=== PATIENT | male | born 1955 | race Caucasian/White ===

== ENCOUNTER 2017-04-25 02:52 | Inpatient (IN) | payer OTHER ==
[2017-04-25] VITALS (15 sets, daily range): BP systolic 94–183; BP diastolic 53–110; PULSE 67–88; RESP 18–20; TEMP 97.8–98.5; O2SAT 93–100
[~2017-04-25] VITALS: Ht 198.1 cm; Wt 126.1 kg
[~2017-04-25 02:52] MED LIST: ATEN1TAB75 PO; CHLO25 PO; MAXZ25 PO; PROT40TA PO; ZOFR4TAB3 PO
[2017-04-25] MEDS ORDERED: PANTOPRAZOLE INJ 80 MG in SODIUM CHLORIDE 0.9% INJ 35 ML IV ONE (03:57)
[2017-04-25] MEDS ORDERED: PANTOPRAZOLE INJ 80 MG in SODIUM CHLORIDE 0.9% INJ 100 ML IV SCH ×2 (03:57→10:30)
[2017-04-25] MEDS ORDERED: OCTREOTIDE INJ 500 MCG in SODIUM CHLORID 0.9% 500 ML INJ 500 ML IV SCH (03:57)
[2017-04-25] MEDS ORDERED: ONDANSETRON HCL 4 MG/2 ML VIAL IVP ONE (04:00)
[2017-04-25] MEDS ORDERED: SODIUM CHLORIDE 0.9% FLUSH 10 ML FLUSH IVF PRN (04:00)
[2017-04-25 04:37] LABS: AUTOMATED NEUTROPHIL # 3.3 TH/MM3 (1.8-7.7); BASOPHIL # 0.1 TH/MM3 (0-0.2); EOSINOPHIL # 0.2 TH/MM3 (0-0.4); EOSINOPHIL % 3.2 % (0.0-4.0); HEMATOCRIT 39.4 % (39.0-51.0); HEMO FLAGS DIFF FINAL; LYMPH % 33.1 % (9.0-44.0); LYMPHOCYTE # 2.1 TH/MM3 (1.0-4.8); MEAN CELL VOLUME 101.6 FL (80.0-100.0); MEAN CORPUSCULAR HEMOGLOBIN 34.9 PG (27.0-34.0); MEAN CORPUSCULAR HGB CONC 34.3 % (32.0-36.0); NEUT % 51.7 % (16.0-70.0); PLATELET COUNT 146 TH/MM3 (150-450); RED BLOOD COUNT 3.88 MIL/MM3 (4.50-5.90); WHITE BLOOD COUNT 6.4 TH/MM3 (4.0-11.0)
[2017-04-25] MEDS ORDERED: ZANT150T2 PO (04:57)
[2017-04-25] MEDS ORDERED: ATEN25TA PO (04:57)
[2017-04-25 04:58] LABS: APTT (PATIENT) 31.3 SEC (24.3-30.1); INTERNATIONAL NORMALIZED RATIO 1.2 RATIO; PROTHROMBIN TIME - PATIENT 13.6 SEC (9.8-11.6)
[2017-04-25 05:03] LABS: ANION GAP 9 MEQ/L (5-15); AST (GOT) 146 U/L (15-37); BICARBONATE 25.1 MEQ/L (21.0-32.0); BLOOD UREA NITROGEN 20 MG/DL (7-18); CHLORIDE 108 MEQ/L (98-107); GLOMERULAR FILTRATION RATE 123 ML/MIN (>89); SODIUM (NA) 142 MEQ/L (136-145)
[2017-04-25 05:06] LABS: ALKALINE PHOSPHATASE 75 U/L (45-117); ALT (GPT) 47 U/L (12-78); TOTAL BILIRUBIN ADULT 1.7 MG/DL (0.2-1.0)
[2017-04-25 05:11] LABS: ALCOHOL 83 MG/DL (0-5)
--- NOTE | 2017-04-25 05:26 | RADRPT ---
EXAM DATE/TIME: 04/25/2017 04:11 [facility] COMPARISON: No previous studies available for comparison. INDICATIONS : Upper abdominal pain and chest pain. Evaluate for free air. MEDICAL HISTORY : None. SURGICAL HISTORY : None. ENCOUNTER: Initial ACUITY: 1 day PAIN SCORE: 4/10 LOCATION: chest FINDINGS: A single view of the chest demonstrates hypoinflation with atelectasis/effusion in the left base. Rig ht lung is clear. Heart size is normal accounting for lung findings. No obvious pneumoperitoneum on t he single image presented. Osseous structures are intact. CONCLUSION: 1. Left basilar consolidation/effusion. 2. No pneumoperitoneum. Tc Fernando MD on April 25, 2017 at 5:23 Board Certified Radiologist. This report was verified electronically.
[2017-04-25] MEDS ORDERED: POTASSIUM CHLOR 40 MEQ PREMIX 100 ML IV PRN ×2 (06:15)
[2017-04-25] MEDS ORDERED: POTASSIUM CHLOR 20 MEQ PREMIX 100 ML IV PRN ×2 (06:15)
[2017-04-25] MEDS ORDERED: MAGNESIUM SULFATE INJ 2 GM in SODIUM CHLORIDE 0.9% INJ 96 ML IV PRN (06:15)
[2017-04-25] MEDS ORDERED: SODIUM PHOSPHATE INJ 30 MMOL in SODIUM CHLOR 0.9% 250 ML INJ 240 ML IV PRN (06:15)
[2017-04-25] MEDS ORDERED: DEXTROSE 50% IN WATER 50 ML VIAL(D50) IV PUSH PRN (06:15)
[2017-04-25] MEDS ORDERED: POTASSIUM PHOSPHATE MONOBASIC 500 MG TAB PO PRN (06:15)
[2017-04-25] MEDS ORDERED: POTASSIUM PHOSPHATE MONOBASIC 500 MG TAB PO/TUBE PRN (06:15)
[2017-04-25] MEDS ORDERED: MAGNESIUM OXIDE 400 MG TAB PO PRN (06:15)
[2017-04-25] MEDS ORDERED: MAGNESIUM SULFATE INJ 4 GM in SODIUM CHLORIDE 0.9% INJ 92 ML IV PRN (06:15)
--- NOTE | 2017-04-25 06:22 | PD ---
HPI Chief Complaint: GI Complaint Time Seen by Provider: 03:57 Travel History International Travel<30 days: No Contact w/Intl Traveler<30days: No Traveled to known affect area: No History of Present Illness HPI Patient is a 61-year-old male, with history of chronic alcoholism, who comes in vomiting blood. He says he started vomiting early this morning. He denies any abdominal pain. He says this happened once before, and he was given some medication in the hospital. He says he has not noticed any blood in his stool. He denies fever or chills. He says he drinks every day and every night. PFSH Past Medical History Cardiovascular Problems: Yes Cerebrovascular Accident: Yes (tia) Diminished Hearing: No Hypertension: Yes Neurologic: Yes Past Surgical History Genitourinary Surgery: Yes (testicle removed) Other Surgery: Yes (pt states 22 lymph nodes removed) Social History Alcohol Use: Yes Tobacco Use: No Substance Use: No Allergies-Medications (Allergen,Severity, Reaction): Coded Allergies: No Known Allergies (Unverified , 05/22/16) Reported Meds & Prescriptions Reported Meds & Active Scripts Active Reported Atenolol 25 Mg Tab 10 Mg PO BID Zantac (Ranitidine HCl) 150 Mg Tab Unknown Dose PO BID Review of Systems Except as stated in HPI: all other systems reviewed are Neg General / Constitutional: No: Fever, Chills HENT: No: Headaches, Lightheadedness Cardiovascular: No: Chest Pain or Discomfort Respiratory: No: Shortness of Breath Gastrointestinal: Positive: Nausea, Vomiting, No: Abdominal Pain Musculoskeletal: No: Myalgias, Edema Skin: No Rash, No Change in Pigmentation Neurologic: No: Weakness, Dizziness Physical Exam Narrative GENERAL: Awake and alert, in no acute distress. SKIN: Focused skin assessment warm/dry. HEAD: Atraumatic. Normocephalic. EYES: Pupils equal and round. No scleral icterus. ENT: Mucous membranes pink and moist. NECK: Trachea midline. No JVD. CARDIOVASCULAR: Regular rate and rhythm. No murmur appreciated. RESPIRATORY: No accessory muscle use. Clear to auscultation. Breath sounds equal bilaterally. GASTROINTESTINAL: Abdomen soft, non-tender, nondistended. MUSCULOSKELETAL: No obvious deformities. No clubbing. No cyanosis. No edema. NEUROLOGICAL: Awake and alert. No obvious cranial nerve deficits. Motor grossly within normal limits. Normal speech. PSYCHIATRIC: Appropriate mood and affect; insight and judgment normal. Data Data Last Documented VS Vital Signs Date Time Temp Pulse Resp B/P (MAP) Pulse Ox O2 Delivery O2 Flow Rate FiO2 04/25/17 04:50 98.1 75 20 183/110 (134) 97 04/25/17 04:47 Nasal Cannula 2.00 Orders Orders Complete Blood Count With Diff (04/25/17 03:57) Comprehensive Metabolic Panel (04/25/17 03:57) Lipase (04/25/17 03:57) Prothrombin Time / Inr (Pt) (04/25/17 03:57) Act Partial Throm Time (Ptt) (04/25/17 03:57) Alcohol (Ethanol) (04/25/17 03:57) Type And Screen (04/25/17 03:57) Chest, Single Ap (04/25/17 03:57) Ecg Monitoring (04/25/17 03:57) Iv Access Insert/Monitor (04/25/17 03:57) Oximetry (04/25/17 03:57) Ondansetron Inj (Zofran Inj) (04/25/17 04:00) Sodium Chloride 0.9% Flush (Ns Flush) (04/25/17 04:00) Sodium Chlorid 0.9%... W/Octreotide Inj (04/25/17 03:57) Sodium Chloride 0.9... W/Pantoprazole In (04/25/17 03:57) Sodium Chloride 0.9... W/Pantoprazole In (04/25/17 03:57) Consult Gastroenterology (04/25/17 ) Consent (04/25/17 06:01) Diet Npo Except Meds (04/25/17 Breakfast) Complete Blood Count With Diff (04/25/17 06:01) Hgb & Hct (04/25/17 06:03) ^ Other Nursing Orders (04/25/17 06:04) Admit Order (Ed Use Only) (04/25/17 ) Ceftriaxone Inj (Rocephin Inj) (04/25/17 06:30) Azithromycin Inj (Zithromax Inj) (04/25/17 06:30) Labs Laboratory Tests Test 04/25/17 04:25 White Blood Count 6.4 TH/MM3 Red Blood Count 3.88 MIL/MM3 Hemoglobin 13.5 GM/DL Hematocrit 39.4 % Mean Corpuscular Volume 101.6 FL Mean Corpuscular Hemoglobin 34.9 PG Mean Corpuscular Hemoglobin Concent 34.3 % Red Cell Distribution Width 15.0 % Platelet Count 146 TH/MM3 Mean Platelet Volume 8.8 FL Neutrophils (%) (Auto) 51.7 % Lymphocytes (%) (Auto) 33.1 % Monocytes (%) (Auto) 11.0 % Eosinophils (%) (Auto) 3.2 % Basophils (%) (Auto) 1.0 % Neutrophils # (Auto) 3.3 TH/MM3 Lymphocytes # (Auto) 2.1 TH/MM3 Monocytes # (Auto) 0.7 TH/MM3 Eosinophils # (Auto) 0.2 TH/MM3 Basophils # (Auto) 0.1 TH/MM3 CBC Comment DIFF FINAL Differential Comment Prothrombin Time 13.6 SEC Prothromb Time International Ratio 1.2 RATIO Activated Partial Thromboplast Time 31.3 SEC Blood Urea Nitrogen 20 MG/DL Creatinine 0.66 MG/DL Random Glucose 90 MG/DL Total Protein 7.5 GM/DL Albumin 2.8 GM/DL Calcium Level 7.9 MG/DL Alkaline Phosphatase 75 U/L Aspartate Amino Transf (AST/SGOT) 146 U/L Alanine Aminotransferase (ALT/SGPT) 47 U/L Total Bilirubin 1.7 MG/DL Sodium Level 142 MEQ/L Potassium Level 4.0 MEQ/L Chloride Level 108 MEQ/L Carbon Dioxide Level 25.1 MEQ/L Anion Gap 9 MEQ/L Estimat Glomerular Filtration Rate 123 ML/MIN Lipase 124 U/L Ethyl Alcohol Level 83 MG/DL MDM Medical Decision Making Medical Screen Exam Complete: Yes Emergency Medical Condition: Yes Differential Diagnosis Bleeding varices versus peptic ulcer disease versus GI bleed Narrative Course Patient is a 61-year-old male comes in complaining of vomiting blood. He is a chronic alcoholic. Labs show no abdominal tenderness, stool is positive for blood. IV established, labs sent. Labs show hemoglobin of 13.5. Patient started on a Protonix drip. Given a dose of octreotide. Given Zofran. He did vomit about 300 ML's of yani blood wall in the emergency department. This happened once with no further vomiting. Chest x-ray performed shows an opacity. There is no free air. Dr. Everett of gastroenterology was consulted. [facility] Internal Pos. & Neg. Controls: Passed Fecal Specimen Occult Blood: Positive Diagnosis Primary Impression: GI bleed Qualified Codes: K92.0 - Hematemesis Additional Impression: Alcoholism Admitting Information Admitting Physician Requests: Admit Condition: Stable Jocelynn Martinez MD Apr 25, 2017 06:22
[2017-04-25] MEDS ORDERED: cefTRIAXone INJ 1,000 MG in SODIUM CHLORIDE 0.9% INJ 100 ML IV ONE (06:30)
[2017-04-25] MEDS ORDERED: AZITHROMYCIN INJ 500 MG in SODIUM CHLOR 0.9% 250 ML INJ 250 ML IV ONE (06:30)
[2017-04-25] MEDS ORDERED: INSULIN NovoLIN REGULAR SUPPLEMENTAL SCALE SQ SCH (08:00)
[2017-04-25] MEDS ORDERED: MIDAZOLAM HCL 5 MG/5 ML VIAL ONE (08:16)
--- NOTE | 2017-04-25 08:58 | PD.CONS ---
HPI History of Present Illness This is a 61 year old male with a history of ETOH abuse (drinking 1 Liter of Vodka daily), who presented to the emergency room for hematemesis. He woke up around 2 am with a gnawing pain in the mid abdominal area without radiation and nausea/vomiting, consisting of a large amount of hematemesis. Since that time, he has had nausea, dry heaving, and 3 episodes of the hematemesis- the last episode just a few minutes ago. There are no aggravating or alleviating factors. He does have GERD, but states that it is well controlled with ranitidine. He denies any melena or hematochezia. He has never been told that he has liver cirrhosis, although he does have an extensive alcohol history. He denies any history of peptic ulcer disease. He denies any history of known liver disease. He did have a similar episode of hematemesis about 2 years ago, although he reports that it was mild and treated with medications. He did recently take Motrin for generalized pain, but states that he does not take this on a regular basis. He has a remote history of Hodgkin's disease and underwent a bronchoscopy with resection of tumor, had his testicle and 22 lymph nodes removed along with radiation. He reports that he has since been in remission. (Sonia Trejo) PFSH Past Medical History DT's ETOH abuse Hodgkin's disease Denies any hx of TIAs HTN Past Surgical History Bronchoscopy with tumor resection, testicle, and 22 lymph nodes resected r/t Hodgkin's disease (Sonia Trejo) Coded Allergies: No Known Allergies (Unverified , 05/22/16) Medications Allergies Coded Allergies Type Severity Reaction Last Updated Verified No Known Allergies 05/22/16 No Active Scripts Medications Dose Route/Sig Max Daily Dose Days Date Category Atenolol 25 Mg Tab 10 Mg PO BID 04/25/17 Reported Zantac (Ranitidine HCl) 150 Mg Tab Unknown Dose PO BID 04/25/17 Reported Family History Denies any family hx of liver disease Social History Drinks 1 liter of Vodka daily No tobacco No illicit drug use (Sonia Trejo) Review of Systems Constitutional: COMPLAINS OF: Fatigue, DENIES: Fever, Chills Respiratory: DENIES: Cough, Shortness of breath Cardiovascular: DENIES: Chest pain Gastrointestinal: COMPLAINS OF: Abdominal pain, Nausea, Vomiting, Heartburn, Hematemesis, DENIES: Black stools, Bloody stools, Constipation, Diarrhea Integumentary: DENIES: Nail changes Hematologic/lymphatic: COMPLAINS OF: Bruising Neurologic: COMPLAINS OF: Headache Psychiatric: DENIES: Confusion (Sonia Trejo MANDI) GI Exam Vitals I&O Vital Signs Date Time Temp Pulse Resp B/P (MAP) Pulse Ox O2 Delivery O2 Flow Rate FiO2 04/25/17 07:50 77 18 155/76 (102) 99 Nasal Cannula 2.00 04/25/17 04:50 98.1 75 20 183/110 (134) 97 04/25/17 04:47 98 Nasal Cannula 2.00 04/25/17 04:47 98 Nasal Cannula 2.00 04/25/17 03:22 71 18 156/97 (116) 93 Room Air Laboratory Test 04/25/17 04:25 White Blood Count 6.4 TH/MM3 Red Blood Count 3.88 MIL/MM3 Hemoglobin 13.5 GM/DL Hematocrit 39.4 % Mean Corpuscular Volume 101.6 FL Mean Corpuscular Hemoglobin 34.9 PG Mean Corpuscular Hemoglobin Concent 34.3 % Red Cell Distribution Width 15.0 % Platelet Count 146 TH/MM3 Mean Platelet Volume 8.8 FL Neutrophils (%) (Auto) 51.7 % Lymphocytes (%) (Auto) 33.1 % Monocytes (%) (Auto) 11.0 % Eosinophils (%) (Auto) 3.2 % Basophils (%) (Auto) 1.0 % Neutrophils # (Auto) 3.3 TH/MM3 Lymphocytes # (Auto) 2.1 TH/MM3 Monocytes # (Auto) 0.7 TH/MM3 Eosinophils # (Auto) 0.2 TH/MM3 Basophils # (Auto) 0.1 TH/MM3 CBC Comment DIFF FINAL Differential Comment Prothrombin Time 13.6 SEC Prothromb Time International Ratio 1.2 RATIO Activated Partial Thromboplast Time 31.3 SEC Blood Urea Nitrogen 20 MG/DL Creatinine 0.66 MG/DL Random Glucose 90 MG/DL Total Protein 7.5 GM/DL Albumin 2.8 GM/DL Calcium Level 7.9 MG/DL Alkaline Phosphatase 75 U/L Aspartate Amino Transf (AST/SGOT) 146 U/L Alanine Aminotransferase (ALT/SGPT) 47 U/L Total Bilirubin 1.7 MG/DL Sodium Level 142 MEQ/L Potassium Level 4.0 MEQ/L Chloride Level 108 MEQ/L Carbon Dioxide Level 25.1 MEQ/L Anion Gap 9 MEQ/L Estimat Glomerular Filtration Rate 123 ML/MIN Lipase 124 U/L Ethyl Alcohol Level 83 MG/DL Physical Examination HEENT: Normocephalic; atraumatic; no jaundice. CHEST: CTA CARDIAC: RRR ABDOMEN: Soft, nondistended, nontender; hepatomegaly; bowel sounds are present in all four quadrants. EXTREMITIES: No clubbing, cyanosis, or edema. SKIN: Normal; no rash; no jaundice. ORNAMENT MAKER HAND: No focal deficits; alert and oriented times three. (Sonia Trejo) Assessment and Plan Plan ASSESSMENT: - Upper GIB, Hematemesis with red emesis x 3 episodes since 2am. Denies hx of PUD/Liver cirrhosis, although he does drink 1L vodka daily. Protonix gtt, Octreotide gtt. NPO. EGD today. - Mid abdominal pain, gnawing constant since the n/v began at 2 am. - Macrocytosis, secondary to etoh. - Elevated LFTs, ETOH abuse. T. Bili 1.7, AST 146, ALT 47, Alk Phosph 75. Pattern consistent with ETOH abuse. - ETOH abuse, DT's. Per attending - HTN, Hx Hodgkin's lymphoma per attending PLAN: - Plan for egd with possible band ligation today - Obtain consents - Protonix gtt - Octreotide gtt - Monitor labs - Transfuse as needed - Further recommendations to follow based on results of above - Pt seen and examined by Dr. Everett and myself and this note is written on her behalf (Sonia Trejo) Physician Comments seen, examined agree with above (Barb Everett MD) Sonia Trejo Apr 25, 2017 08:58 Barb Everett MD Apr 25, 2017 10:43
[2017-04-25 09:00] LABS: AUTOMATED NEUTROPHIL # 3.8 TH/MM3 (1.8-7.7); BASOPHIL % 0.4 % (0.0-2.0); EOSINOPHIL % 0.7 % (0.0-4.0); HEMATOCRIT 36.4 % (39.0-51.0); HEMO FLAGS DIFF FINAL; LYMPH % 17.7 % (9.0-44.0); LYMPHOCYTE # 0.9 TH/MM3 (1.0-4.8); MEAN CELL VOLUME 102.1 FL (80.0-100.0); MEAN CORPUSCULAR HEMOGLOBIN 34.3 PG (27.0-34.0); MEAN CORPUSCULAR HGB CONC 33.6 % (32.0-36.0); MONO % 6.2 % (0.0-8.0); PLATELET COUNT 120 TH/MM3 (150-450); RED BLOOD COUNT 3.57 MIL/MM3 (4.50-5.90); RED CELL DISTRIBUTION WIDTH 15.2 % (11.6-17.2); WHITE BLOOD COUNT 5.1 TH/MM3 (4.0-11.0)
[2017-04-25] MEDS ORDERED: MULTIVITAMIN INJ 10 ML, THIAMINE INJ 100 MG, FOLIC ACID INJ 1 MG in SODIUM CHLOR 0.45% ... IV ONE (09:00)
[2017-04-25] MEDS ORDERED: DEXTROSE 50% IN WATER 50 ML VIAL(D50) IV PRN (09:15)
[2017-04-25] MEDS ORDERED: GLUCAGON 1 MG/ML VIAL OTHER PRN (09:15)
[2017-04-25] MEDS: RESP: ALBUTEROL 2.5 MG/IPRATROPIUM 0.5 MG NEB (SCH) NEB ×3 (10:00→21:16)
[2017-04-25] MEDS ORDERED: hydrALAZINE HCL 20 MG/ML VIAL IV PUSH PRN (10:00)
[2017-04-25] MEDS ORDERED: RESP: ALBUTEROL 2.5 MG/IPRATROPIUM 0.5 MG NEB (PRN) NEB (10:00)
[2017-04-25] MEDS ORDERED: PROPOFOL 200 MG/20 ML AMP IV ONE (10:22)
[2017-04-25] MEDS: PROPOFOL 1000 MG/100 ML IV PRN ×5 (10:40→23:24)
[2017-04-25] MEDS ORDERED: PROPOFOL 1000 MG/100 ML INJ 100 ML ONE (10:40)
[2017-04-25] MEDS ORDERED: DO NOT ADM ANY ANTICOAGULANT DRUGS PRN (10:41)
--- NOTE | 2017-04-25 10:46 | HHI.GIFU ---
GI Follow-up Note Consult Follow-up egd with band ligation done Available Data (labs, X- Rays, Procedues) : ASSESSMENT/PLAN: esophageal varices/p band ligation-3 bands applied hiatal hernia large amount of clots in stomach Recommendations keep intubated overnight Protonix drip octreotide drip monitor hb/hct transfuse prn abdominal us It was a pleasure seeing Anderson Ghotra Thank you for this consult. Entered by: Barb Yao MD Apr 25, 2017 10:46
[2017-04-25 11:18] LABS: BLOOD GAS BASE EXCESS -2.2 mmol/L (-2-2); BLOOD GAS CARBOXYHEMOGLOBIN 1.5 % (0-4); BLOOD GAS HCO3 24 mmol/L (22-26); BLOOD GAS METHEMOGLOBIN 1.4 % (0-2); BLOOD GAS O2 HGB SATURATION 94 % (90-100); BLOOD GAS OXYGEN CONTENT 16.6 Vol % (12.0-20.0); BLOOD GAS PCO2 61 mmHg (38-42); BLOOD GAS PO2 120 mmHg (61-120); BLOOD GAS TOTAL HGB 12.4 G/DL (12.0-16.0); CRITICAL VALUE YES; DRAW SITE RT RADIAL; FIO2 50 %; NUMBER OF ARTERIAL PUNCTURES 1; OXYGEN DEVICE VENTILATOR; STAT NO; TEMP CORR TO 98.6; ULNAR PULSE PRESENT
--- NOTE | 2017-04-25 11:26 | MH ---
cc: GODWIN BENJAMIN M.D. DATE OF ADMISSION 04/25/2017 DATE OF 1955 HISTORY AND PHYSICAL The patient is a 61-year-old male with a past medical history of hypertension, Hodgkin's disease, ETOH abuse who presented to [facility] ED early this morning with hematemesis. The patient woke up around 2 a.m. with mid abdominal pain that is localized and associated with nausea and vomiting. In addition, he had a large amount of hematemesis. The patient denies any alleviating or aggravating factors. In addition, he denies any melena or hematochezia. He denies any use of aspirin or any anticoagulants, however he reports using Motrin intermittently for headaches and his last dose was yesterday. Patient is an active drinker where he drinks one liter of vodka on a daily basis. He has never been told that he has cirrhosis of the liver. In addition, he denies any history of peptic ulcer disease. On arrival to the ER, he was hypertensive with a systolic blood pressure of 150s. LABORATORY DATA His laboratory data shows a hemoglobin of 13.5 and on repeat is 12.2. His CMP showed an AST 146 with ALT 47 and total bilirubin of 1.7. His alcohol level noted at 83. Chest x-ray in the ER showed left basilar consolidation/effusion. In the ED, he was given ceftriaxone and azithromycin and placed on Protonix and octreotide drips. The patient was evaluated by GI service and planned to proceed with endoscopy and possible band ligation today. The patient is awake, alert lying in bed in no acute distress. He is on two liters nasal cannula with saturation of 97-99%. He denies any chest pain, shortness of breath, cough or any constitutional symptoms. PAST MEDICAL HISTORY The past medical history significant for: 1. Hodgkin's disease 2. Hypertension PAST SURGICAL HISTORY 1. Previous bronchoscopy with tumor resection 2. Previous lymph nodes and testicle resection. ALLERGIES NO KNOWN DRUG ALLERGIES. REPORTED MEDICATIONS 1. Atenolol 2. Zantac FAMILY HISTORY Mother with a cerebral hemorrhage. Father had bone cancer. SOCIAL HISTORY He drinks one liter of vodka on a daily basis. Denies any tobacco or IV drug use. REVIEW OF SYSTEMS As per HPI. The rest of the system of systems is unremarkable. PHYSICAL EXAM This is a 61-year-old male lying in bed in no acute respiratory distress. VITAL SIGNS: Temperature 98.1, pulse of 66, blood pressure 140/80, saturation 99% on two liters oxygen. HEENT: Atraumatic, normocephalic. Pupils equal, round and reactive to light and accommodation. Extraocular muscles intact. Conjunctivae pink. Nonicteric sclerae. Oral mucosa within normal. NECK: Supple. No JVD, adenopathy or thyromegaly. Trachea in the midline. CARDIOVASCULAR: Regular rate and rhythm. Normal S1-S2. No murmurs, rubs or gallops noted. PULMONARY: Bilateral equal entry. No rales or wheezing. ABDOMEN: Soft, mild tenderness. No distension. Positive bowel sounds. EXTREMITIES: No cyanosis, clubbing or edema. NEUROLOGIC: No focal sensory deficit. LABORATORY DATA Sodium 142, potassium 4, chloride 108, CO2 25, BUN 9, creatinine 0.66, glucose 90, total bilirubin 1.7, AST 146, ALT 47, alk phos 75, lipase 124, albumin 2.8. WBC 5.1, hemoglobin 12.2, hematocrit 36, platelet count of 120, INR 1.2, PT 13.6, PTT 31.3. Alcohol level 83. Chest x-ray Left basilar consolidation/effusion. IMPRESSION 1. Upper GI bleed. 2. Left basilar consolidation 3. Respiratory insufficiency 4. Anemia 5. Elevated AST secondary to ETOH abuse. 6. Hypertension 7. History of Hodgkin's disease. RECOMMENDATIONS 1. Monitor neuro status closely and avoid any sedatives. 2. Monitor for signs of DTs. Place on Thiamine, MVI and Folic acid. 3. We will place on Ativan 1 mg IV q. 4 hours p.r.n. for agitation and check baseline ammonia level. 4. Continue with oxygen, maintain sats above 92%. 5. Bronchodilators in the form of DuoNeb q. 6+ q. two p.r.n. for shortness of breath. 6. Monitor heart rate and blood pressure closely and maintain MAP greater than [address] on IV fluids D5 NS at 75 an hour. 8. Monitor renal function I's and O's and electrolyte replacement per protocol. 9. IV fluids as stated above. 10. Keep n.p.o. for now and continue with Protonix and octreotide infusions. 11. The patient is scheduled for upper endoscopy today. 12. Monitor LFTs and we will check ultrasound of the abdomen. 13. Continue with broad-spectrum antibiotics and monitor for signs of infections which includes fever and WBC. He was given Rocephin and Zithromax in the ER. We will continue with azithromycin and Zosyn. Check blood cultures x2 sets and a sputum culture with a gram stain. In addition, we will check Strep pneumonia and Legionella urinary antigen. 14. Monitor CBC for signs of bleeding. 15. Sliding scale insulin with Accu-Chek q. 4-hour if needed for glycemic control. 16. GI prophylaxis. The patient is on Protonix drip and DVT prophylaxis with SCD's. We will hold off on chemical anticoagulation prophylaxis given likely GI bleed on presentation. 17. Further recommendations will be based on hospital course. Critical care time 35 minutes excluding procedures. MD RAMESH Rothman/TILA /9:19 AM /11:01 AM [facility]
[2017-04-25] MEDS: fentaNYL DRIP 250 ML IV SCH ×2 (12:42→16:36)
[2017-04-25] MEDS ORDERED: fentaNYL DRIP 250 ML IV SCH (13:30)
[2017-04-25] MEDS: INSULIN NovoLIN REGULAR SUPPLEMENTAL SCALE SQ SCH ×3 (14:00→22:00)
[2017-04-25] MEDS: OCTREOTIDE INJ 500 MCG in SODIUM CHLORID 0.9% 500 ML INJ 499.5 ML IV SCH ×2 (14:04→22:34)
[2017-04-25] MEDS: PANTOPRAZOLE INJ 80 MG in SODIUM CHLORIDE 0.9% INJ 100 ML IV SCH ×2 (14:05→22:34)
[2017-04-25] MEDS: DEXT 5%-NACL 0.9% 1000 ML INJ 1,000 ML IV SCH ×2 (14:07→23:13)
--- NOTE | 2017-04-25 14:24 | RADRPT ---
EXAM DATE/TIME: 04/25/2017 13:32 [facility] COMPARISON: No previous studies available for comparison. INDICATIONS : Abnormal labs. Ascites. MEDICAL HISTORY : GI bleed. TIA. Headache. Hypertension. Hematemesis. Hodkins lymphoma. ETOH abuse. SURGICAL HISTORY : Testicle removed. Lymph nodes removed. EGD. ENCOUNTER: Initial ACUITY: 1 day PAIN SCORE: Nonresponsive. LOCATION: Abdomen. MEASUREMENTS: LIVER: 18.5 cm length COMMON DUCT: 5 mm RIGHT KIDNEY: 12.7 x 5.9 x 5.1 cm LEFT KIDNEY: 12.3 x 5.7 x 5.8 cm SPLEEN: 15.4 cm length AORTA: Nonvisualized FINDINGS: LIVER: Prominence size and mildly increased echogenicity. No focal mass or biliary ductal dilatation. COMMON DUCT: No intraluminal mass or stone visualized. GALLBLADDER: Mild gallbladder wall thickening. PANCREAS: Obscured by intestinal gas RIGHT KIDNEY: No hydronephrosis, stone or mass. LEFT KIDNEY: No hydronephrosis, stone or mass. SPLEEN: Mildly enlarged. No focal lesion. AORTA: Obscured IVC: Obscured CONCLUSION: Hepatosplenomegaly. Mild nonspecific gallbladder wall thickening. Cayden Muhammad MD on April 25, 2017 at 14:19 Board Certified Radiologist. This report was verified electronically.
[2017-04-25 14:40] LABS: REVIEW FLAG FINAL
[2017-04-25 14:52] LABS: BLOOD GAS BASE EXCESS -1.2 mmol/L (-2-2); BLOOD GAS CARBOXYHEMOGLOBIN 1.5 % (0-4); BLOOD GAS HCO3 24 mmol/L (22-26); BLOOD GAS METHEMOGLOBIN 1.3 % (0-2); BLOOD GAS O2 HGB SATURATION 95 % (90-100); BLOOD GAS OXYGEN CONTENT 14.9 Vol % (12.0-20.0); BLOOD GAS PCO2 45 mmHg (38-42); BLOOD GAS PO2 106 mmHg (61-120); BLOOD GAS TOTAL HGB 11.1 G/DL (12.0-16.0); CRITICAL VALUE NO; DRAW SITE RT RADIAL; FIO2 50 %; NUMBER OF ARTERIAL PUNCTURES 1; OXYGEN DEVICE VENTILATOR; STAT NO; TEMP CORR TO 98.6; ULNAR PULSE PRESENT; VENT SETTINGS 550/16/5PEEP
[2017-04-25] MEDS: AZITHROMYCIN INJ 500 MG in SODIUM CHLOR 0.9% 250 ML INJ 250 ML IV SCH (15:46)
[2017-04-25] MEDS: PIPERACIL-TAZO 4.5 GM PREMIX 100 ML IV SCH ×2 (16:37→23:12)
[2017-04-25 19:00] LABS: BACTERIA, URINE RARE /hpf; BLOOD, URINE MOD (NEG); GLUCOSE,URINE TRACE mg/dL (NEG); HYALINE CAST, URINE 20 /lpf (RARE); KETONE, URINE TRACE mg/dL (NEG); NITRITE,URINE NEG (NEG)
[2017-04-25 19:05] LABS: URINE COLOR DARK-BROWN (YELLW/STRAW)
[2017-04-25 19:12] LABS: COMMENT (UR) CATH-CULTURE IND; CULTURE IF INDICATED CATH CULTURE IND
[2017-04-25 20:56] LABS: HEMATOCRIT 31.9 % (39.0-51.0)
[2017-04-25 21:07] LABS: REVIEW FLAG FINAL
[2017-04-26] VITALS (17 sets, daily range): BP systolic 91–134; BP diastolic 52–79; PULSE 68–82; RESP 17–20; TEMP 98–98.8; O2SAT 94–100
[2017-04-26 01:27] LABS: HEMATOCRIT 32.4 % (39.0-51.0); REVIEW FLAG FINAL
[2017-04-26] MEDS: INSULIN NovoLIN REGULAR SUPPLEMENTAL SCALE SQ SCH ×6 (02:00→20:11)
[2017-04-26] MEDS: RESP: ALBUTEROL 2.5 MG/IPRATROPIUM 0.5 MG NEB (SCH) NEB ×3 (03:14→22:42)
--- NOTE | 2017-04-26 05:40 | RADRPT ---
EXAM DATE/TIME: 04/26/2017 05:08 [facility] COMPARISON: CHEST SINGLE AP, April 25, 2017, 4:11. INDICATIONS : Chest tube placement. MEDICAL HISTORY : None. SURGICAL HISTORY : None. ENCOUNTER: Subsequent ACUITY: 3 days PAIN SCORE: Non-responsive. LOCATION: Bilateral chest FINDINGS: A single view of the chest demonstrates the lungs to be symmetrically aerated with improving aeration in the left base. Previously seen left basilar consolidation/effusion is markedly improved. Right bar ng remains grossly clear. Heart size is upper limits of normal. Endotracheal tube is identified at th e thoracic inlet with nasogastric tube traversing the GE junction and extending off the inferior aspe ct of the image. CONCLUSION: 1. Improving aeration in the left base with resolving consolidation/effusion. Right lung remains parveen r. 2. Interval placement of an endotracheal tube with the tip at the thoracic inlet. Nasogastric tube tr averses the GE junction and enters the stomach. Tc Fernando MD on April 26, 2017 at 5:36 Board Certified Radiologist. This report was verified electronically.
[2017-04-26] MEDS: PIPERACIL-TAZO 4.5 GM PREMIX 100 ML IV SCH ×4 (06:12→22:04)
[2017-04-26 06:38] LABS: AUTOMATED NEUTROPHIL # 4.5 TH/MM3 (1.8-7.7); BASOPHIL % 0.6 % (0.0-2.0); EOSINOPHIL # 0.2 TH/MM3 (0-0.4); EOSINOPHIL % 2.3 % (0.0-4.0); HEMATOCRIT 32.9 % (39.0-51.0); LYMPH % 21.3 % (9.0-44.0); LYMPHOCYTE # 1.5 TH/MM3 (1.0-4.8); MEAN CELL VOLUME 104.5 FL (80.0-100.0); MEAN CORPUSCULAR HEMOGLOBIN 34.5 PG (27.0-34.0); MONO % 10.3 % (0.0-8.0); NEUT % 65.5 % (16.0-70.0); PLATELET COUNT 98 TH/MM3 (150-450); RED BLOOD COUNT 3.15 MIL/MM3 (4.50-5.90); RED CELL DISTRIBUTION WIDTH 15.3 % (11.6-17.2); WHITE BLOOD COUNT 6.9 TH/MM3 (4.0-11.0)
[2017-04-26 06:56] LABS: HEMO FLAGS AUTO DIFF
[2017-04-26 07:07] LABS: BICARBONATE 26.7 MEQ/L (21.0-32.0); CALCIUM-PROTEIN CORRECTED 7.5 MG/DL (8.5-10.1); MAGNESIUM 1.7 MG/DL (1.5-2.5); POTASSIUM 3.8 MEQ/L (3.5-5.1); TOTAL BILIRUBIN ADULT 1.4 MG/DL (0.2-1.0)
[2017-04-26 07:52] LABS: PLATELET ESTIMATE SMEAR LOW (NORMAL); PLATELET MORPHOLOGY NORMAL (NORMAL); SCAN/DIFF AUTO DIFF CONFIRMED
--- NOTE | 2017-04-26 08:02 | HHI.CCPN ---
Subjective Remarks/Hospital Course The patient is a 61-year-old male with a past medical history of hypertension, Hodgkin's disease, ETOH abuse who presented to [facility] ED early this morning with hematemesis. The patient woke up around 2 a.m. with mid abdominal pain that is localized and associated with nausea and vomiting. In addition, he had a large amount of hematemesis. The patient denies any alleviating or aggravating factors. In addition, he denies any melena or hematochezia. He denies any use of aspirin or any anticoagulants, however he reports using Motrin intermittently for headaches and his last dose was yesterday. Patient is an active drinker where he drinks one liter of vodka on a daily basis. He has never been told that he has cirrhosis of the liver. In addition, he denies any history of peptic ulcer disease. On arrival to the ER, he was hypertensive with a systolic blood pressure of 150s. His laboratory data shows a hemoglobin of 13.5 and on repeat is 12.2. His CMP showed an AST 146 with ALT 47 and total bilirubin of 1.7. His alcohol level noted at 83. Chest x-ray in the ER showed left basilar consolidation/effusion. In the ED, he was given ceftriaxone and azithromycin and placed on Protonix and octreotide drips. The patient was evaluated by GI service and planned to proceed with endoscopy and possible band ligation today. The patient is awake, alert lying in bed in no acute distress. He is on two liters nasal cannula with saturation of 97-99%. He denies any chest pain, shortness of breath, cough or any constitutional symptoms. 04/26 Patient s/p EGD yesterday which showed esophageal varices s/p banding x3, hitala hernia and large clots in stomach. Patient remained intubated and sedated post endoscopy. On Protonix and Octreotide drips. Objective Vital Signs Date Time Temp Pulse Resp B/P (MAP) Pulse Ox O2 Delivery O2 Flow Rate FiO2 04/26/17 07:45 99 35 04/26/17 06:00 71 04/26/17 04:00 98.0 18 108/65 (79) 04/25/17 11:45 Mechanical Ventilator 04/25/17 07:50 2.00 Intake and Output 04/26/17 04/26/17 04/27/17 08:00 16:00 00:00 Output Total 1025 ml Balance -1025 ml Result Diagram: 04/26/17 0611 04/26/17 0611 Other Results Laboratory Tests Test 04/25/17 08:45 04/25/17 11:07 04/25/17 12:10 04/25/17 14:23 White Blood Count 5.1 TH/MM3 Red Blood Count 3.57 MIL/MM3 Hemoglobin 12.2 GM/DL 11.5 GM/DL Hematocrit 36.4 % 35.0 % Mean Corpuscular Volume 102.1 FL Mean Corpuscular Hemoglobin 34.3 PG Mean Corpuscular Hemoglobin Concent 33.6 % Red Cell Distribution Width 15.2 % Platelet Count 120 TH/MM3 Mean Platelet Volume 8.2 FL Neutrophils (%) (Auto) 75.0 % Lymphocytes (%) (Auto) 17.7 % Monocytes (%) (Auto) 6.2 % Eosinophils (%) (Auto) 0.7 % Basophils (%) (Auto) 0.4 % Neutrophils # (Auto) 3.8 TH/MM3 Lymphocytes # (Auto) 0.9 TH/MM3 Monocytes # (Auto) 0.3 TH/MM3 Eosinophils # (Auto) 0.0 TH/MM3 Basophils # (Auto) 0.0 TH/MM3 CBC Comment DIFF FINAL Differential Comment Blood Gas Puncture Site RT RADIAL Blood Gas Patient Temperature 98.6 Blood Gas HCO3 24 mmol/L Blood Gas Base Excess -2.2 mmol/L Blood Gas Oxygen Saturation 94 % Arterial Blood pH 7.23 Arterial Blood Partial Pressure CO2 61 mmHg Arterial Blood Partial Pressure O2 120 mmHg Arterial Blood Oxygen Content 16.6 Vol % Arterial Blood Carboxyhemoglobin 1.5 % Arterial Blood Methemoglobin 1.4 % Blood Gas Hemoglobin 12.4 G/DL Oxygen Delivery Device VENTILATOR Blood Gas Ventilator Setting IMV,10,600,PEP5,PS10 Blood Gas Inspired Oxygen 50 % Nasal Screen MRSA (PCR) MRSA NOT DETECTED Test 04/25/17 14:27 04/25/17 14:35 04/25/17 18:00 04/25/17 20:26 Ammonia 135 MCMOL/L Blood Gas Puncture Site RT RADIAL Blood Gas Patient Temperature 98.6 Blood Gas HCO3 24 mmol/L Blood Gas Base Excess -1.2 mmol/L Blood Gas Oxygen Saturation 95 % Arterial Blood pH 7.34 Arterial Blood Partial Pressure CO2 45 mmHg Arterial Blood Partial Pressure O2 106 mmHg Arterial Blood Oxygen Content 14.9 Vol % Arterial Blood Carboxyhemoglobin 1.5 % Arterial Blood Methemoglobin 1.3 % Blood Gas Hemoglobin 11.1 G/DL Oxygen Delivery Device VENTILATOR Blood Gas Ventilator Setting 550/16/5PEEP Blood Gas Inspired Oxygen 50 % Urine Color DARK-BROWN Urine Turbidity HAZY Urine pH 6.0 Urine Specific [place] 1.036 Urine Protein 30 mg/dL Urine Glucose (UA) TRACE mg/dL Urine Ketones TRACE mg/dL Urine Occult Blood MOD Urine Nitrite NEG Urine Bilirubin NEG Urine Urobilinogen 4.0 MG/DL Urine Leukocyte Esterase SMALL Urine RBC 62 /hpf Urine WBC 4 /hpf Urine Bacteria RARE /hpf Urine Hyaline Casts 20 /lpf Microscopic Urinalysis Comment CATH-CULTURE IND Hemoglobin 10.6 GM/DL Hematocrit 31.9 % Test 04/26/17 00:29 04/26/17 06:11 Hemoglobin 11.0 GM/DL 10.8 GM/DL Hematocrit 32.4 % 32.9 % White Blood Count 6.9 TH/MM3 Red Blood Count 3.15 MIL/MM3 Mean Corpuscular Volume 104.5 FL Mean Corpuscular Hemoglobin 34.5 PG Mean Corpuscular Hemoglobin Concent 33.0 % Red Cell Distribution Width 15.3 % Platelet Count 98 TH/MM3 Mean Platelet Volume 8.5 FL Neutrophils (%) (Auto) 65.5 % Lymphocytes (%) (Auto) 21.3 % Monocytes (%) (Auto) 10.3 % Eosinophils (%) (Auto) 2.3 % Basophils (%) (Auto) 0.6 % Neutrophils # (Auto) 4.5 TH/MM3 Lymphocytes # (Auto) 1.5 TH/MM3 Monocytes # (Auto) 0.7 TH/MM3 Eosinophils # (Auto) 0.2 TH/MM3 Basophils # (Auto) 0.0 TH/MM3 CBC Comment AUTO DIFF Differential Comment AUTO DIFF CONFIRMED Platelet Estimate LOW Platelet Morphology Comment NORMAL Blood Urea Nitrogen 31 MG/DL Creatinine 0.99 MG/DL Random Glucose 131 MG/DL Total Protein 6.3 GM/DL Albumin 2.3 GM/DL Calcium Level 7.1 MG/DL Phosphorus Level 3.1 MG/DL Magnesium Level 1.7 MG/DL Alkaline Phosphatase 55 U/L Aspartate Amino Transf (AST/SGOT) 110 U/L Alanine Aminotransferase (ALT/SGPT) 35 U/L Total Bilirubin 1.4 MG/DL Sodium Level 143 MEQ/L Potassium Level 3.8 MEQ/L Chloride Level 109 MEQ/L Carbon Dioxide Level 26.7 MEQ/L Anion Gap 7 MEQ/L Estimat Glomerular Filtration Rate 77 ML/MIN Protein Corrected Calcium 7.5 MG/DL Imaging Last Impressions Chest X-Ray 04/26/17 0000 Signed Impressions: Service Date/Time: Wednesday, April 26, 2017 05:08 - CONCLUSION: 1. Improving aeration in the left base with resolving consolidation/effusion. Right lung remains clear. 2. Interval placement of an endotracheal tube with the tip at the thoracic inlet. Nasogastric tube traverses the GE junction and enters the stomach. Tc Fernando MD Abdomen Ultrasound 04/25/17 0000 Signed Impressions: Service Date/Time: Tuesday, April 25, 2017 13:32 - CONCLUSION: Hepatosplenomegaly. Mild nonspecific gallbladder wall thickening. Cayden Muhammad MD Objective Remarks GENERAL: Patient is 61 yo intubated and sedated SKIN: Warm and dry. HEAD: Normocephalic. EYES: No scleral icterus. No injection or drainage. NECK: Supple, trachea midline. No JVD or lymphadenopathy. Orally intubated. CARDIOVASCULAR: Regular rate and rhythm without murmurs, gallops, or rubs. RESPIRATORY: Breath sounds equal bilaterally. No accessory muscle use. GASTROINTESTINAL: Abdomen soft, non-tender, nondistended. MUSCULOSKELETAL: No cyanosis, or edema. Neuro: Sedated. A/P Assessment and Plan 1. VDRF 2. Upper GI bleed. 2. Left basilar consolidation 4. Anemia 5. Elevated AST secondary to ETOH abuse. 6. Hypertension 7. History of Hodgkin's disease. Plan Neuro:On Diprivan and Fentanyl infusion for sedation. Daily sedation vacation. Monitor neuro status Monitor for signs of DTs. On Thiamine, MVI and Folic acid. Ativan 1 mg IV q. [address] on Lactulose and Rifaximin. Monitor Ammonia level ( NH4 level 135 o/15) Pulm: Continue with vent support maintain sats above 92%. Bronchodilators, ICU vent bundle, SBT daily as marlena CV: Monitor HR and BP maintain MAP > 65 mmHg. IV fluids D5 NS at 75 an hour. : Monitor renal function I's and O's and electrolyte replacement per protocol. GI: Keep n.p.o. for now and continue with Protonix and octreotide infusions. Monitor LFTs , US abdomen: Hepatosplenomegaly. Mild nonspecific gallbladder wall thickening. s/p EGD 04/25: Esophageal varices s/p banding x3, hiatal hernia, large clots in stomach. Continue with Protonix qnd Octreotide drips. ID: Continue with abx( Zosyn, Azithromycin)and monitor for signs of infections( fever and WBC). He was Follow up on blood culture and urine cx. Check sputum cx Strep pneumonia and Legionella urinary antigen. Heme: Monitor CBC Endo: SSI with Accu-Chek q. 4-hour for glycemic control. GI prophylaxis-on Protonix drip and DVT prophylaxis with SCD's. Not on chemical anticoagulation prophylaxis due to GI bleed Level 3 Katy Umana MD Apr 26, 2017 08:02
[2017-04-26] MEDS: MULTIVITAMIN TAB PO SCH (09:18)
[2017-04-26] MEDS: THIAMINE INJ 100 MG in SODIUM CHLORIDE 0.9% INJ 100 ML IV SCH (09:18)
[2017-04-26] MEDS: RIFAXIMIN 550 MG TAB PO SCH ×2 (09:18→20:11)
[2017-04-26] MEDS: LACTULOSE SYRUP 20 GM/30 ML CUP PO SCH ×4 (09:40→20:11)
[2017-04-26] MEDS: PANTOPRAZOLE INJ 80 MG in SODIUM CHLORIDE 0.9% INJ 100 ML IV SCH ×2 (09:40→21:51)
[2017-04-26 09:55] LABS: BLOOD GAS BASE EXCESS 1.6 mmol/L (-2-2); BLOOD GAS CARBOXYHEMOGLOBIN 1.4 % (0-4); BLOOD GAS HCO3 26 mmol/L (22-26); BLOOD GAS METHEMOGLOBIN 1.3 % (0-2); BLOOD GAS O2 HGB SATURATION 92 % (90-100); BLOOD GAS OXYGEN CONTENT 13.9 Vol % (12.0-20.0); BLOOD GAS PCO2 40 mmHg (38-42); BLOOD GAS PO2 74 mmHg (61-120); BLOOD GAS TOTAL HGB 10.7 G/DL (12.0-16.0); TEMP CORR TO 98.6
[2017-04-26 09:56] LABS: CRITICAL VALUE NO; OXYGEN DEVICE VENTILATOR; VENT SETTINGS CPAP 5/10PS
[2017-04-26 09:57] LABS: DRAW SITE LT RADIAL; FIO2 35 %; NUMBER OF ARTERIAL PUNCTURES 1; STAT NO; ULNAR PULSE PRESENT
--- NOTE | 2017-04-26 11:05 | HHI.GIFU ---
Subjective Remarks Resting in bed. On CPAP. Awake and following commands. Plan to extubate later this morning. No active bleeding. Denies abdominal pain. (Sonia Trejo) Objective Vitals I&O Vital Signs Date Time Temp Pulse Resp B/P (MAP) Pulse Ox O2 Delivery O2 Flow Rate FiO2 04/26/17 07:45 99 35 04/26/17 06:00 71 04/26/17 04:10 99 35 04/26/17 04:00 35 04/26/17 04:00 69 04/26/17 04:00 98.0 69 18 108/65 (79) 99 04/26/17 02:00 75 04/26/17 01:24 100 35 04/26/17 00:00 71 04/26/17 00:00 98.6 71 17 105/62 (76) 100 04/26/17 00:00 35 04/25/17 22:00 69 04/25/17 21:19 99 35 04/25/17 20:00 35 04/25/17 20:00 67 04/25/17 20:00 98.5 67 19 94/53 (67) 98 04/25/17 18:03 68 04/25/17 16:00 98.0 71 18 100/59 (73) 98 04/25/17 16:00 71 04/25/17 15:50 100 35 04/25/17 14:00 67 04/25/17 12:45 82 04/25/17 12:10 97.8 82 18 155/76 (102) 100 04/25/17 12:04 99 100 04/25/17 11:45 86 17 155/85 (108) 97 Mechanical Ventilator 50 04/25/17 11:30 84 16 139/74 (95) 97 Mechanical Ventilator 50 04/25/17 11:24 50 04/25/17 11:15 82 10 149/73 (98) 98 Mechanical Ventilator 50 04/25/17 11:00 83 10 164/86 (112) 98 Mechanical Ventilator 50 I/O 04/25/17 04/25/17 04/25/17 04/26/17 04/26/17 04/26/17 07:00 15:00 23:00 07:00 15:00 23:00 Intake Total 1351 ml 75 ml Output Total 350 ml 1025 ml Balance 1001 ml -1025 ml 75 ml Intake IV Total 551 ml 75 ml Other 800 ml Output Urine Total 350 ml 725 ml Gastric Drainage Total 300 ml Laboratory Laboratory Tests Test 04/25/17 11:07 04/25/17 12:10 04/25/17 14:23 04/25/17 14:27 Blood Gas Puncture Site RT RADIAL Blood Gas Patient Temperature 98.6 Blood Gas HCO3 24 Blood Gas Base Excess -2.2 Blood Gas Oxygen Saturation 94 Arterial Blood pH 7.23 Arterial Blood Partial Pressure CO2 61 Arterial Blood Partial Pressure O2 120 Arterial Blood Oxygen Content 16.6 Arterial Blood Carboxyhemoglobin 1.5 Arterial Blood Methemoglobin 1.4 Blood Gas Hemoglobin 12.4 Oxygen Delivery Device VENTILATOR Blood Gas Ventilator Setting IMV,10,600,PEP5,PS10 Blood Gas Inspired Oxygen 50 Nasal Screen MRSA (PCR) MRSA NOT DETECTED Hemoglobin 11.5 Hematocrit 35.0 Ammonia 135 Test 04/25/17 14:35 04/25/17 18:00 04/25/17 20:26 04/26/17 00:29 Blood Gas Puncture Site RT RADIAL Blood Gas Patient Temperature 98.6 Blood Gas HCO3 24 Blood Gas Base Excess -1.2 Blood Gas Oxygen Saturation 95 Arterial Blood pH 7.34 Arterial Blood Partial Pressure CO2 45 Arterial Blood Partial Pressure O2 106 Arterial Blood Oxygen Content 14.9 Arterial Blood Carboxyhemoglobin 1.5 Arterial Blood Methemoglobin 1.3 Blood Gas Hemoglobin 11.1 Oxygen Delivery Device VENTILATOR Blood Gas Ventilator Setting 550/16/5PEEP Blood Gas Inspired Oxygen 50 Urine Color DARK-BROWN Urine Turbidity HAZY Urine pH 6.0 Urine Specific [place] 1.036 Urine Protein 30 Urine Glucose (UA) TRACE Urine Ketones TRACE Urine Occult Blood MOD Urine Nitrite NEG Urine Bilirubin NEG Urine Urobilinogen 4.0 Urine Leukocyte Esterase SMALL Urine RBC 62 Urine WBC 4 Urine Bacteria RARE Urine Hyaline Casts 20 Microscopic Urinalysis Comment CATH-CULTURE IND Hemoglobin 10.6 11.0 Hematocrit 31.9 32.4 Test 04/26/17 06:11 04/26/17 09:48 White Blood Count 6.9 Red Blood Count 3.15 Hemoglobin 10.8 Hematocrit 32.9 Mean Corpuscular Volume 104.5 Mean Corpuscular Hemoglobin 34.5 Mean Corpuscular Hemoglobin Concent 33.0 Red Cell Distribution Width 15.3 Platelet Count 98 Mean Platelet Volume 8.5 Neutrophils (%) (Auto) 65.5 Lymphocytes (%) (Auto) 21.3 Monocytes (%) (Auto) 10.3 Eosinophils (%) (Auto) 2.3 Basophils (%) (Auto) 0.6 Neutrophils # (Auto) 4.5 Lymphocytes # (Auto) 1.5 Monocytes # (Auto) 0.7 Eosinophils # (Auto) 0.2 Basophils # (Auto) 0.0 CBC Comment AUTO DIFF Differential Comment AUTO DIFF CONFIRMED Platelet Estimate LOW Platelet Morphology Comment NORMAL Blood Urea Nitrogen 31 Creatinine 0.99 Random Glucose 131 Total Protein 6.3 Albumin 2.3 Calcium Level 7.1 Phosphorus Level 3.1 Magnesium Level 1.7 Alkaline Phosphatase 55 Aspartate Amino Transf (AST/SGOT) 110 Alanine Aminotransferase (ALT/SGPT) 35 Total Bilirubin 1.4 Sodium Level 143 Potassium Level 3.8 Chloride Level 109 Carbon Dioxide Level 26.7 Anion Gap 7 Estimat Glomerular Filtration Rate 77 Protein Corrected Calcium 7.5 Blood Gas Puncture Site LT RADIAL Blood Gas Patient Temperature 98.6 Blood Gas HCO3 26 Blood Gas Base Excess 1.6 Blood Gas Oxygen Saturation 92 Arterial Blood pH 7.43 Arterial Blood Partial Pressure CO2 40 Arterial Blood Partial Pressure O2 74 Arterial Blood Oxygen Content 13.9 Arterial Blood Carboxyhemoglobin 1.4 Arterial Blood Methemoglobin 1.3 Blood Gas Hemoglobin 10.7 Oxygen Delivery Device VENTILATOR Blood Gas Ventilator Setting CPAP 5/10PS Blood Gas Inspired Oxygen 35 Date/Time Source Procedure Growth Status 04/25/17 14:27 Blood Peripheral Aerobic Blood Culture Pending Received 04/25/17 14:27 Blood Peripheral Anaerobic Blood Culture Pending Received 04/25/17 18:00 Urine Clean Catch Urine Culture Pending Received Imaging Last Impressions Chest X-Ray 04/26/17 0000 Signed Impressions: Service Date/Time: Wednesday, April 26, 2017 05:08 - CONCLUSION: 1. Improving aeration in the left base with resolving consolidation/effusion. Right lung remains clear. 2. Interval placement of an endotracheal tube with the tip at the thoracic inlet. Nasogastric tube traverses the GE junction and enters the stomach. Tc Fernando MD Abdomen Ultrasound 04/25/17 0000 Signed Impressions: Service Date/Time: Tuesday, April 25, 2017 13:32 - CONCLUSION: Hepatosplenomegaly. Mild nonspecific gallbladder wall thickening. Cayden Muhammad MD Physical Exam HEENT: Normocephalic; atraumatic; no jaundice. CHEST: Resp even/unlabored, Diminished bases. OETT to CPAP CARDIAC: RRR ABDOMEN: Soft, nondistended, nontender; hepatosplenomegaly; bowel sounds are present in all four quadrants. EXTREMITIES: Mild BLE edema. SKIN: Normal; no rash; no jaundice. 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 Denies hx of PUD/Liver cirrhosis, although he does drink 1L vodka daily. S/P EGD with band ligation (04/25/17)----> esophageal varices/ p band ligation-3 bands applied, hiatal hernia, large amount of clots in stomach. No active bleeding. S/P 10.8/32.9. Protonix gtt, Octreotide gtt. NPO. - Mid abdominal pain, gnawing constant since the n/v began at 2 am. S/P EGD as above. US (04/25/17)---> Hepatosplenomegaly. Mild nonspecific gallbladder wall thickening. - Hepatic encephalopathy. Ammonia 135. Lactulose, Xifaxan. He is alert and following commands, though intubated. - Macrocytosis, secondary to etoh. MCV 104.5. - Elevated LFTs, ETOH abuse. T. Bili 1.4, AST 110, ALT 35, Alk Phosph 55. Pattern consistent with ETOH abuse. - ETOH abuse, DT's. Per attending - HTN, Hx Hodgkin's lymphoma per attending PLAN: - Okay for clears once extubated - Cont. Protonix Gtt - Cont. Octreotide gtt x 3 days - Cont. Lactulose, Xifaxan - Monitor labs - Transfuse as needed - Further recommendations to follow based on results of above - Pt seen and examined by Dr. Marmolejo and myself and this note is written on his behalf (Sonia Trejo) Physician Comments Seen and examined with MANDI, doing better, no obvious bleeding. Continue octreotide/Protonix. Clear liquid diet. (Alec Marmolejo MD) Sonia Trejo Apr 26, 2017 11:04 Alec Marmolejo MD Apr 26, 2017 11:36
[2017-04-26] MEDS: LORazepam 2 MG/ML VIAL IV PUSH PRN (11:06)
[2017-04-26] MEDS: AZITHROMYCIN INJ 500 MG in SODIUM CHLOR 0.9% 250 ML INJ 250 ML IV SCH (12:04)
[2017-04-26] MEDS: OCTREOTIDE INJ 500 MCG in SODIUM CHLORID 0.9% 500 ML INJ 499.5 ML IV SCH (13:43)
[2017-04-26] MEDS: DEXT 5%-NACL 0.9% 1000 ML INJ 1,000 ML IV SCH (13:43)
[2017-04-26 13:49] LABS: REVIEW FLAG FINAL
[2017-04-26 19:23] LABS: HEMATOCRIT 30.7 % (39.0-51.0)
[2017-04-26 19:26] LABS: REVIEW FLAG FINAL
[2017-04-27] VITALS (14 sets, daily range): BP systolic 131–159; BP diastolic 76–99; PULSE 60–80; RESP 18–25; TEMP 98.2–98.9; O2SAT 92–98
[2017-04-27 00:15] LABS: HEMATOCRIT 31.1 % (39.0-51.0)
[2017-04-27 00:18] LABS: REVIEW FLAG FINAL
[2017-04-27] MEDS: OCTREOTIDE INJ 500 MCG in SODIUM CHLORID 0.9% 500 ML INJ 499.5 ML IV SCH ×3 (00:38→22:03)
[2017-04-27] MEDS: INSULIN NovoLIN REGULAR SUPPLEMENTAL SCALE SQ SCH ×6 (02:00→22:00)
[2017-04-27] MEDS: RESP: ALBUTEROL 2.5 MG/IPRATROPIUM 0.5 MG NEB (SCH) NEB ×4 (04:13→21:44)
[2017-04-27] MEDS: DEXT 5%-NACL 0.9% 1000 ML INJ 1,000 ML IV SCH (04:47)
[2017-04-27] MEDS: PIPERACIL-TAZO 4.5 GM PREMIX 100 ML IV SCH ×4 (04:48→22:04)
[2017-04-27 06:00] LABS: AUTOMATED NEUTROPHIL # 2.8 TH/MM3 (1.8-7.7); BASOPHIL % 0.5 % (0.0-2.0); EOSINOPHIL # 0.1 TH/MM3 (0-0.4); EOSINOPHIL % 2.6 % (0.0-4.0); HEMATOCRIT 30.4 % (39.0-51.0); LYMPH % 20.3 % (9.0-44.0); LYMPHOCYTE # 0.8 TH/MM3 (1.0-4.8); MEAN CELL VOLUME 102.7 FL (80.0-100.0); MEAN CORPUSCULAR HEMOGLOBIN 35.3 PG (27.0-34.0); MEAN CORPUSCULAR HGB CONC 34.4 % (32.0-36.0); MONO % 6.5 % (0.0-8.0); NEUT % 70.1 % (16.0-70.0); PLATELET COUNT 73 TH/MM3 (150-450); RED BLOOD COUNT 2.96 MIL/MM3 (4.50-5.90); RED CELL DISTRIBUTION WIDTH 14.5 % (11.6-17.2)
[2017-04-27 06:17] LABS: HEMO FLAGS AUTO DIFF
[2017-04-27 06:31] LABS: BICARBONATE 27.5 MEQ/L (21.0-32.0); CALCIUM-PROTEIN CORRECTED 7.7 MG/DL (8.5-10.1); MAGNESIUM 1.8 MG/DL (1.5-2.5); POTASSIUM 3.3 MEQ/L (3.5-5.1); TOTAL BILIRUBIN ADULT 2.4 MG/DL (0.2-1.0)
[2017-04-27 08:54] LABS: PLATELET ESTIMATE SMEAR LOW (NORMAL); PLATELET MORPHOLOGY NORMAL (NORMAL); SCAN/DIFF AUTO DIFF CONFIRMED
[2017-04-27] MEDS: RIFAXIMIN 550 MG TAB PO SCH ×2 (09:00→20:31)
[2017-04-27] MEDS: LACTULOSE SYRUP 20 GM/30 ML CUP PO SCH ×4 (09:00→20:31)
[2017-04-27] MEDS: MULTIVITAMIN TAB PO SCH (09:00)
[2017-04-27] MEDS: PANTOPRAZOLE INJ 80 MG in SODIUM CHLORIDE 0.9% INJ 100 ML IV SCH ×2 (09:00→22:03)
[2017-04-27] MEDS: POTASSIUM PHOSPHATE INJ 30 MMOL in SODIUM CHLOR 0.9% 250 ML INJ 250 ML IV PRN (09:00)
[2017-04-27] MEDS: THIAMINE INJ 100 MG in SODIUM CHLORIDE 0.9% INJ 100 ML IV SCH (09:01)
--- NOTE | 2017-04-27 09:07 | HHI.CCPN ---
Subjective Remarks/Hospital Course The patient is a 61-year-old male with a past medical history of hypertension, Hodgkin's disease, ETOH abuse who presented to [facility] ED early this morning with hematemesis. The patient woke up around 2 a.m. with mid abdominal pain that is localized and associated with nausea and vomiting. In addition, he had a large amount of hematemesis. The patient denies any alleviating or aggravating factors. In addition, he denies any melena or hematochezia. He denies any use of aspirin or any anticoagulants, however he reports using Motrin intermittently for headaches and his last dose was yesterday. Patient is an active drinker where he drinks one liter of vodka on a daily basis. He has never been told that he has cirrhosis of the liver. In addition, he denies any history of peptic ulcer disease. On arrival to the ER, he was hypertensive with a systolic blood pressure of 150s. His laboratory data shows a hemoglobin of 13.5 and on repeat is 12.2. His CMP showed an AST 146 with ALT 47 and total bilirubin of 1.7. His alcohol level noted at 83. Chest x-ray in the ER showed left basilar consolidation/effusion. In the ED, he was given ceftriaxone and azithromycin and placed on Protonix and octreotide drips. The patient was evaluated by GI service and planned to proceed with endoscopy and possible band ligation today. The patient is awake, alert lying in bed in no acute distress. He is on two liters nasal cannula with saturation of 97-99%. He denies any chest pain, shortness of breath, cough or any constitutional symptoms. 04/26 Patient s/p EGD yesterday which showed esophageal varices s/p banding x3, hitala hernia and large clots in stomach. Patient remained intubated and sedated post endoscopy. On Protonix and Octreotide drips. 04/27 Patient was extubated yesterday on 3L oxygen with good sats. Awake and alert. Afebrile. On Protonix and Octreotide drips. Objective Vital Signs Date Time Temp Pulse Resp B/P (MAP) Pulse Ox O2 Delivery O2 Flow Rate FiO2 04/27/17 08:10 96 Nasal Cannula 3.00 04/27/17 06:12 71 04/27/17 04:00 98.7 20 150/89 (109) 04/26/17 11:00 36 Intake and Output 04/27/17 04/27/17 04/28/17 08:00 16:00 00:00 Intake Total 2420 ml Output Total 700 ml Balance 1720 ml Result Diagram: 04/27/17 0545 04/27/17 0545 Other Results Laboratory Tests Test 04/26/17 09:48 04/26/17 11:50 04/26/17 13:18 04/26/17 18:46 Blood Gas Puncture Site LT RADIAL Blood Gas Patient Temperature 98.6 Blood Gas HCO3 26 mmol/L Blood Gas Base Excess 1.6 mmol/L Blood Gas Oxygen Saturation 92 % Arterial Blood pH 7.43 Arterial Blood Partial Pressure CO2 40 mmHg Arterial Blood Partial Pressure O2 74 mmHg Arterial Blood Oxygen Content 13.9 Vol % Arterial Blood Carboxyhemoglobin 1.4 % Arterial Blood Methemoglobin 1.3 % Blood Gas Hemoglobin 10.7 G/DL Oxygen Delivery Device VENTILATOR Blood Gas Ventilator Setting CPAP 5/10PS Blood Gas Inspired Oxygen 35 % Ammonia 107 MCMOL/L Hemoglobin 10.6 GM/DL 10.2 GM/DL Hematocrit 32.0 % 30.7 % Test 04/26/17 23:42 04/27/17 05:45 Hemoglobin 10.4 GM/DL 10.5 GM/DL Hematocrit 31.1 % 30.4 % White Blood Count 4.0 TH/MM3 Red Blood Count 2.96 MIL/MM3 Mean Corpuscular Volume 102.7 FL Mean Corpuscular Hemoglobin 35.3 PG Mean Corpuscular Hemoglobin Concent 34.4 % Red Cell Distribution Width 14.5 % Platelet Count 73 TH/MM3 Mean Platelet Volume 8.8 FL Neutrophils (%) (Auto) 70.1 % Lymphocytes (%) (Auto) 20.3 % Monocytes (%) (Auto) 6.5 % Eosinophils (%) (Auto) 2.6 % Basophils (%) (Auto) 0.5 % Neutrophils # (Auto) 2.8 TH/MM3 Lymphocytes # (Auto) 0.8 TH/MM3 Monocytes # (Auto) 0.3 TH/MM3 Eosinophils # (Auto) 0.1 TH/MM3 Basophils # (Auto) 0.0 TH/MM3 CBC Comment AUTO DIFF Differential Comment AUTO DIFF CONFIRMED Platelet Estimate LOW Platelet Morphology Comment NORMAL Blood Urea Nitrogen 15 MG/DL Creatinine 0.70 MG/DL Random Glucose 124 MG/DL Total Protein 6.4 GM/DL Albumin 2.3 GM/DL Calcium Level 7.3 MG/DL Phosphorus Level 1.9 MG/DL Magnesium Level 1.8 MG/DL Alkaline Phosphatase 57 U/L Aspartate Amino Transf (AST/SGOT) 157 U/L Alanine Aminotransferase (ALT/SGPT) 48 U/L Total Bilirubin 2.4 MG/DL Sodium Level 142 MEQ/L Potassium Level 3.3 MEQ/L Chloride Level 108 MEQ/L Carbon Dioxide Level 27.5 MEQ/L Anion Gap 7 MEQ/L Estimat Glomerular Filtration Rate 115 ML/MIN Protein Corrected Calcium 7.7 MG/DL Ammonia 88 MCMOL/L Imaging Last Impressions Chest X-Ray 04/26/17 0000 Signed Impressions: Service Date/Time: Wednesday, April 26, 2017 05:08 - CONCLUSION: 1. Improving aeration in the left base with resolving consolidation/effusion. Right lung remains clear. 2. Interval placement of an endotracheal tube with the tip at the thoracic inlet. Nasogastric tube traverses the GE junction and enters the stomach. Tc Fernando MD Abdomen Ultrasound 04/25/17 0000 Signed Impressions: Service Date/Time: Tuesday, April 25, 2017 13:32 - CONCLUSION: Hepatosplenomegaly. Mild nonspecific gallbladder wall thickening. Cayden Muhammad MD Objective Remarks GENERAL: Patient is 61 yo intubated and sedated SKIN: Warm and dry. HEAD: Normocephalic. EYES: No scleral icterus. No injection or drainage. NECK: Supple, trachea midline. No JVD or lymphadenopathy. Orally intubated. CARDIOVASCULAR: Regular rate and rhythm without murmurs, gallops, or rubs. RESPIRATORY: Breath sounds equal bilaterally. No accessory muscle use. GASTROINTESTINAL: Abdomen soft, non-tender, nondistended. MUSCULOSKELETAL: No cyanosis, or edema. Neuro: Sedated. A/P Assessment and Plan 1. Resp Insuff s/p extubation 04/26 2. Upper GI bleed. 2. Left basilar consolidation 4. Anemia 5. Elevated AST secondary to ETOH abuse. 6. Hypertension 7. History of Hodgkin's disease. Plan Neuro: Awake and alert. Monitor neuro status and for signs of DT's On Thiamine, MVI and Folic acid. Ativan 1 mg IV q. 4 hours p.r.n. Continue Lactulose and Rifaximin. Monitor Ammonia level trending down ( NH4 level 88 today) Pulm: Continue with oxygen maintain sats above 92%. Bronchodilators, CV: Monitor HR and BP maintain MAP > 65 mmHg. IV fluids D5 NS@50ml/hr : Monitor renal function I's and O's and electrolyte replacement per protocol. Will need K, phos replacement today GI: On clear liquid . Change Protonix 40mg IV BID and d/c octreotide drip if ok with GI Monitor LFTs , US abdomen: Hepatosplenomegaly. Mild nonspecific gallbladder wall thickening. s/p EGD 04/25: Esophageal varices s/p banding x3, hiatal hernia, large clots in stomach. . ID: Continue with abx( Zosyn, Azithromycin)and monitor for signs of infections( fever and WBC). blood culture and urine cx: NGTD Strep pneumonia and Legionella urinary antigen negative Heme: Monitor CBC Endo: SSI with Accu-Chek q. 4-hour for glycemic control. GI prophylaxis-on Protonix drip and DVT prophylaxis with SCD's. Not on chemical anticoagulation prophylaxis due to GI bleed Will sign off and transfer care to [facility] Level 3 Katy Umana MD Apr 27, 2017 09:07
[2017-04-27] MEDS: AZITHROMYCIN INJ 500 MG in SODIUM CHLOR 0.9% 250 ML INJ 250 ML IV SCH (11:11)
[2017-04-27 12:37] LABS: HEMATOCRIT 30.9 % (39.0-51.0)
[2017-04-27 12:41] LABS: REVIEW FLAG FINAL
[2017-04-27 18:39] LABS: HEMATOCRIT 31.6 % (39.0-51.0)
[2017-04-27 18:43] LABS: REVIEW FLAG FINAL
[2017-04-27 20:16] LABS: POTASSIUM 3.4 MEQ/L (3.5-5.1)
[2017-04-27] MEDS: LORazepam 2 MG/ML VIAL IV PUSH PRN (20:31)
[2017-04-28] VITALS (13 sets, daily range): BP systolic 130–173; BP diastolic 75–95; PULSE 62–97; RESP 18–21; TEMP 98.2–98.7; O2SAT 91–96
[2017-04-28 00:11] LABS: HEMATOCRIT 31.6 % (39.0-51.0)
[2017-04-28 00:12] LABS: REVIEW FLAG FINAL
[2017-04-28] MEDS: INSULIN NovoLIN REGULAR SUPPLEMENTAL SCALE SQ SCH ×6 (02:00→22:00)
[2017-04-28] MEDS: DEXT 5%-NACL 0.9% 1000 ML INJ 1,000 ML IV SCH (02:22)
[2017-04-28] MEDS: POTASSIUM PHOSPHATE INJ 30 MMOL in SODIUM CHLOR 0.9% 250 ML INJ 250 ML IV PRN (03:10)
[2017-04-28] MEDS: RESP: ALBUTEROL 2.5 MG/IPRATROPIUM 0.5 MG NEB (SCH) NEB ×4 (03:27→19:41)
[2017-04-28 04:17] LABS: AUTOMATED NEUTROPHIL # 2.3 TH/MM3 (1.8-7.7); BASOPHIL % 0.9 % (0.0-2.0); EOSINOPHIL # 0.1 TH/MM3 (0-0.4); EOSINOPHIL % 3.4 % (0.0-4.0); HEMATOCRIT 29.8 % (39.0-51.0); LYMPH % 26.5 % (9.0-44.0); MEAN CELL VOLUME 103.5 FL (80.0-100.0); MEAN CORPUSCULAR HEMOGLOBIN 35.2 PG (27.0-34.0); MONO % 5.5 % (0.0-8.0); NEUT % 63.7 % (16.0-70.0); PLATELET COUNT 75 TH/MM3 (150-450); RED BLOOD COUNT 2.88 MIL/MM3 (4.50-5.90); RED CELL DISTRIBUTION WIDTH 14.8 % (11.6-17.2); WHITE BLOOD COUNT 3.6 TH/MM3 (4.0-11.0)
[2017-04-28 04:22] LABS: HEMO FLAGS AUTO DIFF
[2017-04-28 04:42] LABS: BICARBONATE 24.7 MEQ/L (21.0-32.0); CALCIUM-PROTEIN CORRECTED 7.6 MG/DL (8.5-10.1); MAGNESIUM 1.7 MG/DL (1.5-2.5); POTASSIUM 3.4 MEQ/L (3.5-5.1); TOTAL BILIRUBIN ADULT 2.5 MG/DL (0.2-1.0)
[2017-04-28] MEDS: PIPERACIL-TAZO 4.5 GM PREMIX 100 ML IV SCH (05:15)
[2017-04-28 05:22] LABS: PLATELET ESTIMATE SMEAR LOW (NORMAL); PLATELET MORPHOLOGY NORMAL (NORMAL); SCAN/DIFF AUTO DIFF CONFIRMED
[2017-04-28] MEDS: RIFAXIMIN 550 MG TAB PO SCH ×2 (09:13→21:01)
[2017-04-28] MEDS: THIAMINE HCL 100 MG TAB PO SCH (09:13)
[2017-04-28] MEDS: MULTIVITAMIN TAB PO SCH (09:13)
[2017-04-28] MEDS: LACTULOSE SYRUP 20 GM/30 ML CUP PO SCH ×4 (09:13→21:00)
[2017-04-28] MEDS: AMOXICILLIN/CLAVULANATE K 875 MG TAB PO SCH ×2 (09:30→21:01)
[2017-04-28] MEDS: CALCIUM CARBONATE 1.25 GM (CA 500 MG) TAB PO SCH ×2 (09:30→21:01)
--- NOTE | 2017-04-28 09:33 | HHI.GIFU ---
Subjective Remarks Resting in bed. Tolerating clear liquids. No active bleeding. States his stool was dark at first, but now a light brown in color. (Sonia Trejo) Objective Vitals I&O Vital Signs Date Time Temp Pulse Resp B/P (MAP) Pulse Ox O2 Delivery O2 Flow Rate FiO2 04/28/17 06:00 63 04/28/17 04:00 67 04/28/17 04:00 98.3 67 18 143/89 (107) 94 04/28/17 02:00 69 04/28/17 00:00 71 04/28/17 00:00 98.4 71 18 151/89 (109) 91 04/27/17 22:00 67 04/27/17 21:44 96 21 04/27/17 20:00 98.2 78 20 146/89 (108) 92 04/27/17 20:00 78 04/27/17 18:00 60 04/27/17 16:00 80 04/27/17 16:00 98.7 80 25 158/98 (118) 93 04/27/17 14:00 68 04/27/17 12:00 98.6 70 20 159/99 (119) 94 04/27/17 12:00 70 04/27/17 10:00 70 I/O 04/27/17 04/27/17 04/27/17 04/28/17 04/28/17 04/28/17 07:00 15:00 23:00 07:00 15:00 23:00 Intake Total 2420 ml 701 ml 1910 ml 1340 ml Output Total 700 ml 2240 ml 1700 ml Balance 1720 ml 701 ml -330 ml -360 ml Intake Oral 720 ml 960 ml 240 ml IV Total 1700 ml 701 ml 950 ml 1100 ml Output Urine Total 700 ml 2240 ml 1700 ml # Bowel Movements 3 7 5 Laboratory Laboratory Tests Test 04/27/17 11:50 04/27/17 18:22 04/27/17 19:43 04/27/17 23:24 Hemoglobin 10.5 10.7 10.7 Hematocrit 30.9 31.6 31.6 Potassium Level 3.4 Phosphorus Level 2.0 Test 04/28/17 03:59 White Blood Count 3.6 Red Blood Count 2.88 Hemoglobin 10.1 Hematocrit 29.8 Mean Corpuscular Volume 103.5 Mean Corpuscular Hemoglobin 35.2 Mean Corpuscular Hemoglobin Concent 34.0 Red Cell Distribution Width 14.8 Platelet Count 75 Mean Platelet Volume 8.8 Neutrophils (%) (Auto) 63.7 Lymphocytes (%) (Auto) 26.5 Monocytes (%) (Auto) 5.5 Eosinophils (%) (Auto) 3.4 Basophils (%) (Auto) 0.9 Neutrophils # (Auto) 2.3 Lymphocytes # (Auto) 1.0 Monocytes # (Auto) 0.2 Eosinophils # (Auto) 0.1 Basophils # (Auto) 0.0 CBC Comment AUTO DIFF Differential Comment AUTO DIFF CONFIRMED Platelet Estimate LOW Platelet Morphology Comment NORMAL Blood Urea Nitrogen 7 Creatinine 0.68 Random Glucose 104 Total Protein 6.3 Albumin 2.2 Calcium Level 7.2 Phosphorus Level 2.5 Magnesium Level 1.7 Alkaline Phosphatase 56 Aspartate Amino Transf (AST/SGOT) 189 Alanine Aminotransferase (ALT/SGPT) 60 Total Bilirubin 2.5 Sodium Level 141 Potassium Level 3.4 Chloride Level 108 Carbon Dioxide Level 24.7 Anion Gap 8 Estimat Glomerular Filtration Rate 119 Protein Corrected Calcium 7.6 Ammonia 84 Date/Time Source Procedure Growth Status 04/25/17 14:27 Blood Peripheral Aerobic Blood Culture - Preliminary NO GROWTH IN 2 DAYS Resulted 04/25/17 14:27 Blood Peripheral Anaerobic Blood Culture - Preliminary NO GROWTH IN 2 DAYS Resulted 04/25/17 18:00 Urine Clean Catch Urine Culture - Final NO GROWTH IN 48 HOURS. Complete Imaging Last Impressions Chest X-Ray 04/26/17 0000 Signed Impressions: Service Date/Time: Wednesday, April 26, 2017 05:08 - CONCLUSION: 1. Improving aeration in the left base with resolving consolidation/effusion. Right lung remains clear. 2. Interval placement of an endotracheal tube with the tip at the thoracic inlet. Nasogastric tube traverses the GE junction and enters the stomach. Tc Fernando MD Abdomen Ultrasound 04/25/17 0000 Signed Impressions: Service Date/Time: Tuesday, April 25, 2017 13:32 - CONCLUSION: Hepatosplenomegaly. Mild nonspecific gallbladder wall thickening. Cayden Muhammad MD Physical Exam HEENT: Normocephalic; atraumatic; no jaundice. CHEST: Resp even/unlabored, Diminished bases. CARDIAC: RRR ABDOMEN: Soft, nondistended, nontender; hepatosplenomegaly; bowel sounds are present in all four quadrants. EXTREMITIES: Mild BLE edema. SKIN: Normal; no rash; no jaundice. HOME THERAPY CLINICIAN: Awake, A/Ox3 (Sonia Trejo) Assessment and Plan Plan ASSESSMENT: - Upper GIB, Hematemesis with red emesis. Denies hx of PUD/Liver cirrhosis, although he does drink 1L vodka daily. S/P EGD with band ligation (04/25/17)----> esophageal varices/ p band ligation-3 bands applied, hiatal hernia, large amount of clots in stomach. No active bleeding. HH stable, 10.1/ 29.8. No active bleeding. [place]arting clears. States stool was initially dark, but now a light brown color. D/C Protonix gtt, Octreotide gtt. Protonix 40mg BID. Advance diet. - Esophageal varices. S/P Band ligation. Has been on protonix/octreotide x 3 days. No further bleeding. - Mid abdominal pain, gnawing constant since the n/v began at 2 am. S/P EGD as above. US (04/25/17)---> Hepatosplenomegaly. Mild nonspecific gallbladder wall thickening. - Hepatic encephalopathy. IMproved. Ammonia 84, A/Ox3 with this. Lactulose, Xifaxan. - Macrocytosis, secondary to etoh. MCV 103.5. - Elevated LFTs, ETOH abuse. T. Bili 2.5, AST 189, ALT 60, Alk Phosph 56. Pattern consistent with ETOH abuse. - ETOH abuse, DT's. Per attending - HTN, Hx Hodgkin's lymphoma per attending PLAN: - Low sodium diet - D/C Protonix Gt - D/C Octreotide gtt - Protonix 40mg po BID - Cont. Lactulose, Xifaxan - Monitor labs - Transfuse as needed - Complete ETOH cessation, d/w patient and he verbalizes understanding - Further recommendations to follow based on results of above - Pt seen and examined by Dr. Jordan and myself and this note is written on his behalf (Sonia Trejo) Physician Comments Patient seen and examined Agree with above Monitor labs Continue with current supportive care Low salt diet Avoid alcoholic Not much to add from a GI standpoint we will sign off (Marcelo Jordan MD) Sonia Trejo Apr 28, 2017 09:33 Marcelo Jordan MD Apr 28, 2017 20:54
--- NOTE | 2017-04-28 09:42 | HHI.PR ---
Subjective Remarks Follow-up for hematemesis and infection Patient denied any GI bleed. He stated that his stools are normal now. Patient asking to go home right now. Denied any shortness of breathing or cough. Dealt with patient's nurse. Objective Vitals Vital Signs Date Time Temp Pulse Resp B/P (MAP) Pulse Ox O2 Delivery O2 Flow Rate FiO2 04/28/17 06:00 63 04/28/17 04:00 67 04/28/17 04:00 98.3 67 18 143/89 (107) 94 04/28/17 02:00 69 04/28/17 00:00 71 04/28/17 00:00 98.4 71 18 151/89 (109) 91 04/27/17 22:00 67 04/27/17 21:44 96 21 04/27/17 20:00 98.2 78 20 146/89 (108) 92 04/27/17 20:00 78 04/27/17 18:00 60 04/27/17 16:00 80 04/27/17 16:00 98.7 80 25 158/98 (118) 93 04/27/17 14:00 68 04/27/17 12:00 98.6 70 20 159/99 (119) 94 04/27/17 12:00 70 04/27/17 10:00 70 I/O 04/27/17 04/27/17 04/27/17 04/28/17 04/28/17 04/28/17 06:59 14:59 22:59 06:59 14:59 22:59 Intake Total 2420 ml 701 ml 1910 ml 1340 ml Output Total 700 ml 2240 ml 1700 ml Balance 1720 ml 701 ml -330 ml -360 ml Intake Oral 720 ml 960 ml 240 ml IV Total 1700 ml 701 ml 950 ml 1100 ml Output Urine Total 700 ml 2240 ml 1700 ml # Bowel Movements 3 7 5 Result Diagram: 04/28/17 0359 04/28/17 0359 Objective Remarks GENERAL: in NAD CARDIOVASCULAR: Regular rate and rhythm without murmurs, gallops, or rubs. RESPIRATORY: Breath sounds equal bilaterally. No accessory muscle use. GASTROINTESTINAL: Abdomen soft, non-tender, nondistended. MUSCULOSKELETAL: No cyanosis, or edema. BACK: Nontender without obvious deformity. No CVA tenderness. Medications and IVs Current Medications Ondansetron HCl (Zofran Inj) 4 mg ONCE ONCE IVP Last administered on 04:33; Start 04/25/17 at 04:00; Stop 04/25/17 at 04:01; Status DC Sodium Chloride (NS Flush) 2 ml UNSCH PRN IVF FLUSH AFTER USING IV ACCESS; Start 04/25/17 at 04:00 Octreotide Acetate 500 mcg/ Sodium Chloride 500.5 ml @ 50 mls/hr Q10H1M IV Last administered on 04/25/17 05:18; Start 04/25/17 at 03:57; Stop 04/25/17 at 11:08; Status DC Pantoprazole Sodium 80 mg/ Sodium Chloride 35 ml @ 420 mls/hr Q5M ONCE IV Last administered on 04/25/17 04:32; Start 04/25/17 at 03:57; Stop 04/25/17 at 04:01; Status DC Pantoprazole Sodium 80 mg/ Sodium Chloride 100 ml @ 10 mls/hr Q10H IV Last administered on 04/25/17 04:32; Start 04/25/17 at 03:57; Stop 04/25/17 at 11:00 ; Status DC Ceftriaxone Sodium 1000 mg/ Sodium Chloride 100 ml @ 200 mls/hr ONCE ONCE IV ; Start 04/25/17 at 06:30; Stop 04/25/17 at 06:59; Status DC Azithromycin 500 mg/Sodium Chloride 250 ml @ 250 mls/hr ONCE ONCE IV ; Start 04/25/17 at 06:30; Stop 04/25/17 at 07:29; Status DC Magnesium Oxide (Mag-Ox) 800 mg UNSCH PRN PO For Magnesium 1.2 - 1.6 mg/dL; Start 04/25/17 at 06:15 Magnesium Sulfate 4 gm/Sodium Chloride 100 ml @ 50 mls/hr UNSCH PRN IV For Magnesium 0.9 - 1.1 mg/dL; Start 04/25/17 at 06:15 Magnesium Sulfate 2 gm/Sodium Chloride 100 ml @ 50 mls/hr UNSCH PRN IV For Magnesium 1.2 - 1.6 mg/dL; Start 04/25/17 at 06:15 Potassium Chloride 100 ml @ 50 mls/hr Q2H PRN IV For Potassium 2.8 - 3.2 mEq/L ; Start 04/25/17 at 06:15 Potassium Chloride 100 ml @ 50 mls/hr Q2H PRN IV For Potassium 3.3 - 3.5 mEq/L ; Start 04/25/17 at 06:15 Potassium Chloride 100 ml @ 50 mls/hr Q2H PRN IV For Potassium 2.8 - 3.2 mEq/L ; Start 04/25/17 at 06:15 Potassium Chloride 100 ml @ 25 mls/hr UNSCH PRN IV For Potassium 3.3 - 3.5 mEq /L; Start 04/25/17 at 06:15 Potassium Phosphate (K-Phos) 2,000 mg Q4H PRN PO For Phosphorus < 2.5 mg/dL; Start 04/25/17 at 06:15 Potassium Phosphate (K-Phos) 2,000 mg UNSCH PRN PO/TUBE SEE LABEL COMMENTS; Start 04/25/17 at 06:15 Potassium Phosphate 30 mmol/ Sodium Chloride 260 ml @ 42 mls/hr UNSCH PRN IV SEE LABEL COMMENTS Last administered on 04/28/17 03:10; Start 04/25/17 at 06:15 Sodium Phosphate 30 mmol/Sodium Chloride 250 ml @ 42 mls/hr UNSCH PRN IV For Phosphorus < 2.5 mg/dL; Start 04/25/17 at 06:15 Dextrose (D50w (Vial) Inj) 25 ml UNSCH PRN IV PUSH HYPOGLYCEMIA-SEE COMMENTS; Start 04/25/17 at 06:15; Stop 04/25/17 at 09:39; Status DC Insulin Human Regular (NovoLIN R SUPPLEMENTAL SCALE) 1 ACHS AND 3AM SQ ; Start 04/25/17 at 08:00; Stop 04/25/17 at 09:16; Status DC Thiamine HCl 100 mg/Sodium Chloride 101 ml @ 101 mls/hr Q24H IV Last administered on 04/27/17 09:01; Start 04/26/17 at 09:00; Stop 04/27/17 at 09:08 ; Status DC Thiamine HCl (Vitamin B1) 100 mg DAILY PO Last administered on 04/28/17 09:13 ; Start 04/28/17 at 09:00 Multivitamins 10 ml/Thiamine HCl 100 mg/Folic Acid 1 mg/Sodium Chloride 511.2 ml @ 125 mls/hr ONCE ONCE IV Last administered on 04/25/17 15:46; Start at 09:00; Stop 04/25/17 at 13:05; Status DC Multivitamins (Theragran) 1 tab DAILY PO Last administered on 04/28/17 09:13; Start 04/26/17 at 09:00 Midazolam HCl (Versed Inj) 5 mg STK-MED ONCE .ROUTE ; Start 04/25/17 at 08:16; Stop 04/25/17 at 08:17; Status DC Fentanyl Citrate (fentaNYL INJ) 100 mcg STK-MED ONCE .ROUTE ; Start 04/25/17 at 08:16; Stop 04/25/17 at 08:17; Status DC Dextrose (D50w (Vial) Inj) 50 ml UNSCH PRN IV HYPOGLYCEMIA-SEE COMMENTS; Start 04/25/17 at 09:15 Glucagon (Glucagon Inj) 1 mg UNSCH PRN OTHER HYPOGLYCEMIA-SEE COMMENTS; Start 04/25/17 at 09:15 Insulin Human Regular (NovoLIN R SUPPLEMENTAL SCALE) 1 Q4H SQ Last administered on 04/26/17 17:39; Start 04/25/17 at 10:00 Piperacillin Sod/ Tazobactam Sod 100 ml @ 200 mls/hr Q6H IV Last administered on 04/28/17 05:15; Start 04/25/17 at 11:00; Stop 04/28/17 at 09:30; Status DC Azithromycin 500 mg/Sodium Chloride 250 ml @ 250 mls/hr Q24H IV Last administered on 04/27/17 11:11; Start 04/25/17 at 11:00; Stop 04/28/17 at 09:30 ; Status DC Hydralazine HCl (Apresoline Inj) 10 mg Q6H PRN IV PUSH SYS BP GREATER THAN 160 MMHG; Start 04/25/17 at 10:00 Albuterol/ Ipratropium (Duoneb Neb) 1 ampule Q6HR NEB NEB Last administered on 04/27/17 21:44; Start 04/25/17 at 10:00 Albuterol/ Ipratropium (Duoneb Neb) 1 ampule Q2HR NEB PRN NEB SHORTNESS OF BREATH; Start 04/25/17 at 10:00 Lorazepam (Ativan Inj) 1 mg Q4H PRN IV PUSH agitation, seizures Last administered on 04/27/17 20:31; Start 04/25/17 at 10:00 Dextrose/Sodium Chloride 1,000 ml @ 50 mls/hr Q20H IV Last administered on 02:22; Start 04/25/17 at 10:00; Stop 04/28/17 at 09:31; Status DC Pantoprazole Sodium 80 mg/ Sodium Chloride 100 ml @ 10 mls/hr CONTINUOUS IV ; Start 04/25/17 at 10:30; Status UNV Octreotide Acetate 500 mcg/ Sodium Chloride 500 ml @ 50 mls/hr Q10H IV Last administered on 04/27/17 22:03; Start 04/25/17 at 12:00; Stop 04/28/17 at 09:30 ; Status DC Pantoprazole Sodium 80 mg/ Sodium Chloride 100 ml @ 10 mls/hr Q10H IV Last administered on 04/27/17 22:03; Start 04/25/17 at 12:00; Stop 04/28/17 at 09:30 ; Status DC Propofol 100 ml @ As Directed STK-MED ONCE .ROUTE ; Start 04/25/17 at 10:40; Stop 04/25/17 at 10:41; Status DC Propofol (Diprivan 200 Mg/20 ml Inj) 300 mg STK-MED ONCE IV ; Start 04/25/17 at 10:22; Stop 04/25/17 at 10:45; Status DC Miscellaneous Information ALL NURSING DEPARTME... UNSCH PRN .XX SEE LABEL COMMENTS; Start 04/25/17 at 10:41; Stop 04/26/17 at 10:40; Status DC Propofol 100 ml @ 3.81 mls/hr TITRATE PRN IV Sedation Last administered on 23:24; Start 04/25/17 at 12:00; Stop 04/26/17 at 10:14; Status DC Fentanyl Citrate 250 ml @ 0 mls/hr TITRATE IV Last administered on 04/25/17 16 :36; Start 04/25/17 at 11:30; Stop 04/25/17 at 13:30; Status DC Fentanyl Citrate 250 ml @ 2.5 mls/hr TITRATE IV ; Start 04/25/17 at 13:30; Stop 04/26/17 at 10:14; Status DC Lactulose (Lactulose Liq) 30 ml QID PO Last administered on 04/28/17 09:13; Start 04/26/17 at 09:00 Rifaximin (Xifaxan) 550 mg BID PO Last administered on 04/28/17 09:13; Start 04/26/17 at 09:00 Calcium Carbonate (Oscal) 500 mg Q12HR PO ; Start 04/28/17 at 09:30; Status UNV Pantoprazole Sodium (Protonix) 40 mg Q12HR PO ; Start 04/28/17 at 21:00; Status UNV Amoxicillin/ Clavulanate Potassium (Augmentin) 875 mg Q12HR PO ; Start 04/28/17 at 09:30; Status UNV Metronidazole (Flagyl) 500 mg Q8HR PO ; Start 04/28/17 at 14:00; Status UNV A/P Assessment and Plan Resp Insuff -Most likely secondary to alcoholism hematemesis. -S/p extubation 04/26 -Chest x-ray showed left basilar consolidation and effusion. Hematemesis -Diet per GI -Protonix and treat high trip discontinue by GI. - US abdomen: Hepatosplenomegaly. Mild nonspecific gallbladder wall thickening. - s/p EGD 04/25: Esophageal varices s/p banding x3, hiatal hernia, large clots in stomach. -Education on alcohol use and the dire consequences. . Left basilar consolidation,. Asymptomatic -blood culture and urine cx: NGTD, Strep pneumonia and Legionella urinary antigen negative -Most likely secondary to aspiration. Patient on azithromycin and Zosyn. Asymptomatic at the moment. Will DC IV antibiotics and start Augmentin and Flagyl for coverage of aspiration pneumonia. Will monitor off IVs. Anemia -Secondary to esophageal varices. See treatment as above. Stable. No active GI bleed moment. Liver disease/hyperammonia -Continue Lactulose and Rifaximin. Alcohol dependence - Monitor neuro status and for signs of DT's - On Thiamine, MVI and Folic acid. Ativan 1 mg IV q. 4 hours p.rn GI prophylaxis-on Protonix drip and DVT prophylaxis with SCD's. Not on chemical anticoagulation prophylaxis due to GI bleed Decondition consult PT. Discharge Planning If patient does well off of IV medication and hemoglobin continues to be stable possible discharge tomorrow morning. Parisa Everett MD Apr 28, 2017 09:42
[2017-04-28] MEDS: LORazepam 2 MG/ML VIAL IV PUSH PRN ×2 (13:28→21:01)
[2017-04-28] MEDS: metroNIDAZOLE 500 MG TAB PO SCH ×2 (13:29→21:01)
[2017-04-28] MEDS: amLODIPine BESYLATE 5 MG TAB PO SCH (14:31)
[2017-04-28] MEDS: PANTOPRAZOLE SOD 40 MG DELAYED RELEASE TAB PO SCH (21:01)
[2017-04-29] VITALS (7 sets, daily range): BP systolic 133–173; BP diastolic 69–94; PULSE 65–100; RESP 14–23; TEMP 98.1–98.4; O2SAT 96–98
[2017-04-29] MEDS: INSULIN NovoLIN REGULAR SUPPLEMENTAL SCALE SQ SCH ×2 (02:00→06:00)
[2017-04-29] MEDS: RESP: ALBUTEROL 2.5 MG/IPRATROPIUM 0.5 MG NEB (SCH) NEB ×2 (04:00→09:35)
[2017-04-29 05:41] LABS: HEMATOCRIT 35.2 % (39.0-51.0); MEAN CELL VOLUME 101.9 FL (80.0-100.0); MEAN CORPUSCULAR HEMOGLOBIN 34.5 PG (27.0-34.0); MEAN CORPUSCULAR HGB CONC 33.8 % (32.0-36.0); PLATELET COUNT 100 TH/MM3 (150-450); RED BLOOD COUNT 3.45 MIL/MM3 (4.50-5.90); RED CELL DISTRIBUTION WIDTH 14.8 % (11.6-17.2); REVIEW FLAG FINAL; WHITE BLOOD COUNT 4.6 TH/MM3 (4.0-11.0)
[2017-04-29 06:04] LABS: BICARBONATE 26.4 MEQ/L (21.0-32.0)
[2017-04-29 06:14] LABS: POTASSIUM 2.9 MEQ/L (3.5-5.1)
[2017-04-29] MEDS: metroNIDAZOLE 500 MG TAB PO SCH (06:22)
[2017-04-29] MEDS: RIFAXIMIN 550 MG TAB PO SCH (08:32)
[2017-04-29] MEDS: THIAMINE HCL 100 MG TAB PO SCH (08:32)
[2017-04-29] MEDS: AMOXICILLIN/CLAVULANATE K 875 MG TAB PO SCH (08:32)
[2017-04-29] MEDS: amLODIPine BESYLATE 5 MG TAB PO SCH (08:32)
[2017-04-29] MEDS: PANTOPRAZOLE SOD 40 MG DELAYED RELEASE TAB PO SCH (08:32)
[2017-04-29] MEDS: CALCIUM CARBONATE 1.25 GM (CA 500 MG) TAB PO SCH (08:32)
[2017-04-29] MEDS: MULTIVITAMIN TAB PO SCH (08:32)
[2017-04-29] MEDS: LACTULOSE SYRUP 20 GM/30 ML CUP PO SCH (08:34)
[2017-04-29] MEDS: LORazepam 2 MG/ML VIAL IV PUSH PRN (08:37)
[2017-04-29] MEDS ORDERED: POTA-163 PO (12:05)
[2017-04-29] MEDS ORDERED: AMOX875T2 PO (12:05)
[2017-04-29] MEDS ORDERED: PANT40TA3 PO (12:05)
[2017-04-29] MEDS ORDERED: METR-1 PO (12:05)
[2017-04-29] MEDS ORDERED: CALC500T30 PO (12:05)
[2017-04-29] MEDS ORDERED: XIFA550T4 PO (12:05)
[2017-04-29] MEDS ORDERED: AMLO5 PO (12:05)
[2017-04-29] MEDS ORDERED: Lactulose Liq PO (12:06)
--- NOTE | 2017-04-29 12:08 | HHI.DCPOC ---
Discharge Care Plan Diagnosis: (1) Hypokalemia (2) GI bleed (3) Acute alcoholic gastritis with hemorrhage (4) Alcoholism Goals to Promote Your Health * To prevent worsening of your condition and complications * To maintain your health at the optimal level Directions to Meet Your Goals Take your medications as prescribed Follow your dietary instruction Follow activity as directed Keep your appointments as scheduled Take your immunizations and boosters as scheduled If your symptoms worsen call your PCP, if no PCP go to Urgent Care Center or Emergency Room Smoking is Dangerous to Your Health. Avoid second hand smoke Call the 24-hour hour crisis hotline for domestic abuse at Parisa Everett MD Apr 29, 2017 12:08
--- NOTE | 2017-04-29 12:09 | HHI.DS ---
Discharge Summary Admission Date Apr 25, 2017 at 06:18 Discharge Date: Apr 29, 2017 Admitting Diagnosis GI bleed (1) Acute alcoholic gastritis with hemorrhage ICD Code: K29.21 - Alcoholic gastritis with bleeding Diagnosis: Principal Status: Acute (2) Hypokalemia ICD Code: E87.6 - Hypokalemia Diagnosis: Secondary Procedures See hospital course Brief History - From Admission The patient is a 61-year-old male with a past medical history of hypertension, Hodgkin's disease, ETOH abuse who presented to [facility] ED early this morning with hematemesis. The patient woke up around 2 a.m. with mid abdominal pain that is localized and associated with nausea and vomiting. In addition, he had a large amount of hematemesis. The patient denies any alleviating or aggravating factors. In addition, he denies any melena or hematochezia. He denies any use of aspirin or any anticoagulants, however he reports using Motrin intermittently for headaches and his last dose was yesterday. Patient is an active drinker where he drinks one liter of vodka on a daily basis. He has never been told that he has cirrhosis of the liver. In addition, he denies any history of peptic ulcer disease. On arrival to the ER, he was hypertensive with a systolic blood pressure of 150s. CBC/BMP: 04/29/17 0450 04/29/17 1105 Significant Findings Laboratory Tests Test 04/26/17 13:18 04/26/17 18:46 04/26/17 23:42 04/27/17 05:45 Hemoglobin 10.6 GM/DL (13.0-17.0) 10.2 GM/DL (13.0-17.0) 10.4 GM/DL (13.0-17.0) 10.5 GM/DL (13.0-17.0) Hematocrit 32.0 % (39.0-51.0) 30.7 % (39.0-51.0) 31.1 % (39.0-51.0) 30.4 % (39.0-51.0) Red Blood Count 2.96 MIL/MM3 (4.50-5.90) Mean Corpuscular Volume 102.7 FL (80.0-100.0) Mean Corpuscular Hemoglobin 35.3 PG (27.0-34.0) Platelet Count 73 TH/MM3 (150-450) Neutrophils (%) (Auto) 70.1 % (16.0-70.0) Lymphocytes # (Auto) 0.8 TH/MM3 (1.0-4.8) Platelet Estimate LOW (NORMAL) Random Glucose 124 MG/DL (74-106) Albumin 2.3 GM/DL (3.4-5.0) Calcium Level 7.3 MG/DL (8.5-10.1) Phosphorus Level 1.9 MG/DL (2.5-4.9) Aspartate Amino Transf (AST/SGOT) 157 U/L (15-37) Total Bilirubin 2.4 MG/DL (0.2-1.0) Potassium Level 3.3 MEQ/L (3.5-5.1) Chloride Level 108 MEQ/L (98-107) Protein Corrected Calcium 7.7 MG/DL (8.5-10.1) Ammonia 88 MCMOL/L (11-32) Test 04/27/17 11:50 04/27/17 18:22 04/27/17 19:43 04/27/17 23:24 Hemoglobin 10.5 GM/DL (13.0-17.0) 10.7 GM/DL (13.0-17.0) 10.7 GM/DL (13.0-17.0) Hematocrit 30.9 % (39.0-51.0) 31.6 % (39.0-51.0) 31.6 % (39.0-51.0) Potassium Level 3.4 MEQ/L (3.5-5.1) Phosphorus Level 2.0 MG/DL (2.5-4.9) Test 04/28/17 03:59 04/29/17 04:50 04/29/17 11:05 White Blood Count 3.6 TH/MM3 (4.0-11.0) Red Blood Count 2.88 MIL/MM3 (4.50-5.90) 3.45 MIL/MM3 (4.50-5.90) Hemoglobin 10.1 GM/DL (13.0-17.0) 11.9 GM/DL (13.0-17.0) Hematocrit 29.8 % (39.0-51.0) 35.2 % (39.0-51.0) Mean Corpuscular Volume 103.5 FL (80.0-100.0) 101.9 FL (80.0-100.0) Mean Corpuscular Hemoglobin 35.2 PG (27.0-34.0) 34.5 PG (27.0-34.0) Platelet Count 75 TH/MM3 (150-450) 100 TH/MM3 (150-450) Platelet Estimate LOW (NORMAL) Total Protein 6.3 GM/DL (6.4-8.2) Albumin 2.2 GM/DL (3.4-5.0) Calcium Level 7.2 MG/DL (8.5-10.1) 8.1 MG/DL (8.5-10.1) Aspartate Amino Transf (AST/SGOT) 189 U/L (15-37) Total Bilirubin 2.5 MG/DL (0.2-1.0) Potassium Level 3.4 MEQ/L (3.5-5.1) 2.9 MEQ/L (3.5-5.1) 3.4 MEQ/L (3.5-5.1) Chloride Level 108 MEQ/L (98-107) Protein Corrected Calcium 7.6 MG/DL (8.5-10.1) Ammonia 84 MCMOL/L (11-32) 68 MCMOL/L (11-32) Blood Urea Nitrogen 5 MG/DL (7-18) Creatinine 0.57 MG/DL (0.60-1.30) Imaging Last Impressions Chest X-Ray 04/26/17 0000 Signed Impressions: Service Date/Time: Wednesday, April 26, 2017 05:08 - CONCLUSION: 1. Improving aeration in the left base with resolving consolidation/effusion. Right lung remains clear. 2. Interval placement of an endotracheal tube with the tip at the thoracic inlet. Nasogastric tube traverses the GE junction and enters the stomach. Tc Fernando MD Abdomen Ultrasound 04/25/17 0000 Signed Impressions: Service Date/Time: Tuesday, April 25, 2017 13:32 - CONCLUSION: Hepatosplenomegaly. Mild nonspecific gallbladder wall thickening. Cayden Muhammad MD PE at Discharge GENERAL: in NAD CARDIOVASCULAR: Regular rate and rhythm without murmurs, gallops, or rubs. RESPIRATORY: Breath sounds equal bilaterally. No accessory muscle use. GASTROINTESTINAL: Abdomen soft, non-tender, nondistended. MUSCULOSKELETAL: No cyanosis, or edema. BACK: Nontender without obvious deformity. No CVA tenderness. Pt update on day of discharge Follow-up for GI bleed Patient denies any GI bleed. Denying abdominal pain. He is very anxious to go home. No events overnight. Patient very anxious to go home. Discussed with patient's nurse. Hospital Course Resp Insufficiency -Most likely secondary to alcoholism hematemesis. --Chest x-ray showed left basilar consolidation and effusion. -Patient was intubated and extubation successfully. -Resolved with treatment during his hospital course. Hematemesis -GI was consulted and patient was put on Protonix and octreotide drip. - US abdomen: Hepatosplenomegaly. Mild nonspecific gallbladder wall thickening. - Patient had a s/p EGD 04/25 which showed Esophageal varices s/p banding x3, hiatal hernia, large clots in stomach. -He was later transitioned to oral medication. . Left basilar consolidation,. Asymptomatic -blood culture and urine cx: NGTD, Strep pneumonia and Legionella urinary antigen negative -Most likely secondary to aspiration. Patient on empirically put on azithromycin and Zosyn. He was transitioned to oral Augmentin and Flagyl for coverage of aspiration pneumonia and did well on medication. Anemia -Secondary to esophageal varices. See treatment as above. Liver disease/hyperammonia -Patient was seen by GI and was put on lactulose and Rifaximin. -He did well with treatment. Alcohol dependence - Monitor neuro status and for signs of DT's. There are no signs of DTs or alcohol withdrawals during his hospital stay. - He was put on Thiamine, MVI and Folic acid. Ativan 1 mg IV q. 4 hours p.rn Pt Condition on Discharge: Stable Discharge Disposition: Discharge Home Discharge Time: > 30 minutes Discharge Instructions DIET: Follow Instructions for: Heart Healthy Diet Additional Diet Instructions: No alcohol. Activities you can perform: Regular-No Restrictions Follow up Referrals: Gastroenterology - 2 Weeks with Jluis Alston MD PCP Follow-up - 1 Week New Medications: Potassium Chloride ER (Potassium Chloride ER) 20 Meq Tab 20 MEQ PO BID for Electrolyte Replacement, #60 TAB 0 Refills Amlodipine (Norvasc) 5 Mg Tab 2.5 MG PO DAILY for hypertension, #30 TAB 0 Refills Amoxicillin-Clavulanate (Amoxicillin-Clavulanate) 875-125 mg Tab 875 MG PO Q12HR for infection, #12 TAB 0 Refills not for use in CrCl <30 mL/minute Metronidazole (Flagyl) 500 Mg Tab 500 MG PO Q8HR for infection, #180 TAB Oyster Shell (Calcium Oyster Shell) 500 Mg Calcium (1250 Mg) Tab 500 MG PO Q12HR for low calcium, #30 TAB 0 Refills Pantoprazole (Pantoprazole) 40 Mg Tab 40 MG PO Q12HR for GI bleed, #60 TAB 0 Refills Rifaximin (Xifaxan) 550 Mg Tab 550 MG PO BID for liver disease, #60 TAB 0 Refills [Lactulose Liq] () 30 ML SYRP 30 ML PO QID for 30 Days, ML 0 Refills Continued Medications: Atenolol (Atenolol) 25 Mg Tab 10 MG PO BID for Blood Pressure Management, #60 TAB 0 Refills Discontinued Medications: Ranitidine (Zantac) 150 Mg Tab Unknown Dose PO BID for Reduce Stomach Acid, #60 TAB 0 Refills Parisa Everett MD Apr 29, 2017 12:09
== END 2017-04-29 12:55 | disposition home or self-care (01) | DRG 432 ==
LOC: NEPE 02:52 → NEDA 06:18 → HIMN 12:00
PROVIDERS: ADMIT Family Medicine; ATTEND Family Medicine
PROC: 5A1935Z Respiratory Ventilation, Less than 24 Consecutive Hours (ICD-10-PCS; 2017-04-25)
PROC: 06L34CZ Occlusion of Esophageal Vein with Extraluminal Device, Percutaneous Endoscopic Approach (ICD-10-PCS; principal; 2017-04-25 09:00)
DX: K70.9 Alcoholic liver disease, unspecified (principal); I85.11 Secondary esophageal varices with bleeding; I10 Essential (primary) hypertension; K72.90 Hepatic failure, unspecified without coma; E87.6 Hypokalemia; D75.89 Other specified diseases of blood and blood-forming organs; K21.9 Gastro-esophageal reflux disease without esophagitis; K44.9 Diaphragmatic hernia without obstruction or gangrene; R06.89 Other abnormalities of breathing; F10.20 Alcohol dependence, uncomplicated; Y90.4 Blood alcohol level of 80-99 mg/100 ml; Z85.71 Personal history of Hodgkin lymphoma
CPT/HCPCS: 36600; 71010; 76700; 80048; 80053; 80307; 81001; 82140; 82805; 82948; 83690; 83735; 84100; 84132; 85014; 85018; 85025; 85027; 85610; 85730; 86850; 86900; 86901; 87040; 87086; 87449; 87641; 94002; 94003; 94640; 94664; 96365; 96367; 96375; C9113; J0360; J0456; J2060; J2250; J2354; J2405; J2543; J3010; J3411; J3480; J7040; J7042; J7050

== ENCOUNTER 2017-06-30 15:43 | Observation (INO) | payer OTHER ==
[~2017-06-30] VITALS: Ht 198.1 cm; Wt 125.3 kg
[~2017-06-30 15:43] MED LIST changes: +AMLO5 PO; +AMOX875T2 PO; -ATEN1TAB75 PO; +ATEN25TA PO; +CALC500T30 PO; -CHLO25 PO; +Lactulose Liq PO; -MAXZ25 PO; +METR-1 PO; +PANT40TA3 PO; +POTA-163 PO; -PROT40TA PO; +XIFA550T4 PO; -ZOFR4TAB3 PO
[2017-06-30 15:52] VITALS: BP 157/94; PULSE 74; RESP 16; TEMP 98.8; O2SAT 97
[2017-06-30] MEDS ORDERED: ZANT150T2 PO (16:09)
--- NOTE | 2017-06-30 16:20 | PD ---
HPI Chief Complaint: Psychiatric Symptoms Time Seen by Provider: 16:10 Travel History International Travel<30 days: No Contact w/Intl Traveler<30days: No Traveled to known affect area: No History of Present Illness HPI 61-year-old male brought in under the [place] act for reported suicidal ideation. Patient is intoxicated. Patient was reported to be suicidal by his girlfriend and police brought him here for further evaluation and treatment. Patient currently denies any suicidal ideation and feels that he was set up by his girlfriend. Patient denies any current medical issues. Does admit that he started drinking wine again. He was previously sober for several years. He has no known drug allergies. PFSH Past Medical History Cancer: Yes (hodkin's lymphoma) Cardiovascular Problems: Yes Cerebrovascular Accident: Yes (tia) Diminished Hearing: No Gastrointestinal Disorders: Yes (ESOPHAGEAL VARICES) Hypertension: Yes Neurologic: Yes Past Surgical History Genitourinary Surgery: Yes (testicle removed) Other Surgery: Yes (pt states 22 lymph nodes removed) Social History Alcohol Use: Yes (ALMOST A 3 LITER BOX PER DAY) Tobacco Use: No Substance Use: No Allergies-Medications (Allergen,Severity, Reaction): Coded Allergies: No Known Allergies (Unverified Adverse Reaction, Unknown, 06/30/17) Reported Meds & Prescriptions Reported Meds & Active Scripts Active Reported Zantac (Ranitidine HCl) 150 Mg Tab 150 Mg PO BID Atenolol 25 Mg Tab 10 Mg PO BID Review of Systems Except as stated in HPI: all other systems reviewed are Neg General / Constitutional: No: Fever Eyes: No: Visual changes HENT: No: Headaches Cardiovascular: No: Chest Pain or Discomfort Respiratory: No: Shortness of Breath Gastrointestinal: No: Abdominal Pain Genitourinary: No: Dysuria Musculoskeletal: No: Pain Skin: No Rash Neurologic: No: Weakness Psychiatric: No: Depression Endocrine: No: Polydipsia Hematologic/Lymphatic: No: Easy Bruising Physical Exam Exam Limitations: Intoxication Narrative GENERAL: SKIN: Warm and dry. HEAD: Atraumatic. Normocephalic. EYES: Pupils equal and round. No scleral icterus. No injection or drainage. ENT: No nasal bleeding or discharge. Mucous membranes pink and moist. NECK: Trachea midline. No JVD. CARDIOVASCULAR: Regular rate and rhythm. RESPIRATORY: No accessory muscle use. Clear to auscultation. Breath sounds equal bilaterally. GASTROINTESTINAL: Abdomen soft, non-tender, nondistended. Hepatic and splenic margins not palpable. MUSCULOSKELETAL: Extremities without clubbing, cyanosis, or edema. No obvious deformities. NEUROLOGICAL: Awake and alert. No obvious cranial nerve deficits. Motor grossly within normal limits. Five out of 5 muscle strength in the arms and legs. Normal speech. PSYCHIATRIC: Appropriate mood and affect; insight and judgment normal. Data Data Last Documented VS Vital Signs Date Time Temp Pulse Resp B/P (MAP) Pulse Ox O2 Delivery O2 Flow Rate FiO2 06/30/17 15:52 98.8 74 16 157/94 (115) 97 Orders Orders Complete Blood Count With Diff (06/30/17 16:16) Comprehensive Metabolic Panel (06/30/17 16:16) Psych Screen (06/30/17 16:16) Drug Screen, Random Urine (06/30/17 16:16) Alcohol (Ethanol) (06/30/17 16:16) Alcohol Withdrawal Asmt-Ciwa Q4HX18 (06/30/17 18:06) Flumazenil Inj (Romazicon Inj) (06/30/17 18:15) Lorazepam (Ativan) (06/30/17 18:15) Lorazepam Inj (Ativan Inj) (06/30/17 18:15) Lorazepam (Ativan) (06/30/17 18:15) Lorazepam Inj (Ativan Inj) (06/30/17 18:15) Lorazepam Inj (Ativan Inj) (06/30/17 18:15) Lorazepam Inj (Ativan Inj) (06/30/17 18:15) Labs Laboratory Tests Test 06/30/17 16:25 White Blood Count 4.2 TH/MM3 Red Blood Count 4.03 MIL/MM3 Hemoglobin 12.9 GM/DL Hematocrit 39.0 % Mean Corpuscular Volume 96.7 FL Mean Corpuscular Hemoglobin 32.1 PG Mean Corpuscular Hemoglobin Concent 33.2 % Red Cell Distribution Width 14.6 % Platelet Count 104 TH/MM3 Mean Platelet Volume 8.7 FL Neutrophils (%) (Auto) 58.7 % Lymphocytes (%) (Auto) 31.1 % Monocytes (%) (Auto) 7.7 % Eosinophils (%) (Auto) 1.8 % Basophils (%) (Auto) 0.7 % Neutrophils # (Auto) 2.5 TH/MM3 Lymphocytes # (Auto) 1.3 TH/MM3 Monocytes # (Auto) 0.3 TH/MM3 Eosinophils # (Auto) 0.1 TH/MM3 Basophils # (Auto) 0.0 TH/MM3 CBC Comment DIFF FINAL Differential Comment Blood Urea Nitrogen 9 MG/DL Creatinine 0.55 MG/DL Random Glucose 104 MG/DL Total Protein 8.2 GM/DL Albumin 3.6 GM/DL Calcium Level 8.2 MG/DL Alkaline Phosphatase 96 U/L Aspartate Amino Transf (AST/SGOT) 73 U/L Alanine Aminotransferase (ALT/SGPT) 34 U/L Total Bilirubin 1.5 MG/DL Sodium Level 142 MEQ/L Potassium Level 3.4 MEQ/L Chloride Level 106 MEQ/L Carbon Dioxide Level 23.0 MEQ/L Anion Gap 13 MEQ/L Estimat Glomerular Filtration Rate 152 ML/MIN Urine Opiates Screen NEG Urine Barbiturates Screen NEG Urine Amphetamines Screen NEG Urine Benzodiazepines Screen NEG Urine Cocaine Screen NEG Urine Cannabinoids Screen NEG Ethyl Alcohol Level 298 MG/DL [facility] Medical Decision Making Medical Screen Exam Complete: Yes Emergency Medical Condition: Yes Medical Record Reviewed: Yes Differential Diagnosis Murry act. EtOH intoxication. Suicidal ideation. Narrative Course Psychiatric labs ordered per protocol. Alcohol level is ordered as well. Labs are unremarkable. Serum EtOH is 298. Patient is medically cleared for psychiatric evaluation. CIWA protocol is ordered. Diagnosis Primary Impression: Medical clearance for psychiatric admission Condition: Stable Timmy Barry Jun 30, 2017 16:20
[2017-06-30 16:58] LABS: AUTOMATED NEUTROPHIL # 2.5 TH/MM3 (1.8-7.7); BASOPHIL % 0.7 % (0.0-2.0); EOSINOPHIL # 0.1 TH/MM3 (0-0.4); EOSINOPHIL % 1.8 % (0.0-4.0); HEMO FLAGS DIFF FINAL; LYMPH % 31.1 % (9.0-44.0); LYMPHOCYTE # 1.3 TH/MM3 (1.0-4.8); MEAN CELL VOLUME 96.7 FL (80.0-100.0); MEAN CORPUSCULAR HEMOGLOBIN 32.1 PG (27.0-34.0); MEAN CORPUSCULAR HGB CONC 33.2 % (32.0-36.0); MONO % 7.7 % (0.0-8.0); NEUT % 58.7 % (16.0-70.0); PLATELET COUNT 104 TH/MM3 (150-450); RED BLOOD COUNT 4.03 MIL/MM3 (4.50-5.90); RED CELL DISTRIBUTION WIDTH 14.6 % (11.6-17.2); WHITE BLOOD COUNT 4.2 TH/MM3 (4.0-11.0)
[2017-06-30 17:08] LABS: ANION GAP 13 MEQ/L (5-15); AST (GOT) 73 U/L (15-37); BLOOD UREA NITROGEN 9 MG/DL (7-18); CHLORIDE 106 MEQ/L (98-107); GLOMERULAR FILTRATION RATE 152 ML/MIN (>89); POTASSIUM 3.4 MEQ/L (3.5-5.1); SODIUM (NA) 142 MEQ/L (136-145)
[2017-06-30 17:12] LABS: ALKALINE PHOSPHATASE 96 U/L (45-117); ALT (GPT) 34 U/L (12-78); TOTAL BILIRUBIN ADULT 1.5 MG/DL (0.2-1.0)
[2017-06-30 17:20] LABS: ALCOHOL 298 MG/DL (0-5)
[2017-06-30] MEDS ORDERED: FLUMAZENIL 0.5 MG/5 ML VIAL IV PUSH PRN (18:15)
[2017-06-30] MEDS ORDERED: LORazepam 2 MG TAB PO PRN (18:15)
[2017-06-30] MEDS ORDERED: LORazepam 2 MG/ML VIAL IV PUSH PRN ×4 (18:15)
[2017-06-30] MEDS ORDERED: diphenhydrAMINE HCL 50 MG/ML VIAL ONE (18:30)
[2017-06-30] MEDS ORDERED: diphenhydrAMINE HCL 50 MG/ML VIAL IM ONE (18:30)
[2017-06-30] MEDS ORDERED: HALOPERIDOL LACTATE 5 MG/ML AMP IM ONE (18:30)
[2017-06-30] MEDS ORDERED: HALOPERIDOL LACTATE 5 MG/ML AMP ONE (18:30)
[2017-06-30] MEDS ORDERED: LORazepam 2 MG/ML VIAL IM ONE (18:30)
[2017-06-30] MEDS: ASPIRIN 81 MG CHEW TAB CHEW SCH (19:45)
[2017-06-30 19:52] VITALS: BP 115/57; PULSE 73; RESP 18; O2SAT 98
--- NOTE | 2017-06-30 20:05 | PD ---
Physical Exam Date Seen by Provider: Jun 30, 2017 Time Seen by Provider: 20:03 Narrative GENERAL: This is a well-nourished, well-developed patient, in no apparent distress. SKIN: No rashes, ecchymoses or lesions. Warm and dry. HEAD: Atraumatic. Normocephalic. EYES: PERRL, EOMI, no discharge or injection. No scleral icterus. EARS: Clear NOSE: Nasal turbinates appear normal. THROAT: Mucosa pink and moist. Airway patent. NECK: Trachea midline. supple, moves head freely. LUNGS: Clear to auscultation. CV: Regular in rhythm. ABDOMEN: Soft nontender. EXT: No clubbing cyanosis or edema. Data Data Last Documented VS Vital Signs Date Time Temp Pulse Resp B/P (MAP) Pulse Ox O2 Delivery O2 Flow Rate FiO2 07/01/17 02:17 70 18 107/58 (74) Room Air 06/30/17 19:52 98 06/30/17 15:52 98.8 Orders Orders Complete Blood Count With Diff (06/30/17 16:16) Comprehensive Metabolic Panel (06/30/17 16:16) Psych Screen (06/30/17 16:16) Drug Screen, Random Urine (06/30/17 16:16) Alcohol (Ethanol) (06/30/17 16:16) Alcohol Withdrawal Asmt-Ciwa Q4HX18 (06/30/17 18:06) Flumazenil Inj (Romazicon Inj) (06/30/17 18:15) Lorazepam (Ativan) (06/30/17 18:15) Lorazepam Inj (Ativan Inj) (06/30/17 18:15) Lorazepam (Ativan) (06/30/17 18:15) Lorazepam Inj (Ativan Inj) (06/30/17 18:15) Lorazepam Inj (Ativan Inj) (06/30/17 18:15) Lorazepam Inj (Ativan Inj) (06/30/17 18:15) Diphenhydramine Inj (Benadryl Inj) (06/30/17 18:30) Haloperidol Inj (Haldol Inj) (06/30/17 18:30) Lorazepam Inj (Ativan Inj) (06/30/17 18:30) Diphenhydramine Inj (Benadryl Inj) (06/30/17 18:30) Haloperidol Inj (Haldol Inj) (06/30/17 18:30) Aspirin Chew (Aspirin Chew) (06/30/17 19:45) Electrocardiogram (06/30/17 19:32) Troponin I (06/30/17 19:35) Troponin I (06/30/17 16:25) Troponin I (06/30/17 23:00) Labs Laboratory Tests Test 06/30/17 16:25 06/30/17 19:55 07/01/17 01:05 White Blood Count 4.2 TH/MM3 Red Blood Count 4.03 MIL/MM3 Hemoglobin 12.9 GM/DL Hematocrit 39.0 % Mean Corpuscular Volume 96.7 FL Mean Corpuscular Hemoglobin 32.1 PG Mean Corpuscular Hemoglobin Concent 33.2 % Red Cell Distribution Width 14.6 % Platelet Count 104 TH/MM3 Mean Platelet Volume 8.7 FL Neutrophils (%) (Auto) 58.7 % Lymphocytes (%) (Auto) 31.1 % Monocytes (%) (Auto) 7.7 % Eosinophils (%) (Auto) 1.8 % Basophils (%) (Auto) 0.7 % Neutrophils # (Auto) 2.5 TH/MM3 Lymphocytes # (Auto) 1.3 TH/MM3 Monocytes # (Auto) 0.3 TH/MM3 Eosinophils # (Auto) 0.1 TH/MM3 Basophils # (Auto) 0.0 TH/MM3 CBC Comment DIFF FINAL Differential Comment Blood Urea Nitrogen 9 MG/DL Creatinine 0.55 MG/DL Random Glucose 104 MG/DL Total Protein 8.2 GM/DL Albumin 3.6 GM/DL Calcium Level 8.2 MG/DL Alkaline Phosphatase 96 U/L Aspartate Amino Transf (AST/SGOT) 73 U/L Alanine Aminotransferase (ALT/SGPT) 34 U/L Total Bilirubin 1.5 MG/DL Sodium Level 142 MEQ/L Potassium Level 3.4 MEQ/L Chloride Level 106 MEQ/L Carbon Dioxide Level 23.0 MEQ/L Anion Gap 13 MEQ/L Estimat Glomerular Filtration Rate 152 ML/MIN Troponin I LESS THAN 0.02 NG/ML LESS THAN 0.02 NG/ML LESS THAN 0.02 NG/ML Urine Opiates Screen NEG Urine Barbiturates Screen NEG Urine Amphetamines Screen NEG Urine Benzodiazepines Screen NEG Urine Cocaine Screen NEG Urine Cannabinoids Screen NEG Ethyl Alcohol Level 298 MG/DL [facility] Medical Record Reviewed: Yes Supervised Visit with SEAN: Yes Interpretation(s) EKG: Sinus rhythm with incomplete right bundle-branch block. Ventricular rate 73. No abnormal ST-T wave changes. This is compared to an EKG on 05/22/16 which is unchanged. Differential Diagnosis . Narrative Course This is a 61-year-old male who complained of chest discomfort when he had gotten to the psych department. It was felt by the nursing staff that the patient did not like his accommodations would rather be back in the main nursing area. The patient did not appear to be in any distress. He is not complaining of any nausea, vomiting or diaphoresis. Patient's EKG here today is unremarkable. It is unchanged from an EKG 1 year ago. We will give him aspirin and I will perform a troponin on his initial blood work and a troponin now. The patient has had a total of 3 troponins and are negative. His EKG is unchanged from his EKG last year. I do not believe the patient is suffering from acute coronary syndrome. This is most likely noncardiac complaint. Diagnosis Primary Impression: Medical clearance for psychiatric admission Condition: Stable Tyler Keith Jun 30, 2017 20:05
[2017-06-30] MEDS: SODIUM CHLOR 0.9% 1000 ML INJ 1,000 ML IV SCH (22:35)
[2017-06-30 23:38] VITALS: BP 143/74; PULSE 89; RESP 17
[2017-07-01] VITALS (10 sets, daily range): BP systolic 107–186; BP diastolic 58–106; PULSE 64–113; RESP 16–20; TEMP 98.3–98.7; O2SAT 93–98
[2017-07-01] MEDS: ASPIRIN 81 MG CHEW TAB CHEW SCH (09:00)
[2017-07-01] MEDS ORDERED: levETIRAcetam INJ 100 ML IV ONE (09:15)
[2017-07-01 09:45] LABS: AUTOMATED NEUTROPHIL # 2.8 TH/MM3 (1.8-7.7); BASOPHIL % 0.5 % (0.0-2.0); EOSINOPHIL % 0.6 % (0.0-4.0); HEMATOCRIT 34.3 % (39.0-51.0); LYMPH % 17.7 % (9.0-44.0); LYMPHOCYTE # 0.7 TH/MM3 (1.0-4.8); MEAN CORPUSCULAR HEMOGLOBIN 32.8 PG (27.0-34.0); MEAN CORPUSCULAR HGB CONC 33.5 % (32.0-36.0); NEUT % 73.2 % (16.0-70.0); PLATELET COUNT 81 TH/MM3 (150-450); RED CELL DISTRIBUTION WIDTH 14.5 % (11.6-17.2); WHITE BLOOD COUNT 3.8 TH/MM3 (4.0-11.0)
[2017-07-01 09:49] LABS: HEMO FLAGS AUTO DIFF
[2017-07-01 09:53] LABS: INTERNATIONAL NORMALIZED RATIO 1.3 RATIO; PROTHROMBIN TIME - PATIENT 14.2 SEC (9.8-11.6)
[2017-07-01 10:00] LABS: ALT (GPT) 26 U/L (12-78); ANION GAP 10 MEQ/L (5-15); AST (GOT) 63 U/L (15-37); BICARBONATE 23.5 MEQ/L (21.0-32.0); BLOOD UREA NITROGEN 18 MG/DL (7-18); CHLORIDE 103 MEQ/L (98-107); GLOMERULAR FILTRATION RATE 123 ML/MIN (>89); POTASSIUM 3.8 MEQ/L (3.5-5.1); SODIUM (NA) 136 MEQ/L (136-145)
[2017-07-01 10:02] LABS: ALKALINE PHOSPHATASE 79 U/L (45-117); TOTAL BILIRUBIN ADULT 2.3 MG/DL (0.2-1.0)
[2017-07-01] MEDS ORDERED: PANTOPRAZOLE INJ 80 MG in SODIUM CHLORIDE 0.9% INJ 35 ML IV ONE (10:03)
[2017-07-01 10:08] LABS: ALCOHOL LESS THAN 3 MG/DL (0-5)
[2017-07-01] MEDS: PANTOPRAZOLE INJ 80 MG in SODIUM CHLORIDE 0.9% INJ 100 ML IV SCH ×2 (10:12→22:03)
[2017-07-01 10:17] LABS: SCAN/DIFF AUTO DIFF CONFIRMED
--- NOTE | 2017-07-01 10:59 | PD ---
Physical Exam Date Seen by Provider: Jul 01, 2017 Time Seen by Provider: 10:58 Narrative 61-year-old male came to the emergency room sent from the J/psych pod for upper GI bleed. Patient was seen in the emergency room for medical clearance yesterday. He was intoxicated with an alcohol level of approximately 250. He was medically cleared and sent to the psych pod where this morning he had an emesis that had blood clots. His brought back to the medical pod. Patient was awake with relatively stable vital signs. He was given 1 L of IV fluid bolus and repeat labs which showed hemoglobin and hematocrit dropped by 1 point. His bilirubin has gone up since the last one. INR is negative and alcohol is down to 0. I started him on Protonix bolus and drip. I discussed the case with GI specialist Dr. Herrera and he will consult on the patient. Patient will need to be admitted. Awaiting for the hospitalist call back. Data Data Last Documented VS Orders Orders Complete Blood Count With Diff (06/30/17 16:16) Comprehensive Metabolic Panel (06/30/17 16:16) Psych Screen (06/30/17 16:16) Drug Screen, Random Urine (06/30/17 16:16) Alcohol (Ethanol) (06/30/17 16:16) Alcohol Withdrawal Asmt-Ciwa Q4HX18 (06/30/17 18:06) Flumazenil Inj (Romazicon Inj) (06/30/17 18:15) Lorazepam (Ativan) (06/30/17 18:15) Lorazepam Inj (Ativan Inj) (06/30/17 18:15) Lorazepam (Ativan) (06/30/17 18:15) Lorazepam Inj (Ativan Inj) (06/30/17 18:15) Lorazepam Inj (Ativan Inj) (06/30/17 18:15) Lorazepam Inj (Ativan Inj) (06/30/17 18:15) Diphenhydramine Inj (Benadryl Inj) (06/30/17 18:30) Haloperidol Inj (Haldol Inj) (06/30/17 18:30) Lorazepam Inj (Ativan Inj) (06/30/17 18:30) Diphenhydramine Inj (Benadryl Inj) (06/30/17 18:30) Haloperidol Inj (Haldol Inj) (06/30/17 18:30) Aspirin Chew (Aspirin Chew) (06/30/17 19:45) Troponin I (06/30/17 19:35) Troponin I (06/30/17 16:25) Troponin I (06/30/17 23:00) Diet Regular Basic (07/01/17 Breakfast) Sodium Chloride 0.9... W/Pantoprazole In (07/01/17 10:03) Sodium Chloride 0.9... W/Pantoprazole In (07/01/17 10:03) Complete Blood Count With Diff (07/01/17 09:03) Comprehensive Metabolic Panel (07/01/17 09:03) Alcohol (Ethanol) (07/01/17 09:03) Levetiracetam 1000 Mg Inj (Keppra 1000 M (07/01/17 09:15) Type And Screen (07/01/17 09:03) Prothrombin Time / Inr (Pt) (07/01/17 09:03) Place In Observation (07/01/17 ) Vital Signs (Adult) Q4H (07/01/17 11:14) Activity Oob With Assistance (07/01/17 11:14) Diet Npo (07/01/17 Lunch) Sodium Chlor 0.9% 1000 Ml Inj (Ns 1000 M (07/01/17 12:00) Sodium Chloride 0.9% Flush (Ns Flush) (07/01/17 11:15) Sodium Chloride 0.9% Flush (Ns Flush) (07/01/17 21:00) Acetaminophen (Tylenol) (07/01/17 11:15) Ondansetron Inj (Zofran Inj) (07/01/17 11:15) Prochlorperazine Supp (Compazine Supp) (07/01/17 11:15) Comprehensive Metabolic Panel (07/02/17 06:00) Complete Blood Count With Diff (07/02/17 06:00) Lipase (07/02/17 06:00) Resp Oxygen Alfred C Titrat 1-4 L (07/01/17 ) Pt Request For Service (07/01/17 11:14) Case Management Consult (07/01/17 11:14) Scd Bilateral/Knee High BRITTNEY.BID (07/01/17 11:14) Joshua Bilateral/Knee High BRITTNEY.QSHIFT (07/01/17 11:14) Pharmacologic Contraindication (07/01/17 11:14) Naloxone Inj (Narcan Inj) (07/01/17 11:15) Docusate Sodium-Senna (Ronit-Colace) (07/01/17 21:00) Magnesium Hydroxide Liq (Milk Of Magnesi (07/01/17 11:15) Sennosides (Senokot) (07/01/17 11:15) Bisacodyl Supp (Dulcolax Supp) (07/01/17 11:15) Lactulose Liq (Lactulose Liq) (07/01/17 11:15) Vital Signs (Adult) Q4H (07/01/17 11:16) Bedside Glucose BRITTNEY.CSUGAR (07/01/17 11:16) Intake + Output BRITTNEY.QSHIFT (07/01/17 11:16) Neuro Checks Q4H (07/01/17 11:16) Alcohol Withdrawal Asmt-Ciwa Q4HX18 (07/01/17 11:16) ^ Seizure Precautions (07/01/17 11:16) Sheetrock Applicator / Telemetry BRITTNEY.Q8H (07/01/17 11:16) Sodium Chloride 0.9% Flush (Ns Flush) (07/01/17 11:30) Folic Acid (Folate) (07/02/17 09:00) Thiamine (Vit B1) (Vitamin B1) (07/02/17 09:00) Multivitamins-Minerals Therap (Theragran (07/02/17 09:00) Magnesium (Mg) (07/01/17 11:16) Phosphorus (Po4) (07/01/17 11:16) Consult Psychiatry (07/01/17 ) Consult Cm-Etoh Abuse Dc Plan (07/01/17 ) Admit Order (Ed Use Only) (07/01/17 11:12) Labs Laboratory Tests Test 06/30/17 16:25 06/30/17 19:55 07/01/17 01:05 07/01/17 09:10 White Blood Count 4.2 TH/MM3 3.8 TH/MM3 Red Blood Count 4.03 MIL/MM3 3.50 MIL/MM3 Hemoglobin 12.9 GM/DL 11.5 GM/DL Hematocrit 39.0 % 34.3 % Mean Corpuscular Volume 96.7 FL 98.0 FL Mean Corpuscular Hemoglobin 32.1 PG 32.8 PG Mean Corpuscular Hemoglobin Concent 33.2 % 33.5 % Red Cell Distribution Width 14.6 % 14.5 % Platelet Count 104 TH/MM3 81 TH/MM3 Mean Platelet Volume 8.7 FL 8.7 FL Neutrophils (%) (Auto) 58.7 % 73.2 % Lymphocytes (%) (Auto) 31.1 % 17.7 % Monocytes (%) (Auto) 7.7 % 8.0 % Eosinophils (%) (Auto) 1.8 % 0.6 % Basophils (%) (Auto) 0.7 % 0.5 % Neutrophils # (Auto) 2.5 TH/MM3 2.8 TH/MM3 Lymphocytes # (Auto) 1.3 TH/MM3 0.7 TH/MM3 Monocytes # (Auto) 0.3 TH/MM3 0.3 TH/MM3 Eosinophils # (Auto) 0.1 TH/MM3 0.0 TH/MM3 Basophils # (Auto) 0.0 TH/MM3 0.0 TH/MM3 CBC Comment DIFF FINAL AUTO DIFF Differential Comment AUTO DIFF CONFIRMED Blood Urea Nitrogen 9 MG/DL 18 MG/DL Creatinine 0.55 MG/DL 0.66 MG/DL Random Glucose 104 MG/DL 121 MG/DL Total Protein 8.2 GM/DL 7.6 GM/DL Albumin 3.6 GM/DL 3.1 GM/DL Calcium Level 8.2 MG/DL 8.1 MG/DL Alkaline Phosphatase 96 U/L 79 U/L Aspartate Amino Transf (AST/SGOT) 73 U/L 63 U/L Alanine Aminotransferase (ALT/SGPT) 34 U/L 26 U/L Total Bilirubin 1.5 MG/DL 2.3 MG/DL Sodium Level 142 MEQ/L 136 MEQ/L Potassium Level 3.4 MEQ/L 3.8 MEQ/L Chloride Level 106 MEQ/L 103 MEQ/L Carbon Dioxide Level 23.0 MEQ/L 23.5 MEQ/L Anion Gap 13 MEQ/L 10 MEQ/L Estimat Glomerular Filtration Rate 152 ML/MIN 123 ML/MIN Troponin I LESS THAN 0.02 NG/ML LESS THAN 0.02 NG/ML LESS THAN 0.02 NG/ML Urine Opiates Screen NEG Urine Barbiturates Screen NEG Urine Amphetamines Screen NEG Urine Benzodiazepines Screen NEG Urine Cocaine Screen NEG Urine Cannabinoids Screen NEG Ethyl Alcohol Level 298 MG/DL LESS THAN 3 MG/DL Prothrombin Time 14.2 SEC Prothromb Time International Ratio 1.3 RATIO Phosphorus Level 1.9 MG/DL Magnesium Level 1.5 MG/DL MDM Supervised Visit with SEAN: No Critical Care Narrative Aggregate critical care time was 30 minutes. Time to perform other separately billable procedures was not included in the critical care time. My time did not include minutes spent treating any other patients simultaneously or on activities that did not directly contribute to the patient's treatment. The services I provided to this patient were to treat and/or prevent clinically significant deterioration that could result in: Upper GI bleed, Protonix bolus and drip I provided critical care services requiring my management, as noted below: Chart data review, documentation time, medication orders and management, vital sign assessments/reviewing monitor data, ordering and reviewing lab tests, ordering and interpreting/reviewing x-rays and diagnostic studies, care of the patient and discussion of the patient with the admitting physicians. Physician Communication Physician Communication Dr. Leon Diagnosis Primary Impression: Medical clearance for psychiatric admission Additional Impressions: Upper GI bleed Alcohol intoxication Qualified Codes: F10.929 - Alcohol use, unspecified with intoxication, unspecified Admitting Information Admitting Physician Requests: Admit Scripts Pantoprazole (Pantoprazole) 40 Mg Tab 40 MG PO DAILY for Reflux, #30 TAB 0 Refills Prov: Angi Ferraro MD 07/02/17 Lorazepam (Ativan) 0.5 Mg Tab 0.5 MG PO Q8H Y for ANXIETY AND/OR AGITATION, #20 TAB 0 Refills Prov: Angi Ferraro MD 07/02/17 Multiple Vitamins W/ Minerals (Thera M Plus) 1 Tab 1 TAB PO DAILY for Nutritional Supplement, #30 TAB Prov: Angi Ferraro MD 07/02/17 Thiamine HCl (Gnp Vitamin B-1) 100 Mg Tab 100 MG PO DAILY for Nutritional Supplement, #30 TAB Prov: Angi Ferraro MD 07/02/17 Folic Acid (Folic Acid) 1 Mg Tablet 1 MG PO DAILY for Nutritional Supplement, #30 MG Prov: Angi Ferraro MD 07/02/17 Condition: Stable Kathleen Romero MD Jul 01, 2017 10:59
--- NOTE | 2017-07-01 11:08 | PD.CONS ---
HPI History of Present Illness This is a 61 year old male with a history of peptic ulcer disease, liver cirrhosis, esophgeal varices, and alcohol abuse, who was brought to the emergency room under the Murry act for reported suicidal ideation. According to the EMR, he was intoxicated on arrival and his girlfriend had reported that he was suicidal, but he denied this once he woke up in the ER. GI has been consulted for hematemesis. The patient tells me that he started having nausea earlier this morning and has had 3 episodes of vomiting red blood. The nurse witnessed about 300cc of hematemesis- dark blood with clots. He cannot states if this was a small or large amount. He has a hx of GERD, but denies any heartburn or reflux. He does note that his stools have been dark for a few days. He denies the use of NSAIDs. He reports that he drinks "alot of alcohol " but cannot state how much. He underwent an EGD with band ligation for upper GI bleeding (04/25/17)----> esophageal varices/p band ligation-3 bands applied, hiatal hernia, large amount of clots in stomach. He has a remote history of Hodgkin's disease and underwent a bronchoscopy with resection of tumor, had his testicle and 22 lymph nodes removed along with radiation. He reports that he has since been in remission. (Sonia Trejo) PFSH Past Medical History DT's ETOH abuse Hodgkin's disease Denies any hx of TIAs HTN Liver cirrhosis Esophageal Varices GERD Past Surgical History EGD with band ligation Bronchoscopy with tumor resection, testicle, and 22 lymph nodes resected r/t Hodgkin's disease (Sonia Trejo) Coded Allergies: No Known Allergies (Unverified Allergy, Unknown, 06/30/17) Medications Allergies Coded Allergies Type Severity Reaction Last Updated Verified No Known Allergies Allergy Unknown 06/30/17 No Active Scripts Medications Dose Route/Sig Max Daily Dose Days Date Category Zantac (Ranitidine HCl) 150 Mg Tab 150 Mg PO BID 06/30/17 Reported Atenolol 25 Mg Tab 10 Mg PO BID 04/25/17 Reported Family History Denies any family hx of liver disease Social History States he drinks "alot" of etoh, but unable to quantify. Previously reported drinking 1 liter of Vodka daily No tobacco No illicit drug use (Sonia Trejo) Review of Systems Constitutional: COMPLAINS OF: Fatigue, DENIES: Weight loss Respiratory: DENIES: Cough Cardiovascular: DENIES: Chest pain Gastrointestinal: COMPLAINS OF: Black stools, Nausea, Vomiting, Hematemesis, DENIES: Abdominal pain, Bloody stools, Constipation, Diarrhea, Heartburn Musculoskeletal: DENIES: Back pain Hematologic/lymphatic: DENIES: Bruising Neurologic: DENIES: Headache Psychiatric: DENIES: Confusion (Sonia Trejo) GI Exam Vitals I&O Vital Signs Date Time Temp Pulse Resp B/P (MAP) Pulse Ox O2 Delivery O2 Flow Rate FiO2 07/01/17 10:28 85 20 140/82 (101) 93 Room Air 07/01/17 09:10 98.3 87 20 155/96 (115) 96 Room Air 07/01/17 08:40 113 18 186/106 (132) 98 Room Air 07/01/17 06:32 18 91 07/01/17 06:26 91 18 149/82 (104) Room Air 07/01/17 02:17 70 18 107/58 (74) Room Air 07/01/17 01:09 112 18 145/81 (102) 06/30/17 23:38 89 17 143/74 (97) 06/30/17 19:52 73 18 115/57 (76) 98 Room Air 06/30/17 15:52 98.8 74 16 157/94 (115) 97 I/O 06/30/17 06/30/17 06/30/17 07/01/17 07/01/17 07/01/17 07:00 15:00 23:00 07:00 15:00 23:00 Output Total 300 ml Balance -300 ml Output Emesis 300 ml # Voids 1 Laboratory Test 06/30/17 16:25 06/30/17 19:55 07/01/17 01:05 07/01/17 09:10 White Blood Count 4.2 TH/MM3 3.8 TH/MM3 Red Blood Count 4.03 MIL/MM3 3.50 MIL/MM3 Hemoglobin 12.9 GM/DL 11.5 GM/DL Hematocrit 39.0 % 34.3 % Mean Corpuscular Volume 96.7 FL 98.0 FL Mean Corpuscular Hemoglobin 32.1 PG 32.8 PG Mean Corpuscular Hemoglobin Concent 33.2 % 33.5 % Red Cell Distribution Width 14.6 % 14.5 % Platelet Count 104 TH/MM3 81 TH/MM3 Mean Platelet Volume 8.7 FL 8.7 FL Neutrophils (%) (Auto) 58.7 % 73.2 % Lymphocytes (%) (Auto) 31.1 % 17.7 % Monocytes (%) (Auto) 7.7 % 8.0 % Eosinophils (%) (Auto) 1.8 % 0.6 % Basophils (%) (Auto) 0.7 % 0.5 % Neutrophils # (Auto) 2.5 TH/MM3 2.8 TH/MM3 Lymphocytes # (Auto) 1.3 TH/MM3 0.7 TH/MM3 Monocytes # (Auto) 0.3 TH/MM3 0.3 TH/MM3 Eosinophils # (Auto) 0.1 TH/MM3 0.0 TH/MM3 Basophils # (Auto) 0.0 TH/MM3 0.0 TH/MM3 CBC Comment DIFF FINAL AUTO DIFF Differential Comment AUTO DIFF CONFIRMED Blood Urea Nitrogen 9 MG/DL 18 MG/DL Creatinine 0.55 MG/DL 0.66 MG/DL Random Glucose 104 MG/DL 121 MG/DL Total Protein 8.2 GM/DL 7.6 GM/DL Albumin 3.6 GM/DL 3.1 GM/DL Calcium Level 8.2 MG/DL 8.1 MG/DL Alkaline Phosphatase 96 U/L 79 U/L Aspartate Amino Transf (AST/SGOT) 73 U/L 63 U/L Alanine Aminotransferase (ALT/SGPT) 34 U/L 26 U/L Total Bilirubin 1.5 MG/DL 2.3 MG/DL Sodium Level 142 MEQ/L 136 MEQ/L Potassium Level 3.4 MEQ/L 3.8 MEQ/L Chloride Level 106 MEQ/L 103 MEQ/L Carbon Dioxide Level 23.0 MEQ/L 23.5 MEQ/L Anion Gap 13 MEQ/L 10 MEQ/L Estimat Glomerular Filtration Rate 152 ML/MIN 123 ML/MIN Troponin I LESS THAN 0.02 NG/ML LESS THAN 0.02 NG/ML LESS THAN 0.02 NG/ML Urine Opiates Screen NEG Urine Barbiturates Screen NEG Urine Amphetamines Screen NEG Urine Benzodiazepines Screen NEG Urine Cocaine Screen NEG Urine Cannabinoids Screen NEG Ethyl Alcohol Level 298 MG/DL LESS THAN 3 MG/DL Prothrombin Time 14.2 SEC Prothromb Time International Ratio 1.3 RATIO Physical Examination HEENT: Normocephalic; atraumatic; no jaundice. CHEST: CTA CARDIAC: RRR ABDOMEN: Soft, nondistended, nontender; no hepatosplenomegaly; bowel sounds are present in all four quadrants. EXTREMITIES: No clubbing, cyanosis, or edema. SKIN: Normal; no rash; no jaundice. PICK PACK WORKER: No focal deficits; alert and oriented times three. (Sonia Trejo) Assessment and Plan Plan ASSESSMENT: - Hematemesis in patient with known esophgeal varices, hx pud and ongoing ETOH use. Brought to ER as BA for suicidal ideation (currently denies any SI). Hematemesis x 3. Tx to C pod from J and nurse witnessed hematemesis with about 300cc of dark red blood with blood clots. EGD with band ligation for upper GI bleeding ()----> esophageal varices/p band ligation-3 bands applied, hiatal hernia, large amount of clots in stomach. (+) ETOH abuse- states "alot" but unable to quantify. HH 11.5/34.3. Protonix Gtt. Add Octreotide. - Elevated LFTs/Liver cirrhosis. T. Bili 2.3, AST 63, ALT 26, Alk Phosph 79. This is not obstructive. Likely r/t to ETOH abuse and underlying cirrhosis. - Esophageal varices. Protonix gtt, add octreotide. Need ETOH cessation - Hepatic encephalopathy. - ETOH abuse. DT precautions per primary. - SI. PT BA. Currently denies. Per psych. - HTN, Hx Hodgkin's lymphoma per attending PLAN: - Plan for EGD with band ligation today - Obtain consents - NPO - Protonix Gtt - Octreotide Gtt - Monitor HH - Transfuse as necessary - Ammonia level - CBC, CMP in am - Will add lactulose after EGD - Supportive care - Further recommendations to follow based on results of above - Pt seen and examined by Dr. Marmolejo and myself and this note is written on his behalf (Sonia Trejo) Physician Comments Seen and examined with PRODUCT SAFETY MANAGER, egd planned for today. Emergency consents signed. Monitor H/H and keep on octreotide/protonix drips. Will follow. Thank you (Alec Marmolejo MD) Sonia Trejo Jul 01, 2017 11:08 Alec Marmolejo MD Jul 01, 2017 14:18
[2017-07-01] MEDS ORDERED: BISACODYL 10 MG SUPP RECTAL PRN (11:15)
[2017-07-01] MEDS ORDERED: NALOXONE HCL 0.4 MG/ML AMP IV PUSH PRN (11:15)
[2017-07-01] MEDS ORDERED: LACTULOSE SYRUP 20 GM/30 ML CUP PO PRN (11:15)
[2017-07-01] MEDS ORDERED: PROCHLORPERAZINE 25 MG SUPP RECTAL PRN (11:15)
[2017-07-01] MEDS ORDERED: ONDANSETRON HCL 4 MG/2 ML VIAL IVP PRN (11:15)
[2017-07-01] MEDS ORDERED: MAGNESIUM HYDROXIDE SUSP 30 ML CUP PO PRN (11:15)
[2017-07-01] MEDS ORDERED: SODIUM CHLORIDE 0.9% FLUSH 10 ML FLUSH IV FLUSH PRN ×3 (11:15→11:30)
[2017-07-01] MEDS ORDERED: SENNOSIDES 8.6 MG TAB PO PRN (11:15)
[2017-07-01] MEDS ORDERED: ACETAMINOPHEN 325 MG TAB PO PRN (11:15)
[2017-07-01] MEDS ORDERED: PANTOPRAZOLE SODIUM 40 MG VIAL IV PUSH SCH (11:15)
[2017-07-01] MEDS ORDERED: OCTREOTIDE INJ 50 MCG/ML AMP IV PUSH ONE (11:30)
--- NOTE | 2017-07-01 14:37 | GIPROC ---
[facility] [address] [facility]. [facility], [address] EGD PROCEDURE REPORT EXAM DATE: 07/01/2017 PATIENT NAME: Anderson Ghotra MR #: [id number] BIRTHDATE: 1955 ATTENDING: Alec Marmolejo MD ORDER #: [id number] PEDIATRIC SPORTS MEDICINE SPECIALIST: Odalys Stallworth and Gabriela Brown STATUS: inpatient INDICATIONS: The patient is a 61 yr old male here for an EGD due to acute post hemorrhagic anemia PROCEDURE PERFORMED: EGD, diagnostic MEDICATIONS: None and Per Anesthesia. TOPICAL ANESTHETIC: CONSENT: The patient understands the risks and benefits of the procedure and understands that these risks include, but are not limited to: sedation, allergic reaction, infection, perforation and/or bleeding. Alternative means of evaluation and treatment include, among others: physical exam, x-rays, and/or surgical intervention. The patient elects to proceed with this endoscopic procedure. medical equipment was checked for proper function. Hand hygiene and appropriate measures for infection prevention was taken. After the risks, benefits and alternatives of the procedure were thoroughly explained, Informed consent was verified, confirmed and timeout was successfully executed by the treatment team. The patient was anesthetized with topical anesthesia and the Pentax EG-[id number] endoscope was introduced through the mouth and advanced to the second portion of the duodenum. Retroflexed views revealed old blood/clot The gastroscope was then slowly withdrawn and removed. ESOPHAGUS: There was a single small varix in the distal esophagus. The varices were not bleeding. There was evidence of prior scarring. STOMACH: Coffee grounds and old blood. DUODENUM: The duodenal mucosa appeared normal in the bulb and second portion of the duodenum. ADVERSE EVENTS: There were no complications. IMPRESSIONS: 1. Coffee grounds and old blood 2. Normal duodenal mucosa in the bulb and second portion of the duodenum 3. Retroflexed views revealed old blood/clot RECOMMENDATIONS: 1. Anti-reflux regimen 2. Continue PPI 3. Avoid NSAIDS PATIENT CONDITION: stable DISPOSITION: Inpatient REPEAT EXAM: Return 3 months EGD Alec Marmolejo MD eSigned: Alec Marmolejo MD 07/01/2017 2:36 PM cc: PATIENT NAME: Anderson Ghotra MR#: [id number]
[2017-07-01] MEDS ORDERED: DO NOT ADM ANY ANTICOAGULANT DRUGS PRN (15:02)
[2017-07-01] MEDS ORDERED: SIMETHICONE SUSP DROPS 40 MG/0.6 ML 30 ML BTL PO ONE (15:25)
[2017-07-01] MEDS: SODIUM CHLOR 0.9% 1000 ML INJ 1,000 ML IV SCH ×2 (15:55→22:00)
[2017-07-01] MEDS: OCTREOTIDE INJ 500 MCG in SODIUM CHLORID 0.9% 500 ML INJ 499.5 ML IV SCH (15:55)
--- NOTE | 2017-07-01 16:03 | PD.PN.STU ---
Subjective Remarks Patient is a 61 y/o male with history of liver cirrhosis, esophageal varices, peptic ulcer disease and alcohol abuse who presented under the Murry act for reported suicidal ideation. He was intoxicated upon arrival. After medical clearance he was sent to the psych pod, where this morning nurses witnessed about 300cc of hematemesis, dark blood with clots. He was then transported back to the medical pod for close monitoring. He underwent an EGD earlier for possibility of needing band ligation. No bleeding esophageal varices were visualized. Today during our encounter in PACU patient is moderately sedated and unable to provide a thorough history. He states that he does not remember vomiting this morning. He also admits to drinking alcohol but says he only has "a few glasses of wine every night". He denies that he has any current health problems. He denies any chest pain, SOB, nausea, vomiting, diarrhea, or constipation at this time. Past Medical History: Hodgkin's disease, hypertension, liver cirrhosis, esophageal varices, GERD Past Surgical History: EGD with band ligation, bronchoscopy with tumor resection , testicle, and 22 lymph nodes resected r/t Hodgkin's disease Family History: Noncontributory Social History: alcohol use, denies use of tobacco or illicit drugs Allergies: NKDA Objective Vitals Vital Signs Date Time Temp Pulse Resp B/P (MAP) Pulse Ox O2 Delivery O2 Flow Rate FiO2 07/01/17 15:00 98.6 100 18 156/86 (109) 98 Nasal Cannula 3 07/01/17 11:30 07/01/17 10:28 85 20 140/82 (101) 93 Room Air 07/01/17 09:10 98.3 87 20 155/96 (115) 96 Room Air 07/01/17 08:40 113 18 186/106 (132) 98 Room Air 07/01/17 06:32 18 91 07/01/17 06:26 91 18 149/82 (104) Room Air 07/01/17 02:17 70 18 107/58 (74) Room Air 07/01/17 01:09 112 18 145/81 (102) 06/30/17 23:38 89 17 143/74 (97) 06/30/17 19:52 73 18 115/57 (76) 98 Room Air 06/30/17 15:52 98.8 74 16 157/94 (115) 97 I/O 06/30/17 06/30/17 06/30/17 07/01/17 07/01/17 07/01/17 07:00 15:00 23:00 07:00 15:00 23:00 Intake Total 1135 ml Output Total 800 ml Balance 335 ml Intake IV Total 135 ml Other 1000 ml Output Urine Total 200 ml Emesis 300 ml Other 300 ml # Voids 1 Result Diagram: 07/01/1790907/01/17909 Objective Remarks GENERAL: This is a well-nourished, well-developed patient, in no apparent distress with . SKIN: No rashes, ecchymoses or lesions. Cool and dry. HEAD: Atraumatic. Normocephalic. No temporal or scalp tenderness. EYES: Pupils equal round and reactive. Extraocular motions intact. No scleral icterus. No injection or drainage. ENT: Nose without bleeding, purulent drainage or septal hematoma. Throat without erythema, tonsillar hypertrophy or exudate. Uvula midline. Airway patent. NECK: Trachea midline. No JVD or lymphadenopathy. Supple, nontender, no meningeal signs. CARDIOVASCULAR: Regular rate and rhythm without murmurs, gallops, or rubs. RESPIRATORY: Clear to auscultation. Breath sounds equal bilaterally. No wheezes , rales, or rhonchi. GASTROINTESTINAL: Abdomen soft, non-tender, nondistended. No hepato-splenomegaly , or palpable masses. No guarding. MUSCULOSKELETAL: Extremities without clubbing, cyanosis, or edema. No joint tenderness, effusion, or edema noted. No calf tenderness. Negative Homans sign bilaterally. NEUROLOGICAL: Moderately sedated. Cranial nerves II through XII intact. Motor and sensory grossly within normal limits. Five out of 5 muscle strength in all muscle groups. Slow, slurred speech. Mariza Reed M3 Jul 01, 2017 16:03
--- NOTE | 2017-07-01 16:04 | HHI.HP ---
HPI [facility] Primary Care Physician Unknown Admission Diagnosis alcohol intoxication, GI bleed Diagnoses: Chief Complaint: vomiting blood Travel History International Travel<30 Days: No Contact w/Intl Traveler <30 Da: No Traveled to Known Affected Are: No History of Present Illness Patient is a 61 y/o male with history of liver cirrhosis, esophageal varices, peptic ulcer disease and alcohol abuse who presented under the Murry act for reported suicidal ideation. He was intoxicated upon arrival. After medical clearance he was sent to the psych pod, where this morning nurses witnessed about 300cc of hematemesis, dark blood with clots. He was then transported back to the medical pod for close monitoring. He underwent an EGD earlier for possibility of needing band ligation. No esophageal varices were visualized. Today during our encounter in PACU patient is moderately sedated and unable to provide a thorough history. He states that he does not remember vomiting this morning. He also admits to drinking alcohol but says he only has "a few glasses of wine every night". He denies any chest pain, SOB, nausea, vomiting, diarrhea , or constipation at this time. Review of Systems Except as stated in HPI: all other systems reviewed are Neg Past Family Social History Past Medical History DT's ETOH abuse Hodgkin's disease Denies any hx of TIAs HTN Liver cirrhosis Esophageal Varices GERD Past Surgical History EGD with band ligation Bronchoscopy with tumor resection, testicle, and 22 lymph nodes resected r/t Hodgkin's disease Reported Medications Reported Meds & Active Scripts Active Reported Zantac (Ranitidine HCl) 150 Mg Tab 150 Mg PO BID Atenolol 25 Mg Tab 10 Mg PO BID Allergies: Coded Allergies: No Known Allergies (Unverified Allergy, Unknown, 06/30/17) Family History Denies any family hx of liver disease Mother had intracranial bleed at age of 71 Father lung CA was a smoker Social History States he drinks "alot" of etoh, but unable to quantify. Previously reported drinking 1 liter of Vodka daily No tobacco No illicit drug use Physical Exam Vital Signs Vital Signs Date Time Temp Pulse Resp B/P (MAP) Pulse Ox O2 Delivery O2 Flow Rate FiO2 07/01/17 15:00 98.6 100 18 156/86 (109) 98 Nasal Cannula 3 07/01/17 11:30 07/01/17 10:28 85 20 140/82 (101) 93 Room Air 07/01/17 09:10 98.3 87 20 155/96 (115) 96 Room Air 07/01/17 08:40 113 18 186/106 (132) 98 Room Air 07/01/17 06:32 18 91 07/01/17 06:26 91 18 149/82 (104) Room Air 07/01/17 02:17 70 18 107/58 (74) Room Air 07/01/17 01:09 112 18 145/81 (102) 06/30/17 23:38 89 17 143/74 (97) 06/30/17 19:52 73 18 115/57 (76) 98 Room Air Physical Exam GENERAL: This is a well-nourished, well-developed patient, in no apparent distress. SKIN: No rashes, ecchymoses or lesions. Cool and dry. HEAD: Atraumatic. Normocephalic. No temporal or scalp tenderness. EYES: Pupils equal round and reactive. Extraocular motions intact. No scleral icterus. No injection or drainage. ENT: Nose without bleeding, purulent drainage or septal hematoma. Throat without erythema, tonsillar hypertrophy or exudate. Uvula midline. Airway patent. NECK: Trachea midline. No JVD or lymphadenopathy. Supple, nontender, no meningeal signs. CARDIOVASCULAR: Regular rate and rhythm without murmurs, gallops, or rubs. RESPIRATORY: Clear to auscultation. Breath sounds equal bilaterally. No wheezes , rales, or rhonchi. GASTROINTESTINAL: Abdomen soft, non-tender, nondistended. No hepato-splenomegaly , or palpable masses. No guarding. MUSCULOSKELETAL: Extremities without clubbing, cyanosis, or edema. No joint tenderness, effusion, or edema noted. No calf tenderness. Negative Homans sign bilaterally. NEUROLOGICAL: Awake and alert. Cranial nerves II through XII intact. Motor and sensory grossly within normal limits. Five out of 5 muscle strength in all muscle groups. Normal speech. Laboratory Laboratory Tests Test 06/30/17 16:25 06/30/17 19:55 07/01/17 01:05 07/01/17 09:10 White Blood Count 4.2 3.8 Red Blood Count 4.03 3.50 Hemoglobin 12.9 11.5 Hematocrit 39.0 34.3 Mean Corpuscular Volume 96.7 98.0 Mean Corpuscular Hemoglobin 32.1 32.8 Mean Corpuscular Hemoglobin Concent 33.2 33.5 Red Cell Distribution Width 14.6 14.5 Platelet Count 104 81 Mean Platelet Volume 8.7 8.7 Neutrophils (%) (Auto) 58.7 73.2 Lymphocytes (%) (Auto) 31.1 17.7 Monocytes (%) (Auto) 7.7 8.0 Eosinophils (%) (Auto) 1.8 0.6 Basophils (%) (Auto) 0.7 0.5 Neutrophils # (Auto) 2.5 2.8 Lymphocytes # (Auto) 1.3 0.7 Monocytes # (Auto) 0.3 0.3 Eosinophils # (Auto) 0.1 0.0 Basophils # (Auto) 0.0 0.0 CBC Comment DIFF FINAL AUTO DIFF Differential Comment AUTO DIFF CONFIRMED Blood Urea Nitrogen 9 18 Creatinine 0.55 0.66 Random Glucose 104 121 Total Protein 8.2 7.6 Albumin 3.6 3.1 Calcium Level 8.2 8.1 Alkaline Phosphatase 96 79 Aspartate Amino Transf (AST/SGOT) 73 63 Alanine Aminotransferase (ALT/SGPT) 34 26 Total Bilirubin 1.5 2.3 Sodium Level 142 136 Potassium Level 3.4 3.8 Chloride Level 106 103 Carbon Dioxide Level 23.0 23.5 Anion Gap 13 10 Estimat Glomerular Filtration Rate 152 123 Troponin I LESS THAN 0.02 LESS THAN 0.02 LESS THAN 0.02 Urine Opiates Screen NEG Urine Barbiturates Screen NEG Urine Amphetamines Screen NEG Urine Benzodiazepines Screen NEG Urine Cocaine Screen NEG Urine Cannabinoids Screen NEG Ethyl Alcohol Level 298 LESS THAN 3 Prothrombin Time 14.2 Prothromb Time International Ratio 1.3 Phosphorus Level 1.9 Magnesium Level 1.5 Result Diagram: 07/01/1790907/01/17909 Caprini VTE Risk Assessment Caprini VTE Risk Assessment: No/Low Risk (score <= 1) Caprini Risk Assessment Model Point Value = 1 Point Value = 2 Point Value = 3 Point Value = 5 Age 41-60 Minor surgery BMI > 25 kg/m2 Swollen legs Varicose veins or History of unexplained or recurrent spontaneous Oral contraceptives or hormone replacement Sepsis (< 1 month) Serious lung disease, including pneumonia (< 1 month) Abnormal pulmonary function Acute myocardial infarction Congestive heart failure (< 1 month) History of inflammatory bowel disease Medical patient at bed rest Age 61-74 Arthroscopic surgery Major open surgery (> 45 min) Laparoscopic surgery (> 45 min) Malignancy Confined to bed (> 72 hours) Immobilizing plaster cast Central venous access Age >= 75 History of VTE Family history of VTE Factor V Leiden Prothrombin [id number] Lupus anticoagulant Anticardiolipin antibodies Elevated serum homocysteine Heparin-induced thrombocytopenia Other congenital or acquired thrombophilia Stroke (< 1 month) Elective arthroplasty Hip, pelvis, or leg fracture Acute spinal cord injury (< 1 month) Prophylaxis Regimen Total Risk Factor Score Risk Level Prophylaxis Regimen 0-1 Low Early ambulation 2 Moderate Order ONE of the following: *Sequential Compression Device (SCD) *Heparin 5000 units SQ BID 3-4 Higher Order ONE of the following medications: *Heparin 5000 units SQ TID *Enoxaparin/Lovenox 40 mg SQ daily (WT < 150 kg, CrCl > 30 mL/min) *Enoxaparin/Lovenox 30 mg SQ daily (WT < 150 kg, CrCl > 10-29 mL/min) *Enoxaparin/Lovenox 30 mg SQ BID (WT < 150 kg, CrCl > 30 mL/min) AND/OR *Sequential Compression Device (SCD) 5 or more Highest Order ONE of the following medications: *Heparin 5000 units SQ TID (Preferred with Epidurals) *Enoxaparin/Lovenox 40 mg SQ daily (WT < 150 kg, CrCl > 30 mL/min) *Enoxaparin/Lovenox 30 mg SQ daily (WT < 150 kg, CrCl > 10-29 mL/min) *Enoxaparin/Lovenox 30 mg SQ BID (WT < 150 kg, CrCl > 30 mL/min) AND *Sequential Compression Device (SCD) Assessment and Plan Assessment and Plan Hematemesis in patient with known esophgeal varices, hx pud and ongoing ETOH use. Brought to ER as BA for suicidal ideation (currently denies any SI). Hematemesis x 3. Tx to C pod from J and nurse witnessed hematemesis with about 300cc of dark red blood with blood clots. EGD with band ligation for upper GI bleeding ()----> esophageal varices/p band ligation-3 bands applied, hiatal hernia, large amount of clots in stomach. (+) ETOH abuse- states "alot" but unable to quantify. HH 11.5/34.3. Protonix Gtt. Add Octreotide. Plan for EGD today possible band ligation On pantoprazole drip and octreotide drip Monitor H&H and transfuse if need transfuse if hemoglobin less than 7 or if symptomatic Elevated LFTs/Liver cirrhosis. T. Bili 2.3, AST 63, ALT 26, Alk Phosph 79. This is not obstructive. Likely r/t to ETOH abuse and underlying cirrhosis. Esophageal varices. Protonix gtt, add octreotide. Need ETOH cessation Hepatic encephalopathy. Add lactulose after EGD ETOH abuse. DT precautions . On CPAP protocol. Thiamine multivitamin folate. Monitor electrolytes and replace as need SI. PT BA. Currently denies. Per psych. Chronic medical problems HTN, Hx Hodgkin's lymphoma start home medications. Add clonidine DVT prophylaxis SCD/teds. Chemical prophylaxis contraindicated in this time because patient is with active bleeding Discussed Condition With Patient, nurse, ER physician, Sonia Trejo from GI Physician Certification 2 Midnight Certification Type: Admission for Inpatient Services Order for Inpatient Services The services are ordered in accordance with Medicare regulations or non- Medicare payer requirements, as applicable. In the case of services not specified as inpatient-only, they are appropriately provided as inpatient services in accordance with the 2-midnight benchmark. Estimated LOS (days): 3 days is the estimated time the patient will need to remain in the hospital, assuming treatment plan goals are met and no additional complications. Post-Hospital Plan: Home Angi Ferraro MD Jul 01, 2017 16:04
[2017-07-01 18:20] LABS: HEMATOCRIT 33.6 % (39.0-51.0)
[2017-07-01 18:26] LABS: REVIEW FLAG FINAL
[2017-07-01] MEDS ORDERED: cloNIDine HCL 0.1 MG TAB PO PRN (18:45)
[2017-07-01] MEDS ORDERED: SODIUM CHLORIDE 0.9% FLUSH 10 ML FLUSH IV FLUSH SCH (21:00)
[2017-07-01] MEDS: DOCUSATE SODIUM 50 MG/SENNA 8.6 MG TAB PO SCH (22:03)
[2017-07-01] MEDS: SODIUM CHLORIDE 0.9% FLUSH 10 ML FLUSH IV FLUSH SCH (22:04)
[2017-07-01] MEDS: LACTULOSE SYRUP 20 GM/30 ML CUP PO SCH (22:07)
[2017-07-01] MEDS: LORazepam 1 MG TAB PO PRN (22:34)
[2017-07-01 23:16] LABS: HEMATOCRIT 31.5 % (39.0-51.0); REVIEW FLAG FINAL
[2017-07-02] VITALS (7 sets, daily range): BP systolic 120–154; BP diastolic 68–91; PULSE 75–95; RESP 20; TEMP 98–98.8; O2SAT 96–97
[2017-07-02] MEDS: PANTOPRAZOLE INJ 80 MG in SODIUM CHLORIDE 0.9% INJ 100 ML IV SCH ×2 (05:08→07:36)
[2017-07-02] MEDS: LORazepam 1 MG TAB PO PRN (06:23)
[2017-07-02 06:25] LABS: AUTOMATED NEUTROPHIL # 2.7 TH/MM3 (1.8-7.7); BASOPHIL % 0.9 % (0.0-2.0); EOSINOPHIL # 0.1 TH/MM3 (0-0.4); EOSINOPHIL % 2.6 % (0.0-4.0); HEMATOCRIT 28.9 % (39.0-51.0); LYMPH % 26.2 % (9.0-44.0); LYMPHOCYTE # 1.1 TH/MM3 (1.0-4.8); MEAN CELL VOLUME 97.2 FL (80.0-100.0); MONO % 7.9 % (0.0-8.0); NEUT % 62.4 % (16.0-70.0); PLATELET COUNT 85 TH/MM3 (150-450); RED BLOOD COUNT 2.97 MIL/MM3 (4.50-5.90); RED CELL DISTRIBUTION WIDTH 14.4 % (11.6-17.2); WHITE BLOOD COUNT 4.3 TH/MM3 (4.0-11.0)
[2017-07-02 06:36] LABS: HEMO FLAGS AUTO DIFF
[2017-07-02 06:50] LABS: ALT (GPT) 27 U/L (12-78); ANION GAP 8 MEQ/L (5-15); AST (GOT) 46 U/L (15-37); BICARBONATE 26.2 MEQ/L (21.0-32.0); BLOOD UREA NITROGEN 20 MG/DL (7-18); CHLORIDE 108 MEQ/L (98-107); GLOMERULAR FILTRATION RATE 111 ML/MIN (>89); POTASSIUM 3.9 MEQ/L (3.5-5.1); SODIUM (NA) 142 MEQ/L (136-145)
[2017-07-02 06:51] LABS: ALKALINE PHOSPHATASE 68 U/L (45-117); TOTAL BILIRUBIN ADULT 2.5 MG/DL (0.2-1.0)
[2017-07-02] MEDS: SODIUM CHLORIDE 0.9% FLUSH 10 ML FLUSH IV FLUSH SCH (07:22)
[2017-07-02] MEDS: DOCUSATE SODIUM 50 MG/SENNA 8.6 MG TAB PO SCH (07:23)
[2017-07-02] MEDS: LACTULOSE SYRUP 20 GM/30 ML CUP PO SCH (07:28)
[2017-07-02] MEDS: SODIUM CHLOR 0.9% 1000 ML INJ 1,000 ML IV SCH (07:28)
[2017-07-02] MEDS: OCTREOTIDE INJ 500 MCG in SODIUM CHLORID 0.9% 500 ML INJ 499.5 ML IV SCH (08:03)
[2017-07-02 08:43] LABS: PLATELET ESTIMATE SMEAR LOW (NORMAL); PLATELET MORPHOLOGY NORMAL (NORMAL); SCAN/DIFF AUTO DIFF CONFIRMED
[2017-07-02] MEDS ORDERED: LACTULOSE SYRUP 20 GM/30 ML CUP PO SCH (09:00)
[2017-07-02] MEDS ORDERED: MULTIVITAMINS/MINERALS THERAPEUTIC TAB PO SCH (09:00)
[2017-07-02] MEDS ORDERED: THIAMINE HCL 100 MG TAB PO SCH (09:00)
[2017-07-02] MEDS ORDERED: FOLIC ACID 1 MG TAB PO SCH (09:00)
--- NOTE | 2017-07-02 09:07 | EKG ---
Date Performed: 07/02/2017 Time Performed: 00:13:58 PTAGE: 61 years EKG: Sinus rhythm Left axis deviation Anteroseptal T wave changes are nonspecific Abnormal ECG PREVIOUS TRACING : 05/22/2016 14.31 DOCTOR: Mor De La Rosa Interpretating Date/Time 07/02/2017 09:04:56
[2017-07-02] MEDS ORDERED: LORA-392 PO (10:42)
[2017-07-02] MEDS ORDERED: FOLI1TAB6 PO (10:42)
[2017-07-02] MEDS ORDERED: THIA100 PO (10:42)
[2017-07-02] MEDS ORDERED: THERM PO (10:42)
--- NOTE | 2017-07-02 10:42 | HHI.DCPOC ---
Discharge Care Plan Goals to Promote Your Health * To prevent worsening of your condition and complications * To maintain your health at the optimal level Directions to Meet Your Goals Take your medications as prescribed Follow your dietary instruction Follow activity as directed Keep your appointments as scheduled Take your immunizations and boosters as scheduled If your symptoms worsen call your PCP, if no PCP go to Urgent Care Center or Emergency Room Smoking is Dangerous to Your Health. Avoid second hand smoke Call the 24-hour hour crisis hotline for domestic abuse at Angi Ferraro MD Jul 02, 2017 10:42
[2017-07-02] MEDS ORDERED: PANT40TA3 PO (10:44)
--- NOTE | 2017-07-02 10:45 | HHI.PR ---
Subjective Remarks Patient is more awake and alert oriented by 4. He appears in not acute distress. No tremors at this time. No vomiting had a normal bowel movement in the morning. Denies any chest pain or shortness of breath. No abdominal pain. No nausea vomiting diarrhea or constipation. Wants to go home. Psychiatry lifted the Murry act. And patient is clear for discharge. Objective Vitals Vital Signs Date Time Temp Pulse Resp B/P (MAP) Pulse Ox O2 Delivery O2 Flow Rate FiO2 07/02/17 08:47 95 07/02/17 08:23 98.7 88 20 154/85 (108) 96 07/02/17 04:00 98.2 75 20 143/76 (98) 97 07/02/17 00:46 97 07/02/17 00:13 86 07/02/17 00:00 98.8 84 20 120/68 (85) 97 07/01/17 21:45 94 07/01/17 21:09 91 07/01/17 20:00 98.7 64 20 147/82 (103) 95 07/01/17 16:15 98.7 75 16 157/89 (111) 96 07/01/17 15:50 93 16 96 Room Air 07/01/17 15:45 97.8 92 16 148/89 (108) 95 Room Air 07/01/17 15:30 94 16 150/88 (108) 94 Room Air 07/01/17 15:15 95 16 157/89 (111) 100 Nasal Cannula 3 07/01/17 15:00 98.6 100 18 156/86 (109) 98 Nasal Cannula 3 07/01/17 11:30 I/O 07/01/17 07/01/17 07/01/17 07/02/17 07/02/17 07/02/17 07:00 15:00 23:00 07:00 15:00 23:00 Intake Total 1135 ml 1290 ml 1889.3 ml Output Total 800 ml 400 ml 1050 ml Balance 335 ml 890 ml 839.3 ml Intake Oral 240 ml 960 ml IV Total 135 ml 1050 ml 929.3 ml Other 1000 ml Output Urine Total 200 ml 400 ml 1050 ml Emesis 300 ml Other 300 ml # Voids 1 2 Result Diagram: 07/02/1712 07/02/17611 Imaging GENERAL: This is a well-nourished, well-developed patient, in no apparent distress. SKIN: No rashes, ecchymoses or lesions. Cool and dry. HEAD: Atraumatic. Normocephalic. No temporal or scalp tenderness. EYES: Pupils equal round and reactive. Extraocular motions intact. No scleral icterus. No injection or drainage. ENT: Nose without bleeding, purulent drainage or septal hematoma. Throat without erythema, tonsillar hypertrophy or exudate. Uvula midline. Airway patent. NECK: Trachea midline. No JVD or lymphadenopathy. Supple, nontender, no meningeal signs. CARDIOVASCULAR: Regular rate and rhythm without murmurs, gallops, or rubs. RESPIRATORY: Clear to auscultation. Breath sounds equal bilaterally. No wheezes , rales, or rhonchi. GASTROINTESTINAL: Abdomen soft, non-tender, nondistended. No hepato-splenomegaly , or palpable masses. No guarding. MUSCULOSKELETAL: Extremities without clubbing, cyanosis, or edema. No joint tenderness, effusion, or edema noted. No calf tenderness. Negative Homans sign bilaterally. NEUROLOGICAL: Awake and alert. Cranial nerves II through XII intact. Motor and sensory grossly within normal limits. Five out of 5 muscle strength in all muscle groups. Normal speech. A/P Assessment and Plan Hematemesis in patient with known esophgeal varices, hx pud and ongoing ETOH use. Hematemesis resolved. Murry act was lifted by psychiatry Was bought to ER as BA for suicidal ideation (currently denies any SI). Hematemesis x 3. Tx to C pod from J and nurse witnessed hematemesis with about 300cc of dark red blood with blood clots. EGD with band ligation for upper GI bleeding ()----> esophageal varices/p band ligation-3 bands applied, hiatal hernia, large amount of clots in stomach. (+) ETOH abuse- states "alot" but unable to quantify. HH 11.5/34.3. Protonix Gtt. Add Octreotide. S/P EGD done consult occur. No band ligation as no bleeding find some old blood. Patient with PPIs outpatient and to follow-up as outpatient with the GI.Patient to have abstinence from alcohol. On pantoprazole drip and octreotide drip Monitor H&H and transfuse if need transfuse if hemoglobin less than 7 or if symptomatic Elevated LFTs/Liver cirrhosis. T. Bili 2.3, AST 63, ALT 26, Alk Phosph 79. This is not obstructive. Likely r/t to ETOH abuse and underlying cirrhosis. Esophageal varices. Received Protonix gtt, add octreotide. Protonix as outpatient. Need ETOH cessation Hepatic encephalopathy. Continue lactulose ETOH abuse. DT precautions . On CPAP protocol. Thiamine multivitamin folate. Monitor electrolytes and replace as need SI. PT BA. Murry act was lifted by psychiatry and cleared for discharge. Per psych. Chronic medical problems HTN, Hx Hodgkin's lymphoma start home medications. Add clonidine DVT prophylaxis SCD/teds. Chemical prophylaxis contraindicated in this time because patient is with active bleeding Discussed Condition With Patient, nurse, Dr. Moses from psychiatry The patient improved, cleared by consultants for discharge. Patient is discharged in stable condition home. To follow-up as outpatient with PCP and consultants. Advise alcohol abstinence follow-up with alcoholic on any meds also as outpatient. Discharge Planning Discharge home stable condition. To follow-up with PCP in consultants as outpatient Diet healthy heart diet as tolerated. Stop alcohol use follow-up with alcoholic , nose outpatient. Medications per medication reconciliation Activity ad kerwin. us tolerated. Stop alcohol use you're at risk of falls Angi Ferraro MD Jul 02, 2017 10:45
--- NOTE | 2017-07-02 11:34 | PD.PSY.CON ---
Provisional Diagnosis Admission Date Jul 01, 2017 at 11:23 Gordon I. Alcohol induced mood disorder, alcohol use disorder Gordon II. Deferred Gordon III. History of lymphoma History of Present Illness Service Psychiatry Consult Requested By Hospitalist Reason for Consult Suicidal ideation Primary Care Physician Unknown HPI The patient is a 61 years old man, domiciled with girlfriend in [facility], unemployed, retired, without any previous psychiatric history, no previous suicidal attempts, no previous psychiatric hospitalizations, alcohol use disorder, medical history of Lester lymphoma, in remission, liver cirrhosis , esophageal varices, peptic ulcer disease and alcohol abuse who presented under the Murry act for reported suicidal ideation. He was intoxicated upon arrival. After medical clearance he was sent to the psych pod, where this morning nurses witnessed about 300cc of hematemesis, dark blood with clots. He was then transported back to the medical pod for close monitoring. He underwent an EGD earlier for possibility of needing band ligation. No esophageal varices were visualized. Consulted to psychiatry due to suicidal ideation. On psychiatric evaluation the patient is calm, cooperative, coherent, logical and relevant. She explains that he was drunk when he had an argument with his girlfriend. He says that he doesn't even remember stated that he wanted to commit suicide. He says that he should be very drunk to say that. He she is states that he loves his life he has never attempted to commit suicide in the past and will never do. They she reports good mood, denies depressive symptoms , denies anhedonia, denies hopelessness, denies helplessness, denies suicidal and homicidal ideation. Future oriented, motivated to continue his medical treatment and get better. He denies visual and auditory hallucinations. She is oriented 3, no fluctuation of consciousness, no attention deficit. He reports almost daily use of alcohol, denies symptoms of withdrawal in the past. Denies the use of illicit drugs. Review of Systems Constitutional: DENIES: Diaphoretic episodes, Fatigue, Fever, Weight gain, Weight loss, Chills, Dizziness, Change in appetite, Night Sweats Endocrine: DENIES: Heat/cold intolerance, Polydipsia, Polyuria, Polyphagia Eyes: DENIES: Blurred vision, Diplopia, Eye inflammation, Eye pain, Vision loss , Photosensitivity, Double Vision Ears, nose, mouth, throat: DENIES: Tinnitus, Hearing loss, Vertigo, Nasal discharge, Oral lesions, Throat pain, Hoarseness, Ear Pain, Running Nose, Epistaxis, Sinus Pain, Toothache, Odynophagia Respiratory: DENIES: Apneas, Cough, Snoring, Wheezing, Hemoptysis, Sputum production, Shortness of breath Cardiovascular: DENIES: Chest pain, Palpitations, Syncope, Dyspnea on Exertion , PND, Lower Extremity Edema, Orthopnea, Claudication Gastrointestinal: DENIES: Abdominal pain, Black stools, Bloody stools, Constipation, Diarrhea, Nausea, Vomiting, Difficulty Swallowing, Anorexia Genitourinary: DENIES: Sexual dysfunction, Urinary frequency, Urinary incontinence, Urgency, Hematuria, Dysuria, Nocturia, Penile Discharge, Testicular Pain, Testicular Swelling Musculoskeletal: DENIES: Joint pain, Muscle aches, Stiffness, Joint Swelling, Back pain, Neck pain Hematologic/lymphatic: DENIES: Bruising, Lymphadenopathy Immunologic/allergic: DENIES: Eczema, Urticaria Neurologic: DENIES: Abnormal gait, Headache, Localized weakness, Paresthesias, Seizures, Speech Problems, Tremor, Poor Balance Psychiatric: DENIES: Anxiety, Confusion, Mood changes, Depression, Hallucinations, Agitation, Suicidal Ideation, Homicidal Ideation, Delusions Except as stated in HPI: all other systems reviewed are Neg Past Family Social History Coded Allergies: No Known Allergies (Unverified Allergy, Unknown, 06/30/17) Active Scripts Pantoprazole (Pantoprazole) 40 Mg Tab, 40 MG PO DAILY for Reflux, #30 TAB 0 Refills Prov:Angi Ferraro MD 07/02/17 Lorazepam (Ativan) 0.5 Mg Tab, 0.5 MG PO Q8H Y for ANXIETY AND/OR AGITATION, # 20 TAB 0 Refills Prov:Angi Ferraro MD 07/02/17 Multiple Vitamins W/ Minerals (Thera M Plus) 1 Tab, 1 TAB PO DAILY for Nutritional Supplement, #30 TAB Prov:Angi Ferraro MD 07/02/17 Thiamine HCl (Gnp Vitamin B-1) 100 Mg Tab, 100 MG PO DAILY for Nutritional Supplement, #30 TAB Prov:Angi Ferraro MD 07/02/17 Folic Acid (Folic Acid) 1 Mg Tablet, 1 MG PO DAILY for Nutritional Supplement, # 30 MG Prov:Angi Ferraro MD 07/02/17 Reported Medications Ranitidine (Zantac) 150 Mg Tab, 150 MG PO BID for Reduce Stomach Acid, #60 TAB 0 Refills 06/30/17 Atenolol (Atenolol) 25 Mg Tab, 10 MG PO BID for Blood Pressure Management, #60 TAB 0 Refills 04/25/17 Discontinued Scripts [Lactulose Liq] 30 ML SYRP No Conflict Check, 30 ML PO QID for 30 Days, ML 0 Refills Prov:Parisa Everett MD 04/29/17 Potassium Chloride ER (Potassium Chloride ER) 20 Meq Tab, 20 MEQ PO BID for Electrolyte Replacement, #60 TAB 0 Refills Prov:Parisa Everett MD 04/29/17 Pantoprazole (Pantoprazole) 40 Mg Tab, 40 MG PO Q12HR for GI bleed, #60 TAB 0 Refills Prov:Parisa Everett MD 04/29/17 Oyster Shell (Calcium Oyster Shell) 500 Mg Calcium (1250 Mg) Tab, 500 MG PO Q12HR for low calcium, #30 TAB 0 Refills Prov:Parisa Everett MD 04/29/17 Amlodipine (Norvasc) 5 Mg Tab, 2.5 MG PO DAILY for hypertension, #30 TAB 0 Refills Prov:Parisa Everett MD 04/29/17 Metronidazole (Flagyl) 500 Mg Tab, 500 MG PO Q8HR for infection, #180 TAB Prov:Parisa Everett MD 04/29/17 Rifaximin (Xifaxan) 550 Mg Tab, 550 MG PO BID for liver disease, #60 TAB 0 Refills Prov:Parisa Everett MD 04/29/17 Amoxicillin-Clavulanate (Amoxicillin-Clavulanate) 875-125 mg Tab, 875 MG PO Q12HR for infection, #12 TAB 0 Refills not for use in CrCl <30 mL/minute Prov:Parisa Everett MD 04/29/17 Current Medications Medications (Trade) Dose Ordered Sig/Laurel Route Start Time Stop Time Status Last Admin (Romazicon Inj) 0.2 mg Q1M PRN IV PUSH 06/30/17 18:15 (Ativan) 1 mg Q4H PRN PO 06/30/17 18:15 07/02/17 06:23 (Ativan Inj) 1 mg Q4H PRN IV PUSH 06/30/17 18:15 07/01/17 10:09 (Ativan) 2 mg Q2H PRN PO 06/30/17 18:15 07/01/17 09:10 (Ativan Inj) 2 mg Q2H PRN IV PUSH 06/30/17 18:15 07/01/17 01:22 (Ativan Inj) 2 mg Q1H PRN IV PUSH 06/30/17 18:15 (Ativan Inj) 2 mg Q15M PRN IV PUSH 06/30/17 18:15 (Aspirin Chew) 162 mg DAILY CHEW 06/30/17 19:45 Future Hold 06/30/17 19:45 Pantoprazole Sodium 80 mg/ Sodium Chloride 100 ml @ 10 mls/hr Q10H IV 07/01/17 10:03 07/02/17 07:36 Sodium Chloride 1,000 ml @ 100 mls/hr Q10H IV 07/01/17 12:00 07/02/17 07:28 (Tylenol) 650 mg Q4H PRN PO 07/01/17 11:15 (Zofran Inj) 4 mg Q6H PRN IVP 07/01/17 11:15 (Compazine Supp) 25 mg Q12H PRN RECTAL 07/01/17 11:15 (Narcan Inj) 0.4 mg UNSCH PRN IV PUSH 07/01/17 11:15 (Ronit-Colace) 1 tab BID PO 07/01/17 21:00 07/01/17 22:03 (Milk Of Magnesia Liq) 30 ml Q12H PRN PO 07/01/17 11:15 (Senokot) 17.2 mg Q12H PRN PO 07/01/17 11:15 (Dulcolax Supp) 10 mg DAILY PRN RECTAL 07/01/17 11:15 (Lactulose Liq) 30 ml DAILY PRN PO 07/01/17 11:15 (Folate) 1 mg DAILY PO 07/02/17 09:00 07/07/17 08:59 07/02/17 07:23 (Vitamin B1) 100 mg DAILY PO 07/02/17 09:00 07/02/17 07:23 (Theragran M Tab) 1 tab DAILY PO 07/02/17 09:00 07/07/17 08:59 07/02/17 07:23 (NS Flush) 2 ml UNSCH PRN IV FLUSH 07/01/17 11:30 (NS Flush) 2 ml BID IV FLUSH 07/01/17 21:00 07/01/17 22:04 Octreotide Acetate 500 mcg/ Sodium Chloride 500 ml @ 25 mls/hr Q20H IV 07/01/17 13:00 07/06/17 12:21 07/01/17 15:55 Miscellaneous Information ALL NURSING DEPARTME... UNSCH PRN .XX 07/01/17 15:02 07/02/17 15:01 (Catapres) 0.1 mg Q6H PRN PO 07/01/17 18:45 (Lactulose Liq) 30 ml QID PO 07/01/17 21:00 07/02/17 07:28 Family Psych History Patient denies family psychiatric history Social History Patient was born and raised in [place], he lives in [facility] with girlfriend. He is unemployed, supported by long-term benefits. His highest level of education is 10th grade. Patient's Strengths (min. 2) Good insight Physical Exam No withdrawal symptoms Vital Signs Vital Signs Date Time Temp Pulse Resp B/P (MAP) Pulse Ox O2 Delivery O2 Flow Rate FiO2 07/02/17 11:23 98.0 80 20 145/91 (109) 96 07/01/17 15:50 Room Air 07/01/17 15:15 3 I/O 07/02/17 07/02/17 07/03/17 08:00 16:00 00:00 Intake Total 1889.3 ml Output Total 1050 ml Balance 839.3 ml Lab Results Test 07/01/17 17:40 07/01/17 18:00 07/01/17 23:04 07/02/17 06:12 Hemoglobin 11.4 GM/DL 10.5 GM/DL 9.8 GM/DL Hematocrit 33.6 % 31.5 % 28.9 % Ammonia 78 MCMOL/L 114 MCMOL/L White Blood Count 4.3 TH/MM3 Red Blood Count 2.97 MIL/MM3 Mean Corpuscular Volume 97.2 FL Mean Corpuscular Hemoglobin 33.0 PG Mean Corpuscular Hemoglobin Concent 34.0 % Red Cell Distribution Width 14.4 % Platelet Count 85 TH/MM3 Mean Platelet Volume 8.4 FL Neutrophils (%) (Auto) 62.4 % Lymphocytes (%) (Auto) 26.2 % Monocytes (%) (Auto) 7.9 % Eosinophils (%) (Auto) 2.6 % Basophils (%) (Auto) 0.9 % Neutrophils # (Auto) 2.7 TH/MM3 Lymphocytes # (Auto) 1.1 TH/MM3 Monocytes # (Auto) 0.3 TH/MM3 Eosinophils # (Auto) 0.1 TH/MM3 Basophils # (Auto) 0.0 TH/MM3 CBC Comment AUTO DIFF Differential Comment AUTO DIFF CONFIRMED Platelet Estimate LOW Platelet Morphology Comment NORMAL Blood Urea Nitrogen 20 MG/DL Creatinine 0.72 MG/DL Random Glucose 131 MG/DL Total Protein 6.5 GM/DL Albumin 2.6 GM/DL Calcium Level 7.9 MG/DL Alkaline Phosphatase 68 U/L Aspartate Amino Transf (AST/SGOT) 46 U/L Alanine Aminotransferase (ALT/SGPT) 27 U/L Total Bilirubin 2.5 MG/DL Sodium Level 142 MEQ/L Potassium Level 3.9 MEQ/L Chloride Level 108 MEQ/L Carbon Dioxide Level 26.2 MEQ/L Anion Gap 8 MEQ/L Estimat Glomerular Filtration Rate 111 ML/MIN Lipase 89 U/L Mental Status Examination Appearance: Appropriate Consciousness: Alert Orientation: x4 Motor Activity: Normal gait Speech: Unremarkable Language: Adequate Fund of Knowledge: Adequate Attention and Concentration: Adequate Memory: Unremarkable Mood: Appropriate Affect: Appropriate Thought Process & Associations: Intact Thought Content: Appropriate Hallucination Type: None Delusion Type: None Suicidal Ideation: No Suicidal Plan: No Suicidal Intention: No Homicidal Ideation: No Homicidal Plan: No Homicidal Intention: No Insight: Adequate Judgment: Adequate Assessment & Plan Problem List: (1) Alcohol abuse with alcohol-induced mood disorder ICD Codes: F10.14 - Alcohol abuse with alcohol-induced mood disorder Assessment & Plan: On psychiatric evaluation the patient does not present any objective or subjective symptomatology of depression, anxiety, dot or psychosis. Patient denies suicidal and homicidal ideation, he denies visual and auditory hallucinations. Patient is logical, coherent and relevant. He is oriented 3, no fluctuation of consciousness, no attention deficit, no gross cognitive impairment present. Seems to me that reported suicidal statement to the police was most probably the result of acute alcohol intoxication and adjustment after argument with girlfriend. He does not meet criteria for involuntary psychiatric admission at this moment. Brief supportive psychotherapy, motivation and psychoeducation provided. Patient is psychiatrically cleared to be discharged back home. Assessment & Plan Estimated LOS: days Madhu Calderon MD Jul 02, 2017 11:34
== END 2017-07-02 12:24 | disposition home or self-care (01) ==
LOC: NEPD 15:43 → NEDA 07-01 11:23 → N05A 07-01 16:21
PROVIDERS: ADMIT Hospitalist; ATTEND Hospitalist
DX: K92.0 Hematemesis (principal); R45.851 Suicidal ideations; F10.129 Alcohol abuse with intoxication, unspecified; R07.89 Other chest pain; R94.31 Abnormal electrocardiogram [ECG] [EKG]; I85.00 Esophageal varices without bleeding; K74.60 Unspecified cirrhosis of liver; K72.90 Hepatic failure, unspecified without coma; I10 Essential (primary) hypertension; K21.9 Gastro-esophageal reflux disease without esophagitis; K44.9 Diaphragmatic hernia without obstruction or gangrene; Y90.8 Blood alcohol level of 240 mg/100 ml or more; Z79.899 Other long term (current) drug therapy; Z86.73 Personal history of transient ischemic attack (TIA), and cerebral infarction without residual deficits; Z85.71 Personal history of Hodgkin lymphoma; Z87.11 Personal history of peptic ulcer disease
CPT/HCPCS: 00740; 43235; 80053; 80307; 82140; 82948; 83690; 83735; 84100; 84484; 85014; 85018; 85025; 85610; 86850; 86900; 86901; 93005; 96365; 96366; 96368; 96372; 96375; 96376; 97162; 99291; C9113; G0378; G8987; G8988; J1200; J1630; J1953; J2060; J2354; J7030; J7040

== ENCOUNTER 2017-09-18 22:50 | Inpatient (IN) | payer OTHER ==
[~2017-09-18] VITALS: Ht 198.1 cm; Wt 136.6 kg
[~2017-09-18 22:50] MED LIST changes: -AMLO5 PO; -AMOX875T2 PO; -CALC500T30 PO; +FOLI1TAB6 PO; +LORA-392 PO; -Lactulose Liq PO; -METR-1 PO; -POTA-163 PO; +THERM PO; +THIA100 PO; -XIFA550T4 PO; +ZANT150T2 PO
[2017-09-18 22:53] VITALS: BP 155/90; PULSE 92; RESP 16; TEMP 98.1; O2SAT 98
[2017-09-19] VITALS (13 sets, daily range): BP systolic 143–169; BP diastolic 76–106; PULSE 81–112; RESP 18–35; TEMP 98.9–99.1; O2SAT 93–100
[2017-09-19] MEDS ORDERED: OCTREOTIDE INJ 500 MCG in SODIUM CHLORID 0.9% 500 ML INJ 499.5 ML IV SCH (00:34)
--- NOTE | 2017-09-19 00:36 | PD ---
HPI Chief Complaint: GI Complaint Time Seen by Provider: 00:32 Travel History International Travel<30 days: No Contact w/Intl Traveler<30days: No Traveled to known affect area: No History of Present Illness HPI Patient is a 62-year-old male chronic alcohol abuser who was recently was here in the ERand then taken to the OR endoscopy for banding of his esophageal variceal bleed. He said they told him they put rings on them and now he is coming back again after a few days of vomiting have the flu he had a flu swab done at his doctor's office which was positive and he's been having vomiting diarrhea and now the bleeding started bright red blood vomit as well as melanotic stool thick tarry stool he reports for the last few days diarrhea he feels nauseous he feels pain and he is congested and body aches from the flow in the ER he is coffee-ground emesis-like appearance on his lips and his initial blood pressure is stable he is not hypotensive or tachycardic at this time I will Protonix drip and Protonix push octreotide drip and octreotide push and I will admit transfuse as necessary and get a GI consult for júnior palafox [facility] Past Medical History Anxiety: No Depression: No Cancer: Yes (hodkin's lymphoma) Cardiovascular Problems: Yes (HTN) Cerebrovascular Accident: Yes (tia) Diminished Hearing: No Gastrointestinal Disorders: Yes (ESOPHAGEAL VARICES) Hypertension: Yes Neurologic: Yes Psychiatric: No Tetanus Vaccination: Unknown Influenza Vaccination: No Past Surgical History Genitourinary Surgery: Yes (testicle removed) Other Surgery: Yes (pt states 22 lymph nodes removed) Social History Alcohol Use: Yes (ALMOST A 3 LITER BOX PER DAY) Tobacco Use: No Substance Use: Yes Allergies-Medications (Allergen,Severity, Reaction): Coded Allergies: No Known Allergies (Unverified Allergy, Unknown, 06/30/17) Reported Meds & Prescriptions Reported Meds & Active Scripts Active Pantoprazole (Pantoprazole Sodium) 40 Mg Tab 40 Mg PO DAILY Ativan (Lorazepam) 0.5 Mg Tab 0.5 Mg PO Q8H PRN Thera M Plus (Multivitamins/Minerals Therapeutic) 1 Tab 1 Tab PO DAILY Gnp Vitamin B-1 (Thiamine HCl) 100 Mg Tab 100 Mg PO DAILY Folic Acid 1 Mg Tablet 1 Mg PO DAILY Reported Zantac (Ranitidine HCl) 150 Mg Tab 150 Mg PO BID Atenolol 25 Mg Tab 10 Mg PO BID Review of Systems Except as stated in HPI: all other systems reviewed are Neg Gastrointestinal: Positive: Hematemesis, Changes in Bowel Habits (melena hx esophageal variceal bleed and banding ) Physical Exam Narrative GENERAL: slightly hyper active behavior difficulty sitting still in stretcher, SKIN: Warm and dry. not pale HEAD: Atraumatic. Normocephalic. EYES: Pupils equal and round. No scleral icterus. No injection or drainage. ENT: No nasal bleeding or discharge. Mucous membranes pink and moist. NECK: Trachea midline. No JVD. CARDIOVASCULAR: Regular rate and rhythm. RESPIRATORY: No accessory muscle use. Clear to auscultation. Breath sounds equal bilaterally. GASTROINTESTINAL: Abdomen slight epigastric tender, nondistended. Hepatic and splenic margins not palpable. MUSCULOSKELETAL: Extremities without clubbing, cyanosis, or edema. No obvious deformities. NEUROLOGICAL: Awake and alert. No obvious cranial nerve deficits. Motor grossly within normal limits. Five out of 5 muscle strength in the arms and legs. Normal speech. PSYCHIATRIC: Appropriate mood and affect; insight and judgment normal. Data Data Last Documented VS Orders Orders Electrocardiogram (09/19/17 00:32) Complete Blood Count With Diff (09/19/17 00:32) Comprehensive Metabolic Panel (09/19/17 00:32) Troponin I (09/19/17 00:32) Prothrombin Time / Inr (Pt) (09/19/17 00:32) Amylase (09/19/17 00:32) Lipase (09/19/17 00:32) Chest, Single Ap (09/19/17 00:32) Type And Screen (09/19/17 00:32) Alcohol (Ethanol) (09/19/17 00:32) Salicylates (Aspirin) (09/19/17 00:32) Tylenol (Acetaminophen) (09/19/17 00:32) Pantoprazole Inj (Protonix Inj) (09/19/17 00:45) Octreotide Inj (Sandostatin Inj) (09/19/17 00:45) Sodium Chlorid 0.9%... W/Octreotide Inj (09/19/17 00:34) Ondansetron Inj (Zofran Inj) (09/19/17 00:45) Lorazepam Inj (Ativan Inj) (09/19/17 01:00) Lorazepam Inj (Ativan Inj) (09/19/17 01:00) Sodium Chlor 0.9% 1000 Ml Inj (Ns 1000 M (09/19/17 02:00) Metoclopramide Inj (Reglan Inj) (09/19/17 02:00) Admit Order (Ed Use Only) (09/19/17 02:21) Labs Laboratory Tests Test 09/19/17 00:40 White Blood Count 10.0 TH/MM3 Red Blood Count 3.98 MIL/MM3 Hemoglobin 10.0 GM/DL Hematocrit 31.7 % Mean Corpuscular Volume 79.6 FL Mean Corpuscular Hemoglobin 25.2 PG Mean Corpuscular Hemoglobin Concent 31.7 % Red Cell Distribution Width 22.2 % Platelet Count 194 TH/MM3 Mean Platelet Volume 9.0 FL Neutrophils (%) (Auto) 80.9 % Lymphocytes (%) (Auto) 11.9 % Monocytes (%) (Auto) 6.4 % Eosinophils (%) (Auto) 0.2 % Basophils (%) (Auto) 0.6 % Neutrophils # (Auto) 8.1 TH/MM3 Lymphocytes # (Auto) 1.2 TH/MM3 Monocytes # (Auto) 0.6 TH/MM3 Eosinophils # (Auto) 0.0 TH/MM3 Basophils # (Auto) 0.1 TH/MM3 CBC Comment DIFF FINAL Differential Comment Prothrombin Time 14.6 SEC Prothromb Time International Ratio 1.4 RATIO Blood Urea Nitrogen 20 MG/DL Creatinine 0.78 MG/DL Random Glucose 127 MG/DL Total Protein 8.3 GM/DL Albumin 2.7 GM/DL Calcium Level 7.9 MG/DL Alkaline Phosphatase 109 U/L Aspartate Amino Transf (AST/SGOT) 112 U/L Alanine Aminotransferase (ALT/SGPT) 34 U/L Total Bilirubin 2.4 MG/DL Sodium Level 137 MEQ/L Potassium Level 3.5 MEQ/L Chloride Level 101 MEQ/L Carbon Dioxide Level 23.3 MEQ/L Anion Gap 13 MEQ/L Estimat Glomerular Filtration Rate 101 ML/MIN Troponin I LESS THAN 0.02 NG/ML Amylase Level 23 U/L Lipase 80 U/L Salicylates Level LESS THAN 1.7 MG/DL Acetaminophen Level LESS THAN 2.0 MCG/ML Ethyl Alcohol Level 124 MG/DL [facility] Medical Decision Making Medical Screen Exam Complete: Yes Emergency Medical Condition: Yes Differential Diagnosis GI bleed from ulcer vs variceal bleed and portal hypertension or etoh erosive esophagitis Narrative Course In the ER he has coffee-ground emesis-like appearance on his lips and his initial blood pressure is stable.. he is not hypotensive or tachycardic at this time I will Protonix drip and Protonix push and octreotide drip and octreotide push and I will admit transfuse as necessary and get a GI consult for early a.m. scoping Diagnosis Primary Impression: GI bleeding Admitting Information Admitting Physician Requests: Admit Collin Patino MD Sep 19, 2017 00:36
[2017-09-19] MEDS ORDERED: PANTOPRAZOLE SODIUM 40 MG VIAL IV PUSH ONE (00:45)
[2017-09-19] MEDS ORDERED: ONDANSETRON HCL 4 MG/2 ML VIAL IV PUSH ONE (00:45)
[2017-09-19] MEDS ORDERED: OCTREOTIDE INJ 50 MCG/ML AMP IV PUSH ONE (00:45)
[2017-09-19 00:51] LABS: AUTOMATED NEUTROPHIL # 8.1 TH/MM3 (1.8-7.7); BASOPHIL # 0.1 TH/MM3 (0-0.2); BASOPHIL % 0.6 % (0.0-2.0); EOSINOPHIL % 0.2 % (0.0-4.0); HEMATOCRIT 31.7 % (39.0-51.0); LYMPH % 11.9 % (9.0-44.0); LYMPHOCYTE # 1.2 TH/MM3 (1.0-4.8); MEAN CELL VOLUME 79.6 FL (80.0-100.0); MEAN CORPUSCULAR HEMOGLOBIN 25.2 PG (27.0-34.0); MEAN CORPUSCULAR HGB CONC 31.7 % (32.0-36.0); MONO % 6.4 % (0.0-8.0); MONOCYTE # 0.6 TH/MM3 (0-0.9); NEUT % 80.9 % (16.0-70.0); PLATELET COUNT 194 TH/MM3 (150-450); RED BLOOD COUNT 3.98 MIL/MM3 (4.50-5.90); RED CELL DISTRIBUTION WIDTH 22.2 % (11.6-17.2)
[2017-09-19 01:00] LABS: INTERNATIONAL NORMALIZED RATIO 1.4 RATIO; PROTHROMBIN TIME - PATIENT 14.6 SEC (9.8-11.6)
[2017-09-19] MEDS ORDERED: LORazepam 2 MG/ML VIAL IV PUSH ONE (01:00)
[2017-09-19] MEDS ORDERED: LORazepam 2 MG/ML VIAL IV PUSH PRN ×4 (01:00→03:15)
[2017-09-19 01:09] LABS: ACETAMINOPHEN LESS THAN 2.0 MCG/ML (10.0-30.0); ALBUMIN 2.7 GM/DL (3.4-5.0); ALKALINE PHOSPHATASE 109 U/L (45-117); ALT (GPT) 34 U/L (12-78); AST (GOT) 112 U/L (15-37); BICARBONATE 23.3 MEQ/L (21.0-32.0); BLOOD UREA NITROGEN 20 MG/DL (7-18); CALCIUM 7.9 MG/DL (8.5-10.1); CHLORIDE 101 MEQ/L (98-107); CREATININE 0.78 MG/DL (0.60-1.30); GLOMERULAR FILTRATION RATE 101 ML/MIN (>89); GLUCOSE,RANDOM 127 MG/DL (74-106); SODIUM (NA) 137 MEQ/L (136-145); TOTAL BILIRUBIN ADULT 2.4 MG/DL (0.2-1.0); TOTAL PROTEIN 8.3 GM/DL (6.4-8.2); TROPONIN I LESS THAN 0.02 NG/ML (0.02-0.05)
--- NOTE | 2017-09-19 01:23 | RADRPT ---
EXAM DATE/TIME: 09/19/2017 00:46 [facility] COMPARISON: CHEST SINGLE AP, April 26, 2017, 5:08. INDICATIONS : Nausea and vomiting MEDICAL HISTORY : None. SURGICAL HISTORY : None. ENCOUNTER: Initial ACUITY: 1 day PAIN SCORE: 8/10 LOCATION: Bilateral chest FINDINGS: A single view of the chest demonstrates interval extubation and removal of NG tube. Mild basilar airs pace disease on the right and left basilar consolidation obscuring the left hemidiaphragm. CONCLUSION: 1. Left basilar lung consolidation or atelectasis. Cardiomegaly. Tyler Adams MD on September 19, 2017 at 1:20 Board Certified Radiologist. This report was verified electronically.
[2017-09-19] MEDS ORDERED: SODIUM CHLOR 0.9% 1000 ML INJ 1,000 ML IV ONE (02:00)
[2017-09-19] MEDS ORDERED: METOCLOPRAMIDE INJ 10 MG in SODIUM CHLORIDE 0.9% INJ 50 ML IV ONE (02:00)
[2017-09-19] MEDS ORDERED: LABETALOL HCL 100 MG/20 ML VIAL IV PUSH PRN (03:00)
[2017-09-19] MEDS: SODIUM CHLOR 0.9% 1000 ML INJ 1,000 ML IV SCH ×2 (03:08→15:03)
--- NOTE | 2017-09-19 03:13 | HHI.HP ---
HPI Service Critical Care Medicine Primary Care Physician No Primary Care Physician Admission Diagnosis variceal bleed GI hemorrhage Diagnosis: Travel History International Travel<30 Days: No Contact w/Intl Traveler <30 Da: No Traveled to Known Affected Are: No History of Present Illness 62-year-old male chronic alcohol user who was recently taken to the OR endoscopy for banding of his esophageal variceal bleed. Per patient he was told they have put drinks on his varices and now he is coming back again after a few days of vomiting coffee-ground emesis, flulike symptoms, he had flu swab done at his doctor's office which was positive and he's been having vomiting diarrhea and now bright red blood vomit as well as melanotic stool. He also reports the diarrhea for the last few days and he feels nauseous. In the emergency department he had had episode of coffee-ground emesis. He was treated with octreotide bolus followed by the drip as well as Protonix bolus and following drip. Review of Systems Constitutional: COMPLAINS OF: Chills, Dizziness, Change in appetite, DENIES: Diaphoretic episodes, Fatigue, Fever, Weight gain, Weight loss, Night Sweats Endocrine: DENIES: Heat/cold intolerance, Polydipsia, Polyuria, Polyphagia Eyes: DENIES: Blurred vision, Diplopia, Eye inflammation, Eye pain, Vision loss , Photosensitivity, Double Vision Ears, nose, mouth, throat: DENIES: Tinnitus, Hearing loss, Vertigo, Nasal discharge, Oral lesions, Throat pain, Hoarseness, Ear Pain, Running Nose, Epistaxis, Sinus Pain, Toothache, Odynophagia Respiratory: DENIES: Apneas, Cough, Snoring, Wheezing, Hemoptysis, Sputum production, Shortness of breath Cardiovascular: DENIES: Chest pain, Palpitations, Syncope, Dyspnea on Exertion , PND, Lower Extremity Edema, Orthopnea, Claudication Gastrointestinal: DENIES: Abdominal pain, Black stools, Bloody stools, Constipation, Diarrhea, Nausea, Vomiting, Difficulty Swallowing, Anorexia Genitourinary: DENIES: Sexual dysfunction, Urinary frequency, Urinary incontinence, Urgency, Hematuria, Dysuria, Nocturia, Penile Discharge, Testicular Pain, Testicular Swelling Musculoskeletal: COMPLAINS OF: Muscle aches, DENIES: Joint pain, Stiffness, Joint Swelling, Back pain, Neck pain Integumentary: DENIES: Abnormal pigmentation, Nail changes, Pruritus, Rash Hematologic/lymphatic: DENIES: Bruising, Lymphadenopathy Immunologic/allergic: DENIES: Eczema, Urticaria Neurologic: DENIES: Abnormal gait, Headache, Localized weakness, Paresthesias, Seizures, Speech Problems, Tremor, Poor Balance Psychiatric: DENIES: Anxiety, Confusion, Mood changes, Depression, Hallucinations, Agitation, Suicidal Ideation, Homicidal Ideation, Delusions Past Family Social History Allergies: Coded Allergies: No Known Allergies (Unverified Allergy, Unknown, 06/30/17) Past Medical History DT's ETOH abuse Hodgkin's disease Denies any hx of TIAs HTN Liver cirrhosis Esophageal Varices GERD Past Surgical History EGD with band ligation Bronchoscopy with tumor resection, testicle, and 22 lymph nodes resected r/t Hodgkin's disease Reported Medications Reported Meds & Active Scripts Active Pantoprazole (Pantoprazole Sodium) 40 Mg Tab 40 Mg PO DAILY Ativan (Lorazepam) 0.5 Mg Tab 0.5 Mg PO Q8H PRN Thera M Plus (Multivitamins/Minerals Therapeutic) 1 Tab 1 Tab PO DAILY Gnp Vitamin B-1 (Thiamine HCl) 100 Mg Tab 100 Mg PO DAILY Folic Acid 1 Mg Tablet 1 Mg PO DAILY Reported Zantac (Ranitidine HCl) 150 Mg Tab 150 Mg PO BID Atenolol 25 Mg Tab 10 Mg PO BID Active Ordered Medications Current Medications Medications (Trade) Dose Ordered Sig/Laurel Route PRN Reason Start Time Stop Time Status Last Admin Dose Admin Lorazepam (Ativan Inj) 1 mg Q2H PRN IV PUSH Alcohol Detox 09/19/17 01:00 Labetalol HCl (Trandate Inj) 10 mg Q4H PRN IV PUSH SBP>160, DBP>90 09/19/17 03:00 Multivitamins 10 ml/Thiamine HCl 100 mg/Folic Acid 1 mg/Sodium Chloride 511.2 ml @ 125 mls/hr ONCE ONCE IV 09/19/17 05:00 09/19/17 09:05 Flumazenil (Romazicon Inj) 0.2 mg Q1M PRN IV PUSH SEE LABEL COMMENTS 09/19/17 03:15 Lorazepam (Ativan) 1 mg Q4H PRN PO CIWA 8 - 10 09/19/17 03:15 Lorazepam (Ativan Inj) 1 mg Q4H PRN IV PUSH CIWA 8 - 10 09/19/17 03:15 Lorazepam (Ativan) 2 mg Q2H PRN PO CIWA 11-14 09/19/17 03:15 Lorazepam (Ativan Inj) 2 mg Q2H PRN IV PUSH CIWA 11-14 09/19/17 03:15 Lorazepam (Ativan Inj) 2 mg Q1H PRN IV PUSH CIWA 15-20 09/19/17 03:15 Lorazepam (Ativan Inj) 2 mg Q15M PRN IV PUSH CIWA > 20 09/19/17 03:15 Ceftriaxone Sodium 2000 mg/ Sodium Chloride 100 ml @ 200 mls/hr DAILY@0300 IV 09/19/17 03:15 09/19/17 03:27 Sodium Chloride 1,000 ml @ 84 mls/hr [id number] IV 09/19/17 03:08 Sodium Chloride (NS Flush) 2 ml UNSCH PRN IV FLUSH FLUSH AFTER USING IV ACCESS 09/19/17 03:15 Sodium Chloride (NS Flush) 2 ml BID IV FLUSH 09/19/17 09:00 Acetaminophen (Tylenol) 650 mg Q6H PRN PO PAIN 1-5 AND/OR FEVER >101F 09/19/17 03:15 Morphine Sulfate (Morphine Inj) 2 mg Q2H PRN IV PUSH PAIN SCALE 6 TO 10 09/19/17 03:15 Pantoprazole Sodium (Protonix Inj) 40 mg Q12H IV PUSH 09/19/17 13:00 Ondansetron HCl (Zofran Inj) 4 mg Q6H PRN IV PUSH NAUSEA OR VOMITING 09/19/17 03:15 Temazepam (Restoril) 15 mg HS PRN PO INSOMNIA 09/19/17 03:15 Albuterol/ Ipratropium (Duoneb Neb) 1 ampule Q2HR NEB PRN INH WHEEZING 09/19/17 03:15 Miscellaneous Information 1 [id number] XX 09/19/17 03:15 Chlorhexidine Gluconate (Chlorhexidine 2% Cloth) 3 pack Taper DAILY@04 TOP 09/19/17 04:00 09/15/18 03:59 Chlorhexidine Gluconate (Chlorhexidine 2% Cloth) 3 pack UNSCH PRN TOP HYGIENIC CARE 09/19/17 03:15 Senna/Docusate Sodium (Ronit-Colace) 1 tab BID PO 09/19/17 09:00 Magnesium Hydroxide (Milk Of Magnesia Liq) 30 ml Q12H PRN PO Mild constipation 09/19/17 03:15 Sennosides (Senokot) 17.2 mg Q12H PRN PO Moderate constipation 09/19/17 03:15 Bisacodyl (Dulcolax Supp) 10 mg DAILY PRN RECTAL SEVERE CONSITIPATION 09/19/17 03:15 Lactulose (Lactulose Liq) 30 ml DAILY PRN PO SEVERE CONSITIPATION 09/19/17 03:15 Octreotide Acetate 500 mcg/ Sodium Chloride 500 ml @ 25 mls/hr Q20H IV 09/19/17 03:13 Family History Denies any family hx of liver disease Mother had intracranial bleed at age of 71 Father lung CA was a smoker Social History States he drinks 1 liter of Vodka daily No tobacco No illicit drug use Physical Exam Vital Signs Vital Signs Date Time Temp Pulse Resp B/P (MAP) Pulse Ox O2 Delivery O2 Flow Rate FiO2 09/19/17 02:19 104 18 153/87 (109) 98 Room Air 09/19/17 00:32 98.9 110 22 169/106 (127) 100 Room Air 09/18/17 22:53 98.1 92 16 155/90 (111) 98 Room Air Physical Exam GENERAL: This is a well-nourished, well-developed patient, in moderate distress. SKIN: No rashes, ecchymoses or lesions. Cool and dry. HEAD: Atraumatic. Normocephalic. No temporal or scalp tenderness. EYES: Pupils equal round and reactive. Extraocular motions intact. No scleral icterus. No injection or drainage. ENT: Nose without bleeding, purulent drainage or septal hematoma. Throat without erythema, tonsillar hypertrophy or exudate. Uvula midline. Airway patent. NECK: Trachea midline. No JVD or lymphadenopathy. Supple, nontender, no meningeal signs. CARDIOVASCULAR: Regular rate and rhythm without murmurs, gallops, or rubs. RESPIRATORY: Clear to auscultation. Breath sounds equal bilaterally. No wheezes , rales, or rhonchi. GASTROINTESTINAL: Abdomen soft, non-tender, nondistended. No hepato-splenomegaly , or palpable masses. No guarding. MUSCULOSKELETAL: Extremities without clubbing, cyanosis, or edema. No joint tenderness, effusion, or edema noted. No calf tenderness. Negative Homans sign bilaterally. NEUROLOGICAL: Awake and alert. Cranial nerves II through XII intact. Motor and sensory grossly within normal limits. Five out of 5 muscle strength in all muscle groups. Normal speech. Laboratory Laboratory Tests Test 09/19/17 00:40 White Blood Count 10.0 Red Blood Count 3.98 Hemoglobin 10.0 Hematocrit 31.7 Mean Corpuscular Volume 79.6 Mean Corpuscular Hemoglobin 25.2 Mean Corpuscular Hemoglobin Concent 31.7 Red Cell Distribution Width 22.2 Platelet Count 194 Mean Platelet Volume 9.0 Neutrophils (%) (Auto) 80.9 Lymphocytes (%) (Auto) 11.9 Monocytes (%) (Auto) 6.4 Eosinophils (%) (Auto) 0.2 Basophils (%) (Auto) 0.6 Neutrophils # (Auto) 8.1 Lymphocytes # (Auto) 1.2 Monocytes # (Auto) 0.6 Eosinophils # (Auto) 0.0 Basophils # (Auto) 0.1 CBC Comment DIFF FINAL Differential Comment Prothrombin Time 14.6 Prothromb Time International Ratio 1.4 Blood Urea Nitrogen 20 Creatinine 0.78 Random Glucose 127 Total Protein 8.3 Albumin 2.7 Calcium Level 7.9 Alkaline Phosphatase 109 Aspartate Amino Transf (AST/SGOT) 112 Alanine Aminotransferase (ALT/SGPT) 34 Total Bilirubin 2.4 Sodium Level 137 Potassium Level 3.5 Chloride Level 101 Carbon Dioxide Level 23.3 Anion Gap 13 Estimat Glomerular Filtration Rate 101 Troponin I LESS THAN 0.02 Amylase Level 23 Lipase 80 Salicylates Level LESS THAN 1.7 Acetaminophen Level LESS THAN 2.0 Ethyl Alcohol Level 124 Result Diagram: 09/19/170 09/19/170 Imaging Last 24 hours Impressions Chest X-Ray 09/19/1731 Signed Impressions: Service Date/Time: Tuesday, September 19, 2017 00:46 - CONCLUSION: 1. Left basilar lung consolidation or atelectasis. Cardiomegaly. Tyler Adams MD Septic Shock Reassessment Septic shock perfusion: reassessment completed Caprini VTE Risk Assessment Caprini VTE Risk Assessment: Mod/High Risk (score >= 2) VTE Pharm Contraindication: Hemorrhage Caprini Risk Assessment Model Point Value = 1 Point Value = 2 Point Value = 3 Point Value = 5 Age 41-60 Minor surgery BMI > 25 kg/m2 Swollen legs Varicose veins or History of unexplained or recurrent spontaneous Oral contraceptives or hormone replacement Sepsis (< 1 month) Serious lung disease, including pneumonia (< 1 month) Abnormal pulmonary function Acute myocardial infarction Congestive heart failure (< 1 month) History of inflammatory bowel disease Medical patient at bed rest Age 61-74 Arthroscopic surgery Major open surgery (> 45 min) Laparoscopic surgery (> 45 min) Malignancy Confined to bed (> 72 hours) Immobilizing plaster cast Central venous access Age >= 75 History of VTE Family history of VTE Factor V Leiden Prothrombin [id number] Lupus anticoagulant Anticardiolipin antibodies Elevated serum homocysteine Heparin-induced thrombocytopenia Other congenital or acquired thrombophilia Stroke (< 1 month) Elective arthroplasty Hip, pelvis, or leg fracture Acute spinal cord injury (< 1 month) Prophylaxis Regimen Total Risk Factor Score Risk Level Prophylaxis Regimen 0-1 Low Early ambulation 2 Moderate Order ONE of the following: *Sequential Compression Device (SCD) *Heparin 5000 units SQ BID 3-4 Higher Order ONE of the following medications: *Heparin 5000 units SQ TID *Enoxaparin/Lovenox 40 mg SQ daily (WT < 150 kg, CrCl > 30 mL/min) *Enoxaparin/Lovenox 30 mg SQ daily (WT < 150 kg, CrCl > 10-29 mL/min) *Enoxaparin/Lovenox 30 mg SQ BID (WT < 150 kg, CrCl > 30 mL/min) AND/OR *Sequential Compression Device (SCD) 5 or more Highest Order ONE of the following medications: *Heparin 5000 units SQ TID (Preferred with Epidurals) *Enoxaparin/Lovenox 40 mg SQ daily (WT < 150 kg, CrCl > 30 mL/min) *Enoxaparin/Lovenox 30 mg SQ daily (WT < 150 kg, CrCl > 10-29 mL/min) *Enoxaparin/Lovenox 30 mg SQ BID (WT < 150 kg, CrCl > 30 mL/min) AND *Sequential Compression Device (SCD) Assessment and Plan Assessment and Plan Hematemesis - known esophageal varices - Octreotide drip - Protonix drip - Gastroenterology consultation - Nothing by mouth - IV fluid - Rocephin for SBP prophylaxis Hypertension - Labetalol when necessary to keep SBP less than 160 Alcoholism - CIWA protocol GERD - Protonix drip DVT GI prophylaxis - Teds SCDs - No pharmacological DVT prophylaxis due to active bleed - IV Protonix Critical Care: The total critical care time was 35 minutes. Time to perform other separately billable procedures was not included in the critical care time. Wilton Aponte MD Sep 19, 2017 3:13 am
[2017-09-19] MEDS ORDERED: TEMAZEPAM 15 MG CAP PO PRN (03:15)
[2017-09-19] MEDS ORDERED: FLUMAZENIL 0.5 MG/5 ML VIAL IV PUSH PRN (03:15)
[2017-09-19] MEDS ORDERED: LORazepam 2 MG TAB PO PRN (03:15)
[2017-09-19] MEDS ORDERED: MISCELLANEOUS NURSING INFORMATION XX SCH (03:15)
[2017-09-19] MEDS ORDERED: BISACODYL 10 MG SUPP RECTAL PRN (03:15)
[2017-09-19] MEDS ORDERED: LORazepam 1 MG TAB PO PRN (03:15)
[2017-09-19] MEDS ORDERED: MAGNESIUM HYDROXIDE SUSP 30 ML CUP PO PRN (03:15)
[2017-09-19] MEDS ORDERED: CHLORHEXIDINE GLUCONATE 2 % 1 PACK (2 CLOTHS) TOP PRN (03:15)
[2017-09-19] MEDS ORDERED: SENNOSIDES 8.6 MG TAB PO PRN (03:15)
[2017-09-19] MEDS ORDERED: LACTULOSE SYRUP 20 GM/30 ML CUP PO PRN (03:15)
[2017-09-19] MEDS ORDERED: ACETAMINOPHEN 325 MG TAB PO PRN (03:15)
[2017-09-19] MEDS: cefTRIAXone INJ 2,000 MG in SODIUM CHLORIDE 0.9% INJ 100 ML IV SCH (03:27)
[2017-09-19] MEDS ORDERED: MULTIVITAMIN INJ 10 ML, THIAMINE INJ 100 MG, FOLIC ACID INJ 1 MG in SODIUM CHLORID 0.9%... IV ONE (05:00)
[2017-09-19] MEDS: OCTREOTIDE INJ 500 MCG in SODIUM CHLORID 0.9% 500 ML INJ 499.5 ML IV SCH (05:00)
--- NOTE | 2017-09-19 08:33 | PD.CONS ---
HPI History of Present Illness This is a 62 year old M who is known to our service, he was evaluated in June for upper GI bleeding. Pt is a heavy drinker, states he drinks half of a large bottle of vodka daily. Last ETOH drink was last night. Today pt comes in complaining of coffee ground emesis that began yesterday with associated melanotic stools. Pt reports multiple episodes. Also complaining of diffuse abdominal cramping. He was recently evaluated by his PCP, he thinks two days ago now, and was diagnosed with Influenza B. Reports fever, chills at home for the past couple days. Last EGD done in Jun 2017 at this hospital revealed single small varix in the distal esophagus. Varices were not bleeding. Evidence of prior scarring. Coffee grounds and old blood in the stomach. Pt was advised to have repeat EGD in three months. Pt currently on Octreotide gtt and Protonix IV BID. H/H currently , has not received a blood transfusion. Denies smoking, NSAID use. (Leticia Wilson) PFSH Past Medical History ETOH abuse Hodgkins disease HTN Liver cirrhosis Esophageal varices GERD Past Surgical History EGD (Leticia Wilson) Coded Allergies: No Known Allergies (Unverified Allergy, Unknown, 06/30/17) Social History ETOH- half a large bottle of vodka daily- last ETOH last night Denies smoking (Leticia Wilson) Review of Systems Gastrointestinal: COMPLAINS OF: Abdominal pain, Black stools, Diarrhea, Nausea , Vomiting, DENIES: Bloody stools, Constipation, Difficulty Swallowing, Swelling of Abdomen, Heartburn (Leticia Wilson) GI Exam Vitals I&O Vital Signs Date Time Temp Pulse Resp B/P (MAP) Pulse Ox O2 Delivery O2 Flow Rate FiO2 09/19/17 05:30 81 09/19/17 05:00 85 09/19/17 04:45 99.0 98 20 146/77 (100) 96 09/19/17 02:19 104 18 153/87 (109) 98 Room Air 09/19/17 00:32 98.9 110 22 169/106 (127) 100 Room Air 09/18/17 22:53 98.1 92 16 155/90 (111) 98 Room Air I/O 2/809/18/17 09/18/17 09/19/17 09/19/17 09/19/17 07:00 15:00 23:00 07:00 15:00 23:00 Intake Total 0 ml Balance 0 ml Intake Oral 0 ml # Voids 0 Imaging Last Impressions Chest X-Ray 09/19/17 0032 Signed Impressions: Service Date/Time: Tuesday, September 19, 2017 00:46 - CONCLUSION: 1. Left basilar lung consolidation or atelectasis. Cardiomegaly. Tyler Adams MD Laboratory Test 09/19/17 00:40 09/19/17 03:30 White Blood Count 10.0 TH/MM3 Red Blood Count 3.98 MIL/MM3 Hemoglobin 10.0 GM/DL Hematocrit 31.7 % Mean Corpuscular Volume 79.6 FL Mean Corpuscular Hemoglobin 25.2 PG Mean Corpuscular Hemoglobin Concent 31.7 % Red Cell Distribution Width 22.2 % Platelet Count 194 TH/MM3 Mean Platelet Volume 9.0 FL Neutrophils (%) (Auto) 80.9 % Lymphocytes (%) (Auto) 11.9 % Monocytes (%) (Auto) 6.4 % Eosinophils (%) (Auto) 0.2 % Basophils (%) (Auto) 0.6 % Neutrophils # (Auto) 8.1 TH/MM3 Lymphocytes # (Auto) 1.2 TH/MM3 Monocytes # (Auto) 0.6 TH/MM3 Eosinophils # (Auto) 0.0 TH/MM3 Basophils # (Auto) 0.1 TH/MM3 CBC Comment DIFF FINAL Differential Comment Prothrombin Time 14.6 SEC Prothromb Time International Ratio 1.4 RATIO Blood Urea Nitrogen 20 MG/DL Creatinine 0.78 MG/DL Random Glucose 127 MG/DL Total Protein 8.3 GM/DL Albumin 2.7 GM/DL Calcium Level 7.9 MG/DL Alkaline Phosphatase 109 U/L Aspartate Amino Transf (AST/SGOT) 112 U/L Alanine Aminotransferase (ALT/SGPT) 34 U/L Total Bilirubin 2.4 MG/DL Sodium Level 137 MEQ/L Potassium Level 3.5 MEQ/L Chloride Level 101 MEQ/L Carbon Dioxide Level 23.3 MEQ/L Anion Gap 13 MEQ/L Estimat Glomerular Filtration Rate 101 ML/MIN Troponin I LESS THAN 0.02 NG/ML Amylase Level 23 U/L Lipase 80 U/L Salicylates Level LESS THAN 1.7 MG/DL Acetaminophen Level LESS THAN 2.0 MCG/ML Ethyl Alcohol Level 124 MG/DL Ammonia 25 MCMOL/L Physical Examination HEENT: Normocephalic; atraumatic CHEST: Even/unlabored CARDIAC: RRR ABDOMEN: Distended, soft, nontender, bowel sounds active EXTREMITIES: No clubbing, cyanosis, or edema. SKIN: Normal; no rash; no jaundice. SOLAR INSTALLER: No focal deficits; alert and oriented times three. (Leticia Wilson) Assessment and Plan Plan Assessment - Upper GI bleed- history of cirrhosis- last EGD in Jun 2017- revealed single esophageal varix in distal esophagus- coffee ground material and old blood in stomach, no active bleeding. Pt was to repeat EGD in three months, has not followed up. Currently on Octreotide gtt and Protonix IV BID. - ETOH abuse- Drinks half a large bottle of vodka daily. Last ETOH was last night. - Transaminitis- consistent with alcoholic hepatitis- AST-112 ALT- 34 T bili- 2.4 - Cirrhosis- Decreased albumin, slight coagulopathy. PT 14.6 INR 1.4 Plan: EGD today with possible banding Obtain consent Keep NPO Continue Octreotide gtt Protonix IV Monitor H/H Monitor LFTs Treat for alcohol withdraw Further recommendations to follow based on results of above Pt has been seen and examined by myself and Dr. Everett and this note is written on her behalf (Leticia Wilson) Physician Comments seen, examined agree with above discussed with anesthesia, they would like to wait 1-2 days before sedation due to recent history of flu if emergency we will schedule patient on urgent basis patient stable at this point, no active bleeding clear liquid diet notify gi if active bleeding (Barb Everett MD) Leticia Wilson Sep 19, 2017 08:33 Barb Everett MD Sep 19, 2017 18:38
[2017-09-19] MEDS: LORazepam 2 MG/ML VIAL IV PUSH PRN ×4 (08:47→23:12)
[2017-09-19] MEDS: ONDANSETRON HCL 4 MG/2 ML VIAL IV PUSH PRN ×3 (08:48→23:22)
[2017-09-19] MEDS: SODIUM CHLORIDE 0.9% FLUSH 10 ML FLUSH IV FLUSH SCH ×2 (08:51→21:00)
[2017-09-19] MEDS: DOCUSATE SODIUM 50 MG/SENNA 8.6 MG TAB PO SCH ×2 (08:51→20:53)
[2017-09-19] MEDS: PANTOPRAZOLE SODIUM 40 MG VIAL IV PUSH SCH (12:58)
[2017-09-19] MEDS ORDERED: PERMETHRIN 5% CREAM 60 GM TOPICAL ONE (14:00)
--- NOTE | 2017-09-19 14:42 | EKG ---
Date Performed: 09/19/2017 Time Performed: 02:24:47 PTAGE: 62 years EKG: Sinus rhythm RIGHT BUNDLE BRANCH BLOCK LEFT ANTERIOR FASCICULAR BLOCK Since previous tracing, no significant arteaga ge noted ABNORMAL ECG PREVIOUS TRACING : 07/02/2017 00.13 DOCTOR: Scarlet Amaya Interpretating Date/Time 09/19/2017 14:41:06
[2017-09-19] MEDS: CHLORHEXIDINE GLUCONATE 2 % 1 PACK (2 CLOTHS) TOP SCH (20:55)
[2017-09-20] VITALS (13 sets, daily range): BP systolic 117–146; BP diastolic 75–80; PULSE 94–115; RESP 18–29; TEMP 98–99.3; O2SAT 90–97
[2017-09-20] MEDS: OCTREOTIDE INJ 500 MCG in SODIUM CHLORID 0.9% 500 ML INJ 499.5 ML IV SCH ×2 (00:40→19:13)
[2017-09-20] MEDS: PANTOPRAZOLE SODIUM 40 MG VIAL IV PUSH SCH ×2 (01:54→13:00)
[2017-09-20] MEDS: SODIUM CHLOR 0.9% 1000 ML INJ 1,000 ML IV SCH (02:02)
[2017-09-20] MEDS: ONDANSETRON HCL 4 MG/2 ML VIAL IV PUSH PRN ×3 (02:34→21:39)
[2017-09-20] MEDS: LORazepam 2 MG/ML VIAL IV PUSH PRN ×7 (02:34→23:06)
[2017-09-20] MEDS: cefTRIAXone INJ 2,000 MG in SODIUM CHLORIDE 0.9% INJ 100 ML IV SCH (03:25)
[2017-09-20 05:55] LABS: AUTOMATED NEUTROPHIL # 7.1 TH/MM3 (1.8-7.7); BASOPHIL # 0.1 TH/MM3 (0-0.2); BASOPHIL % 1.1 % (0.0-2.0); EOSINOPHIL # 0.4 TH/MM3 (0-0.4); EOSINOPHIL % 3.8 % (0.0-4.0); HEMATOCRIT 22.4 % (39.0-51.0); HEMOGLOBIN 7.2 GM/DL (13.0-17.0); LYMPH % 19.8 % (9.0-44.0); LYMPHOCYTE # 2.1 TH/MM3 (1.0-4.8); MEAN CELL VOLUME 79.9 FL (80.0-100.0); MEAN CORPUSCULAR HEMOGLOBIN 25.6 PG (27.0-34.0); MEAN CORPUSCULAR HGB CONC 32.1 % (32.0-36.0); MEAN PLATELET VOLUME 8.9 FL (7.0-11.0); MONO % 9.1 % (0.0-8.0); NEUT % 66.2 % (16.0-70.0); PLATELET COUNT 159 TH/MM3 (150-450); RED CELL DISTRIBUTION WIDTH 22.6 % (11.6-17.2); WHITE BLOOD COUNT 10.7 TH/MM3 (4.0-11.0)
[2017-09-20 06:08] LABS: INTERNATIONAL NORMALIZED RATIO 1.6 RATIO
[2017-09-20 06:37] LABS: ALBUMIN 2.2 GM/DL (3.4-5.0); BICARBONATE 24.8 MEQ/L (21.0-32.0); CALCIUM 7.3 MG/DL (8.5-10.1); CALCIUM-PROTEIN CORRECTED 7.5 MG/DL (8.5-10.1); CREATININE 0.77 MG/DL (0.60-1.30); MAGNESIUM 1.6 MG/DL (1.5-2.5); PHOSPHORUS 1.7 MG/DL (2.5-4.9); TOTAL BILIRUBIN ADULT 2.3 MG/DL (0.2-1.0); TOTAL PROTEIN 6.8 GM/DL (6.4-8.2)
[2017-09-20] MEDS: DOCUSATE SODIUM 50 MG/SENNA 8.6 MG TAB PO SCH ×2 (09:00→21:00)
[2017-09-20] MEDS: SODIUM CHLORIDE 0.9% FLUSH 10 ML FLUSH IV FLUSH SCH (09:00)
[2017-09-20] MEDS ORDERED: POTASSIUM CHLOR 40 MEQ PREMIX 100 ML IV PRN ×2 (10:15)
[2017-09-20] MEDS ORDERED: POTASSIUM CHLOR 20 MEQ PREMIX 100 ML IV PRN ×2 (10:15)
[2017-09-20] MEDS ORDERED: MAGNESIUM OXIDE 400 MG TAB PO PRN (10:15)
[2017-09-20] MEDS ORDERED: SODIUM PHOSPHATE INJ 30 MMOL in SODIUM CHLOR 0.9% 250 ML INJ 240 ML IV PRN (10:15)
[2017-09-20] MEDS ORDERED: POTASSIUM PHOSPHATE INJ 30 MMOL in SODIUM CHLOR 0.9% 250 ML INJ 250 ML IV PRN (10:15)
[2017-09-20] MEDS ORDERED: MAGNESIUM SULFATE INJ 4 GM in SODIUM CHLORIDE 0.9% INJ 92 ML IV PRN (10:15)
[2017-09-20] MEDS ORDERED: POTASSIUM PHOSPHATE MONOBASIC 500 MG TAB PO PRN (10:15)
[2017-09-20] MEDS ORDERED: POTASSIUM CHLORIDE 25 MEQ EFFERVESCENT TAB PO PRN (10:15)
[2017-09-20] MEDS: DIAZEPAM 5 MG TAB PO SCH (10:15)
[2017-09-20] MEDS ORDERED: POTASSIUM PHOSPHATE MONOBASIC 500 MG TAB PO/TUBE PRN (10:15)
--- NOTE | 2017-09-20 10:18 | HHI.CCPN ---
Subjective Remarks/Hospital Course Hospital Course: 62-year-old male chronic alcohol user who was recently taken to the OR endoscopy for banding of his esophageal variceal bleed. Per patient he was told they have put drinks on his varices and now he is coming back again after a few days of vomiting coffee-ground emesis, flulike symptoms, he had flu swab done at his doctor's office which was positive and he's been having vomiting diarrhea and now bright red blood vomit as well as melanotic stool. He also reports the diarrhea for the last few days and he feels nauseous. In the emergency department he had had episode of coffee-ground emesis. He was treated with octreotide bolus followed by the drip as well as Protonix bolus and following drip. Subjective: 09/20: hgb dropped from 10 to 7. no cough. remains on room air. unlikely to have the flu given afebrile without cough or flu-like symptoms, on room air. plan for EGD today. Objective Vital Signs Date Time Temp Pulse Resp B/P (MAP) Pulse Ox O2 Delivery O2 Flow Rate FiO2 09/20/17 08:00 98.0 114 29 139/80 (99) 97 09/20/17 07:00 Room Air Result Diagram: 09/20/17 0537 09/20/17 0537 Imaging Last 24 hours Impressions Chest X-Ray 09/19/17 0032 Signed Impressions: Service Date/Time: Tuesday, September 19, 2017 00:46 - CONCLUSION: 1. Left basilar lung consolidation or atelectasis. Cardiomegaly. Tyler Adams MD Objective Remarks GENERAL: This is a middle-aged male, lying in bed. SKIN: No rashes, ecchymoses or lesions. warm and dry. HEAD: Atraumatic. Normocephalic. No temporal or scalp tenderness. EYES: Pupils equal round and reactive. Extraocular motions intact. No scleral icterus. No injection or drainage. ENT: Nose without bleeding, purulent drainage or septal hematoma. Throat without erythema, tonsillar hypertrophy or exudate. Uvula midline. Airway patent. NECK: Trachea midline. No JVD. CARDIOVASCULAR: tachycardic rate, regular rhythm. sinus by tele. frequent pvc' s. RESPIRATORY: room air. spo2 93%. Clear to auscultation. Breath sounds equal bilaterally. GASTROINTESTINAL: Abdomen soft, non-tender, nondistended. No guarding. MUSCULOSKELETAL: Extremities without clubbing, cyanosis, or edema. NEUROLOGICAL: Awake and alert. no focal deficits. A/P Assessment and Plan Assessment: 62yM with etoh cirrhosis and known varices who presents with upper GI bleeding. likely early etoh withdraw with tachycardia. will add valium. add thiamine and mvi. scope today. no evidence of flu: possibility that patient has recovered vs. did not ever have flu to begin with. Hematemesis Etoh cirrhosis - known esophageal varices - Octreotide drip - Protonix drip - Gastroenterology consultation - Nothing by mouth - IV fluid - Rocephin for SBP prophylaxis - scope today Hypertension - Labetalol when necessary to keep SBP less than 160 Alcoholism - CIWA protocol - mvi - thiamine - add valium 5mg po q8h GERD - Protonix drip DVT GI prophylaxis - Teds SCDs - No pharmacological DVT prophylaxis due to active bleed - IV Protonix Rene Mcdonald MD Sep 20, 2017 10:18
[2017-09-20] MEDS: LACTATED RINGER'S 1000 ML INJ 1,000 ML IV SCH (10:59)
[2017-09-20] MEDS ORDERED: MAGNESIUM SULFATE 1 GM PREMIX 200 ML ONE (11:14)
[2017-09-20] MEDS: MAGNESIUM SULFATE INJ 2 GM in SODIUM CHLORIDE 0.9% INJ 96 ML IV PRN (11:15)
[2017-09-20] MEDS ORDERED: PROPOFOL 200 MG/20 ML AMP IV ONE (12:00)
[2017-09-20] MEDS ORDERED: MULTIVITAMIN INJ 10 ML, THIAMINE INJ 100 MG, FOLIC ACID INJ 1 MG in SODIUM CHLOR 0.45% ... IV ONE (12:00)
[2017-09-20] MEDS ORDERED: LIDOCAINE HCL 1% PF 5 ML SYRINGE OTHER ONE (12:00)
[2017-09-20 12:55] LABS: HEMATOCRIT 20.1 % (39.0-51.0); HEMOGLOBIN 6.4 GM/DL (13.0-17.0)
--- NOTE | 2017-09-20 20:59 | PD.PROCEDR ---
GI Procedure PROCEDURE PERFORMED EGD with banding INDICATION FOR PROCEDURE Upper GI bleed, known history of cirrhosis PROCEDURE: The procedure, risks and benefits were discussed with Mr. Ghotra and informed consent was obtained. Anesthesia sedated him with Diprivan. He was placed in the left lateral decubitus position. EGD: The Pentax videoscope was introduced through the oropharynx and advanced to the second portion of the duodenum under direct visualization. Retroflexion was performed in the stomach. FINDINGS: Esophagus there were 3 columns of grade 2 to grade 3 esophageal varices with blood in the esophagus I was not able to fully evaluate but I did go ahead and place 6 bands on the esophageal varices but 2 bands did slip off following the procedure there was no noted fresh pooling of blood The stomach was a large clot covering the fundus but I doubt that there is any gastric varices there was evidence of blood in the stomach and so the evaluation is incomplete but no active bleeding in the stomach The duodenum this was normal ESTIMATED BLOOD LOSS: There was about 100 cc of blood noted in the stomach SPECIMENS REMOVED: None COMPLICATIONS: None IMPRESSION: Esophageal varices Recent bleeding probably from the esophageal varices Incomplete EGD PLAN: Continue with current supportive care We will correct the coagulopathy with fresh frozen plasma We'll monitor labs and transfuse as needed Most likely patient will require further banding and endoscopy probably in about a week to 10 days but sooner if needed Marcelo Jordan MD Sep 20, 2017 20:59
[2017-09-20] MEDS ORDERED: DO NOT ADM ANY ANTICOAGULANT DRUGS PRN (21:15)
[2017-09-20] MEDS: MORPHINE SULFATE 4 MG/ML INJ IV PUSH PRN (23:06)
[2017-09-21] VITALS (11 sets, daily range): BP systolic 101–167; BP diastolic 61–103; PULSE 56–113; RESP 20–35; TEMP 97.6–99.4; O2SAT 90–99
[2017-09-21] MEDS: PANTOPRAZOLE SODIUM 40 MG VIAL IV PUSH SCH ×2 (00:32→14:02)
[2017-09-21] MEDS: SODIUM CHLORIDE 0.9% FLUSH 10 ML FLUSH IV FLUSH SCH ×3 (00:33→19:56)
[2017-09-21] MEDS: LACTATED RINGER'S 1000 ML INJ 1,000 ML IV SCH ×4 (00:33→22:39)
[2017-09-21] MEDS: OCTREOTIDE INJ 500 MCG in SODIUM CHLORID 0.9% 500 ML INJ 499.5 ML IV SCH ×2 (00:52→17:33)
[2017-09-21] MEDS: LORazepam 2 MG/ML VIAL IV PUSH PRN ×4 (01:59→15:06)
[2017-09-21] MEDS: THIAMINE INJ 100 MG in SODIUM CHLORIDE 0.9% INJ 100 ML IV SCH (01:59)
[2017-09-21] MEDS: DIAZEPAM 5 MG TAB PO SCH ×2 (02:00→10:52)
[2017-09-21] MEDS: cefTRIAXone INJ 2,000 MG in SODIUM CHLORIDE 0.9% INJ 100 ML IV SCH (02:00)
[2017-09-21 03:39] LABS: HEMOGLOBIN 7.1 GM/DL (13.0-17.0)
[2017-09-21] MEDS: CHLORHEXIDINE GLUCONATE 2 % 1 PACK (2 CLOTHS) TOP SCH (04:00)
[2017-09-21 05:10] LABS: MEAN CELL VOLUME 87.5 FL (80.0-100.0); MEAN CORPUSCULAR HEMOGLOBIN 31.3 PG (27.0-34.0); MEAN CORPUSCULAR HGB CONC 35.7 % (32.0-36.0); MEAN PLATELET VOLUME 9.1 FL (7.0-11.0); PLATELET COUNT 114 TH/MM3 (150-450); RED BLOOD COUNT 2.24 MIL/MM3 (4.50-5.90); RED CELL DISTRIBUTION WIDTH 22.7 % (11.6-17.2); WHITE BLOOD COUNT 8.3 TH/MM3 (4.0-11.0)
[2017-09-21 05:33] LABS: INTERNATIONAL NORMALIZED RATIO 1.5 RATIO; PROTHROMBIN TIME - PATIENT 15.4 SEC (9.8-11.6)
[2017-09-21 05:47] LABS: CALCIUM 7.2 MG/DL (8.5-10.1); CREATININE 0.73 MG/DL (0.60-1.30)
[2017-09-21 05:48] LABS: HEMATOCRIT 19.6 % (39.0-51.0)
[2017-09-21 06:42] LABS: CALCIUM-PROTEIN CORRECTED 7.7 MG/DL (8.5-10.1); TOTAL BILIRUBIN ADULT 3.2 MG/DL (0.2-1.0); TOTAL PROTEIN 6.1 GM/DL (6.4-8.2)
[2017-09-21] MEDS: MULTIVITAMIN TAB PO SCH (08:47)
[2017-09-21] MEDS: DOCUSATE SODIUM 50 MG/SENNA 8.6 MG TAB PO SCH ×2 (08:47→19:56)
[2017-09-21] MEDS: HALOPERIDOL LACTATE 5 MG/ML AMP IV PUSH PRN (13:59)
[2017-09-21] MEDS ORDERED: diphenhydrAMINE HCL 50 MG/ML VIAL IM PRN (14:00)
--- NOTE | 2017-09-21 15:19 | HHI.GIFU ---
Subjective Remarks Pt confused and agitated today. Haldol given prior to exam. Per RN pt has had two small, jelly, dark BMs. No continued episodes of emesis. (Leticia Wilson) Objective Vitals I&O Vital Signs Date Time Temp Pulse Resp B/P (MAP) Pulse Ox O2 Delivery O2 Flow Rate FiO2 09/21/17 13:10 98.0 103 35 162/93 (116) 90 09/21/17 08:00 98.7 103 20 137/69 (91) 90 09/21/17 08:00 103 09/21/17 08:00 98 Room Air 09/21/17 06:00 96 09/21/17 04:00 98 09/21/17 02:00 100 09/21/17 00:00 96 09/21/17 00:00 99.0 96 21 143/84 (103) 91 09/21/17 00:00 98 Room Air 09/20/17 22:00 102 09/20/17 20:00 96 Room Air 09/20/17 19:45 99.2 101 22 146/75 (98) 96 09/20/17 19:44 99.2 105 24 146/75 90 09/20/17 17:35 99.3 111 18 136/75 95 09/20/17 16:35 99.2 107 18 137/79 95 09/20/17 16:13 99.2 115 22 136/75 92 09/20/17 16:00 99.3 96 23 137/79 (98) 95 I/O 09/20/17 09/20/17 09/20/17 09/21/17 09/21/17 09/21/17 07:00 15:00 23:00 07:00 15:00 23:00 Intake Total 400 ml 1650 ml Output Total 1000 ml 0 ml Balance 400 ml 650 ml 0 ml IV Total 400 ml 500 ml Packed Cells 800 ml Blood Product IV Normal Saline Flush 50 ml Other 300 ml Output Urine Total 1000 ml 0 ml # Voids 4 # Bowel Movements 2 4 1 2 Laboratory Laboratory Tests Test 09/21/17 02:40 09/21/17 04:35 Hemoglobin 7.1 7.0 Hematocrit 21.0 19.6 White Blood Count 8.3 Red Blood Count 2.24 Mean Corpuscular Volume 87.5 Mean Corpuscular Hemoglobin 31.3 Mean Corpuscular Hemoglobin Concent 35.7 Red Cell Distribution Width 22.7 Platelet Count 114 Mean Platelet Volume 9.1 Prothrombin Time 15.4 Prothromb Time International Ratio 1.5 Blood Urea Nitrogen 29 Creatinine 0.73 Random Glucose 107 Total Protein 6.1 Albumin 2.0 Calcium Level 7.2 Alkaline Phosphatase 71 Aspartate Amino Transf (AST/SGOT) 84 Alanine Aminotransferase (ALT/SGPT) 20 Total Bilirubin 3.2 Sodium Level 140 Potassium Level 3.7 Chloride Level 105 Carbon Dioxide Level 27.0 Anion Gap 8 Estimat Glomerular Filtration Rate 109 Protein Corrected Calcium 7.7 Imaging Last Impressions Chest X-Ray 09/19/17 0032 Signed Impressions: Service Date/Time: Tuesday, September 19, 2017 00:46 - CONCLUSION: 1. Left basilar lung consolidation or atelectasis. Cardiomegaly. Tyler Adams MD Physical Exam HEENT: Normocephalic; atraumatic CHEST: Tachypneic CARDIAC: RRR ABDOMEN: Distended, semi-firm, bowel sounds active EXTREMITIES: No clubbing, cyanosis, or edema. SKIN: Normal; no rash; no jaundice. CONSULTING BUSINESS DEVELOPER: Awake, agitated, oriented x 2 (Leticia Wilson ROUTE SPECIALIST) Assessment and Plan Plan Assessment - Upper GI bleed- history of cirrhosis- last EGD in Jun 2017- revealed single esophageal varix in distal esophagus- coffee ground material and old blood in stomach, no active bleeding. Pt was to repeat EGD in three months, has not followed up. Currently on Octreotide gtt and Protonix IV BID. - ETOH abuse- Drinks half a large bottle of vodka daily. Last ETOH was last night. - Transaminitis- consistent with alcoholic hepatitis- AST-112 ALT- 34 T bili- 2.4 - Cirrhosis- Decreased albumin, slight coagulopathy. PT 14.6 INR 1.4 (09/22) --> S/P EGD yesterday --> Esophageal varices. Recent bleeding probably from the esophageal varices. Incomplete EGD. Per RN pt with two small, jelly- consistency dark stools. H/H remains low 7/19.6, S/P 2 U PRBCs yesterday. Continued on Octreotide gtt and Protonix IV BID. Pt remains confused and agitated, Ammonia-25 Plan: EGD to be repeated- timing determined by Dr. Jordan Obtain consent Clear liquid diet Continue Octreotide gtt Protonix IV Monitor H/H Monitor LFTs Treat for alcohol withdraw Further recommendations to follow based on results of above Pt has been seen and examined by myself and Dr. Jordan and this note is written on his behalf (Leticia Wilson) Physician Comments patient seen and examined agree with above monitor labs continue present supportive care EGD banding tomorrow (Marcelo Jordan MD) Leitcia Wilson Sep 21, 2017 15:19 Marcelo Jordan MD Sep 21, 2017 22:04
[2017-09-21] MEDS ORDERED: ZIPRASIDONE MESYLATE 20 MG VIAL IM PRN (16:00)
[2017-09-21 17:22] LABS: HEMATOCRIT 21.2 % (39.0-51.0)
--- NOTE | 2017-09-21 17:22 | HHI.CCPN ---
Subjective Remarks/Hospital Course Hospital Course: 62-year-old male chronic alcohol user who was recently taken to the OR endoscopy for banding of his esophageal variceal bleed. Per patient he was told they have put drinks on his varices and now he is coming back again after a few days of vomiting coffee-ground emesis, flulike symptoms, he had flu swab done at his doctor's office which was positive and he's been having vomiting diarrhea and now bright red blood vomit as well as melanotic stool. He also reports the diarrhea for the last few days and he feels nauseous. In the emergency department he had had episode of coffee-ground emesis. He was treated with octreotide bolus followed by the drip as well as Protonix bolus and following drip. Subjective: 09/20: hgb dropped from 10 to 7. no cough. remains on room air. unlikely to have the flu given afebrile without cough or flu-like symptoms, on room air. plan for EGD today. 09/21: hgb dropped to 7 again today. received an additional unit prbc. active DTs and agitated delirium. receiving ativan iv, haldol, restraints. EGD yesterday with 4 varices and blood in the stomach. Objective Vital Signs Date Time Temp Pulse Resp B/P (MAP) Pulse Ox O2 Delivery O2 Flow Rate FiO2 09/21/17 13:10 98.0 103 35 162/93 (116) 90 09/21/17 08:00 Room Air Intake and Output 09/21/17 09/21/17 09/22/17 08:00 16:00 00:00 Output Total 0 ml Balance 0 ml Result Diagram: 09/21/17 0435 09/21/17 0435 Imaging Last 24 hours Impressions Chest X-Ray 09/19/17 0032 Signed Impressions: Service Date/Time: Tuesday, September 19, 2017 00:46 - CONCLUSION: 1. Left basilar lung consolidation or atelectasis. Cardiomegaly. Tyler Adams MD Objective Remarks GENERAL: This is a middle-aged male, lying in bed. SKIN: No rashes, ecchymoses or lesions. warm and dry. HEAD: Atraumatic. Normocephalic. No temporal or scalp tenderness. EYES: Pupils equal round and reactive. Extraocular motions intact. No scleral icterus. No injection or drainage. ENT: Nose without bleeding Airway patent. NECK: Trachea midline. No JVD. CARDIOVASCULAR: tachycardic rate, regular rhythm. sinus by tele. frequent pvc' s. RESPIRATORY: room air. spo2 93%. Clear to auscultation. Breath sounds equal bilaterally. GASTROINTESTINAL: Abdomen soft, non-tender, nondistended. No guarding. MUSCULOSKELETAL: Extremities without clubbing, cyanosis, or edema. NEUROLOGICAL: Awake and alert. no focal deficits. RASS +1. CAM+. A/P Assessment and Plan Assessment: 62yM with etoh cirrhosis and known varices who presents with upper GI bleeding. likely early etoh withdraw with tachycardia and worsening agitated delirium. remain in ICU, serial H&H, transfuse to keep hgb > 7. may need precedex to control agitation along with benzos. Hematemesis Etoh cirrhosis Esophageal varices - known esophageal varices, more on repeat EGD - s/p banding x 4 on 09/20. - plan for repeat EGD possibly tomorrow 09/22 - Octreotide drip - Protonix drip - Gastroenterology consultation - clear liquid diet - IV fluid - Rocephin for SBP prophylaxis Agitated Delirium EtOH withdraw - ativan prn - scheduled valium - haldol prn - will add goedon IM for breakthrough agitation - precedex drip if needed Hypertension - Labetalol when necessary to keep SBP less than 160 Alcoholism - CIWA protocol - mvi - thiamine - add valium 5mg po q8h Anemia secondary to acute blood loss - transfuse 1 unit prbc today. - serial H&H - keep hgb > 7. GERD - Protonix drip DVT GI prophylaxis - Teds SCDs - No pharmacological DVT prophylaxis due to active bleed - IV Protonix Dispo: remain in ICU. trend hgb. needs repeat EGD before cleared to leave ICU. Rene Mcdonald MD Sep 21, 2017 17:22
[2017-09-21] MEDS: DEXMEDETOMIDINE INJ 200 MCG in SODIUM CHLORIDE 0.9% INJ 50 ML IV PRN ×2 (17:38→18:10)
[2017-09-21] MEDS: DIAZEPAM 10 MG TAB PO SCH (17:38)
[2017-09-22] VITALS (14 sets, daily range): BP systolic 98–126; BP diastolic 57–75; PULSE 55–78; RESP 19–24; TEMP 97.6–99; O2SAT 90–99
[2017-09-22] MEDS: DIAZEPAM 10 MG TAB PO SCH ×3 (00:22→18:00)
[2017-09-22] MEDS: THIAMINE INJ 100 MG in SODIUM CHLORIDE 0.9% INJ 100 ML IV SCH (01:10)
[2017-09-22] MEDS: PANTOPRAZOLE SODIUM 40 MG VIAL IV PUSH SCH ×2 (01:10→16:33)
[2017-09-22] MEDS: CHLORHEXIDINE GLUCONATE 2 % 1 PACK (2 CLOTHS) TOP SCH (01:18)
[2017-09-22] MEDS: cefTRIAXone INJ 2,000 MG in SODIUM CHLORIDE 0.9% INJ 100 ML IV SCH (02:15)
[2017-09-22] MEDS: DEXMEDETOMIDINE INJ 1,000 MCG in SODIUM CHLOR 0.9% 250 ML INJ 240 ML IV PRN (03:18)
[2017-09-22 05:36] LABS: AUTOMATED NEUTROPHIL # 4.6 TH/MM3 (1.8-7.7); BASOPHIL # 0.1 TH/MM3 (0-0.2); BASOPHIL % 0.7 % (0.0-2.0); EOSINOPHIL # 0.4 TH/MM3 (0-0.4); EOSINOPHIL % 5.3 % (0.0-4.0); HEMATOCRIT 26.5 % (39.0-51.0); HEMOGLOBIN 8.7 GM/DL (13.0-17.0); LYMPH % 15.2 % (9.0-44.0); MEAN CELL VOLUME 84.7 FL (80.0-100.0); MEAN CORPUSCULAR HEMOGLOBIN 27.8 PG (27.0-34.0); MEAN CORPUSCULAR HGB CONC 32.8 % (32.0-36.0); MEAN PLATELET VOLUME 8.9 FL (7.0-11.0); MONO % 9.9 % (0.0-8.0); MONOCYTE # 0.7 TH/MM3 (0-0.9); NEUT % 68.9 % (16.0-70.0); PLATELET COUNT 114 TH/MM3 (150-450); RED BLOOD COUNT 3.12 MIL/MM3 (4.50-5.90); RED CELL DISTRIBUTION WIDTH 22.1 % (11.6-17.2); WHITE BLOOD COUNT 6.7 TH/MM3 (4.0-11.0)
[2017-09-22 06:02] LABS: BICARBONATE 27.6 MEQ/L (21.0-32.0); CALCIUM 7.5 MG/DL (8.5-10.1); CREATININE 0.8 MG/DL (0.60-1.30)
[2017-09-22 07:52] LABS: ACANTHOCYTES OCC (NORMAL); KERATOCYTES OCC (NORMAL); POLYCHROMASIA 2.3 % (0.0-1.9)
[2017-09-22] MEDS: DOCUSATE SODIUM 50 MG/SENNA 8.6 MG TAB PO SCH ×2 (09:00→20:09)
[2017-09-22] MEDS: MULTIVITAMIN TAB PO SCH (09:00)
[2017-09-22] MEDS: SODIUM CHLORIDE 0.9% FLUSH 10 ML FLUSH IV FLUSH SCH ×2 (09:31→20:09)
[2017-09-22] MEDS: LACTATED RINGER'S 1000 ML INJ 1,000 ML IV SCH ×2 (09:32→20:36)
[2017-09-22] MEDS ORDERED: PROPOFOL 200 MG/20 ML AMP IV ONE (12:00)
[2017-09-22] MEDS: cloNIDine HCL 0.3 MG TAB PO SCH ×2 (14:00→21:36)
--- NOTE | 2017-09-22 15:50 | PD.PROCEDR ---
GI Procedure PROCEDURE PERFORMED EGD with banding INDICATION FOR PROCEDURE Continued GI bleed with known esophageal varices PROCEDURE: The procedure, risks and benefits were discussed with Mr. Ghotra and informed consent was obtained. Anesthesia sedated him with Diprivan. He was placed in the left lateral decubitus position. EGD: The Pentax videoscope was introduced through the oropharynx and advanced to the second portion of the duodenum under direct visualization. Retroflexion was performed in the stomach. FINDINGS: Esophagus the previous bands were noted to still be clinging but evidence of bleeding was still noted and the bands that were placed earlier were not quite distal enough and so additional banding was performed 6 more bands were placed starting at the GE junction which was at 45 cm The stomach no gastric varices mild portal gastropathy otherwise unremarkable with no active bleeding again noted was a moderate size hiatal hernia The duodenum this was normal ESTIMATED BLOOD LOSS: None during the procedure SPECIMENS REMOVED: None COMPLICATIONS: None IMPRESSION: Esophageal varices Mild gastropathy Hiatal hernia PLAN: Continue with current supportive care Monitor labs and transfuse as needed If any coagulopathies identified will need to be corrected EGD with banding in 1 month Marcelo Jordan MD Sep 22, 2017 15:50
[2017-09-22] MEDS: OCTREOTIDE INJ 500 MCG in SODIUM CHLORID 0.9% 500 ML INJ 499.5 ML IV SCH (16:36)
--- NOTE | 2017-09-22 17:56 | HHI.CCPN ---
Subjective Remarks/Hospital Course Hospital Course: 62-year-old male chronic alcohol user who was recently taken to the OR endoscopy for banding of his esophageal variceal bleed. Per patient he was told they have put drinks on his varices and now he is coming back again after a few days of vomiting coffee-ground emesis, flulike symptoms, he had flu swab done at his doctor's office which was positive and he's been having vomiting diarrhea and now bright red blood vomit as well as melanotic stool. He also reports the diarrhea for the last few days and he feels nauseous. In the emergency department he had had episode of coffee-ground emesis. He was treated with octreotide bolus followed by the drip as well as Protonix bolus and following drip. Subjective: 09/20: hgb dropped from 10 to 7. no cough. remains on room air. unlikely to have the flu given afebrile without cough or flu-like symptoms, on room air. plan for EGD today. 09/21: hgb dropped to 7 again today. received an additional unit prbc. active DTs and agitated delirium. receiving ativan iv, haldol, restraints. EGD yesterday with 4 varices and blood in the stomach. 09/22: hgb stable. repeat EGD stable. remains on precedex for severe etoh withdraw. Objective Vital Signs Date Time Temp Pulse Resp B/P (MAP) Pulse Ox O2 Delivery O2 Flow Rate FiO2 09/22/17 08:38 97 Nasal Cannula 2.00 09/22/17 08:00 62 09/22/17 04:00 98.1 20 126/71 (89) Intake and Output 09/22/17 09/22/17 09/23/17 08:00 16:00 00:00 Intake Total 601 ml 310 ml 50 ml Output Total 550 ml Balance 51 ml 310 ml 50 ml Result Diagram: 09/22/1744409/22/17 0445 Imaging Last 24 hours Impressions Chest X-Ray 09/19/17 0032 Signed Impressions: Service Date/Time: Tuesday, September 19, 2017 00:46 - CONCLUSION: 1. Left basilar lung consolidation or atelectasis. Cardiomegaly. Tyler Adams MD Objective Remarks GENERAL: This is a middle-aged male, lying in bed. SKIN: No rashes, ecchymoses or lesions. warm and dry. HEAD: Atraumatic. Normocephalic. No temporal or scalp tenderness. EYES: Pupils equal round and reactive. Extraocular motions intact. No scleral icterus. No injection or drainage. ENT: Nose without bleeding Airway patent. NECK: Trachea midline. No JVD. CARDIOVASCULAR: tachycardic rate, regular rhythm. sinus by tele. frequent pvc' s. RESPIRATORY: room air. spo2 93%. Clear to auscultation. Breath sounds equal bilaterally. GASTROINTESTINAL: Abdomen soft, non-tender, nondistended. No guarding. MUSCULOSKELETAL: Extremities without clubbing, cyanosis, or edema. NEUROLOGICAL: Awake and alert. no focal deficits. RASS -1. CAM+. A/P Assessment and Plan Assessment: 62yM with etoh cirrhosis and known varices who presents with upper GI bleeding. Delirium under control now on precedex. will continue to wean precedex as tolerated. keep valium. diet per GI. Hematemesis - improving. Etoh cirrhosis Esophageal varices - known esophageal varices, more on repeat EGD - s/p banding x 4 on 09/20. - EGD 09/22 controlled. - Octreotide drip - iv bid ppi - Gastroenterology consultation - clear liquid diet - IV fluid - Rocephin for SBP prophylaxis Agitated Delirium - persistent. EtOH withdraw - ativan prn - scheduled valium - haldol prn - precedex drip Hypertension - Labetalol when necessary to keep SBP less than 160 Alcoholism - CIWA protocol - mvi - thiamine - valium 5mg po q8h Anemia secondary to acute blood loss - stable. - daily cbc - keep hgb > 7. GERD - iv bid ppi DVT GI prophylaxis - Teds SCDs - No pharmacological DVT prophylaxis due to active bleed - IV Protonix Dispo: remain in ICU while on precedex drip. Rene Mcdonald MD Sep 22, 2017 17:56
[2017-09-23] VITALS (15 sets, daily range): BP systolic 85–133; BP diastolic 50–85; PULSE 62–81; RESP 16–30; TEMP 97.8–99; O2SAT 88–95
[2017-09-23] MEDS: DEXMEDETOMIDINE INJ 1,000 MCG in SODIUM CHLOR 0.9% 250 ML INJ 240 ML IV PRN (00:11)
[2017-09-23] MEDS: PANTOPRAZOLE SODIUM 40 MG VIAL IV PUSH SCH ×2 (00:11→12:35)
[2017-09-23] MEDS: DIAZEPAM 10 MG TAB PO SCH ×3 (01:10→17:47)
[2017-09-23] MEDS: cefTRIAXone INJ 2,000 MG in SODIUM CHLORIDE 0.9% INJ 100 ML IV SCH (02:57)
[2017-09-23] MEDS: CHLORHEXIDINE GLUCONATE 2 % 1 PACK (2 CLOTHS) TOP SCH (03:15)
[2017-09-23] MEDS: cloNIDine HCL 0.3 MG TAB PO SCH ×3 (05:19→22:48)
[2017-09-23] MEDS: DOCUSATE SODIUM 50 MG/SENNA 8.6 MG TAB PO SCH ×2 (08:44→21:00)
[2017-09-23] MEDS: SODIUM CHLORIDE 0.9% FLUSH 10 ML FLUSH IV FLUSH SCH ×2 (09:25→20:43)
[2017-09-23] MEDS: MULTIVITAMIN TAB PO SCH (09:25)
[2017-09-23] MEDS: OCTREOTIDE INJ 500 MCG in SODIUM CHLORID 0.9% 500 ML INJ 499.5 ML IV SCH (09:25)
[2017-09-23] MEDS: LACTATED RINGER'S 1000 ML INJ 1,000 ML IV SCH ×2 (10:38→22:51)
--- NOTE | 2017-09-23 10:57 | HHI.CCPN ---
Subjective Remarks/Hospital Course Hospital Course: 62-year-old male chronic alcohol user who was recently taken to the OR endoscopy for banding of his esophageal variceal bleed. Per patient he was told they have put drinks on his varices and now he is coming back again after a few days of vomiting coffee-ground emesis, flulike symptoms, he had flu swab done at his doctor's office which was positive and he's been having vomiting diarrhea and now bright red blood vomit as well as melanotic stool. He also reports the diarrhea for the last few days and he feels nauseous. In the emergency department he had had episode of coffee-ground emesis. He was treated with octreotide bolus followed by the drip as well as Protonix bolus and following drip. Subjective: 09/20: hgb dropped from 10 to 7. no cough. remains on room air. unlikely to have the flu given afebrile without cough or flu-like symptoms, on room air. plan for EGD today. 09/21: hgb dropped to 7 again today. received an additional unit prbc. active DTs and agitated delirium. receiving ativan iv, haldol, restraints. EGD yesterday with 4 varices and blood in the stomach. 09/22: hgb stable. repeat EGD stable. remains on precedex for severe etoh withdraw. 09/23: Remains on Precedex for alcohol withdrawal. Had an episode of melena this morning. Systolic blood pressure in the 90s. Underwent EGD yesterday with variceal banding. Objective Vital Signs Date Time Temp Pulse Resp B/P (MAP) Pulse Ox O2 Delivery O2 Flow Rate FiO2 09/23/17 10:00 74 09/23/17 09:05 94 21 09/23/17 08:00 98.9 22 110/71 (84) 09/23/17 07:00 Venturi Mask 6.00 Intake and Output 09/23/17 09/23/17 09/24/17 08:00 16:00 00:00 Intake Total 340 ml 1300 ml Output Total 375 ml Balance -35 ml 1300 ml Result Diagram: 09/22/17 0445 09/22/17 0445 Imaging Last 24 hours Impressions Chest X-Ray 09/19/17 0032 Signed Impressions: Service Date/Time: Tuesday, September 19, 2017 00:46 - CONCLUSION: 1. Left basilar lung consolidation or atelectasis. Cardiomegaly. Tyler Adams MD Objective Remarks GENERAL: This is a middle-aged male, lying in bed. SKIN: No rashes, ecchymoses or lesions. warm and dry. HEAD: Atraumatic. Normocephalic. No temporal or scalp tenderness. EYES: Pupils equal round and reactive. Extraocular motions intact. No scleral icterus. No injection or drainage. Pallor present ENT: Nose without bleeding Airway patent. NECK: Trachea midline. No JVD. CARDIOVASCULAR: tachycardic rate, regular rhythm. sinus by tele. frequent pvc' s. RESPIRATORY: On Ventimask. Clear to auscultation. Breath sounds equal bilaterally. GASTROINTESTINAL: Abdomen soft, non-tender, nondistended. No guarding. MUSCULOSKELETAL: Extremities without clubbing, cyanosis, or edema. NEUROLOGICAL: Awake and alert. no focal deficits. RASS -1. CAM+. A/P Assessment and Plan Assessment: 62yM with etoh cirrhosis and known varices who presents with upper GI bleeding. Delirium under control now on precedex. will continue to wean precedex as tolerated. keep valium. diet per GI. Hematemesis - improving. Etoh cirrhosis Esophageal varices - known esophageal varices, more on repeat EGD - s/p banding x 4 on 09/20. - EGD 09/22 controlled. - Octreotide drip - iv bid ppi - Gastroenterology consultation - clear liquid diet - IV fluid - Rocephin for SBP prophylaxis Agitated Delirium - persistent. EtOH withdraw - ativan prn - scheduled valium - haldol prn - precedex drip - Add Librium 50 mg by mouth twice a day to attempt to titrate off Precedex drip. Hypertension - Labetalol when necessary to keep SBP less than 160 Alcoholism - CIWA protocol - mvi - thiamine - valium 5mg po q8h - Added Librium 50 mg by mouth twice a day to titrate off Precedex Anemia secondary to acute blood loss - stable. - daily cbc - keep hgb > 7. GERD - iv bid ppi DVT GI prophylaxis - Teds SCDs - No pharmacological DVT prophylaxis due to active bleed - IV Protonix Dispo: remain in ICU while on precedex drip. Dionte Sigala MD Sep 23, 2017 10:57
[2017-09-23 11:07] LABS: HEMATOCRIT 23.7 % (39.0-51.0); HEMOGLOBIN 7.8 GM/DL (13.0-17.0); MEAN CORPUSCULAR HEMOGLOBIN 27.8 PG (27.0-34.0); MEAN CORPUSCULAR HGB CONC 32.8 % (32.0-36.0); MEAN PLATELET VOLUME 9.3 FL (7.0-11.0); PLATELET COUNT 115 TH/MM3 (150-450); RED BLOOD COUNT 2.79 MIL/MM3 (4.50-5.90); RED CELL DISTRIBUTION WIDTH 22.9 % (11.6-17.2); WHITE BLOOD COUNT 8.5 TH/MM3 (4.0-11.0)
[2017-09-23 11:13] LABS: INTERNATIONAL NORMALIZED RATIO 1.6 RATIO; PROTHROMBIN TIME - PATIENT 16.5 SEC (9.8-11.6)
[2017-09-23 11:31] LABS: ALBUMIN 1.9 GM/DL (3.4-5.0); BICARBONATE 26.6 MEQ/L (21.0-32.0); CALCIUM 7.4 MG/DL (8.5-10.1); CALCIUM-PROTEIN CORRECTED 7.9 MG/DL (8.5-10.1); TOTAL BILIRUBIN ADULT 4.2 MG/DL (0.2-1.0); TOTAL PROTEIN 6.1 GM/DL (6.4-8.2)
--- NOTE | 2017-09-23 13:23 | HHI.GIFU ---
Subjective Remarks Pt resting in bed, on Venti mask with 6L O2. Pt remains confused. Rectal collection container with brown stool. (Leticia Wilson) Objective Vitals I&O Vital Signs Date Time Temp Pulse Resp B/P (MAP) Pulse Ox O2 Delivery O2 Flow Rate FiO2 09/23/17 12:00 67 09/23/17 12:00 98.8 67 30 120/74 (89) 88 09/23/17 10:00 74 09/23/17 09:05 94 21 09/23/17 08:00 70 09/23/17 08:00 98.9 66 22 110/71 (84) 95 09/23/17 07:00 96 Venturi Mask 6.00 30 09/23/17 06:00 69 09/23/17 04:00 69 09/23/17 04:00 99.0 62 24 85/56 (66) 93 09/23/17 02:00 65 09/23/17 00:05 93 Venturi Mask 6.00 50 09/23/17 00:00 98.9 66 25 90/50 (63) 93 09/23/17 00:00 66 09/22/17 22:00 78 09/22/17 20:00 98.8 60 24 98/65 (76) 90 09/22/17 20:00 92 Nasal Cannula 2.00 09/22/17 20:00 60 09/22/17 19:00 97 Nasal Cannula 2.00 09/22/17 18:00 66 09/22/17 16:00 73 09/22/17 16:00 99.0 66 21 101/57 (72) 93 09/22/17 14:00 63 I/O 09/22/17 09/22/17 09/22/17 09/23/17 09/23/17 09/23/17 07:00 15:00 23:00 07:00 15:00 23:00 Intake Total 1001 ml 160 ml 2664 ml 340 ml 1300 ml Output Total 550 ml 550 ml 375 ml Balance 451 ml 160 ml 2114 ml -35 ml 1300 ml Intake Oral 0 ml 240 ml IV Total 201 ml 160 ml 2514 ml 100 ml 1300 ml Packed Cells 800 ml Other 150 ml Output Urine Total 550 ml 550 ml 375 ml Bladder Scan Volume Amount 380 ml 380 ml # Bowel Movements 0 0 2 Laboratory Laboratory Tests Test 09/23/17 10:22 White Blood Count 8.5 Red Blood Count 2.79 Hemoglobin 7.8 Hematocrit 23.7 Mean Corpuscular Volume 85.0 Mean Corpuscular Hemoglobin 27.8 Mean Corpuscular Hemoglobin Concent 32.8 Red Cell Distribution Width 22.9 Platelet Count 115 Mean Platelet Volume 9.3 Prothrombin Time 16.5 Prothromb Time International Ratio 1.6 Blood Urea Nitrogen 37 Creatinine 1.00 Random Glucose 118 Total Protein 6.1 Albumin 1.9 Calcium Level 7.4 Alkaline Phosphatase 70 Aspartate Amino Transf (AST/SGOT) 127 Alanine Aminotransferase (ALT/SGPT) 32 Total Bilirubin 4.2 Sodium Level 143 Potassium Level 4.3 Chloride Level 109 Carbon Dioxide Level 26.6 Anion Gap 7 Estimat Glomerular Filtration Rate 76 Protein Corrected Calcium 7.9 Imaging Last Impressions Chest X-Ray 09/19/17 0032 Signed Impressions: Service Date/Time: Tuesday, September 19, 2017 00:46 - CONCLUSION: 1. Left basilar lung consolidation or atelectasis. Cardiomegaly. Tyler Adams MD Physical Exam HEENT: Normocephalic; atraumatic CHEST: Tachypneic Venti mask @ 6 L CARDIAC: RRR ABDOMEN: Distended, semi-firm, bowel sounds active EXTREMITIES: No clubbing, cyanosis, or edema. SKIN: Normal; no rash; no jaundice. FLAKEBOARD LINE TENDER: Awake, agitated, oriented x 2 (Leticia Wilson LOGISTICS SYSTEM ENGINEER) Assessment and Plan Plan Assessment - Upper GI bleed- history of cirrhosis- last EGD in Jun 2017- revealed single esophageal varix in distal esophagus- coffee ground material and old blood in stomach, no active bleeding. Pt was to repeat EGD in three months, has not followed up. Currently on Octreotide gtt and Protonix IV BID. - ETOH abuse- Drinks half a large bottle of vodka daily. Last ETOH was last night. - Transaminitis- consistent with alcoholic hepatitis- AST-112 ALT- 34 T bili- 2.4 - Cirrhosis- Decreased albumin, slight coagulopathy. PT 14.6 INR 1.4 (09/22) --> S/P EGD yesterday --> Esophageal varices. Recent bleeding probably from the esophageal varices. Incomplete EGD. Per RN pt with two small, jelly- consistency dark stools. H/H remains low 7/19.6, S/P 2 U PRBCs yesterday. Continued on Octreotide gtt and Protonix IV BID. Pt remains confused and agitated, Ammonia-25 (09/23) --> Pt remains tachypneic, on 6 L via venturi mask. Remains agitated, soft wrist restraints, on Precedex gtt and Librium. Reports of one melanotic stool this morning, currently has rectal tube with valdes bag with liquid brown stool. H/H dropped some. currently 7.8/23.7- last transfused two days ago. No emesis. S/P EGD with banding yesterday --> Esophageal varices, mild gastropathy, hiatal hernia. Still on Octreotide gtt, Protonix gtt DCd and now IV BID. Some elevation in AST and T bilit today , will add Pentoxifylline to current management Plan: Octreotide gtt Protonix IV BID Pentoxifylline Monitor H/H Notify GI of active bleeding Transfuse as needed Repeat EGD with banding in one month Further recommendations to follow based on clinical course Pt has been seen and examined by myself and Dr. Jordan and this note is written on his behalf (Leticia Wilson) Physician Comments Patient seen and examined Agree with above Continue current supportive care Monitor labs (Marcelo Jordan MD) Leticia Wilson Sep 23, 2017 13:23 Marcelo Jordan MD Sep 23, 2017 15:49
[2017-09-23] MEDS: MORPHINE SULFATE 4 MG/ML INJ IV PUSH PRN ×2 (15:08→20:44)
[2017-09-23] MEDS: SODIUM CHLORIDE 0.9% FLUSH 10 ML FLUSH IV FLUSH PRN (20:44)
[2017-09-23] MEDS: PENTOXIFYLLINE 400 MG CONTROLLED RELEASE TAB PO SCH (20:45)
[2017-09-24] VITALS (13 sets, daily range): BP systolic 117–162; BP diastolic 77–83; PULSE 73–108; RESP 17–24; TEMP 98.1–98.8; O2SAT 90–96
[2017-09-24] MEDS: SODIUM CHLORIDE 0.9% FLUSH 10 ML FLUSH IV FLUSH PRN (02:07)
[2017-09-24] MEDS: cefTRIAXone INJ 2,000 MG in SODIUM CHLORIDE 0.9% INJ 100 ML IV SCH (02:07)
[2017-09-24] MEDS: PANTOPRAZOLE SODIUM 40 MG VIAL IV PUSH SCH ×2 (02:08→14:16)
[2017-09-24] MEDS: DIAZEPAM 10 MG TAB PO SCH ×3 (02:08→17:11)
[2017-09-24] MEDS: OCTREOTIDE INJ 500 MCG in SODIUM CHLORID 0.9% 500 ML INJ 499.5 ML IV SCH (02:13)
[2017-09-24] MEDS: CHLORHEXIDINE GLUCONATE 2 % 1 PACK (2 CLOTHS) TOP SCH (04:00)
[2017-09-24 05:16] LABS: HEMATOCRIT 24.1 % (39.0-51.0); HEMOGLOBIN 8.1 GM/DL (13.0-17.0); MEAN CELL VOLUME 84.6 FL (80.0-100.0); MEAN CORPUSCULAR HEMOGLOBIN 28.3 PG (27.0-34.0); MEAN CORPUSCULAR HGB CONC 33.5 % (32.0-36.0); MEAN PLATELET VOLUME 8.8 FL (7.0-11.0); PLATELET COUNT 132 TH/MM3 (150-450); RED BLOOD COUNT 2.85 MIL/MM3 (4.50-5.90); RED CELL DISTRIBUTION WIDTH 24.3 % (11.6-17.2); WHITE BLOOD COUNT 8.4 TH/MM3 (4.0-11.0)
[2017-09-24 05:38] LABS: BICARBONATE 26.6 MEQ/L (21.0-32.0); CALCIUM 7.3 MG/DL (8.5-10.1); CREATININE 0.78 MG/DL (0.60-1.30)
[2017-09-24 05:54] LABS: CALCIUM-PROTEIN CORRECTED 7.6 MG/DL (8.5-10.1); TOTAL PROTEIN 6.5 GM/DL (6.4-8.2)
[2017-09-24] MEDS: cloNIDine HCL 0.3 MG TAB PO SCH (06:18)
[2017-09-24] MEDS: THIAMINE HCL 100 MG TAB PO SCH (08:07)
[2017-09-24] MEDS: MULTIVITAMIN TAB PO SCH (08:07)
[2017-09-24] MEDS: PENTOXIFYLLINE 400 MG CONTROLLED RELEASE TAB PO SCH ×2 (08:07→21:03)
[2017-09-24] MEDS: DOCUSATE SODIUM 50 MG/SENNA 8.6 MG TAB PO SCH ×2 (08:07→21:03)
[2017-09-24] MEDS: SODIUM CHLORIDE 0.9% FLUSH 10 ML FLUSH IV FLUSH SCH ×2 (09:00→20:57)
--- NOTE | 2017-09-24 09:50 | HHI.CCPN ---
Subjective Remarks/Hospital Course Hospital Course: 62-year-old male chronic alcohol user who was recently taken to the OR endoscopy for banding of his esophageal variceal bleed. Per patient he was told they have put drinks on his varices and now he is coming back again after a few days of vomiting coffee-ground emesis, flulike symptoms, he had flu swab done at his doctor's office which was positive and he's been having vomiting diarrhea and now bright red blood vomit as well as melanotic stool. He also reports the diarrhea for the last few days and he feels nauseous. In the emergency department he had had episode of coffee-ground emesis. He was treated with octreotide bolus followed by the drip as well as Protonix bolus and following drip. Subjective: 09/20: hgb dropped from 10 to 7. no cough. remains on room air. unlikely to have the flu given afebrile without cough or flu-like symptoms, on room air. plan for EGD today. 09/21: hgb dropped to 7 again today. received an additional unit prbc. active DTs and agitated delirium. receiving ativan iv, haldol, restraints. EGD yesterday with 4 varices and blood in the stomach. 09/22: hgb stable. repeat EGD stable. remains on precedex for severe etoh withdraw. 09/23: Remains on Precedex for alcohol withdrawal. Had an episode of melena this morning. Systolic blood pressure in the 90s. Underwent EGD yesterday with variceal banding. 09/24: Off Precedex since yesterday. Laying comfortably in bed. Denies any shortness of breath. On 6 L nasal cannula currently. No further hypotension. Objective Vital Signs Date Time Temp Pulse Resp B/P (MAP) Pulse Ox O2 Delivery O2 Flow Rate FiO2 09/24/17 06:00 94 09/24/17 06:00 96 Nasal Cannula 2.00 09/24/17 04:00 98.1 21 128/83 (98) 09/23/17 09:05 21 Intake and Output 09/24/17 09/24/17 09/25/17 08:00 16:00 00:00 Intake Total 820 ml Output Total 775 ml Balance 45 ml Result Diagram: 09/24/17 0441 09/24/17 044 Imaging Last 24 hours Impressions Chest X-Ray 09/19/17 0032 Signed Impressions: Service Date/Time: Tuesday, September 19, 2017 00:46 - CONCLUSION: 1. Left basilar lung consolidation or atelectasis. Cardiomegaly. Tyler Adams MD Objective Remarks GENERAL: This is a middle-aged male, lying in bed. SKIN: No rashes, ecchymoses or lesions. warm and dry. HEAD: Atraumatic. Normocephalic. No temporal or scalp tenderness. EYES: Pupils equal round and reactive. Extraocular motions intact. No scleral icterus. No injection or drainage. Pallor present ENT: Nose without bleeding Airway patent. NECK: Trachea midline. No JVD. CARDIOVASCULAR: S1-S2 regular no gallop or murmur RESPIRATORY: On Ventimask. Clear to auscultation. Breath sounds equal bilaterally. GASTROINTESTINAL: Abdomen soft, non-tender, nondistended. No guarding. MUSCULOSKELETAL: Extremities without clubbing, cyanosis, or edema. NEUROLOGICAL: Awake alert oriented 3, no focal deficits. A/P Assessment and Plan Assessment: 62yM with etoh cirrhosis and known varices who presents with upper GI bleeding. Delirium under control now. On Librium Valium and Ativan as needed Hematemesis - improving. Etoh cirrhosis Esophageal varices - known esophageal varices, more on repeat EGD - s/p banding x 4 on 09/20. - EGD 09/22 controlled. - Octreotide drip - iv bid ppi - Gastroenterology following - clear liquid diet and advance to full liquids - IV fluid - Rocephin for SBP prophylaxis Agitated Delirium - persistent. EtOH withdraw - ativan prn - scheduled valium - haldol prn - precedex drip -Continue Librium 15 mg by mouth twice a day Hypertension - Labetalol when necessary to keep SBP less than 160 -Discontinue clonidine in view of hypotension. Alcoholism - CIWA protocol - mvi - thiamine - valium 5mg po q8h - Added Librium 15 mg by mouth twice a day on 09/23 Anemia secondary to acute blood loss - stable. - daily cbc - keep hgb > 7. GERD - iv bid ppi Influenza Acute respiratory failure -Continue supplemental O2. Follow-up chest x-ray tomorrow. Bronchodilators as needed. -Consult pulmonary for respiratory failure as patient being transferred to the floor. DVT GI prophylaxis - Teds SCDs - No pharmacological DVT prophylaxis due to active bleed - IV Protonix Transfer out of ICU. Consult and transfer to hospitalist service for further medical management. Dionte Sigala MD Sep 24, 2017 09:50
[2017-09-24] MEDS: LACTATED RINGER'S 1000 ML INJ 1,000 ML IV SCH ×2 (10:25→22:26)
--- NOTE | 2017-09-24 15:07 | MB ---
cc: Jose Juan STRE[address] M.D. DATE OF CONSULTATION 09/24/2017 HISTORY OF PRESENT ILLNESS Mr. Ghotra is a 62-year-old chronic alcoholic who presented with GI hemorrhaging and underwent endoscopy and banding of varices and a follow-up endoscopy. I am asked to see him as he is transferring to the floor and has required 5-6 liters of oxygen to maintain adequate saturation. The only prior pulmonary history is that he had some type of "tumor in his lung" at the same time that he had Hodgkin's lymphoma years ago. Apparently he had some type of procedure but it does not sound like it was lung cancer. He has had no surgical resection. He has had no evidence of recurrence of Hodgkin's since original presentation. Most immediate problems recently have been alcoholism, alcohol withdrawal, cirrhosis of the liver and esophageal varices. He denies ever having smoked after he smoked a cigarette when he was a teen and his father made him smoke a [place] cigar until he was sick, and he has not touched a cigarette since then. Also denies any illicit inhalation drug use. No complaint of shortness of breath. He has reported some cough but no purulent sputum or hemoptysis. He has been afebrile. White count is normal. The only chest x-ray was on admission 09/19/2017. PAST MEDICAL HISTORY Other than that noted above he has had some reflux problems. Hodgkin's as noted above. ALLERGIES None known. MEDICATIONS Reviewed in the EMR. PHYSICAL EXAMINATION GENERAL: The patient is awake, alert, comfortable. VITAL SIGNS: Afebrile. blood pressure 120/80, pulse 90, respirations 18. O2 sat on 5-6 liters is 94%. HEENT: Sclera pale, anicteric. Mucous membranes are a little dry. NECK: Neck veins are flat. CHEST: The chest is actually clear. No congestion or wheezing. HEART: Regular rhythm. No harsh murmur. ABDOMEN: Soft. EXTREMITIES: 1+ peripheral edema. No cyanosis of the nail beds. DISCUSSION Mr. Ghotra had some basilar infiltrates. I suspect during this bleeding and endoscopies he had some aspiration, really no evidence of a pneumonia. He is really quite stable clinically from a pulmonary standpoint. Will do a follow-up chest x-ray and gradually wean his oxygen as tolerated. Further diagnostic and/or therapeutic intervention will depend on his ongoing clinical course. R. MD OG Albert/ADRIANE /1:06 PM /2:38 PM
[2017-09-25] VITALS (8 sets, daily range): BP systolic 121–139; BP diastolic 75–83; PULSE 85–110; RESP 16–24; TEMP 98.2–98.8; O2SAT 82–98
[2017-09-25] MEDS: OCTREOTIDE INJ 500 MCG in SODIUM CHLORID 0.9% 500 ML INJ 499.5 ML IV SCH ×3 (00:55→22:20)
[2017-09-25] MEDS: PANTOPRAZOLE SODIUM 40 MG VIAL IV PUSH SCH ×2 (00:56→13:00)
[2017-09-25] MEDS: DIAZEPAM 10 MG TAB PO SCH ×3 (01:00→17:58)
[2017-09-25] MEDS: CHLORHEXIDINE GLUCONATE 2 % 1 PACK (2 CLOTHS) TOP SCH (03:25)
[2017-09-25] MEDS: cefTRIAXone INJ 2,000 MG in SODIUM CHLORIDE 0.9% INJ 100 ML IV SCH (03:31)
[2017-09-25] MEDS: MORPHINE SULFATE 4 MG/ML INJ IV PUSH PRN ×3 (04:54→22:26)
[2017-09-25 06:08] LABS: HEMATOCRIT 24.2 % (39.0-51.0); HEMOGLOBIN 7.8 GM/DL (13.0-17.0); MEAN CELL VOLUME 84.5 FL (80.0-100.0); MEAN CORPUSCULAR HEMOGLOBIN 27.4 PG (27.0-34.0); MEAN CORPUSCULAR HGB CONC 32.4 % (32.0-36.0); MEAN PLATELET VOLUME 8.7 FL (7.0-11.0); PLATELET COUNT 157 TH/MM3 (150-450); RED BLOOD COUNT 2.86 MIL/MM3 (4.50-5.90); RED CELL DISTRIBUTION WIDTH 25.2 % (11.6-17.2); WHITE BLOOD COUNT 8.2 TH/MM3 (4.0-11.0)
--- NOTE | 2017-09-25 06:33 | RADRPT ---
EXAM DATE/TIME: 09/25/2017 05:36 [facility] COMPARISON: CHEST SINGLE AP, September 19, 2017, 0:46. INDICATIONS : Respiratory failure. MEDICAL HISTORY : None. SURGICAL HISTORY : None. ENCOUNTER: Subsequent ACUITY: 4 - 6 days PAIN SCORE: Non-responsive. LOCATION: Bilateral chest FINDINGS: There is cardiomegaly and hazy density overlying the left hemithorax possibly related to a layering e ffusion. No definite consolidation. CONCLUSION: Possible layering effusion on the left. Jaycob Castillo MD on September 25, 2017 at 6:31 Board Certified Radiologist. This report was verified electronically.
[2017-09-25 06:56] LABS: BICARBONATE 25.2 MEQ/L (21.0-32.0); CREATININE 0.72 MG/DL (0.60-1.30)
[2017-09-25 07:26] LABS: CALCIUM-PROTEIN CORRECTED 7.5 MG/DL (8.5-10.1); TOTAL PROTEIN 6.2 GM/DL (6.4-8.2)
[2017-09-25] MEDS: PENTOXIFYLLINE 400 MG CONTROLLED RELEASE TAB PO SCH ×2 (09:18→20:04)
[2017-09-25] MEDS: MULTIVITAMIN TAB PO SCH (09:18)
[2017-09-25] MEDS: THIAMINE HCL 100 MG TAB PO SCH (09:18)
[2017-09-25] MEDS: DOCUSATE SODIUM 50 MG/SENNA 8.6 MG TAB PO SCH ×2 (09:18→20:04)
[2017-09-25] MEDS: SODIUM CHLORIDE 0.9% FLUSH 10 ML FLUSH IV FLUSH SCH ×2 (09:19→20:04)
[2017-09-25] MEDS: LACTATED RINGER'S 1000 ML INJ 1,000 ML IV SCH ×2 (10:10→22:05)
--- NOTE | 2017-09-25 11:43 | HHI.CCPN ---
Subjective Remarks/Hospital Course Hospital Course: 62-year-old male chronic alcohol user who was recently taken to the OR endoscopy for banding of his esophageal variceal bleed. Per patient he was told they have put drinks on his varices and now he is coming back again after a few days of vomiting coffee-ground emesis, flulike symptoms, he had flu swab done at his doctor's office which was positive and he's been having vomiting diarrhea and now bright red blood vomit as well as melanotic stool. He also reports the diarrhea for the last few days and he feels nauseous. In the emergency department he had had episode of coffee-ground emesis. He was treated with octreotide bolus followed by the drip as well as Protonix bolus and following drip. Subjective: 09/20: hgb dropped from 10 to 7. no cough. remains on room air. unlikely to have the flu given afebrile without cough or flu-like symptoms, on room air. plan for EGD today. 09/21: hgb dropped to 7 again today. received an additional unit prbc. active DTs and agitated delirium. receiving ativan iv, haldol, restraints. EGD yesterday with 4 varices and blood in the stomach. 09/22: hgb stable. repeat EGD stable. remains on precedex for severe etoh withdraw. 09/23: Remains on Precedex for alcohol withdrawal. Had an episode of melena this morning. Systolic blood pressure in the 90s. Underwent EGD yesterday with variceal banding. 09/24: Off Precedex since yesterday. Laying comfortably in bed. Denies any shortness of breath. On 6 L nasal cannula currently. No further hypotension. 09/25: Remains on nasal cannula. Remains off precedex gtt. No further active bleeding. Objective Vital Signs Date Time Temp Pulse Resp B/P (MAP) Pulse Ox O2 Delivery O2 Flow Rate FiO2 09/25/17 08:30 98.6 100 20 135/79 (97) 94 09/25/17 07:00 Nasal Cannula 4.00 09/23/17 09:05 21 Intake and Output 09/25/17 09/25/17 09/26/17 08:00 16:00 00:00 Intake Total 700 ml Output Total 200 ml Balance 500 ml Result Diagram: 09/25/17 04309/25/17 043 Imaging Last 24 hours Impressions Chest X-Ray 09/19/17 0032 Signed Impressions: Service Date/Time: Tuesday, September 19, 2017 00:46 - CONCLUSION: 1. Left basilar lung consolidation or atelectasis. Cardiomegaly. Tyler Adams MD Objective Remarks GENERAL: This is a middle-aged male, lying in bed. SKIN: No rashes, ecchymoses or lesions. warm and dry. HEAD: Atraumatic. Normocephalic. No temporal or scalp tenderness. EYES: Pupils equal round and reactive. Extraocular motions intact. No scleral icterus. No injection or drainage. Pallor present ENT: Nose without bleeding Airway patent. NECK: Trachea midline. No JVD. CARDIOVASCULAR: S1-S2 regular no gallop or murmur RESPIRATORY: On nasal cannula 4 lit/min. Clear to auscultation. Breath sounds equal bilaterally. GASTROINTESTINAL: Abdomen soft, non-tender, nondistended. No guarding. MUSCULOSKELETAL: Extremities without clubbing, cyanosis, or edema. NEUROLOGICAL: Awake alert oriented 3, no focal deficits. A/P Assessment and Plan Assessment: 62yM with etoh cirrhosis and known varices who presents with upper GI bleeding. Delirium under control now. On Librium Valium and Ativan as needed Hematemesis - improving. Etoh cirrhosis Esophageal varices - known esophageal varices, more on repeat EGD - s/p banding x 4 on 09/20. - EGD 09/22 controlled. - Octreotide drip - iv bid ppi - Gastroenterology following - clear liquid diet and advance to full liquids - IV fluid - Rocephin for SBP prophylaxis - Add aldactone 25mg daily on 09/25 to avoid fluid retention. Agitated Delirium - persistent. EtOH withdraw - ativan prn - scheduled valium - haldol prn - precedex drip -Continue Librium 15 mg by mouth twice a day Hypertension - Labetalol when necessary to keep SBP less than 160 -Discontinue clonidine in view of hypotension. Alcoholism - CIWA protocol - mvi - thiamine - valium 5mg po q8h - Added Librium 15 mg by mouth twice a day on 09/23 Anemia secondary to acute blood loss - stable. - daily cbc - keep hgb > 7. GERD - iv bid ppi Influenza Acute respiratory failure -Continue supplemental O2. Follow-up chest x-ray tomorrow. Bronchodilators as needed. -Consult pulmonary for respiratory failure as patient being transferred to the floor. DVT GI prophylaxis - Teds SCDs - No pharmacological DVT prophylaxis due to active bleed - IV Protonix Transfer out of ICU. Consult and transfer to hospitalist service for further medical management. Dionte Sigala MD Sep 25, 2017 11:43
[2017-09-25] MEDS ORDERED: SPIRONOLACTONE 25 MG TAB PO SCH (12:00)
--- NOTE | 2017-09-25 14:48 | HHI.GIFU ---
Subjective Remarks Resting in the bed eyes open Realizes he is at the [facility], more awake Asking questions of what has happened to him over the past few days, doesn't remember a lot Chief complaint abdominal pain generalized (Shobha Koehler) Objective Vitals I&O Vital Signs Date Time Temp Pulse Resp B/P (MAP) Pulse Ox O2 Delivery O2 Flow Rate FiO2 09/25/17 12:01 98.2 91 20 136/77 (96) 94 09/25/17 08:30 98.6 100 20 135/79 (97) 94 09/25/17 07:00 94 Nasal Cannula 4.00 09/25/17 05:15 20 09/25/17 04:02 98.4 110 24 127/83 (98) 82 09/25/17 00:02 98.5 99 16 139/76 (97) 84 09/24/17 20:40 92 Nasal Cannula 3.00 09/24/17 20:21 98.3 100 20 162/77 (105) 94 09/24/17 20:00 94 Nasal Cannula 4.00 09/24/17 20:00 108 09/24/17 16:00 98.8 73 17 117/78 (91) 96 09/24/17 16:00 73 I/O 09/24/17 09/24/17 09/24/17 09/25/17 09/25/17 09/25/17 07:00 15:00 23:00 07:00 15:00 23:00 Intake Total 820 ml 925 ml 1000 ml 700 ml Output Total 775 ml 450 ml 200 ml 200 ml Balance 45 ml 475 ml 1000 ml 500 ml -200 ml Intake Oral 720 ml 925 ml 200 ml IV Total 100 ml 1000 ml 500 ml Output Urine Total 475 ml 400 ml 200 ml 200 ml Stool Total 300 ml 50 ml # Voids 1 # Bowel Movements 1 Laboratory Laboratory Tests Test 09/25/17 04:31 White Blood Count 8.2 Red Blood Count 2.86 Hemoglobin 7.8 Hematocrit 24.2 Mean Corpuscular Volume 84.5 Mean Corpuscular Hemoglobin 27.4 Mean Corpuscular Hemoglobin Concent 32.4 Red Cell Distribution Width 25.2 Platelet Count 157 Mean Platelet Volume 8.7 Blood Urea Nitrogen 20 Creatinine 0.72 Random Glucose 113 Total Protein 6.2 Calcium Level 7.0 Sodium Level 138 Potassium Level 3.5 Chloride Level 106 Carbon Dioxide Level 25.2 Anion Gap 7 Estimat Glomerular Filtration Rate 111 Protein Corrected Calcium 7.5 Imaging Last Impressions Chest X-Ray 09/25/17 0600 Signed Impressions: Service Date/Time: , September 25, 2017 05:36 - CONCLUSION: Possible layering effusion on the left. Jaycob Castillo MD Physical Exam HEENT: Normocephalic; atraumatic, oral cavity moist, mild facial jaundice CHEST: Respiratory rate controlled but low volumes noted, current O2 at 4 L nasal cannula no obvious wheezing or rhonchi CARDIAC: RRR, heart rate does get over 100 times ABDOMEN: Distended, semi-firm, taut, bowel sounds active all 4 quadrants EXTREMITIES: No clubbing, cyanosis, or edema. SKIN: Normal; no rash; mild generalized jaundice MOLECULAR BIOLOGY SCIENTIST: Awake, no agitation noted, oriented x 2, doesn't remember much of recent events (Shobha Koehler) Assessment and Plan Plan Assessment/history - Upper GI bleed- history of cirrhosis- last EGD in Jun 2017- revealed single esophageal varix in distal esophagus- coffee ground material and old blood in stomach, no active bleeding. Pt was to repeat EGD in three months ordered but patient never followed up - ETOH abuse- Drinks half a large bottle of vodka daily. Last ETOH was day of admission - Transaminitis- consistent with alcoholic hepatitis - Cirrhosis- Decreased albumin, slight coagulopathy. PT 14.6 INR 1.4 (09/22) --> S/P EGD yesterday --> Esophageal varices. and banding Recent bleeding probably from the esophageal varices. mild gastropathy, hiatal hernia - 09/25/17, abdomen continues to be taut, round, distended. Jaundice noted, bilirubin now 4.2 with elevated LFTs, AST 127, ALT 32 Still on Octreotide drip, denies any hematemesis or rectal bleeding Current H&H 7.8 with mild drop in the past 24 hours BUN 20, creatinine normal Plan: Octreotide gtt Protonix IV BID Pentoxifylline Consider CT abdomen if continues to enlarge her symptoms persist, possible ascites Monitor H/H, recheck hemoglobin in a.m. Notify GI of active bleeding Transfuse as needed Repeat EGD with banding in one month Further recommendations to follow based on clinical course Pt has been seen by myself and Dr. Jordan, note written on his behalf (Shobha Koehler) Physician Comments Patient seen and examined Agree with above Continue current supportive care Monitor labs Worsening ascites noted We will add diuretics Lasix 40 mg daily and spironolactone 100 mg daily We will replenish albumin And further recommendations shall depend on his response (Marcelo Jordan MD) Shobha Koehler Sep 25, 2017 14:48 Marcelo Jordan MD Sep 25, 2017 17:43
[2017-09-25] MEDS: ALBUMIN 25% INJ 100 ML IV SCH (17:58)
[2017-09-25] MEDS: FUROSEMIDE 40 MG TAB PO SCH (17:58)
[2017-09-25] MEDS: RESP: ALBUTEROL 2.5 MG/IPRATROPIUM 0.5 MG NEB (PRN) INH (22:28)
[2017-09-26] VITALS (13 sets, daily range): BP systolic 113–153; BP diastolic 56–97; PULSE 86–143; RESP 20–24; TEMP 98–98.7; O2SAT 92–96
[2017-09-26] MEDS: PANTOPRAZOLE SODIUM 40 MG VIAL IV PUSH SCH ×2 (00:33→12:14)
[2017-09-26] MEDS: CHLORHEXIDINE GLUCONATE 2 % 1 PACK (2 CLOTHS) TOP SCH (01:42)
[2017-09-26 02:27] LABS: HEMATOCRIT 23.5 % (39.0-51.0); HEMOGLOBIN 7.7 GM/DL (13.0-17.0); MEAN CELL VOLUME 82.6 FL (80.0-100.0); MEAN CORPUSCULAR HGB CONC 32.7 % (32.0-36.0); MEAN PLATELET VOLUME 8.2 FL (7.0-11.0); PLATELET COUNT 150 TH/MM3 (150-450); RED BLOOD COUNT 2.85 MIL/MM3 (4.50-5.90); RED CELL DISTRIBUTION WIDTH 24.6 % (11.6-17.2); WHITE BLOOD COUNT 7.1 TH/MM3 (4.0-11.0)
[2017-09-26 03:00] LABS: ALKALINE PHOSPHATASE 70 U/L (45-117); ALT (GPT) 31 U/L (12-78); AST (GOT) 96 U/L (15-37); BICARBONATE 27.7 MEQ/L (21.0-32.0); BLOOD UREA NITROGEN 12 MG/DL (7-18); CALCIUM 6.9 MG/DL (8.5-10.1); CHLORIDE 106 MEQ/L (98-107); CREATININE 0.63 MG/DL (0.60-1.30); FREE T4 0.83 NG/DL (0.76-1.46); GLOMERULAR FILTRATION RATE 129 ML/MIN (>89); GLUCOSE,RANDOM 103 MG/DL (74-106); MAGNESIUM 1.6 MG/DL (1.5-2.5); PHOSPHORUS 2.2 MG/DL (2.5-4.9); SODIUM (NA) 140 MEQ/L (136-145); TOTAL BILIRUBIN ADULT 5.7 MG/DL (0.2-1.0); TOTAL PROTEIN 6.1 GM/DL (6.4-8.2)
[2017-09-26] MEDS: cefTRIAXone INJ 2,000 MG in SODIUM CHLORIDE 0.9% INJ 100 ML IV SCH (03:06)
[2017-09-26] MEDS: DIAZEPAM 10 MG TAB PO SCH ×3 (03:06→17:23)
[2017-09-26 03:15] LABS: CALCIUM-PROTEIN CORRECTED 7.4 MG/DL (8.5-10.1)
[2017-09-26] MEDS: MAGNESIUM SULFATE INJ 2 GM in SODIUM CHLORIDE 0.9% INJ 96 ML IV PRN (03:40)
[2017-09-26] MEDS: ALBUMIN 25% INJ 100 ML IV SCH ×2 (05:44→17:25)
[2017-09-26] MEDS: SODIUM CHLORIDE 0.9% FLUSH 10 ML FLUSH IV FLUSH SCH ×2 (09:00→21:47)
[2017-09-26] MEDS: DOCUSATE SODIUM 50 MG/SENNA 8.6 MG TAB PO SCH ×2 (09:00→21:47)
[2017-09-26 09:01] LABS: LYMPH % 11.7 % (9.0-44.0); NEUT % 78.5 % (16.0-70.0)
[2017-09-26 09:02] LABS: AUTOMATED NEUTROPHIL # 6.7 TH/MM3 (1.8-7.7); BASOPHIL % 0.5 % (0.0-2.0); EOSINOPHIL % 0.8 % (0.0-4.0); MONO % 8.5 % (0.0-8.0)
[2017-09-26 09:03] LABS: EOSINOPHIL # 0.1 TH/MM3 (0-0.4); MONOCYTE # 0.7 TH/MM3 (0-0.9)
[2017-09-26] MEDS: SPIRONOLACTONE 100 MG TAB PO SCH (09:38)
[2017-09-26] MEDS: FUROSEMIDE 40 MG TAB PO SCH (09:38)
[2017-09-26] MEDS: MULTIVITAMIN TAB PO SCH (09:38)
[2017-09-26] MEDS: PENTOXIFYLLINE 400 MG CONTROLLED RELEASE TAB PO SCH ×2 (09:39→21:47)
[2017-09-26] MEDS: THIAMINE HCL 100 MG TAB PO SCH (09:39)
[2017-09-26] MEDS: LACTATED RINGER'S 1000 ML INJ 1,000 ML IV SCH (09:42)
[2017-09-26] MEDS: MORPHINE SULFATE 4 MG/ML INJ IV PUSH PRN ×2 (10:20→22:26)
--- NOTE | 2017-09-26 10:39 | HHI.PR ---
Subjective Remarks 62-year-old male chronic alcohol user who was recently taken to the OR endoscopy for banding of his esophageal variceal bleed. Per patient he was told they have put drinks on his varices and now he is coming back again after a few days of vomiting coffee-ground emesis, flulike symptoms, he had flu swab done at his doctor's office which was positive and he's been having vomiting diarrhea and now bright red blood vomit as well as melanotic stool. He also reports the diarrhea for the last few days and he feels nauseous. In the emergency department he had had episode of coffee-ground emesis. He was treated with octreotide bolus followed by the drip as well as Protonix bolus and following drip. Subjective: 09/20: hgb dropped from 10 to 7. no cough. remains on room air. unlikely to have the flu given afebrile without cough or flu-like symptoms, on room air. plan for EGD today. 09/21: hgb dropped to 7 again today. received an additional unit prbc. active DTs and agitated delirium. receiving ativan iv, haldol, restraints. EGD yesterday with 4 varices and blood in the stomach. 09/22: hgb stable. repeat EGD stable. remains on precedex for severe etoh withdraw. 09/23: Remains on Precedex for alcohol withdrawal. Had an episode of melena this morning. Systolic blood pressure in the 90s. Underwent EGD yesterday with variceal banding. 09/24: Off Precedex since yesterday. Laying comfortably in bed. Denies any shortness of breath. On 6 L nasal cannula currently. No further hypotension. 09/25: Remains on nasal cannula. Remains off precedex gtt. No further active bleeding. 09-26 TRANSFERRED TO OUR SERVICE TODAY STOP IV FLUIDS ON CLEAR LIQUIDS COMPLAINS OF PAIN FROM COUGHING AND PAIN POSSIBLY FROM THE BANDS IN HIS ESOPHAGUS DW RN AND PT Objective Vitals Vital Signs Date Time Temp Pulse Resp B/P (MAP) Pulse Ox O2 Delivery O2 Flow Rate FiO2 09/26/17 08:00 98.7 88 23 113/69 (84) 93 09/26/17 03:45 96 Nasal Cannula 5.00 09/26/17 03:07 98.0 98 22 132/81 (98) 95 09/26/17 00:00 98.4 102 22 128/56 (80) 95 09/25/17 22:35 98 Nasal Cannula 5.00 09/25/17 20:00 93 Nasal Cannula 4.00 09/25/17 20:00 98.8 103 24 124/80 (95) 93 09/25/17 20:00 103 09/25/17 15:51 98.4 85 20 121/75 (90) 97 09/25/17 12:01 98.2 91 20 136/77 (96) 94 I/O 09/25/17 09/25/17 09/25/17 09/26/17 09/26/17 09/26/17 07:00 15:00 23:00 07:00 15:00 23:00 Intake Total 700 ml 480 ml Output Total 200 ml 200 ml 1500 ml 1300 ml Balance 500 ml -200 ml -1020 ml -1300 ml Intake Oral 200 ml 480 ml IV Total 500 ml Output Urine Total 200 ml 200 ml 1500 ml 1300 ml # Voids 4 # Bowel Movements 1 2 Result Diagram: 09/26/175 09/26/17 0215 Other Results Laboratory Tests Test 09/24/17 04:41 09/25/17 04:31 09/26/17 02:15 White Blood Count 8.4 TH/MM3 8.2 TH/MM3 7.1 TH/MM3 Red Blood Count 2.85 MIL/MM3 2.86 MIL/MM3 2.85 MIL/MM3 Hemoglobin 8.1 GM/DL 7.8 GM/DL 7.7 GM/DL Hematocrit 24.1 % 24.2 % 23.5 % Mean Corpuscular Volume 84.6 FL 84.5 FL 82.6 FL Mean Corpuscular Hemoglobin 28.3 PG 27.4 PG 27.0 PG Mean Corpuscular Hemoglobin Concent 33.5 % 32.4 % 32.7 % Red Cell Distribution Width 24.3 % 25.2 % 24.6 % Platelet Count 132 TH/MM3 157 TH/MM3 150 TH/MM3 Mean Platelet Volume 8.8 FL 8.7 FL 8.2 FL Blood Urea Nitrogen 31 MG/DL 20 MG/DL 12 MG/DL Creatinine 0.78 MG/DL 0.72 MG/DL 0.63 MG/DL Random Glucose 93 MG/DL 113 MG/DL 103 MG/DL Total Protein 6.5 GM/DL 6.2 GM/DL 6.1 GM/DL Calcium Level 7.3 MG/DL 7.0 MG/DL 6.9 MG/DL Sodium Level 142 MEQ/L 138 MEQ/L 140 MEQ/L Potassium Level 3.9 MEQ/L 3.5 MEQ/L 3.4 MEQ/L Chloride Level 108 MEQ/L 106 MEQ/L 106 MEQ/L Carbon Dioxide Level 26.6 MEQ/L 25.2 MEQ/L 27.7 MEQ/L Anion Gap 7 MEQ/L 7 MEQ/L 6 MEQ/L Estimat Glomerular Filtration Rate 101 ML/MIN 111 ML/MIN 129 ML/MIN Protein Corrected Calcium 7.6 MG/DL 7.5 MG/DL 7.4 MG/DL Albumin 2.0 GM/DL Phosphorus Level 2.2 MG/DL Magnesium Level 1.6 MG/DL Alkaline Phosphatase 70 U/L Aspartate Amino Transf (AST/SGOT) 96 U/L Alanine Aminotransferase (ALT/SGPT) 31 U/L Total Bilirubin 5.7 MG/DL Free Thyroxine 0.83 NG/DL Thyroid Stimulating Hormone 3rd Gen 0.901 uIU/ML Imaging Last Impressions Chest X-Ray 09/25/17 0600 Signed Impressions: Service Date/Time: September 05:36 - CONCLUSION: Possible layering effusion on the left. Jaycob Castillo MD Objective Remarks GENERAL: Oriented 3 talkative and cooperative SKIN: Warm and dry. HEAD: Atraumatic. Normocephalic. EYES: Pupils equal and round. No scleral icterus. No injection or drainage. Extraocular muscles intact ENT: No nasal bleeding or discharge. Mucous membranes pink and moist. Tongue is midline NECK: Trachea midline. No JVD. Supple CARDIOVASCULAR: Regular rate and rhythm. S1-S2 no S3 or S4 RESPIRATORY: No accessory muscle use. Coarse breath sounds bilaterally Breath sounds equal bilaterally. GASTROINTESTINAL: Abdomen soft, non-tender, obese with some distention -hepatic and splenic margins not palpable. MUSCULOSKELETAL: Extremities without clubbing, cyanosis, No obvious deformities. +1 lower extremity edema NEUROLOGICAL: Awake and alert. No obvious cranial nerve deficits. Motor grossly within normal limits. 4 out of 5 muscle strength in the arms and legs. Normal speech. PSYCHIATRIC: Appropriate mood and affect; insight and judgment ABnormal. Procedures GI Procedure PROCEDURE PERFORMED EGD with banding INDICATION FOR PROCEDURE Upper GI bleed, known history of cirrhosis PROCEDURE: The procedure, risks and benefits were discussed with Mr. Ghotra and informed consent was obtained. Anesthesia sedated him with Diprivan. He was placed in the left lateral decubitus position. EGD: The Pentax videoscope was introduced through the oropharynx and advanced to the second portion of the duodenum under direct visualization. Retroflexion was performed in the stomach. FINDINGS: Esophagus there were 3 columns of grade 2 to grade 3 esophageal varices with blood in the esophagus I was not able to fully evaluate but I did go ahead and place 6 bands on the esophageal varices but 2 bands did slip off following the procedure there was no noted fresh pooling of blood The stomach was a large clot covering the fundus but I doubt that there is any gastric varices there was evidence of blood in the stomach and so the evaluation is incomplete but no active bleeding in the stomach The duodenum this was normal ESTIMATED BLOOD LOSS: There was about 100 cc of blood noted in the stomach SPECIMENS REMOVED: None COMPLICATIONS: None IMPRESSION: Esophageal varices Recent bleeding probably from the esophageal varices Incomplete EGD PLAN: Continue with current supportive care We will correct the coagulopathy with fresh frozen plasma We'll monitor labs and transfuse as needed Most likely patient will require further banding and endoscopy probably in about a week to 10 days but sooner if needed Marcelo Jordan MD Sep 20, 2017 20:59 GI Procedure PROCEDURE PERFORMED EGD with banding INDICATION FOR PROCEDURE Continued GI bleed with known esophageal varices PROCEDURE: The procedure, risks and benefits were discussed with Mr. Ghotra and informed consent was obtained. Anesthesia sedated him with Diprivan. He was placed in the left lateral decubitus position. EGD: The Pentax videoscope was introduced through the oropharynx and advanced to the second portion of the duodenum under direct visualization. Retroflexion was performed in the stomach. FINDINGS: Esophagus the previous bands were noted to still be clinging but evidence of bleeding was still noted and the bands that were placed earlier were not quite distal enough and so additional banding was performed 6 more bands were placed starting at the GE junction which was at 45 cm The stomach no gastric varices mild portal gastropathy otherwise unremarkable with no active bleeding again noted was a moderate size hiatal hernia The duodenum this was normal ESTIMATED BLOOD LOSS: None during the procedure SPECIMENS REMOVED: None COMPLICATIONS: None IMPRESSION: Esophageal varices Mild gastropathy Hiatal hernia PLAN: Continue with current supportive care Monitor labs and transfuse as needed If any coagulopathies identified will need to be corrected EGD with banding in 1 month Marcelo Jordan MD Sep 22, 2017 15:50 Medications and IVs Current Medications Pantoprazole Sodium (Protonix Inj) 80 mg ONCE ONCE IV PUSH Last administered on 09/19/17at 00:56; Start 09/19/17 at 00:45; Stop 09/19/17 at 00:46; Status DC Octreotide Acetate (SandoSTATIN INJ) 50 mcg ONCE ONCE IV PUSH Last administered on 09/19/17at 01:23; Start 09/19/17 at 00:45; Stop 09/19/17 at 00:46; Status DC Octreotide Acetate 500 mcg/ Sodium Chloride 500 ml @ 25 mls/hr Q20H IV Last administered on 09/19/17at 01:17; Start 09/19/17 at 00:34; Stop 09/19/17 at 03:25; Status DC Ondansetron HCl (Zofran Inj) 4 mg ONCE ONCE IV PUSH Last administered on at 00:57; Start 09/19/17 at 00:45; Stop 09/19/17 at 00:46; Status DC Lorazepam (Ativan Inj) 1 mg ONCE ONCE IV PUSH Last administered on 09/19/17at 01 :36; Start 09/19/17 at 01:00; Stop 09/19/17 at 01:01; Status DC Lorazepam (Ativan Inj) 1 mg Q2H PRN IV PUSH Alcohol Detox; Start 09/19/17 at 01: 00 Sodium Chloride 1,000 ml @ 999 mls/hr BOLUS ONCE IV Last administered on at 02:10; Start 09/19/17 at 02:00; Stop 09/19/17 at 03:00; Status DC Metoclopramide HCl 10 mg/Sodium Chloride 52 ml @ 104 mls/hr ONCE ONCE IV Last administered on 09/19/17at 02:33; Start 09/19/17 at 02:00; Stop 09/19/17 at 02: 29; Status DC Labetalol HCl (Trandate Inj) 10 mg Q4H PRN IV PUSH SBP>160, DBP>90; Start at 03:00 Multivitamins 10 ml/Thiamine HCl 100 mg/Folic Acid 1 mg/Sodium Chloride 511.2 ml @ 125 mls/hr ONCE ONCE IV ; Start 09/19/17 at 05:00; Stop 09/19/17 at 09:05; Status DC Flumazenil (Romazicon Inj) 0.2 mg Q1M PRN IV PUSH SEE LABEL COMMENTS; Start 09/19/17 at 03:15 Lorazepam (Ativan) 1 mg Q4H PRN PO CIWA 8 - 10; Start 09/19/17 at 03:15 Lorazepam (Ativan Inj) 1 mg Q4H PRN IV PUSH CIWA 8 - 10; Start 09/19/17 at 03:15 Lorazepam (Ativan) 2 mg Q2H PRN PO CIWA 11-14; Start 09/19/17 at 03:15 Lorazepam (Ativan Inj) 2 mg Q2H PRN IV PUSH CIWA 11-14 Last administered on 06/28at 15:06; Start 09/19/17 at 03:15 Lorazepam (Ativan Inj) 2 mg Q1H PRN IV PUSH CIWA 15-20; Start 09/19/17 at 03:15 Lorazepam (Ativan Inj) 2 mg Q15M PRN IV PUSH CIWA > 20; Start 09/19/17 at 03:15 Ceftriaxone Sodium 2000 mg/ Sodium Chloride 100 ml @ 200 mls/hr DAILY@0300 IV Last administered on 09/26/17at 03:06; Start 09/19/17 at 03:15 Sodium Chloride 1,000 ml @ 84 mls/hr [id number] IV Last administered on at 02:02; Start 09/19/17 at 03:08; Stop 09/20/17 at 10:38; Status DC Sodium Chloride (NS Flush) 2 ml UNSCH PRN IV FLUSH FLUSH AFTER USING IV ACCESS Last administered on 09/24/17at 02:07; Start 09/19/17 at 03:15 Sodium Chloride (NS Flush) 2 ml BID IV FLUSH Last administered on 09/25/17at 09: 19; Start 09/19/17 at 09:00 Acetaminophen (Tylenol) 650 mg Q6H PRN PO PAIN 1-5 AND/OR FEVER >101F; Start at 03:15 Morphine Sulfate (Morphine Inj) 2 mg Q2H PRN IV PUSH PAIN SCALE 6 TO 10 Last administered on 09/26/17at 10:20; Start 09/19/17 at 03:15 Pantoprazole Sodium (Protonix Inj) 40 mg Q12H IV PUSH Last administered on 09/26at 00:33; Start 09/19/17 at 13:00 Ondansetron HCl (Zofran Inj) 4 mg Q6H PRN IV PUSH NAUSEA OR VOMITING Last administered on 09/20/17at 21:39; Start 09/19/17 at 03:15 Temazepam (Restoril) 15 mg HS PRN PO INSOMNIA; Start 09/19/17 at 03:15; Stop 05/28 at 10:10; Status DC Albuterol/ Ipratropium (Duoneb Neb) 1 ampule Q2HR NEB PRN INH WHEEZING Last administered on 09/25/17at 22:28; Start 09/19/17 at 03:15 Miscellaneous Information 1 [id number] XX ; Start 09/19/17 at 03:15 Chlorhexidine Gluconate (Chlorhexidine 2% Cloth) Taper DAILY@04 TOP ; Start 09/19 at 04:00; Stop 09/15/18 at 03:59 Chlorhexidine Gluconate (Chlorhexidine 2% Cloth) 3 pack UNSCH PRN TOP HYGIENIC CARE; Start 09/19/17 at 03:15 Senna/Docusate Sodium (Ronit-Colace) 1 tab BID PO Last administered on at 09:18; Start 09/19/17 at 09:00 Magnesium Hydroxide (Milk Of Magnesia Liq) 30 ml Q12H PRN PO Mild constipation ; Start 09/19/17 at 03:15 Sennosides (Senokot) 17.2 mg Q12H PRN PO Moderate constipation; Start 09/19/17 at 03:15 Bisacodyl (Dulcolax Supp) 10 mg DAILY PRN RECTAL SEVERE CONSITIPATION; Start at 03:15 Lactulose (Lactulose Liq) 30 ml DAILY PRN PO SEVERE CONSITIPATION; Start at 03:15 Octreotide Acetate 500 mcg/ Sodium Chloride 500 ml @ 25 mls/hr Q20H IV Last administered on 09/25/17at 22:20; Start 09/19/17 at 03:13 Permethrin (Elimite 5% Cream) 1 applic ONCE ONCE TOPICAL Last administered on 09/19/17at 14:00; Start 09/19/17 at 14:00; Stop 09/19/17 at 14:01; Status DC Diazepam (Valium) 5 mg Q8H PO Last administered on 09/21/17at 10:52; Start 09/20 at 10:15; Stop 09/21/17 at 16:01; Status DC Lactated Ringer's 1,000 ml @ 84 mls/hr [id number] IV Last administered on at 10:10; Start 09/20/17 at 11:00 Potassium Chloride 100 ml @ 50 mls/hr Q2H PRN IV For Potassium 2.8 - 3.2 mEq/L ; Start 09/20/17 at 10:15 Potassium Chloride 100 ml @ 50 mls/hr Q2H PRN IV For Potassium 2.8 - 3.2 mEq/L ; Start 09/20/17 at 10:15 Potassium Bicarb/ Potassium Chloride (K-Lyte Cl Eff) 50 meq UNSCH PRN PO For Potassium 3.3 - 3.5 mEq/L; Start 09/20/17 at 10:15 Potassium Chloride 100 ml @ 25 mls/hr UNSCH PRN IV For Potassium 3.3 - 3.5 mEq /L; Start 09/20/17 at 10:15 Potassium Chloride 100 ml @ 50 mls/hr Q2H PRN IV For Potassium 3.3 - 3.5 mEq/L ; Start 09/20/17 at 10:15 Magnesium Sulfate 4 gm/Sodium Chloride 100 ml @ 50 mls/hr UNSCH PRN IV For Magnesium 0.9 - 1.1 mg/dL; Start 09/20/17 at 10:15 Magnesium Oxide (Mag-Ox) 800 mg UNSCH PRN PO For Magnesium 1.2 - 1.6 mg/dL; Start 09/20/17 at 10:15 Magnesium Sulfate 2 gm/Sodium Chloride 100 ml @ 50 mls/hr UNSCH PRN IV For Magnesium 1.2 - 1.6 mg/dL Last administered on 09/26/17at 03:40; Start 09/20/17 at 10:15 Potassium Phosphate (K-Phos) 2,000 mg Q4H PRN PO For Phosphorus < 2.5 mg/dL; Start 09/20/17 at 10:15 Sodium Phosphate 30 mmol/Sodium Chloride 250 ml @ 42 mls/hr UNSCH PRN IV For Phosphorus < 2.5 mg/dL; Start 09/20/17 at 10:15 Potassium Phosphate (K-Phos) 2,000 mg UNSCH PRN PO/TUBE SEE LABEL COMMENTS; Start 09/20/17 at 10:15 Potassium Phosphate 30 mmol/ Sodium Chloride 260 ml @ 42 mls/hr UNSCH PRN IV SEE LABEL COMMENTS Last administered on 09/26/17at 05:44; Start 09/20/17 at 10:15 Thiamine HCl 100 mg/Sodium Chloride 101 ml @ 101 mls/hr Q24H IV Last administered on 09/22/17at 01:10; Start 09/21/17 at 02:00; Stop 09/22/17 at 02:59 ; Status DC Thiamine HCl (Vitamin B1) 100 mg DAILY PO Last administered on 09/26/17at 09:39 ; Start 09/24/17 at 09:00 Multivitamins 10 ml/Thiamine HCl 100 mg/Folic Acid 1 mg/Sodium Chloride 511.2 ml @ 125 mls/hr ONCE ONCE IV Last administered on 09/20/17at 11:23; Start 05/28 at 12:00; Stop 09/20/17 at 16:05; Status DC Multivitamins (Theragran) 1 tab DAILY PO Last administered on 09/26/17at 09:38; Start 09/21/17 at 09:00 Magnesium Sulfate/ Dextrose 200 ml @ As Directed STK-MED ONCE .ROUTE ; Start at 11:14; Stop 09/20/17 at 11:15; Status DC Miscellaneous Information ALL NURSING DEPARTME... UNSCH PRN .XX SEE LABEL COMMENTS; Start 09/20/17 at 21:15; Stop 09/21/17 at 21:14; Status DC Diphenhydramine HCl (Benadryl Inj) 12.5 mg Q4H PRN IM pruritis Last administered on 09/21/17at 14:00; Start 09/21/17 at 14:00 Haloperidol Lactate (Haldol Inj) 5 mg Q4H PRN IV PUSH agitation Last administered on 09/21/17 13:59; Start 09/21/17 at 14:00 Diazepam (Valium) 10 mg Q8H PO Last administered on 09/26/17at 10:20; Start 06/28 at 18:00 Ziprasidone (Geodon Inj) 10 mg Q12H PRN IM AGITATION Last administered on 16:23; Start 09/21/17 at 16:00; Stop 09/22/17 at 08:34; Status DC Dexmedetomidine HCl 200 mcg/ Sodium Chloride 52 ml @ 6.83 mls/hr TITRATE PRN IV SEDATION Last administered on 09/21/17at 18:10; Start 09/21/17 at 16:15; Stop 09/21/17 at 18:16; Status DC Dexmedetomidine HCl 1000 mcg/ Sodium Chloride 250 ml @ 6.57 mls/hr TITRATE PRN IV SEDATION Last administered on 09/23/17at 00:11; Start 09/21/17 at 18:30 Clonidine (Catapres) 0.3 mg Q8HR PO Last administered on 09/24/17at 06:18; Start 09/22/17 at 14:00; Stop 09/24/17 at 09:48; Status DC Chlordiazepoxide (Librium) 15 mg BID PO Last administered on 09/26/17at 09:39; Start 09/23/17 at 11:00 Pentoxifylline (TRENtal SR) 400 mg Q12HR PO Last administered on 09/26/17at 09: 39; Start 09/23/17 at 21:00 Spironolactone (Aldactone) 25 mg DAILY PO Last administered on 09/25/17at 12:00 ; Start 09/25/17 at 12:00; Stop 09/25/17 at 17:40; Status DC Spironolactone (Aldactone) 100 mg DAILY PO Last administered on 09/26/17 09:38 ; Start 09/26/17 at 09:00 Furosemide (Lasix) 40 mg DAILY PO Last administered on 09/26/17 09:38; Start 09/25/17 at 17:45 Albumin Human 100 ml @ 60 mls/hr Q12H IV Last administered on 2/16/18at 05:44 ; Start 09/25/17 at 17:45 Lidocaine HCl (Xylocaine-Mpf 1% Inj) 5 ml STK-MED ONCE OTHER ; Start 09/20/17 at 12:00; Stop 09/26/17 at 08:30; Status DC Propofol (Diprivan 200 Mg/20 ml Inj) 400 mg STK-MED ONCE IV ; Start 09/20/17 at 12:00; Stop 09/26/17 at 08:30; Status DC Propofol (Diprivan 200 Mg/20 ml Inj) 400 mg STK-MED ONCE IV ; Start 09/22/17 at 12:00; Stop 09/26/17 at 09:01; Status DC A/P Assessment and Plan Assessment: 62yM with etoh cirrhosis and known varices who presents with upper GI bleeding. Delirium under control now. On Librium Valium and Ativan as needed Hematemesis - improving. Etoh cirrhosis Esophageal varices - known esophageal varices, more on repeat EGD - s/p banding x 4 on 09/20. - EGD 09/22 controlled. - Octreotide drip - iv bid ppi - Gastroenterology following - clear liquid diet and advance to full liquids - IV fluid - Rocephin for SBP prophylaxis - Add aldactone 25mg daily on 09/25 to avoid fluid retention. Agitated Delirium - persistent. EtOH withdraw - ativan prn - scheduled valium - haldol prn - precedex drip -Continue Librium 15 mg by mouth twice a day Hypertension - Labetalol when necessary to keep SBP less than 160 -Discontinue clonidine in view of hypotension. Alcoholism - CIWA protocol - mvi - thiamine - valium 5mg po q8h - Added Librium 15 mg by mouth twice a day on 09/23 Anemia secondary to acute blood loss - stable. - daily cbc - keep hgb > 7. GERD - iv bid ppi Influenza Acute respiratory failure -Continue supplemental O2. Follow-up chest x-ray tomorrow. Bronchodilators as needed. -Consult pulmonary for respiratory failure as patient being transferred to the floor. DVT GI prophylaxis - Teds SCDs - No pharmacological DVT prophylaxis due to active bleed - IV Protonix Hep-Lock IV fluids A.m. labs Increase activity Discussed with patient and women nurse Planning Pending tolerating a full diet and clearance from Anatoly Adams DO Sep 26, 2017 10:39
[2017-09-26] MEDS ORDERED: POTASSIUM CHLORIDE 20 MEQ CONTROLLED RELEASE TAB PO ONE (12:00)
[2017-09-26] MEDS: MAGNESIUM SULFATE 1 GM PREMIX 100 ML IV SCH ×2 (12:14→13:23)
--- NOTE | 2017-09-26 13:20 | HHI.GIFU ---
Subjective Remarks Pt resting in bed. No bleeding. (Chanel Navas) Objective Vitals I&O Vital Signs Date Time Temp Pulse Resp B/P (MAP) Pulse Ox O2 Delivery O2 Flow Rate FiO2 09/26/17 12:00 98.2 87 24 138/88 (105) 95 09/26/17 08:00 98.7 88 23 113/69 (84) 93 09/26/17 03:45 96 Nasal Cannula 5.00 09/26/17 03:07 98.0 98 22 132/81 (98) 95 09/26/17 00:00 98.4 102 22 128/56 (80) 95 09/25/17 22:35 98 Nasal Cannula 5.00 09/25/17 20:00 93 Nasal Cannula 4.00 09/25/17 20:00 98.8 103 24 124/80 (95) 93 09/25/17 20:00 103 09/25/17 15:51 98.4 85 20 121/75 (90) 97 I/O 09/25/17 09/25/17 09/25/17 09/26/17 09/26/17 09/26/17 07:00 15:00 23:00 07:00 15:00 23:00 Intake Total 700 ml 480 ml Output Total 200 ml 200 ml 1500 ml 1300 ml Balance 500 ml -200 ml -1020 ml -1300 ml Intake Oral 200 ml 480 ml IV Total 500 ml Output Urine Total 200 ml 200 ml 1500 ml 1300 ml # Voids 4 # Bowel Movements 1 2 Laboratory Laboratory Tests Test 09/26/17 02:15 White Blood Count 7.1 Red Blood Count 2.85 Hemoglobin 7.7 Hematocrit 23.5 Mean Corpuscular Volume 82.6 Mean Corpuscular Hemoglobin 27.0 Mean Corpuscular Hemoglobin Concent 32.7 Red Cell Distribution Width 24.6 Platelet Count 150 Mean Platelet Volume 8.2 Blood Urea Nitrogen 12 Creatinine 0.63 Random Glucose 103 Total Protein 6.1 Albumin 2.0 Calcium Level 6.9 Phosphorus Level 2.2 Magnesium Level 1.6 Alkaline Phosphatase 70 Aspartate Amino Transf (AST/SGOT) 96 Alanine Aminotransferase (ALT/SGPT) 31 Total Bilirubin 5.7 Sodium Level 140 Potassium Level 3.4 Chloride Level 106 Carbon Dioxide Level 27.7 Anion Gap 6 Estimat Glomerular Filtration Rate 129 Protein Corrected Calcium 7.4 Free Thyroxine 0.83 Thyroid Stimulating Hormone 3rd Gen 0.901 Imaging Current Medications Pantoprazole Sodium (Protonix Inj) 80 mg ONCE ONCE IV PUSH Last administered on 09/19/17at 00:56; Start 09/19/17 at 00:45; Stop 09/19/17 at 00:46; Status DC Octreotide Acetate (SandoSTATIN INJ) 50 mcg ONCE ONCE IV PUSH Last administered on 09/19/17at 01:23; Start 09/19/17 at 00:45; Stop 09/19/17 at 00:46; Status DC Octreotide Acetate 500 mcg/ Sodium Chloride 500 ml @ 25 mls/hr Q20H IV Last administered on 09/19/17at 01:17; Start 09/19/17 at 00:34; Stop 09/19/17 at 03:25; Status DC Ondansetron HCl (Zofran Inj) 4 mg ONCE ONCE IV PUSH Last administered on at 00:57; Start 09/19/17 at 00:45; Stop 09/19/17 at 00:46; Status DC Lorazepam (Ativan Inj) 1 mg ONCE ONCE IV PUSH Last administered on 09/19/17at 01 :36; Start 09/19/17 at 01:00; Stop 09/19/17 at 01:01; Status DC Lorazepam (Ativan Inj) 1 mg Q2H PRN IV PUSH Alcohol Detox; Start 09/19/17 at 01: 00 Sodium Chloride 1,000 ml @ 999 mls/hr BOLUS ONCE IV Last administered on at 02:10; Start 09/19/17 at 02:00; Stop 09/19/17 at 03:00; Status DC Metoclopramide HCl 10 mg/Sodium Chloride 52 ml @ 104 mls/hr ONCE ONCE IV Last administered on 09/19/17at 02:33; Start 09/19/17 at 02:00; Stop 09/19/17 at 02: 29; Status DC Labetalol HCl (Trandate Inj) 10 mg Q4H PRN IV PUSH SBP>160, DBP>90; Start at 03:00 Multivitamins 10 ml/Thiamine HCl 100 mg/Folic Acid 1 mg/Sodium Chloride 511.2 ml @ 125 mls/hr ONCE ONCE IV ; Start 09/19/17 at 05:00; Stop 09/19/17 at 09:05; Status DC Flumazenil (Romazicon Inj) 0.2 mg Q1M PRN IV PUSH SEE LABEL COMMENTS; Start 09/19/17 at 03:15 Lorazepam (Ativan) 1 mg Q4H PRN PO CIWA 8 - 10; Start 09/19/17 at 03:15 Lorazepam (Ativan Inj) 1 mg Q4H PRN IV PUSH CIWA 8 - 10; Start 09/19/17 at 03:15 Lorazepam (Ativan) 2 mg Q2H PRN PO CIWA 11-14; Start 09/19/17 at 03:15 Lorazepam (Ativan Inj) 2 mg Q2H PRN IV PUSH CIWA 11-14 Last administered on 06/28at 15:06; Start 09/19/17 at 03:15 Lorazepam (Ativan Inj) 2 mg Q1H PRN IV PUSH CIWA 15-20; Start 09/19/17 at 03:15 Lorazepam (Ativan Inj) 2 mg Q15M PRN IV PUSH CIWA > 20; Start 09/19/17 at 03:15 Ceftriaxone Sodium 2000 mg/ Sodium Chloride 100 ml @ 200 mls/hr DAILY@0300 IV Last administered on 09/26/17at 03:06; Start 09/19/17 at 03:15 Sodium Chloride 1,000 ml @ 84 mls/hr [id number] IV Last administered on at 02:02; Start 09/19/17 at 03:08; Stop 09/20/17 at 10:38; Status DC Sodium Chloride (NS Flush) 2 ml UNSCH PRN IV FLUSH FLUSH AFTER USING IV ACCESS Last administered on 09/24/17at 02:07; Start 09/19/17 at 03:15 Sodium Chloride (NS Flush) 2 ml BID IV FLUSH Last administered on 09/25/17at 09: 19; Start 09/19/17 at 09:00 Acetaminophen (Tylenol) 650 mg Q6H PRN PO PAIN 1-5 AND/OR FEVER >101F; Start at 03:15 Morphine Sulfate (Morphine Inj) 2 mg Q2H PRN IV PUSH PAIN SCALE 6 TO 10 Last administered on 09/26/17at 10:20; Start 09/19/17 at 03:15 Pantoprazole Sodium (Protonix Inj) 40 mg Q12H IV PUSH Last administered on 09/26at 12:14; Start 09/19/17 at 13:00 Ondansetron HCl (Zofran Inj) 4 mg Q6H PRN IV PUSH NAUSEA OR VOMITING Last administered on 09/20/17at 21:39; Start 09/19/17 at 03:15 Temazepam (Restoril) 15 mg HS PRN PO INSOMNIA; Start 09/19/17 at 03:15; Stop 05/28 at 10:10; Status DC Albuterol/ Ipratropium (Duoneb Neb) 1 ampule Q2HR NEB PRN INH WHEEZING Last administered on 09/25/17at 22:28; Start 09/19/17 at 03:15 Miscellaneous Information 1 Q361D XX ; Start 09/19/17 at 03:15 Chlorhexidine Gluconate (Chlorhexidine 2% Cloth) Taper DAILY@04 TOP ; Start 09/19 at 04:00; Stop 09/15/18 at 03:59 Chlorhexidine Gluconate (Chlorhexidine 2% Cloth) 3 pack UNSCH PRN TOP HYGIENIC CARE; Start 09/19/17 at 03:15 Senna/Docusate Sodium (Ronit-Colace) 1 tab BID PO Last administered on at 09:18; Start 09/19/17 at 09:00 Magnesium Hydroxide (Milk Of Magnesia Liq) 30 ml Q12H PRN PO Mild constipation ; Start 09/19/17 at 03:15 Sennosides (Senokot) 17.2 mg Q12H PRN PO Moderate constipation; Start 09/19/17 at 03:15 Bisacodyl (Dulcolax Supp) 10 mg DAILY PRN RECTAL SEVERE CONSITIPATION; Start at 03:15 Lactulose (Lactulose Liq) 30 ml DAILY PRN PO SEVERE CONSITIPATION; Start at 03:15 Octreotide Acetate 500 mcg/ Sodium Chloride 500 ml @ 25 mls/hr Q20H IV Last administered on 09/25/17at 22:20; Start 09/19/17 at 03:13 Permethrin (Elimite 5% Cream) 1 applic ONCE ONCE TOPICAL Last administered on 09/19/17at 14:00; Start 09/19/17 at 14:00; Stop 09/19/17 at 14:01; Status DC Diazepam (Valium) 5 mg Q8H PO Last administered on 09/21/17at 10:52; Start 09/20 at 10:15; Stop 09/21/17 at 16:01; Status DC Lactated Ringer's 1,000 ml @ 84 mls/hr [id number] IV Last administered on at 10:10; Start 09/20/17 at 11:00; Stop 09/26/17 at 10:42; Status DC Potassium Chloride 100 ml @ 50 mls/hr Q2H PRN IV For Potassium 2.8 - 3.2 mEq/L ; Start 09/20/17 at 10:15 Potassium Chloride 100 ml @ 50 mls/hr Q2H PRN IV For Potassium 2.8 - 3.2 mEq/L ; Start 09/20/17 at 10:15 Potassium Bicarb/ Potassium Chloride (K-Lyte Cl Eff) 50 meq UNSCH PRN PO For Potassium 3.3 - 3.5 mEq/L; Start 09/20/17 at 10:15 Potassium Chloride 100 ml @ 25 mls/hr UNSCH PRN IV For Potassium 3.3 - 3.5 mEq /L; Start 09/20/17 at 10:15 Potassium Chloride 100 ml @ 50 mls/hr Q2H PRN IV For Potassium 3.3 - 3.5 mEq/L ; Start 09/20/17 at 10:15 Magnesium Sulfate 4 gm/Sodium Chloride 100 ml @ 50 mls/hr UNSCH PRN IV For Magnesium 0.9 - 1.1 mg/dL; Start 09/20/17 at 10:15 Magnesium Oxide (Mag-Ox) 800 mg UNSCH PRN PO For Magnesium 1.2 - 1.6 mg/dL; Start 09/20/17 at 10:15 Magnesium Sulfate 2 gm/Sodium Chloride 100 ml @ 50 mls/hr UNSCH PRN IV For Magnesium 1.2 - 1.6 mg/dL Last administered on 09/26/17at 03:40; Start 09/20/17 at 10:15 Potassium Phosphate (K-Phos) 2,000 mg Q4H PRN PO For Phosphorus < 2.5 mg/dL; Start 09/20/17 at 10:15 Sodium Phosphate 30 mmol/Sodium Chloride 250 ml @ 42 mls/hr UNSCH PRN IV For Phosphorus < 2.5 mg/dL; Start 09/20/17 at 10:15 Potassium Phosphate (K-Phos) 2,000 mg UNSCH PRN PO/TUBE SEE LABEL COMMENTS; Start 09/20/17 at 10:15 Potassium Phosphate 30 mmol/ Sodium Chloride 260 ml @ 42 mls/hr UNSCH PRN IV SEE LABEL COMMENTS Last administered on 09/26/17at 05:44; Start 09/20/17 at 10:15 Thiamine HCl 100 mg/Sodium Chloride 101 ml @ 101 mls/hr Q24H IV Last administered on 09/22/17at 01:10; Start 09/21/17 at 02:00; Stop 09/22/17 at 02:59 ; Status DC Thiamine HCl (Vitamin B1) 100 mg DAILY PO Last administered on 09/26/17at 09:39 ; Start 09/24/17 at 09:00 Multivitamins 10 ml/Thiamine HCl 100 mg/Folic Acid 1 mg/Sodium Chloride 511.2 ml @ 125 mls/hr ONCE ONCE IV Last administered on 09/20/17at 11:23; Start 05/28 at 12:00; Stop 09/20/17 at 16:05; Status DC Multivitamins (Theragran) 1 tab DAILY PO Last administered on 09/26/17at 09:38; Start 09/21/17 at 09:00 Magnesium Sulfate/ Dextrose 200 ml @ As Directed STK-MED ONCE .ROUTE ; Start at 11:14; Stop 09/20/17 at 11:15; Status DC Miscellaneous Information ALL NURSING DEPARTME... UNSCH PRN .XX SEE LABEL COMMENTS; Start 09/20/17 at 21:15; Stop 09/21/17 at 21:14; Status DC Diphenhydramine HCl (Benadryl Inj) 12.5 mg Q4H PRN IM pruritis Last administered on 09/21/17at 14:00; Start 09/21/17 at 14:00 Haloperidol Lactate (Haldol Inj) 5 mg Q4H PRN IV PUSH agitation Last administered on 09/21/17at 13:59; Start 09/21/17 at 14:00 Diazepam (Valium) 10 mg Q8H PO Last administered on 09/26/17at 10:20; Start 06/28 at 18:00 Ziprasidone (Geodon Inj) 10 mg Q12H PRN IM AGITATION Last administered on at 16:23; Start 09/21/17 at 16:00; Stop 09/22/17 at 08:34; Status DC Dexmedetomidine HCl 200 mcg/ Sodium Chloride 52 ml @ 6.83 mls/hr TITRATE PRN IV SEDATION Last administered on 09/21/17at 18:10; Start 09/21/17 at 16:15; Stop 09/21/17 at 18:16; Status DC Dexmedetomidine HCl 1000 mcg/ Sodium Chloride 250 ml @ 6.57 mls/hr TITRATE PRN IV SEDATION Last administered on 09/23/17at 00:11; Start 09/21/17 at 18:30 Clonidine (Catapres) 0.3 mg Q8HR PO Last administered on 09/24/17at 06:18; Start 09/22/17 at 14:00; Stop 09/24/17 at 09:48; Status DC Chlordiazepoxide (Librium) 15 mg BID PO Last administered on 09/26/17at 09:39; Start 09/23/17 at 11:00 Pentoxifylline (TRENtal SR) 400 mg Q12HR PO Last administered on 09/26/17at 09: 39; Start 09/23/17 at 21:00 Spironolactone (Aldactone) 25 mg DAILY PO Last administered on 09/25/17at 12:00 ; Start 09/25/17 at 12:00; Stop 09/25/17 at 17:40; Status DC Spironolactone (Aldactone) 100 mg DAILY PO Last administered on 09/26/17at 09:38 ; Start 09/26/17 at 09:00 Furosemide (Lasix) 40 mg DAILY PO Last administered on 09/26/17at 09:38; Start 09/25/17 at 17:45 Albumin Human 100 ml @ 60 mls/hr Q12H IV Last administered on 09/26/17at 05:44 ; Start 09/25/17 at 17:45 Lidocaine HCl (Xylocaine-Mpf 1% Inj) 5 ml STK-MED ONCE OTHER ; Start 09/20/17 at 12:00; Stop 09/26/17 at 08:30; Status DC Propofol (Diprivan 200 Mg/20 ml Inj) 400 mg STK-MED ONCE IV ; Start 09/20/17 at 12:00; Stop 09/26/17 at 08:30; Status DC Propofol (Diprivan 200 Mg/20 ml Inj) 400 mg STK-MED ONCE IV ; Start 09/22/17 at 12:00; Stop 09/26/17 at 09:01; Status DC Magnesium Sulfate/ Dextrose 100 ml @ 100 mls/hr Q1H IV Last administered on at 12:14; Start 09/26/17 at 12:00; Stop 09/26/17 at 13:59 Potassium Chloride (KCl) 60 meq ONCE ONCE PO Last administered on 09/26/17at 12 :15; Start 09/26/17 at 12:00; Stop 09/26/17 at 12:01; Status DC Physical Exam HEENT: Normocephalic; atraumatic, oral cavity moist, mild facial jaundice CHEST: CTA respirations shallow CARDIAC: RRR ABDOMEN: Distended, semi-firm, taut, BS + EXTREMITIES: No clubbing, cyanosis, mild BLE edema SKIN: Normal; no rash; mild generalized jaundice SLEEVE [employer] SAF[employer]Y STITCH: alert, tremulous (Chanel Navas) Assessment and Plan Plan Assessment/history - Upper GI bleed- history of cirrhosis- last EGD in Jun 2017- revealed single esophageal varix in distal esophagus- coffee ground material and old blood in stomach, no active bleeding. Pt was to repeat EGD in three months ordered but patient never followed up - ETOH abuse- Drinks half a large bottle of vodka daily. Last ETOH was day of admission - Transaminitis- consistent with alcoholic hepatitis - Cirrhosis- Decreased albumin, slight coagulopathy. PT 14.6 INR 1.4 (09/22) --> S/P EGD yesterday --> Esophageal varices. and banding Recent bleeding probably from the esophageal varices. mild gastropathy, hiatal hernia - 09/25/17, abdomen continues to be taut, round, distended. Jaundice noted, bilirubin now 4.2 with elevated LFTs, AST 127, ALT 32 Still on Octreotide drip, denies any hematemesis or rectal bleeding Current H&H 7.8 with mild drop in the past 24 hours BUN 20, creatinine normal 09/26/17 pt still distended, semifirm. respirations shallow. HH relatively stable, no bleeding. PLT improving mild increase tbil otherwise not much change. Plan: - paracentesis - continue octreotide - Protonix IV BID - Pentoxifylline - monitor labs - Notify GI of active bleeding - Transfuse as needed - Repeat EGD with banding in one month - supportive care Pt has been seen by myself and Dr. Jordan, note written on his behalf (Chanel Navas) Physician Comments Patient seen and examined Agree with above Continue with current supportive care Monitor labs (Marcelo Jordan MD) Chanel Navas Sep 26, 2017 13:20 Marcelo Jordan MD Sep 26, 2017 19:03
[2017-09-26] MEDS ORDERED: guaiFENesin/DEXTROMETHORPHAN 200 MG/20 MG/10 ML CUP PO PRN (13:30)
[2017-09-26] MEDS ORDERED: LIDOCAINE HCL 1% 20 ML VIAL ONE (15:56)
--- NOTE | 2017-09-26 16:08 | RADRPT ---
EXAM DATE/TIME: 09/26/2017 15:04 [facility] COMPARISON: No previous studies available for comparison. INDICATIONS : Ascities. MEDICAL HISTORY : Stroke. Hypertension. Esophageal varices. Abdominal pain. Hodgkins lymphoma. SURGICAL HISTORY : Testicle removed. Lymph node removal. ENCOUNTER: Initial ACUITY: PAIN SCORE: LOCATION: FLUID: Total volume of 30 cc of clear, yellow fluid was removed. Fluid was sent to lab for ordered studies. Post procedure scanning reveals no hematoma or other complication. TECHNIQUE: 1. Ultrasound guidance for abdominal paracentesis. 2. Paracentesis. The risks, benefits, and alternatives to ultrasound guided paracentesis were explained to the patient in detail including the risk of bleeding and infection. Written and verbal informed consent was obt ained. With the patient on the ultrasound table, ultrasound imaging was used to select the most appropriate approach for paracentesis. There is small amount of deep pelvic dependent ascites fluid. There was in sufficient volume and an adequate window for placement of paracentesis catheter. Therefore, a 21 gaug e spinal needle was advanced under direct ultrasound guidance and approximately 30 cc of ascites flui d was aspirated for diagnostic purposes. The patient tolerated the procedure well and left the ultrasound suite in stable condition. CONCLUSION: Uncomplicated ultrasound guided diagnostic paracentesis, as above. Ezra Denton MD on September 26, 2017 at 16:05 Board Certified Radiologist. This report was verified electronically.
[2017-09-26 16:49] LABS: TOTAL PROTEIN,PERITONEAL FLUID 0.4 GM/DL
[2017-09-26 17:25] LABS: PERITONEAL HISTIOCYTES 7 %; PERITONEAL LYMPHS 84 %; PERITONEAL MONOS 4 %; PERITONEAL POLYS(SEGS) 5 %; PERITONEAL RBC 19 /MM3 (0-0)
[2017-09-26 19:19] LABS: HEMOGLOBIN A1C 4.7 % (4.3-6.0)
[2017-09-26] MEDS: OCTREOTIDE INJ 500 MCG in SODIUM CHLORID 0.9% 500 ML INJ 499.5 ML IV SCH (22:20)
[2017-09-27] VITALS (10 sets, daily range): BP systolic 129–164; BP diastolic 71–88; PULSE 78–103; RESP 18–23; TEMP 97.7–98.5; O2SAT 90–98
[2017-09-27] MEDS: PANTOPRAZOLE SODIUM 40 MG VIAL IV PUSH SCH ×2 (00:13→13:06)
[2017-09-27] MEDS: DIAZEPAM 10 MG TAB PO SCH ×3 (01:42→17:30)
[2017-09-27] MEDS: CHLORHEXIDINE GLUCONATE 2 % 1 PACK (2 CLOTHS) TOP SCH (01:43)
[2017-09-27] MEDS: cefTRIAXone INJ 2,000 MG in SODIUM CHLORIDE 0.9% INJ 100 ML IV SCH (01:43)
[2017-09-27 04:25] LABS: BASOPHIL # 0.1 TH/MM3 (0-0.2); BASOPHIL % 0.8 % (0.0-2.0); EOSINOPHIL # 0.2 TH/MM3 (0-0.4); EOSINOPHIL % 2.7 % (0.0-4.0); HEMATOCRIT 25.3 % (39.0-51.0); LYMPH % 13.2 % (9.0-44.0); LYMPHOCYTE # 1.1 TH/MM3 (1.0-4.8); MEAN CELL VOLUME 83.1 FL (80.0-100.0); MEAN CORPUSCULAR HEMOGLOBIN 26.5 PG (27.0-34.0); MEAN CORPUSCULAR HGB CONC 31.8 % (32.0-36.0); MEAN PLATELET VOLUME 8.4 FL (7.0-11.0); MONO % 10.5 % (0.0-8.0); MONOCYTE # 0.9 TH/MM3 (0-0.9); NEUT % 72.8 % (16.0-70.0); PLATELET COUNT 164 TH/MM3 (150-450); RED BLOOD COUNT 3.04 MIL/MM3 (4.50-5.90); WHITE BLOOD COUNT 8.2 TH/MM3 (4.0-11.0)
[2017-09-27 04:50] LABS: BICARBONATE 28.4 MEQ/L (21.0-32.0); CALCIUM 7.3 MG/DL (8.5-10.1); CREATININE 0.62 MG/DL (0.60-1.30)
[2017-09-27 04:58] LABS: CALCIUM-PROTEIN CORRECTED 7.8 MG/DL (8.5-10.1); PHOSPHORUS 2.1 MG/DL (2.5-4.9); TOTAL BILIRUBIN ADULT 7.1 MG/DL (0.2-1.0); TOTAL PROTEIN 6.2 GM/DL (6.4-8.2)
[2017-09-27] MEDS: ALBUMIN 25% INJ 100 ML IV SCH ×2 (05:16→17:36)
[2017-09-27] MEDS: SODIUM CHLORIDE 0.9% FLUSH 10 ML FLUSH IV FLUSH SCH ×2 (09:00→21:42)
[2017-09-27] MEDS: MULTIVITAMIN TAB PO SCH (09:10)
[2017-09-27] MEDS: MORPHINE SULFATE 4 MG/ML INJ IV PUSH PRN ×2 (09:10→13:09)
[2017-09-27] MEDS: PENTOXIFYLLINE 400 MG CONTROLLED RELEASE TAB PO SCH ×2 (09:11→21:41)
[2017-09-27] MEDS: THIAMINE HCL 100 MG TAB PO SCH (09:11)
[2017-09-27] MEDS: DOCUSATE SODIUM 50 MG/SENNA 8.6 MG TAB PO SCH ×2 (09:11→21:41)
[2017-09-27] MEDS: FUROSEMIDE 40 MG TAB PO SCH (09:11)
[2017-09-27] MEDS: SPIRONOLACTONE 100 MG TAB PO SCH (09:11)
--- NOTE | 2017-09-27 09:51 | HHI.PR ---
Subjective Remarks 62-year-old male chronic alcohol user who was recently taken to the OR endoscopy for banding of his esophageal variceal bleed. Per patient he was told they have put drinks on his varices and now he is coming back again after a few days of vomiting coffee-ground emesis, flulike symptoms, he had flu swab done at his doctor's office which was positive and he's been having vomiting diarrhea and now bright red blood vomit as well as melanotic stool. He also reports the diarrhea for the last few days and he feels nauseous. In the emergency department he had had episode of coffee-ground emesis. He was treated with octreotide bolus followed by the drip as well as Protonix bolus and following drip. Subjective: 09/20: hgb dropped from 10 to 7. no cough. remains on room air. unlikely to have the flu given afebrile without cough or flu-like symptoms, on room air. plan for EGD today. 09/21: hgb dropped to 7 again today. received an additional unit prbc. active DTs and agitated delirium. receiving ativan iv, haldol, restraints. EGD yesterday with 4 varices and blood in the stomach. 09/22: hgb stable. repeat EGD stable. remains on precedex for severe etoh withdraw. 09/23: Remains on Precedex for alcohol withdrawal. Had an episode of melena this morning. Systolic blood pressure in the 90s. Underwent EGD yesterday with variceal banding. 09/24: Off Precedex since yesterday. Laying comfortably in bed. Denies any shortness of breath. On 6 L nasal cannula currently. No further hypotension. 09/25: Remains on nasal cannula. Remains off precedex gtt. No further active bleeding. 09-26 TRANSFERRED TO OUR SERVICE TODAY STOP IV FLUIDS ON CLEAR LIQUIDS COMPLAINS OF PAIN FROM COUGHING AND PAIN POSSIBLY FROM THE BANDS IN HIS ESOPHAGUS DW RN AND PT - HAD PARACENTESIS YESTERDAY ONLY DIAGNOSTIC NOT THERAPEUTIC DW RN AND PT AM LABS ONLY ON CLEAR LIQUIDS AT THIS TIME INCREASE ACTIVITY Objective Vitals Vital Signs Date Time Temp Pulse Resp B/P (MAP) Pulse Ox O2 Delivery O2 Flow Rate FiO2 09/27/17 08:56 94 09/27/17 08:00 98.0 99 23 136/88 (104) 95 09/27/17 04:17 98.0 78 22 142/71 (94) 97 09/27/17 00:11 98.2 86 18 133/86 (102) 98 09/27/17 00:00 87 09/26/17 23:10 94 Nasal Cannula 4.00 09/26/17 22:31 20 09/26/17 21:00 96 09/26/17 20:44 98.1 105 20 134/97 (109) 96 09/26/17 20:00 Humidified 4.00 09/26/17 20:00 143 09/26/17 16:25 91 21 130/73 (92) 95 09/26/17 16:10 98.1 86 23 140/74 (96) 93 09/26/17 15:20 98.6 86 20 153/91 (111) 92 09/26/17 13:25 94 Humidified 4.00 09/26/17 12:00 98.2 87 24 138/88 (105) 95 I/O 09/26/17 09/26/17 09/26/17 09/27/17 09/27/17 09/27/17 07:00 15:00 23:00 07:00 15:00 23:00 Intake Total 940 ml Output Total 1300 ml 1150 ml 650 ml Balance -1300 ml -210 ml -650 ml Intake Oral 880 ml IV Total 60 ml Output Urine Total 1300 ml 1150 ml 650 ml Result Diagram: 09/27/17 0350 09/27/17 0350 Other Results Laboratory Tests Test 09/25/17 04:31 09/26/17 02:15 09/26/17 13:40 09/27/17 03:50 White Blood Count 8.2 TH/MM3 7.1 TH/MM3 8.2 TH/MM3 Red Blood Count 2.86 MIL/MM3 2.85 MIL/MM3 3.04 MIL/MM3 Hemoglobin 7.8 GM/DL 7.7 GM/DL 8.0 GM/DL Hematocrit 24.2 % 23.5 % 25.3 % Mean Corpuscular Volume 84.5 FL 82.6 FL 83.1 FL Mean Corpuscular Hemoglobin 27.4 PG 27.0 PG 26.5 PG Mean Corpuscular Hemoglobin Concent 32.4 % 32.7 % 31.8 % Red Cell Distribution Width 25.2 % 24.6 % 24.0 % Platelet Count 157 TH/MM3 150 TH/MM3 164 TH/MM3 Mean Platelet Volume 8.7 FL 8.2 FL 8.4 FL Blood Urea Nitrogen 20 MG/DL 12 MG/DL 10 MG/DL Creatinine 0.72 MG/DL 0.63 MG/DL 0.62 MG/DL Random Glucose 113 MG/DL 103 MG/DL 89 MG/DL Total Protein 6.2 GM/DL 6.1 GM/DL 6.2 GM/DL Calcium Level 7.0 MG/DL 6.9 MG/DL 7.3 MG/DL Sodium Level 138 MEQ/L 140 MEQ/L 137 MEQ/L Potassium Level 3.5 MEQ/L 3.4 MEQ/L 3.8 MEQ/L Chloride Level 106 MEQ/L 106 MEQ/L 102 MEQ/L Carbon Dioxide Level 25.2 MEQ/L 27.7 MEQ/L 28.4 MEQ/L Anion Gap 7 MEQ/L 6 MEQ/L 7 MEQ/L Estimat Glomerular Filtration Rate 111 ML/MIN 129 ML/MIN 132 ML/MIN Protein Corrected Calcium 7.5 MG/DL 7.4 MG/DL 7.8 MG/DL Albumin 2.0 GM/DL 2.0 GM/DL Phosphorus Level 2.2 MG/DL 2.1 MG/DL Magnesium Level 1.6 MG/DL 2.0 MG/DL Alkaline Phosphatase 70 U/L 74 U/L Aspartate Amino Transf (AST/SGOT) 96 U/L 86 U/L Alanine Aminotransferase (ALT/SGPT) 31 U/L 32 U/L Total Bilirubin 5.7 MG/DL 7.1 MG/DL Hemoglobin A1c 4.7 % Free Thyroxine 0.83 NG/DL Thyroid Stimulating Hormone 3rd Gen 0.901 uIU/ML Peritoneal Fluid WBC 105 /MM3 Peritoneal Fluid RBC 19 /MM3 Peritoneal Fluid Neutrophils 5 % Peritoneal Fluid Lymphocytes 84 % Peritoneal Fluid Monocytes 4 % Peritoneal Fluid Histiocytes 7 % Peritoneal Fluid Total Protein 0.4 GM/DL Peritoneal Fluid Albumin 0.2 G/DL Peritoneal Fluid LDH 41 U/L Peritoneal Fluid Glucose 120 MG/DL Neutrophils (%) (Auto) 72.8 % Lymphocytes (%) (Auto) 13.2 % Monocytes (%) (Auto) 10.5 % Eosinophils (%) (Auto) 2.7 % Basophils (%) (Auto) 0.8 % Neutrophils # (Auto) 6.0 TH/MM3 Lymphocytes # (Auto) 1.1 TH/MM3 Monocytes # (Auto) 0.9 TH/MM3 Eosinophils # (Auto) 0.2 TH/MM3 Basophils # (Auto) 0.1 TH/MM3 CBC Comment DIFF FINAL Differential Comment Imaging Last Impressions Cyst Biopsy Asp-Paracentesis US 09/26/17 0000 Signed Impressions: Service Date/Time: Tuesday, September 26, 2017 15:04 - CONCLUSION: Uncomplicated ultrasound guided diagnostic paracentesis, as above. Ezra Denton MD Chest X-Ray 09/25/17 0600 Signed Impressions: Service Date/Time: September 05:36 - CONCLUSION: Possible layering effusion on the left. Jaycob Castillo MD Objective Remarks GENERAL: Oriented 3 talkative and cooperative SKIN: Warm and dry. HEAD: Atraumatic. Normocephalic. EYES: Pupils equal and round. No scleral icterus. No injection or drainage. Extraocular muscles intact ENT: No nasal bleeding or discharge. Mucous membranes pink and moist. Tongue is midline NECK: Trachea midline. No JVD. Supple CARDIOVASCULAR: Regular rate and rhythm. S1-S2 no S3 or S4 RESPIRATORY: No accessory muscle use. Coarse breath sounds bilaterally Breath sounds equal bilaterally. GASTROINTESTINAL: Abdomen soft, non-tender, obese with some distention -hepatic and splenic margins not palpable. MUSCULOSKELETAL: Extremities without clubbing, cyanosis, No obvious deformities. +1 lower extremity edema NEUROLOGICAL: Awake and alert. No obvious cranial nerve deficits. Motor grossly within normal limits. 4 out of 5 muscle strength in the arms and legs. Normal speech. PSYCHIATRIC: Appropriate mood and affect; insight and judgment ABnormal. Procedures GI Procedure PROCEDURE PERFORMED EGD with banding INDICATION FOR PROCEDURE Upper GI bleed, known history of cirrhosis PROCEDURE: The procedure, risks and benefits were discussed with Mr. Ghotra and informed consent was obtained. Anesthesia sedated him with Diprivan. He was placed in the left lateral decubitus position. EGD: The Pentax videoscope was introduced through the oropharynx and advanced to the second portion of the duodenum under direct visualization. Retroflexion was performed in the stomach. FINDINGS: Esophagus there were 3 columns of grade 2 to grade 3 esophageal varices with blood in the esophagus I was not able to fully evaluate but I did go ahead and place 6 bands on the esophageal varices but 2 bands did slip off following the procedure there was no noted fresh pooling of blood The stomach was a large clot covering the fundus but I doubt that there is any gastric varices there was evidence of blood in the stomach and so the evaluation is incomplete but no active bleeding in the stomach The duodenum this was normal ESTIMATED BLOOD LOSS: There was about 100 cc of blood noted in the stomach SPECIMENS REMOVED: None COMPLICATIONS: None IMPRESSION: Esophageal varices Recent bleeding probably from the esophageal varices Incomplete EGD PLAN: Continue with current supportive care We will correct the coagulopathy with fresh frozen plasma We'll monitor labs and transfuse as needed Most likely patient will require further banding and endoscopy probably in about a week to 10 days but sooner if needed Marcelo Jordan MD Sep 20, 2017 20:59 GI Procedure PROCEDURE PERFORMED EGD with banding INDICATION FOR PROCEDURE Continued GI bleed with known esophageal varices PROCEDURE: The procedure, risks and benefits were discussed with Mr. Ghotra and informed consent was obtained. Anesthesia sedated him with Diprivan. He was placed in the left lateral decubitus position. EGD: The Pentax videoscope was introduced through the oropharynx and advanced to the second portion of the duodenum under direct visualization. Retroflexion was performed in the stomach. FINDINGS: Esophagus the previous bands were noted to still be clinging but evidence of bleeding was still noted and the bands that were placed earlier were not quite distal enough and so additional banding was performed 6 more bands were placed starting at the GE junction which was at 45 cm The stomach no gastric varices mild portal gastropathy otherwise unremarkable with no active bleeding again noted was a moderate size hiatal hernia The duodenum this was normal ESTIMATED BLOOD LOSS: None during the procedure SPECIMENS REMOVED: None COMPLICATIONS: None IMPRESSION: Esophageal varices Mild gastropathy Hiatal hernia PLAN: Continue with current supportive care Monitor labs and transfuse as needed If any coagulopathies identified will need to be corrected EGD with banding in 1 month Marcelo Jordan MD US Guided Abd Paracentesis Signed EXAM DATE/TIME: 09/26/2017 15:04 [facility] COMPARISON: No previous studies available for comparison. INDICATIONS : Ascities. MEDICAL HISTORY : Stroke. Hypertension. Esophageal varices. Abdominal pain. Hodgkins lymphoma. SURGICAL HISTORY : Testicle removed. Lymph node removal. ENCOUNTER: Initial ACUITY: PAIN SCORE: LOCATION: FLUID: Total volume of 30 cc of clear, yellow fluid was removed. Fluid was sent to lab for ordered studies. Post procedure scanning reveals no hematoma or other complication. TECHNIQUE: 1. Ultrasound guidance for abdominal paracentesis. 2. Paracentesis. The risks, benefits, and alternatives to ultrasound guided paracentesis were explained to the patient in detail including the risk of bleeding and infection. Written and verbal informed consent was obtained. With the patient on the ultrasound table, ultrasound imaging was used to select the most appropriate approach for paracentesis. There is small amount of deep pelvic dependent ascites fluid. There was insufficient volume and an adequate window for placement of paracentesis catheter. Therefore, a 21 gauge spinal needle was advanced under direct ultrasound guidance and approximately 30 cc of ascites fluid was aspirated for diagnostic purposes. The patient tolerated the procedure well and left the ultrasound suite in stable condition. CONCLUSION: Uncomplicated ultrasound guided diagnostic paracentesis, as above. Sep 22, 2017 15:50 Medications and IVs Current Medications Pantoprazole Sodium (Protonix Inj) 80 mg ONCE ONCE IV PUSH Last administered on 09/19/17 00:56; Start 09/19/17 at 00:45; Stop 09/19/17 at 00:46; Status DC Octreotide Acetate (SandoSTATIN INJ) 50 mcg ONCE ONCE IV PUSH Last administered on 09/19/17 01:23; Start 09/19/17 at 00:45; Stop 09/19/17 at 00:46; Status DC Octreotide Acetate 500 mcg/ Sodium Chloride 500 ml @ 25 mls/hr Q20H IV Last administered on 09/19/17 01:17; Start 09/19/17 at 00:34; Stop 09/19/17 at 03:25; Status DC Ondansetron HCl (Zofran Inj) 4 mg ONCE ONCE IV PUSH Last administered on 00:57; Start 09/19/17 at 00:45; Stop 09/19/17 at 00:46; Status DC Lorazepam (Ativan Inj) 1 mg ONCE ONCE IV PUSH Last administered on 2/9/18at 01 :36; Start 09/19/17 at 01:00; Stop 09/19/17 at 01:01; Status DC Lorazepam (Ativan Inj) 1 mg Q2H PRN IV PUSH Alcohol Detox; Start 09/19/17 at 01: 00 Sodium Chloride 1,000 ml @ 999 mls/hr BOLUS ONCE IV Last administered on at 02:10; Start 09/19/17 at 02:00; Stop 09/19/17 at 03:00; Status DC Metoclopramide HCl 10 mg/Sodium Chloride 52 ml @ 104 mls/hr ONCE ONCE IV Last administered on 09/19/17at 02:33; Start 09/19/17 at 02:00; Stop 09/19/17 at 02: 29; Status DC Labetalol HCl (Trandate Inj) 10 mg Q4H PRN IV PUSH SBP>160, DBP>90; Start at 03:00 Multivitamins 10 ml/Thiamine HCl 100 mg/Folic Acid 1 mg/Sodium Chloride 511.2 ml @ 125 mls/hr ONCE ONCE IV ; Start 09/19/17 at 05:00; Stop 09/19/17 at 09:05; Status DC Flumazenil (Romazicon Inj) 0.2 mg Q1M PRN IV PUSH SEE LABEL COMMENTS; Start 09/19/17 at 03:15 Lorazepam (Ativan) 1 mg Q4H PRN PO CIWA 8 - 10; Start 09/19/17 at 03:15 Lorazepam (Ativan Inj) 1 mg Q4H PRN IV PUSH CIWA 8 - 10; Start 09/19/17 at 03:15 Lorazepam (Ativan) 2 mg Q2H PRN PO CIWA 11-14; Start 09/19/17 at 03:15 Lorazepam (Ativan Inj) 2 mg Q2H PRN IV PUSH CIWA 11-14 Last administered on 06/28at 15:06; Start 09/19/17 at 03:15 Lorazepam (Ativan Inj) 2 mg Q1H PRN IV PUSH CIWA 15-20; Start 09/19/17 at 03:15 Lorazepam (Ativan Inj) 2 mg Q15M PRN IV PUSH CIWA > 20; Start 09/19/17 at 03:15 Ceftriaxone Sodium 2000 mg/ Sodium Chloride 100 ml @ 200 mls/hr DAILY@0300 IV Last administered on 09/27/17at 01:43; Start 09/19/17 at 03:15 Sodium Chloride 1,000 ml @ 84 mls/hr [id number] IV Last administered on at 02:02; Start 09/19/17 at 03:08; Stop 09/20/17 at 10:38; Status DC Sodium Chloride (NS Flush) 2 ml UNSCH PRN IV FLUSH FLUSH AFTER USING IV ACCESS Last administered on 09/24/17at 02:07; Start 09/19/17 at 03:15 Sodium Chloride (NS Flush) 2 ml BID IV FLUSH Last administered on 09/26/17 21: 47; Start 09/19/17 at 09:00 Acetaminophen (Tylenol) 650 mg Q6H PRN PO PAIN 1-5 AND/OR FEVER >101F; Start at 03:15 Morphine Sulfate (Morphine Inj) 2 mg Q2H PRN IV PUSH PAIN SCALE 6 TO 10 Last administered on 09/26/17at 22:26; Start 09/19/17 at 03:15 Pantoprazole Sodium (Protonix Inj) 40 mg Q12H IV PUSH Last administered on 09/27at 00:13; Start 09/19/17 at 13:00 Ondansetron HCl (Zofran Inj) 4 mg Q6H PRN IV PUSH NAUSEA OR VOMITING Last administered on 09/20/17at 21:39; Start 09/19/17 at 03:15 Temazepam (Restoril) 15 mg HS PRN PO INSOMNIA; Start 09/19/17 at 03:15; Stop 05/28 at 10:10; Status DC Albuterol/ Ipratropium (Duoneb Neb) 1 ampule Q2HR NEB PRN INH WHEEZING Last administered on 09/25/17at 22:28; Start 09/19/17 at 03:15 Miscellaneous Information 1 [id number] XX ; Start 09/19/17 at 03:15 Chlorhexidine Gluconate (Chlorhexidine 2% Cloth) Taper DAILY@04 TOP ; Start 09/19 at 04:00; Stop 09/15/18 at 03:59 Chlorhexidine Gluconate (Chlorhexidine 2% Cloth) 3 pack UNSCH PRN TOP HYGIENIC CARE; Start 09/19/17 at 03:15 Senna/Docusate Sodium (Ronit-Colace) 1 tab BID PO Last administered on at 09:11; Start 09/19/17 at 09:00 Magnesium Hydroxide (Milk Of Magnesia Liq) 30 ml Q12H PRN PO Mild constipation ; Start 09/19/17 at 03:15 Sennosides (Senokot) 17.2 mg Q12H PRN PO Moderate constipation; Start 09/19/17 at 03:15 Bisacodyl (Dulcolax Supp) 10 mg DAILY PRN RECTAL SEVERE CONSITIPATION; Start at 03:15 Lactulose (Lactulose Liq) 30 ml DAILY PRN PO SEVERE CONSITIPATION; Start at 03:15 Octreotide Acetate 500 mcg/ Sodium Chloride 500 ml @ 25 mls/hr Q20H IV Last administered on 09/26/17at 22:20; Start 09/19/17 at 03:13 Permethrin (Elimite 5% Cream) 1 applic ONCE ONCE TOPICAL Last administered on 09/19/17at 14:00; Start 09/19/17 at 14:00; Stop 09/19/17 at 14:01; Status DC Diazepam (Valium) 5 mg Q8H PO Last administered on 09/21/17at 10:52; Start 09/20 at 10:15; Stop 09/21/17 at 16:01; Status DC Lactated Ringer's 1,000 ml @ 84 mls/hr [id number] IV Last administered on at 10:10; Start 09/20/17 at 11:00; Stop 09/26/17 at 10:42; Status DC Potassium Chloride 100 ml @ 50 mls/hr Q2H PRN IV For Potassium 2.8 - 3.2 mEq/L ; Start 09/20/17 at 10:15 Potassium Chloride 100 ml @ 50 mls/hr Q2H PRN IV For Potassium 2.8 - 3.2 mEq/L ; Start 09/20/17 at 10:15 Potassium Bicarb/ Potassium Chloride (K-Lyte Cl Eff) 50 meq UNSCH PRN PO For Potassium 3.3 - 3.5 mEq/L; Start 09/20/17 at 10:15 Potassium Chloride 100 ml @ 25 mls/hr UNSCH PRN IV For Potassium 3.3 - 3.5 mEq /L; Start 09/20/17 at 10:15 Potassium Chloride 100 ml @ 50 mls/hr Q2H PRN IV For Potassium 3.3 - 3.5 mEq/L ; Start 09/20/17 at 10:15 Magnesium Sulfate 4 gm/Sodium Chloride 100 ml @ 50 mls/hr UNSCH PRN IV For Magnesium 0.9 - 1.1 mg/dL; Start 09/20/17 at 10:15 Magnesium Oxide (Mag-Ox) 800 mg UNSCH PRN PO For Magnesium 1.2 - 1.6 mg/dL; Start 09/20/17 at 10:15 Magnesium Sulfate 2 gm/Sodium Chloride 100 ml @ 50 mls/hr UNSCH PRN IV For Magnesium 1.2 - 1.6 mg/dL Last administered on 09/26/17at 03:40; Start 09/20/17 at 10:15 Potassium Phosphate (K-Phos) 2,000 mg Q4H PRN PO For Phosphorus < 2.5 mg/dL; Start 09/20/17 at 10:15 Sodium Phosphate 30 mmol/Sodium Chloride 250 ml @ 42 mls/hr UNSCH PRN IV For Phosphorus < 2.5 mg/dL; Start 09/20/17 at 10:15 Potassium Phosphate (K-Phos) 2,000 mg UNSCH PRN PO/TUBE SEE LABEL COMMENTS; Start 09/20/17 at 10:15 Potassium Phosphate 30 mmol/ Sodium Chloride 260 ml @ 42 mls/hr UNSCH PRN IV SEE LABEL COMMENTS Last administered on 09/26/17at 05:44; Start 09/20/17 at 10:15 Thiamine HCl 100 mg/Sodium Chloride 101 ml @ 101 mls/hr Q24H IV Last administered on 09/22/17at 01:10; Start 09/21/17 at 02:00; Stop 09/22/17 at 02:59 ; Status DC Thiamine HCl (Vitamin B1) 100 mg DAILY PO Last administered on 09/27/17at 09:11 ; Start 09/24/17 at 09:00 Multivitamins 10 ml/Thiamine HCl 100 mg/Folic Acid 1 mg/Sodium Chloride 511.2 ml @ 125 mls/hr ONCE ONCE IV Last administered on 09/20/17at 11:23; Start 05/28 at 12:00; Stop 09/20/17 at 16:05; Status DC Multivitamins (Theragran) 1 tab DAILY PO Last administered on 09/27/17at 09:10; Start 09/21/17 at 09:00 Magnesium Sulfate/ Dextrose 200 ml @ As Directed STK-MED ONCE .ROUTE ; Start at 11:14; Stop 09/20/17 at 11:15; Status DC Miscellaneous Information ALL NURSING DEPARTME... UNSCH PRN .XX SEE LABEL COMMENTS; Start 09/20/17 at 21:15; Stop 09/21/17 at 21:14; Status DC Diphenhydramine HCl (Benadryl Inj) 12.5 mg Q4H PRN IM pruritis Last administered on 09/21/17at 14:00; Start 09/21/17 at 14:00 Haloperidol Lactate (Haldol Inj) 5 mg Q4H PRN IV PUSH agitation Last administered on 09/21/17at 13:59; Start 09/21/17 at 14:00 Diazepam (Valium) 10 mg Q8H PO Last administered on 09/27/17at 01:42; Start 06/28 at 18:00 Ziprasidone (Geodon Inj) 10 mg Q12H PRN IM AGITATION Last administered on at 16:23; Start 09/21/17 at 16:00; Stop 09/22/17 at 08:34; Status DC Dexmedetomidine HCl 200 mcg/ Sodium Chloride 52 ml @ 6.83 mls/hr TITRATE PRN IV SEDATION Last administered on 09/21/17at 18:10; Start 09/21/17 at 16:15; Stop 09/21/17 at 18:16; Status DC Dexmedetomidine HCl 1000 mcg/ Sodium Chloride 250 ml @ 6.57 mls/hr TITRATE PRN IV SEDATION Last administered on 09/23/17at 00:11; Start 09/21/17 at 18:30 Clonidine (Catapres) 0.3 mg Q8HR PO Last administered on 09/24/17at 06:18; Start 09/22/17 at 14:00; Stop 09/24/17 at 09:48; Status DC Chlordiazepoxide (Librium) 15 mg BID PO Last administered on 09/27/17at 09:11; Start 09/23/17 at 11:00 Pentoxifylline (TRENtal SR) 400 mg Q12HR PO Last administered on 09/27/17at 09: 11; Start 09/23/17 at 21:00 Spironolactone (Aldactone) 25 mg DAILY PO Last administered on 09/25/17at 12:00 ; Start 09/25/17 at 12:00; Stop 09/25/17 at 17:40; Status DC Spironolactone (Aldactone) 100 mg DAILY PO Last administered on 09/27/17at 09:11 ; Start 09/26/17 at 09:00 Furosemide (Lasix) 40 mg DAILY PO Last administered on 09/27/17at 09:11; Start 09/25/17 at 17:45 Albumin Human 100 ml @ 60 mls/hr Q12H IV Last administered on 09/27/17at 05:16 ; Start 09/25/17 at 17:45 Lidocaine HCl (Xylocaine-Mpf 1% Inj) 5 ml STK-MED ONCE OTHER ; Start 09/20/17 at 12:00; Stop 09/26/17 at 08:30; Status DC Propofol (Diprivan 200 Mg/20 ml Inj) 400 mg STK-MED ONCE IV ; Start 09/20/17 at 12:00; Stop 09/26/17 at 08:30; Status DC Propofol (Diprivan 200 Mg/20 ml Inj) 400 mg STK-MED ONCE IV ; Start 09/22/17 at 12:00; Stop 09/26/17 at 09:01; Status DC Magnesium Sulfate/ Dextrose 100 ml @ 100 mls/hr Q1H IV Last administered on at 13:23; Start 09/26/17 at 12:00; Stop 09/26/17 at 13:59; Status DC Potassium Chloride (KCl) 60 meq ONCE ONCE PO Last administered on 09/26/17at 12 :15; Start 09/26/17 at 12:00; Stop 09/26/17 at 12:01; Status DC Guaifenesin/ Dextromethorphan (Robitussin Dm 200-20 Mg/10 ml Liq) 10 ml Q6H PRN PO cough; Start 09/26/17 at 13:30 Lidocaine HCl (Xylocaine 1% Inj) 20 ml STK-MED ONCE .ROUTE Last administered on 09/26/17at 15:56; Start 09/26/17 at 15:56; Stop 09/26/17 at 15:57; Status DC A/P Assessment and Plan Assessment: 62yM with etoh cirrhosis and known varices who presents with upper GI bleeding. Delirium under control now. On Librium Valium and Ativan as needed Hematemesis - improving. Etoh cirrhosis Esophageal varices - known esophageal varices, more on repeat EGD - s/p banding x 4 on 09/20. - EGD 09/22 controlled. - Octreotide drip - iv bid ppi - Gastroenterology following - clear liquid diet and advance to full liquids - IV fluid - Rocephin for SBP prophylaxis - Add aldactone 25mg daily on 09/25 to avoid fluid retention. SP PARACENTESIS ON 09-26 BY IR Agitated Delirium - persistent. EtOH withdraw - ativan prn - scheduled valium - haldol prn - precedex drip -Continue Librium 15 mg by mouth twice a day Hypertension - Labetalol when necessary to keep SBP less than 160 -Discontinue clonidine in view of hypotension. Alcoholism - CIWA protocol - mvi - thiamine - valium 5mg po q8h - Added Librium 15 mg by mouth twice a day on 09/23 Anemia secondary to acute blood loss - stable. - daily cbc - keep hgb > 7. GERD - iv bid ppi Influenza Acute respiratory failure -Continue supplemental O2. Follow-up chest x-ray tomorrow. Bronchodilators as needed. -Consult pulmonary for respiratory failure as patient being transferred to the floor. DVT GI prophylaxis - Teds SCDs - No pharmacological DVT prophylaxis due to active bleed - IV Protonix Hep-Lock IV fluids A.m. 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
--- NOTE | 2017-09-27 14:00 | HHI.GIFU ---
Subjective Remarks Pt in bed. Says he's "not doing that great." s/p paracentesis yesterday but were not able to remove enough to be therapeutic. (Chanel Navas) Objective Vitals I&O Vital Signs Date Time Temp Pulse Resp B/P (MAP) Pulse Ox O2 Delivery O2 Flow Rate FiO2 09/27/17 12:00 98.5 99 23 134/84 (101) 93 09/27/17 08:56 94 09/27/17 08:00 98.0 99 23 136/88 (104) 95 09/27/17 04:17 98.0 78 22 142/71 (94) 97 09/27/17 00:11 98.2 86 18 133/86 (102) 98 09/27/17 00:00 87 09/26/17 23:10 94 Nasal Cannula 4.00 09/26/17 22:31 20 09/26/17 21:00 96 09/26/17 20:44 98.1 105 20 134/97 (109) 96 09/26/17 20:00 Humidified 4.00 09/26/17 20:00 143 09/26/17 16:25 91 21 130/73 (92) 95 09/26/17 16:10 98.1 86 23 140/74 (96) 93 09/26/17 15:20 98.6 86 20 153/91 (111) 92 I/O 09/26/17 09/26/17 09/26/17 09/27/17 09/27/17 09/27/17 07:00 15:00 23:00 07:00 15:00 23:00 Intake Total 940 ml Output Total 1300 ml 1150 ml 650 ml Balance -1300 ml -210 ml -650 ml Intake Oral 880 ml IV Total 60 ml Output Urine Total 1300 ml 1150 ml 650 ml Laboratory Laboratory Tests Test 09/27/17 03:50 White Blood Count 8.2 Red Blood Count 3.04 Hemoglobin 8.0 Hematocrit 25.3 Mean Corpuscular Volume 83.1 Mean Corpuscular Hemoglobin 26.5 Mean Corpuscular Hemoglobin Concent 31.8 Red Cell Distribution Width 24.0 Platelet Count 164 Mean Platelet Volume 8.4 Neutrophils (%) (Auto) 72.8 Lymphocytes (%) (Auto) 13.2 Monocytes (%) (Auto) 10.5 Eosinophils (%) (Auto) 2.7 Basophils (%) (Auto) 0.8 Neutrophils # (Auto) 6.0 Lymphocytes # (Auto) 1.1 Monocytes # (Auto) 0.9 Eosinophils # (Auto) 0.2 Basophils # (Auto) 0.1 CBC Comment DIFF FINAL Differential Comment Blood Urea Nitrogen 10 Creatinine 0.62 Random Glucose 89 Total Protein 6.2 Albumin 2.0 Calcium Level 7.3 Phosphorus Level 2.1 Magnesium Level 2.0 Alkaline Phosphatase 74 Aspartate Amino Transf (AST/SGOT) 86 Alanine Aminotransferase (ALT/SGPT) 32 Total Bilirubin 7.1 Sodium Level 137 Potassium Level 3.8 Chloride Level 102 Carbon Dioxide Level 28.4 Anion Gap 7 Estimat Glomerular Filtration Rate 132 Protein Corrected Calcium 7.8 Date/Time Source Procedure Growth Status 09/26/17 13:40 Fluid Peritoneal Fluid Gram Stain - Final Resulted 09/26/17 13:40 Fluid Peritoneal Fluid Body Fluid Culture - Preliminary NO GROWTH IN 24 HOURS. Resulted Imaging Last Impressions Cyst Biopsy Asp-Paracentesis US 09/26/17 0000 Signed Impressions: Service Date/Time: Tuesday, September 26, 2017 15:04 - CONCLUSION: Uncomplicated ultrasound guided diagnostic paracentesis, as above. Ezra Denton MD Chest X-Ray 09/25/17 0600 Signed Impressions: Service Date/Time: September 05:36 - CONCLUSION: Possible layering effusion on the left. Jaycob Castillo MD Physical Exam HEENT: Normocephalic; atraumatic, +icterus CHEST: CTA respirations shallow CARDIAC: RRR ABDOMEN: Distended, semi-firm, taut, BS + EXTREMITIES: No clubbing, cyanosis, mild BLE edema SKIN: Normal; no rash; mild generalized jaundice HOGSHEAD STRIPPER: lethargic (Chanel Navas SILK SCREEN PROCESSOR) Assessment and Plan Plan Assessment/history - Upper GI bleed- history of cirrhosis- last EGD in Jun 2017- revealed single esophageal varix in distal esophagus- coffee ground material and old blood in stomach, no active bleeding. Pt was to repeat EGD in three months ordered but patient never followed up - ETOH abuse- Drinks half a large bottle of vodka daily. Last ETOH was day of admission - Transaminitis- consistent with alcoholic hepatitis - Cirrhosis- Decreased albumin, slight coagulopathy. PT 14.6 INR 1.4 (09/22) --> S/P EGD yesterday --> Esophageal varices. and banding Recent bleeding probably from the esophageal varices. mild gastropathy, hiatal hernia - 09/25/17, abdomen continues to be taut, round, distended. Jaundice noted, bilirubin now 4.2 with elevated LFTs, AST 127, ALT 32 Still on Octreotide drip, denies any hematemesis or rectal bleeding Current H&H 7.8 with mild drop in the past 24 hours BUN 20, creatinine normal 09/26/17 pt still distended, semifirm. respirations shallow. HH relatively stable, no bleeding. PLT improving mild increase tbil otherwise not much change. 09/27/17 pt resting in bed, s/p paracentesis diagnostic only. Saag 1.8. peritoneal fluid no growth 24h. no bleeding. HH stable Plan: - ok to d/c octreotide - Protonix IV BID - Pentoxifylline - monitor labs - Notify GI of active bleeding - Transfuse as needed - Repeat EGD with banding in one month - supportive care Pt has been seen by myself and Dr. Everett and this note is on her behalf (Chanel Navas) Physician Comments seen, examined sleepy rifaximin 550 mg po bid ammonia level albumin/lasix paracentesis suggesting portal htn-no sbp (Barb Everett MD) Chanel Navas Sep 27, 2017 14:00 Barb Everett MD Sep 27, 2017 19:20
[2017-09-27] MEDS: RESP: ALBUTEROL 2.5 MG/IPRATROPIUM 0.5 MG NEB (SCH) NEB (19:54)
[2017-09-27] MEDS: RIFAXIMIN 550 MG TAB PO SCH (21:41)
[2017-09-27] MEDS: OCTREOTIDE INJ 500 MCG in SODIUM CHLORID 0.9% 500 ML INJ 499.5 ML IV SCH (21:42)
[2017-09-28] VITALS (9 sets, daily range): BP systolic 135–158; BP diastolic 68–96; PULSE 88–105; RESP 17–23; TEMP 97.1–98.6; O2SAT 92–96
[2017-09-28] MEDS: DIAZEPAM 10 MG TAB PO SCH ×3 (02:28→18:04)
[2017-09-28] MEDS: cefTRIAXone INJ 2,000 MG in SODIUM CHLORIDE 0.9% INJ 100 ML IV SCH (02:28)
[2017-09-28] MEDS: MORPHINE SULFATE 4 MG/ML INJ IV PUSH PRN ×5 (02:28→23:30)
[2017-09-28] MEDS: PANTOPRAZOLE SODIUM 40 MG VIAL IV PUSH SCH ×3 (02:28→23:30)
[2017-09-28] MEDS: CHLORHEXIDINE GLUCONATE 2 % 1 PACK (2 CLOTHS) TOP SCH (02:50)
[2017-09-28 04:03] LABS: AUTOMATED NEUTROPHIL # 7.4 TH/MM3 (1.8-7.7); BASOPHIL # 0.1 TH/MM3 (0-0.2); BASOPHIL % 0.7 % (0.0-2.0); EOSINOPHIL # 0.2 TH/MM3 (0-0.4); EOSINOPHIL % 2.4 % (0.0-4.0); HEMATOCRIT 25.8 % (39.0-51.0); HEMOGLOBIN 8.2 GM/DL (13.0-17.0); LYMPH % 11.7 % (9.0-44.0); LYMPHOCYTE # 1.1 TH/MM3 (1.0-4.8); MEAN CORPUSCULAR HEMOGLOBIN 26.4 PG (27.0-34.0); MEAN CORPUSCULAR HGB CONC 31.8 % (32.0-36.0); MEAN PLATELET VOLUME 8.2 FL (7.0-11.0); MONO % 8.8 % (0.0-8.0); MONOCYTE # 0.8 TH/MM3 (0-0.9); NEUT % 76.4 % (16.0-70.0); PLATELET COUNT 170 TH/MM3 (150-450); RED BLOOD COUNT 3.11 MIL/MM3 (4.50-5.90); RED CELL DISTRIBUTION WIDTH 24.8 % (11.6-17.2); WHITE BLOOD COUNT 9.7 TH/MM3 (4.0-11.0)
[2017-09-28 04:24] LABS: ALBUMIN 2.3 GM/DL (3.4-5.0); ALT (GPT) 32 U/L (12-78); AST (GOT) 88 U/L (15-37); BICARBONATE 29.1 MEQ/L (21.0-32.0); BLOOD UREA NITROGEN 10 MG/DL (7-18); CALCIUM 7.5 MG/DL (8.5-10.1); CHLORIDE 99 MEQ/L (98-107); CREATININE 0.63 MG/DL (0.60-1.30); GLOMERULAR FILTRATION RATE 129 ML/MIN (>89); GLUCOSE,RANDOM 91 MG/DL (74-106); MAGNESIUM 1.9 MG/DL (1.5-2.5); PHOSPHORUS 1.9 MG/DL (2.5-4.9); SODIUM (NA) 134 MEQ/L (136-145)
[2017-09-28 04:26] LABS: ALKALINE PHOSPHATASE 79 U/L (45-117); TOTAL BILIRUBIN ADULT 8.5 MG/DL (0.2-1.0); TOTAL PROTEIN 6.5 GM/DL (6.4-8.2)
[2017-09-28 04:32] LABS: INTERNATIONAL NORMALIZED RATIO 1.8 RATIO; PROTHROMBIN TIME - PATIENT 18.1 SEC (9.8-11.6)
[2017-09-28] MEDS: ALBUMIN 25% INJ 100 ML IV SCH ×2 (04:45→18:04)
[2017-09-28 05:07] LABS: STOMATOCYTES 2+ (NORMAL)
[2017-09-28 05:08] LABS: TOXIC GRANULATION 1+ (NORMAL)
[2017-09-28] MEDS: DOCUSATE SODIUM 50 MG/SENNA 8.6 MG TAB PO SCH ×2 (08:56→19:53)
[2017-09-28] MEDS: THIAMINE HCL 100 MG TAB PO SCH (08:57)
[2017-09-28] MEDS: MULTIVITAMIN TAB PO SCH (08:57)
[2017-09-28] MEDS: RIFAXIMIN 550 MG TAB PO SCH ×2 (08:57→19:50)
[2017-09-28] MEDS: PENTOXIFYLLINE 400 MG CONTROLLED RELEASE TAB PO SCH ×2 (08:58→19:50)
[2017-09-28] MEDS: SPIRONOLACTONE 100 MG TAB PO SCH (08:59)
[2017-09-28] MEDS: FUROSEMIDE 40 MG TAB PO SCH (08:59)
[2017-09-28] MEDS: SODIUM CHLORIDE 0.9% FLUSH 10 ML FLUSH IV FLUSH SCH ×2 (08:59→19:54)
[2017-09-28] MEDS: RESP: ALBUTEROL 2.5 MG/IPRATROPIUM 0.5 MG NEB (SCH) NEB ×3 (09:16→20:30)
--- NOTE | 2017-09-28 12:54 | HHI.GIFU ---
Subjective Remarks Pt resting on bed. c/o clear liquid diet. (Chanel Navas) Objective Vitals I&O Vital Signs Date Time Temp Pulse Resp B/P (MAP) Pulse Ox O2 Delivery O2 Flow Rate FiO2 09/28/17 12:00 98.2 100 23 150/72 (98) 92 09/28/17 09:20 94 Nasal Cannula 3.00 09/28/17 09:00 3.00 09/28/17 08:00 98.6 98 22 156/84 (108) 92 09/28/17 04:00 98.5 98 20 135/68 (90) 92 09/28/17 02:33 20 09/28/17 00:01 97.9 88 20 139/87 (104) 94 09/27/17 20:00 85 09/27/17 20:00 98.2 103 20 164/84 (110) 93 09/27/17 19:56 92 Nasal Cannula 21 09/27/17 16:00 97.7 95 19 129/83 (98) 90 I/O 09/27/17 09/27/17 09/27/17 09/28/17 09/28/17 09/28/17 07:00 15:00 23:00 07:00 15:00 23:00 Intake Total 360 ml 320 ml Output Total 650 ml 855 ml 325 ml Balance -650 ml -495 ml -5 ml Intake Oral 360 ml 120 ml IV Total 200 ml Output Urine Total 650 ml 855 ml 325 ml # Bowel Movements 0 Laboratory Laboratory Tests Test 09/28/17 03:46 White Blood Count 9.7 Red Blood Count 3.11 Hemoglobin 8.2 Hematocrit 25.8 Mean Corpuscular Volume 83.0 Mean Corpuscular Hemoglobin 26.4 Mean Corpuscular Hemoglobin Concent 31.8 Red Cell Distribution Width 24.8 Platelet Count 170 Mean Platelet Volume 8.2 Neutrophils (%) (Auto) 76.4 Lymphocytes (%) (Auto) 11.7 Monocytes (%) (Auto) 8.8 Eosinophils (%) (Auto) 2.4 Basophils (%) (Auto) 0.7 Neutrophils # (Auto) 7.4 Lymphocytes # (Auto) 1.1 Monocytes # (Auto) 0.8 Eosinophils # (Auto) 0.2 Basophils # (Auto) 0.1 CBC Comment AUTO DIFF Differential Comment AUTO DIFF CONFIRMED Toxic Granulation 1+ Platelet Estimate NORMAL Platelet Morphology Comment NORMAL Basophilic Stippling FAINT Stomatocytes 2+ Prothrombin Time 18.1 Prothromb Time International Ratio 1.8 Blood Urea Nitrogen 10 Creatinine 0.63 Random Glucose 91 Total Protein 6.5 Albumin 2.3 Calcium Level 7.5 Phosphorus Level 1.9 Magnesium Level 1.9 Alkaline Phosphatase 79 Aspartate Amino Transf (AST/SGOT) 88 Alanine Aminotransferase (ALT/SGPT) 32 Total Bilirubin 8.5 Sodium Level 134 Potassium Level 3.7 Chloride Level 99 Carbon Dioxide Level 29.1 Anion Gap 6 Estimat Glomerular Filtration Rate 129 Ammonia 44 Date/Time Source Procedure Growth Status 09/26/17 13:40 Fluid Peritoneal Fluid Gram Stain - Final Complete 09/26/17 13:40 Fluid Peritoneal Fluid Body Fluid Culture - Final NO GROWTH IN 48 HOURS. Complete Imaging Last Impressions Cyst Biopsy Asp-Paracentesis US 09/26/17 0000 Signed Impressions: Service Date/Time: Tuesday, September 26, 2017 15:04 - CONCLUSION: Uncomplicated ultrasound guided diagnostic paracentesis, as above. Ezra Denton MD Chest X-Ray 09/25/17 0600 Signed Impressions: Service Date/Time: September 05:36 - CONCLUSION: Possible layering effusion on the left. Jaycob Castillo MD Physical Exam HEENT: Normocephalic; atraumatic, +icterus CHEST: CTA respirations shallow CARDIAC: RRR ABDOMEN: Distended, semi-firm, taut, BS + EXTREMITIES: No clubbing, cyanosis, mild BLE edema SKIN: Normal; no rash; mild generalized jaundice SPONGE CLIPPER: lethargic (Chanel Navas WEATHER ANALYST) Assessment and Plan Plan Assessment/history - Upper GI bleed- history of cirrhosis- last EGD in Jun 2017- revealed single esophageal varix in distal esophagus- coffee ground material and old blood in stomach, no active bleeding. Pt was to repeat EGD in three months ordered but patient never followed up - ETOH abuse- Drinks half a large bottle of vodka daily. Last ETOH was day of admission - Transaminitis- consistent with alcoholic hepatitis - Cirrhosis- Decreased albumin, slight coagulopathy. PT 14.6 INR 1.4 (09/22) --> S/P EGD yesterday --> Esophageal varices. and banding Recent bleeding probably from the esophageal varices. mild gastropathy, hiatal hernia - 09/25/17, abdomen continues to be taut, round, distended. Jaundice noted, bilirubin now 4.2 with elevated LFTs, AST 127, ALT 32 Still on Octreotide drip, denies any hematemesis or rectal bleeding Current H&H 7.8 with mild drop in the past 24 hours BUN 20, creatinine normal 09/26/17 pt still distended, semifirm. respirations shallow. HH relatively stable, no bleeding. PLT improving mild increase tbil otherwise not much change. 09/27/17 pt resting in bed, s/p paracentesis diagnostic only. Saag 1.8. peritoneal fluid no growth 24h. no bleeding. HH stable 09/28/17 pt resting in bed, wants more to eat. tbil going up , INR up to 1.8 now on rifaximin HH stable Plan: - full liquids, 2gm sodium - d/c octreotide - Protonix IV BID - Pentoxifylline - monitor labs - Notify GI of active bleeding - Transfuse as needed - Repeat EGD with banding in one month - supportive care Pt has been seen by myself and Dr. Everett and this note is on her behalf (Chanel Navas) Chanel Navas Sep 28, 2017 12:54 Barb Everett MD Sep 28, 2017 17:59
[2017-09-28] MEDS: SODIUM CHLORIDE 0.9% FLUSH 10 ML FLUSH IV FLUSH PRN (16:10)
[2017-09-28] MEDS: ONDANSETRON HCL 4 MG/2 ML VIAL IV PUSH PRN ×2 (16:11→22:43)
--- NOTE | 2017-09-28 18:11 | HHI.PR ---
Subjective Remarks Pt seen and examined. Somewhat somnolent and sleepy but answers questions appropriately. Endorses generalized abdominal pain and some nausea. Ate a popsicle without problems. Denies CP or SOB. Doesn't feel shaky and states he feels like he is thinking clearly. Denies diarrhea. Reports urine is dark. Objective Vitals Vital Signs Date Time Temp Pulse Resp B/P (MAP) Pulse Ox O2 Delivery O2 Flow Rate FiO2 09/28/17 16:00 97.7 100 22 158/96 (116) 92 09/28/17 12:00 98.2 100 23 150/72 (98) 92 09/28/17 09:20 94 Nasal Cannula 3.00 09/28/17 09:00 3.00 09/28/17 08:00 98.6 98 22 156/84 (108) 92 09/28/17 04:00 98.5 98 20 135/68 (90) 92 09/28/17 02:33 20 09/28/17 00:01 97.9 88 20 139/87 (104) 94 09/27/17 20:00 85 09/27/17 20:00 98.2 103 20 164/84 (110) 93 09/27/17 19:56 92 Nasal Cannula 21 I/O 09/27/17 09/27/17 09/27/17 09/28/17 09/28/17 09/28/17 07:00 15:00 23:00 07:00 15:00 23:00 Intake Total 360 ml 320 ml Output Total 650 ml 855 ml 325 ml Balance -650 ml -495 ml -5 ml Intake Oral 360 ml 120 ml IV Total 200 ml Output Urine Total 650 ml 855 ml 325 ml # Bowel Movements 0 Result Diagram: 09/28/17 0346 09/28/17 0346 Objective Remarks GENERAL: male laying in bed in [facility]. SKIN: Jaundice. HEENT: Pupils equal and round. Scleral icterus. MMM. NECK: Supple no tender LAD or JVD. HEART: RRR no m/r/g. LUNGS: CTAB without wheezes or crackles. ABDOMEN: Tense, distended abdomen. EXTREMITIES: No LE edema or calf tenderness. NEURO: Sleepy but alert and answering questions appropriately. Procedures EGD 09/20 showing esophageal varices and recent bleeding EGD 09/22 showing esophageal varices, mild gastropathy, and hiatal hernia U/S guided paracentesis on 09/26 A/P Problem List: (1) Upper GI bleed ICD Code: K92.2 - Gastrointestinal hemorrhage, unspecified (2) Esophageal varices ICD Code: I85.00 - Esophageal varices without bleeding (3) Alcoholic hepatitis ICD Code: K70.10 - Alcoholic hepatitis without ascites (4) Alcohol withdrawal ICD Code: F10.239 - Alcohol dependence with withdrawal, unspecified (5) Alcohol abuse ICD Code: F10.10 - Alcohol abuse, uncomplicated (6) Anemia ICD Code: D64.9 - Anemia, unspecified Status: Acute Assessment and Plan 62 YOWM with history of alcohol abuse admitted on 09/19 initially to the critical care service for UGIB and subsequently went into EtOH withdrawal requiring Precedex drip. UGIB 09/12 varices s/p EGD with banding Bleeding resolved H&H stable. Continue to monitor and transfuse PRN Octreotide drip discontinued Protonix IV BID GI following; recommend repeat EGD in 1 month EtOH hepatitis Bilirubin increasing INR increasing MELD score 24 On pentoxifylline Supportive care EtOH withdrawal Resolved Tapering Librium Continue Xanax CIWA Anemia Stable Continue to monitor DVT prophylaxis Avoid chemical anticoagulation secondary to recent bleeding and increasing INR Maya Valenzuela MD Sep 28, 2017 18:11
[2017-09-29] VITALS (10 sets, daily range): BP systolic 131–148; BP diastolic 69–92; PULSE 96–124; RESP 18–28; TEMP 98.3–99.8; O2SAT 91–99
[2017-09-29] MEDS: DIAZEPAM 10 MG TAB PO SCH ×2 (02:40→22:19)
[2017-09-29] MEDS: cefTRIAXone INJ 2,000 MG in SODIUM CHLORIDE 0.9% INJ 100 ML IV SCH (02:40)
[2017-09-29] MEDS: CHLORHEXIDINE GLUCONATE 2 % 1 PACK (2 CLOTHS) TOP SCH (04:00)
[2017-09-29] MEDS: ALBUMIN 25% INJ 100 ML IV SCH ×2 (05:28→17:45)
[2017-09-29] MEDS: MORPHINE SULFATE 4 MG/ML INJ IV PUSH PRN ×2 (05:28→22:28)
[2017-09-29] MEDS: RESP: ALBUTEROL 2.5 MG/IPRATROPIUM 0.5 MG NEB (SCH) NEB ×3 (08:55→20:12)
[2017-09-29] MEDS: SODIUM CHLORIDE 0.9% FLUSH 10 ML FLUSH IV FLUSH SCH ×2 (09:00→21:00)
[2017-09-29] MEDS: MULTIVITAMIN TAB PO SCH (09:00)
[2017-09-29] MEDS: SPIRONOLACTONE 100 MG TAB PO SCH (09:00)
[2017-09-29] MEDS: RIFAXIMIN 550 MG TAB PO SCH ×2 (09:00→22:19)
[2017-09-29] MEDS: PENTOXIFYLLINE 400 MG CONTROLLED RELEASE TAB PO SCH ×2 (09:00→22:19)
[2017-09-29] MEDS: THIAMINE HCL 100 MG TAB PO SCH (09:00)
[2017-09-29] MEDS: FUROSEMIDE 40 MG TAB PO SCH (09:00)
[2017-09-29] MEDS: DOCUSATE SODIUM 50 MG/SENNA 8.6 MG TAB PO SCH ×2 (09:00→22:19)
--- NOTE | 2017-09-29 09:48 | HHI.GIFU ---
Subjective Remarks Pt resting in bed, getting breathing TX, napping and snoring. Lethargic. Objective Vitals I&O Vital Signs Date Time Temp Pulse Resp B/P (MAP) Pulse Ox O2 Delivery O2 Flow Rate FiO2 09/29/17 09:17 96 Nasal Cannula 4.00 09/29/17 08:58 97 09/29/17 08:00 98.3 107 26 144/69 (94) 91 09/29/17 04:00 Nasal Cannula 4.00 09/29/17 04:00 99 09/29/17 03:06 98.5 98 20 143/89 (107) 99 09/29/17 00:00 124 09/29/17 00:00 98.4 103 28 148/83 (104) 94 09/28/17 20:07 97.1 96 17 145/91 (109) 96 09/28/17 20:00 97 09/28/17 20:00 96 Nasal Cannula 4.00 09/28/17 20:00 Nasal Cannula 4.00 09/28/17 16:00 97.7 100 22 158/96 (116) 92 09/28/17 12:00 98.2 100 23 150/72 (98) 92 I/O 09/28/17 09/28/17 09/28/17 09/29/17 09/29/17 09/29/17 07:00 15:00 23:00 07:00 15:00 23:00 Intake Total 320 ml 680 ml 340 ml Output Total 325 ml 940 ml 600 ml Balance -5 ml -260 ml -260 ml Intake Oral 120 ml 580 ml 240 ml IV Total 200 ml 100 ml 100 ml Output Urine Total 325 ml 940 ml 400 ml Emesis 200 ml Laboratory Date/Time Source Procedure Growth Status 09/26/17 13:40 Fluid Peritoneal Fluid Gram Stain - Final Complete 09/26/17 13:40 Fluid Peritoneal Fluid Body Fluid Culture - Final NO GROWTH IN 72 HRS.--AEROBICALLY OR ... Complete Imaging Last Impressions Cyst Biopsy Asp-Paracentesis US 09/26/17 0000 Signed Impressions: Service Date/Time: Tuesday, September 26, 2017 15:04 - CONCLUSION: Uncomplicated ultrasound guided diagnostic paracentesis, as above. Ezra Denton MD Chest X-Ray 09/25/17 0600 Signed Impressions: Service Date/Time: September 05:36 - CONCLUSION: Possible layering effusion on the left. Jaycob Castillo MD Physical Exam HEENT: Normocephalic; atraumatic, +icterus CHEST: CTA respirations shallow breathing tx CARDIAC: RRR ABDOMEN: Distended, semi-firm but softer today, BS + EXTREMITIES: No clubbing, cyanosis, mild BLE edema SKIN: Normal; no rash; mild generalized jaundice CLASSROOM TECHNOLOGY TECHNICIAN: lethargic Assessment and Plan Plan Assessment/history - Upper GI bleed- history of cirrhosis- last EGD in Jun 2017- revealed single esophageal varix in distal esophagus- coffee ground material and old blood in stomach, no active bleeding. Pt was to repeat EGD in three months ordered but patient never followed up - ETOH abuse- Drinks half a large bottle of vodka daily. Last ETOH was day of admission - Transaminitis- consistent with alcoholic hepatitis - Cirrhosis- Decreased albumin, slight coagulopathy. PT 14.6 INR 1.4 (09/22) --> S/P EGD yesterday --> Esophageal varices. and banding Recent bleeding probably from the esophageal varices. mild gastropathy, hiatal hernia - 09/25/17, abdomen continues to be taut, round, distended. Jaundice noted, bilirubin now 4.2 with elevated LFTs, AST 127, ALT 32 Still on Octreotide drip, denies any hematemesis or rectal bleeding Current H&H 7.8 with mild drop in the past 24 hours BUN 20, creatinine normal 09/26/17 pt still distended, semifirm. respirations shallow. HH relatively stable, no bleeding. PLT improving mild increase tbil otherwise not much change. 09/27/17 pt resting in bed, s/p paracentesis diagnostic only. Saag 1.8. peritoneal fluid no growth 24h. no bleeding. HH stable 09/28/17 pt resting in bed, wants more to eat. tbil going up , INR up to 1.8 now on rifaximin HH stable 09/29/18 lethargic, HH stable. peritoneal fluid no growth 72h. getting breathing tx. NH 42 Plan: - BID lactulose - full liquids, 2gm sodium - d/c octreotide - Protonix IV BID - Pentoxifylline - monitor labs - Notify GI of active bleeding - Transfuse as needed - Repeat EGD with banding in one month - supportive care Pt has been seen by myself and Dr. Everett and this note is on her behalf Chanel Navas Sep 29, 2017 09:48
[2017-09-29] MEDS: LACTULOSE SYRUP 20 GM/30 ML CUP PO SCH ×2 (10:00→21:00)
[2017-09-29] MEDS: PANTOPRAZOLE SODIUM 40 MG VIAL IV PUSH SCH (13:00)
--- NOTE | 2017-09-29 16:40 | HHI.PR ---
Subjective Remarks Pt seen and examined. AFVSS. No acute events overnight. Family present and concerned about patient's health and condition of his liver. Patient reports he is feeling lethargic but thinking clearly. Trying to ambulate a little with PT. Tolerating some PO but endorsing generalized abdominal pain. No CP or SOB. Objective Vitals Vital Signs Date Time Temp Pulse Resp B/P (MAP) Pulse Ox O2 Delivery O2 Flow Rate FiO2 09/29/17 16:14 99.8 103 18 141/92 (108) 96 09/29/17 12:00 98.8 96 22 146/77 (100) 95 09/29/17 09:17 96 Nasal Cannula 4.00 09/29/17 08:58 97 09/29/17 08:00 98.3 107 26 144/69 (94) 91 09/29/17 07:45 Nasal Cannula 4.00 09/29/17 04:00 Nasal Cannula 4.00 09/29/17 04:00 99 09/29/17 03:06 98.5 98 20 143/89 (107) 99 09/29/17 00:00 124 09/29/17 00:00 98.4 103 28 148/83 (104) 94 09/28/17 20:07 97.1 96 17 145/91 (109) 96 09/28/17 20:00 97 09/28/17 20:00 96 Nasal Cannula 4.00 09/28/17 20:00 Nasal Cannula 4.00 I/O 09/28/17 09/28/17 09/28/17 09/29/17 09/29/17 09/29/17 07:00 15:00 23:00 07:00 15:00 23:00 Intake Total 320 ml 680 ml 340 ml Output Total 325 ml 940 ml 600 ml Balance -5 ml -260 ml -260 ml Intake Oral 120 ml 580 ml 240 ml IV Total 200 ml 100 ml 100 ml Output Urine Total 325 ml 940 ml 400 ml Emesis 200 ml Result Diagram: 09/28/1734509/28/17 0346 Objective Remarks GENERAL: male sitting up on the side of the bed. SKIN: Jaundice. HEENT: Pupils equal and round. Scleral icterus. MMM. NECK: Supple no tender LAD or JVD. HEART: RRR no m/r/g. LUNGS: CTAB without wheezes or crackles. ABDOMEN: Tense, distended abdomen. EXTREMITIES: No LE edema or calf tenderness. NEURO: Groggy but alert and answering questions appropriately. Procedures EGD 09/20 showing esophageal varices and recent bleeding EGD 09/22 showing esophageal varices, mild gastropathy, and hiatal hernia U/S guided paracentesis on 09/26 A/P Problem List: (1) Upper GI bleed ICD Code: K92.2 - Gastrointestinal hemorrhage, unspecified (2) Esophageal varices ICD Code: I85.00 - Esophageal varices without bleeding (3) Alcoholic hepatitis ICD Code: K70.10 - Alcoholic hepatitis without ascites (4) Alcohol withdrawal ICD Code: F10.239 - Alcohol dependence with withdrawal, unspecified (5) Alcohol abuse ICD Code: F10.10 - Alcohol abuse, uncomplicated (6) Anemia ICD Code: D64.9 - Anemia, unspecified Status: Acute Assessment and Plan 62 YOWM with history of alcohol abuse admitted on 09/19 initially to the critical care service for UGIB and subsequently went into EtOH withdrawal requiring Precedex drip. UGIB 09/12 varices s/p EGD with banding Bleeding resolved H&H stable. Continue to monitor and transfuse PRN Octreotide drip discontinued Protonix IV BID GI following; recommend repeat EGD in 1 month EtOH hepatitis Bilirubin increasing INR increasing MELD score 24 Supportive care Lactulose BID Lasix and spironolactone for ascites Counseled on EtOH cessation EtOH withdrawal Resolved Tapering Librium Start tapering Valium CIWA Anemia Stable Continue to monitor DVT prophylaxis Avoid chemical anticoagulation secondary to recent bleeding and increasing INR Maya Valenzuela MD Sep 29, 2017 16:40
[2017-09-29] MEDS ORDERED: DIAZEPAM 10 MG TAB PO SCH (21:00)
[2017-09-29] MEDS: BENZONATATE 100 MG CAP PO PRN (22:19)
[2017-09-30] VITALS (8 sets, daily range): BP systolic 116–152; BP diastolic 57–79; PULSE 101–112; RESP 22–29; TEMP 97.8–98.7; O2SAT 92–97
[2017-09-30] MEDS: PANTOPRAZOLE SODIUM 40 MG VIAL IV PUSH SCH ×3 (02:23→23:28)
[2017-09-30] MEDS: cefTRIAXone INJ 2,000 MG in SODIUM CHLORIDE 0.9% INJ 100 ML IV SCH (02:24)
[2017-09-30] MEDS: CHLORHEXIDINE GLUCONATE 2 % 1 PACK (2 CLOTHS) TOP SCH (04:00)
[2017-09-30] MEDS: ALBUMIN 25% INJ 100 ML IV SCH ×2 (06:21→17:01)
[2017-09-30 06:57] LABS: AUTOMATED NEUTROPHIL # 9.4 TH/MM3 (1.8-7.7); BASOPHIL % 0.4 % (0.0-2.0); EOSINOPHIL # 0.2 TH/MM3 (0-0.4); EOSINOPHIL % 1.5 % (0.0-4.0); HEMATOCRIT 25.3 % (39.0-51.0); HEMOGLOBIN 8.2 GM/DL (13.0-17.0); LYMPH % 8.1 % (9.0-44.0); LYMPHOCYTE # 0.9 TH/MM3 (1.0-4.8); MEAN CELL VOLUME 82.1 FL (80.0-100.0); MEAN CORPUSCULAR HEMOGLOBIN 26.8 PG (27.0-34.0); MEAN CORPUSCULAR HGB CONC 32.6 % (32.0-36.0); MEAN PLATELET VOLUME 8.5 FL (7.0-11.0); MONO % 8.5 % (0.0-8.0); NEUT % 81.5 % (16.0-70.0); PLATELET COUNT 181 TH/MM3 (150-450); RED BLOOD COUNT 3.08 MIL/MM3 (4.50-5.90); WHITE BLOOD COUNT 11.5 TH/MM3 (4.0-11.0)
[2017-09-30 07:03] LABS: INTERNATIONAL NORMALIZED RATIO 1.8 RATIO; PROTHROMBIN TIME - PATIENT 18.5 SEC (9.8-11.6)
[2017-09-30 07:31] LABS: ALBUMIN 2.5 GM/DL (3.4-5.0); ALT (GPT) 34 U/L (12-78); AST (GOT) 97 U/L (15-37); BICARBONATE 28.4 MEQ/L (21.0-32.0); CALCIUM 7.6 MG/DL (8.5-10.1); CHLORIDE 99 MEQ/L (98-107); CREATININE 0.66 MG/DL (0.60-1.30); GLOMERULAR FILTRATION RATE 123 ML/MIN (>89); GLUCOSE,RANDOM 81 MG/DL (74-106); SODIUM (NA) 135 MEQ/L (136-145)
[2017-09-30 07:48] LABS: ALKALINE PHOSPHATASE 74 U/L (45-117); BLOOD UREA NITROGEN 11 MG/DL (7-18)
[2017-09-30] MEDS: RESP: ALBUTEROL 2.5 MG/IPRATROPIUM 0.5 MG NEB (SCH) NEB ×3 (08:00→20:40)
[2017-09-30] MEDS: MULTIVITAMIN TAB PO SCH (08:04)
[2017-09-30] MEDS: SPIRONOLACTONE 100 MG TAB PO SCH (08:04)
[2017-09-30] MEDS: THIAMINE HCL 100 MG TAB PO SCH (08:04)
[2017-09-30] MEDS: FUROSEMIDE 40 MG TAB PO SCH (08:04)
[2017-09-30] MEDS: DIAZEPAM 10 MG TAB PO SCH (08:04)
[2017-09-30] MEDS: PENTOXIFYLLINE 400 MG CONTROLLED RELEASE TAB PO SCH ×2 (08:04→21:21)
[2017-09-30] MEDS: DOCUSATE SODIUM 50 MG/SENNA 8.6 MG TAB PO SCH ×2 (08:05→21:21)
[2017-09-30] MEDS: SODIUM CHLORIDE 0.9% FLUSH 10 ML FLUSH IV FLUSH SCH ×2 (08:05→21:22)
[2017-09-30] MEDS: LACTULOSE SYRUP 20 GM/30 ML CUP PO SCH ×4 (08:05→21:21)
[2017-09-30] MEDS: RIFAXIMIN 550 MG TAB PO SCH ×2 (08:05→21:21)
--- NOTE | 2017-09-30 10:51 | HHI.GIFU ---
Subjective Remarks Pt resting in bed. Feeling lethargic. Having continued abd discomfort. Says he is having little stool. (Chanel Navas) Objective Vitals I&O Vital Signs Date Time Temp Pulse Resp B/P (MAP) Pulse Ox O2 Delivery O2 Flow Rate FiO2 09/30/17 09:06 92 Nasal Cannula 4.00 09/30/17 08:00 98.4 109 26 152/73 (99) 96 09/30/17 04:47 97.9 105 22 140/75 (96) 93 09/30/17 00:00 97.8 104 22 122/57 (78) 93 09/29/17 22:30 Nasal Cannula 4.00 09/29/17 20:16 93 Nasal Cannula 4.00 09/29/17 20:00 98.8 113 20 131/69 (89) 99 09/29/17 16:14 99.8 103 18 141/92 (108) 96 09/29/17 12:00 98.8 96 22 146/77 (100) 95 I/O 09/29/17 09/29/17 09/29/17 09/30/17 09/30/17 09/30/17 07:00 15:00 23:00 07:00 15:00 23:00 Intake Total 340 ml 900 ml 240 ml Output Total 600 ml 1200 ml 240 ml Balance -260 ml -300 ml 0 ml Intake Oral 240 ml 900 ml 240 ml IV Total 100 ml Output Urine Total 400 ml 1200 ml 240 ml Emesis 200 ml # Voids 1 # Bowel Movements 0 Laboratory Laboratory Tests Test 09/30/17 05:34 09/30/17 06:30 White Blood Count 11.5 Red Blood Count 3.08 Hemoglobin 8.2 Hematocrit 25.3 Mean Corpuscular Volume 82.1 Mean Corpuscular Hemoglobin 26.8 Mean Corpuscular Hemoglobin Concent 32.6 Red Cell Distribution Width 25.0 Platelet Count 181 Mean Platelet Volume 8.5 Neutrophils (%) (Auto) 81.5 Lymphocytes (%) (Auto) 8.1 Monocytes (%) (Auto) 8.5 Eosinophils (%) (Auto) 1.5 Basophils (%) (Auto) 0.4 Neutrophils # (Auto) 9.4 Lymphocytes # (Auto) 0.9 Monocytes # (Auto) 1.0 Eosinophils # (Auto) 0.2 Basophils # (Auto) 0.0 CBC Comment DIFF FINAL Differential Comment Prothrombin Time 18.5 Prothromb Time International Ratio 1.8 Blood Urea Nitrogen 11 Creatinine 0.66 Random Glucose 81 Total Protein 7.0 Albumin 2.5 Calcium Level 7.6 Alkaline Phosphatase 74 Aspartate Amino Transf (AST/SGOT) 97 Alanine Aminotransferase (ALT/SGPT) 34 Total Bilirubin 11.0 Sodium Level 135 Potassium Level 3.7 Chloride Level 99 Carbon Dioxide Level 28.4 Anion Gap 8 Estimat Glomerular Filtration Rate 123 Ammonia 53 Date/Time Source Procedure Growth Status 09/26/17 13:40 Fluid Peritoneal Fluid Gram Stain - Final Complete 09/26/17 13:40 Fluid Peritoneal Fluid Body Fluid Culture - Final NO GROWTH IN 72 HRS.--AEROBICALLY OR ... Complete Imaging Last Impressions Cyst Biopsy Asp-Paracentesis US 09/26/17 0000 Signed Impressions: Service Date/Time: Tuesday, September 26, 2017 15:04 - CONCLUSION: Uncomplicated ultrasound guided diagnostic paracentesis, as above. Ezra Denton MD Chest X-Ray 09/25/17 0600 Signed Impressions: Service Date/Time: September 05:36 - CONCLUSION: Possible layering effusion on the left. 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 Pt was to repeat EGD in three months ordered but patient never followed up - ETOH abuse- Drinks half a large bottle of vodka daily. Last ETOH was day of admission - Transaminitis- consistent with alcoholic hepatitis - Cirrhosis- Decreased albumin, slight coagulopathy. PT 14.6 INR 1.4 (09/22) --> S/P EGD yesterday --> Esophageal varices. and banding Recent bleeding probably from the esophageal varices. mild gastropathy, hiatal hernia - 09/25/17, abdomen continues to be taut, round, distended. Jaundice noted, bilirubin now 4.2 with elevated LFTs, AST 127, ALT 32 Still on Octreotide drip, denies any hematemesis or rectal bleeding Current H&H 7.8 with mild drop in the past 24 hours BUN 20, creatinine normal 09/26/17 pt still distended, semifirm. respirations shallow. HH relatively stable, no bleeding. PLT improving mild increase tbil otherwise not much change. 09/27/17 pt resting in bed, s/p paracentesis diagnostic only. Saag 1.8. peritoneal fluid no growth 24h. no bleeding. HH stable 09/28/17 pt resting in bed, wants more to eat. tbil going up , INR up to 1.8 now on rifaximin HH stable 09/29/17 lethargic, HH stable. peritoneal fluid no growth 72h. getting breathing tx. NH 42 09/30/17 remains lethargic, NH 53. t maged trending up. still with abd discomfort. will get KUB and increase lactulose Plan: - KUB - qID lactulose - full liquids, 2gm sodium - Protonix IV BID - Pentoxifylline - monitor labs - Notify GI of active bleeding - Transfuse as needed - Repeat EGD with banding in 3 weeks - supportive care Pt has been seen by myself and Dr. Marmolejo and this note is on her behalf (Chanel Navas) Physician Comments Continued abdominal pain. CT abd/pelvis. (Alec Marmolejo MD) Chanel Navas Sep 30, 2017 10:51 Alec Marmolejo MD Sep 30, 2017 14:56
[2017-09-30] MEDS: BENZONATATE 100 MG CAP PO PRN (11:35)
[2017-09-30] MEDS: MORPHINE SULFATE 4 MG/ML INJ IV PUSH PRN ×3 (11:35→23:28)
[2017-09-30 11:38] LABS: AMYLASE BODY FLUID 33 U/L; AMYLASE BODY FLUID TYPE PERITONEAL
--- NOTE | 2017-09-30 13:03 | RADRPT ---
EXAM DATE/TIME: 09/30/2017 12:06 [facility] COMPARISON: No previous studies available for comparison. INDICATIONS : Abdominal pain. MEDICAL HISTORY : Stroke. Hypertension. Esophageal varices. Abdominal pain. Hodgkins lymphoma. SURGICAL HISTORY : Testicle removed. Lymph node removal ENCOUNTER: Subsequent ACUITY: 1 day PAIN SCORE: Non-responsive. LOCATION: abdomen FINDINGS: Supine view of the abdomen was performed. No acute findings. No obstruction or free air. Mild osteoar thritis of the hips. CONCLUSION: 1. No acute findings. Tyler Adams MD on September 30, 2017 at 12:58 Board Certified Radiologist. This report was verified electronically.
[2017-09-30] MEDS: HALOPERIDOL LACTATE 5 MG/ML AMP IV PUSH PRN (13:18)
[2017-09-30] MEDS ORDERED: DIATRIZOATE MEGLUM/DIATRIZOATE SOD 9 ML CUP PO ONE (15:30)
--- NOTE | 2017-09-30 17:54 | HHI.PR ---
Subjective Remarks The patient is lethargic. Denies chest pain, shortness of breath. Low-grade fever with a T-max of 99.8 reported yesterday. Objective Vitals Vital Signs Date Time Temp Pulse Resp B/P (MAP) Pulse Ox O2 Delivery O2 Flow Rate FiO2 09/30/17 16:00 98.2 109 24 138/79 (98) 96 09/30/17 12:00 98.3 112 29 116/70 (85) 96 09/30/17 09:06 92 Nasal Cannula 4.00 09/30/17 08:00 96 Nasal Cannula 4.00 30 Humidified 09/30/17 08:00 109 09/30/17 08:00 98.4 109 26 152/73 (99) 96 09/30/17 04:47 97.9 105 22 140/75 (96) 93 09/30/17 00:00 97.8 104 22 122/57 (78) 93 09/29/17 22:30 Nasal Cannula 4.00 09/29/17 20:16 93 Nasal Cannula 4.00 09/29/17 20:00 98.8 113 20 131/69 (89) 99 I/O 09/29/17 09/29/17 09/29/17 09/30/17 09/30/17 09/30/17 07:00 15:00 23:00 07:00 15:00 23:00 Intake Total 340 ml 900 ml 240 ml Output Total 600 ml 1200 ml 240 ml Balance -260 ml -300 ml 0 ml Intake Oral 240 ml 900 ml 240 ml IV Total 100 ml Output Urine Total 400 ml 1200 ml 240 ml Emesis 200 ml # Voids 1 # Bowel Movements 0 Result Diagram: 09/30/17 0534 09/30/17 0534 Imaging Last Impressions Abdomen X-Ray 09/30/17 0000 Signed Impressions: Service Date/Time: Saturday, September 30, 2017 12:06 - CONCLUSION: 1. No acute findings. Tyler Adams MD Cyst Biopsy Asp-Paracentesis US 09/26/17 0000 Signed Impressions: Service Date/Time: Tuesday, September 26, 2017 15:04 - CONCLUSION: Uncomplicated ultrasound guided diagnostic paracentesis, as above. Ezra Denton MD Chest X-Ray 09/25/17 0600 Signed Impressions: Service Date/Time: September 05:36 - CONCLUSION: Possible layering effusion on the left. Jaycob Castillo MD Objective Remarks GENERAL: male lethargic, confused. SKIN: Jaundice. HEENT: Pupils equal and round. Scleral icterus. MMM. NECK: Supple no tender LAD or JVD. HEART: RRR no m/r/g. LUNGS: CTAB without wheezes or crackles. ABDOMEN: Tense, distended abdomen. EXTREMITIES: No LE edema or calf tenderness. NEURO: Groggy but alert and answering questions appropriately. Procedures EGD 09/20 showing esophageal varices and recent bleeding EGD 09/22 showing esophageal varices, mild gastropathy, and hiatal hernia U/S guided paracentesis on 09/26 Medications and IVs Current Medications Medications (Trade) Dose Ordered Sig/[place]urel Route Start Time Stop Time Status Last Admin (Ativan Inj) 1 mg Q2H PRN IV PUSH 09/19/17 01:00 (Trandate Inj) 10 mg Q4H PRN IV PUSH 09/19/17 03:00 (Romazicon Inj) 0.2 mg Q1M PRN IV PUSH 09/19/17 03:15 (Ativan) 1 mg Q4H PRN PO 09/19/17 03:15 09/28/17 16:11 (Ativan Inj) 1 mg Q4H PRN IV PUSH 09/19/17 03:15 09/28/17 22:07 (Ativan) 2 mg Q2H PRN PO 09/19/17 03:15 (Ativan Inj) 2 mg Q2H PRN IV PUSH 09/19/17 03:15 09/21/17 15:06 (Ativan Inj) 2 mg Q1H PRN IV PUSH 09/19/17 03:15 (Ativan Inj) 2 mg Q15M PRN IV PUSH 09/19/17 03:15 Ceftriaxone Sodium 2000 mg/ Sodium Chloride 100 ml @ 200 mls/hr DAILY@0300 IV 09/19/17 03:15 09/30/17 02:24 (NS Flush) 2 ml UNSCH PRN IV FLUSH 09/19/17 03:15 09/28/17 16:10 (NS Flush) 2 ml BID IV FLUSH 09/19/17 09:00 09/30/17 08:05 (Tylenol) 650 mg Q6H PRN PO 09/19/17 03:15 (Morphine Inj) 2 mg Q2H PRN IV PUSH 09/19/17 03:15 09/30/17 17:01 (Protonix Inj) 40 mg Q12H IV PUSH 09/19/17 13:00 09/30/17 11:35 (Zofran Inj) 4 mg Q6H PRN IV PUSH 09/19/17 03:15 09/28/17 22:43 (Duoneb Neb) 1 ampule Q2HR NEB PRN INH 09/19/17 03:15 09/25/17 22:28 Miscellaneous Information 1 Q361D XX 09/19/17 03:15 (Chlorhexidine 2% Cloth) Taper DAILY@04 TOP 09/19/17 04:00 09/15/18 03:59 (Chlorhexidine 2% Cloth) 3 pack UNSCH PRN TOP 09/19/17 03:15 (Ronit-Colace) 1 tab BID PO 09/19/17 09:00 09/30/17 08:05 (Milk Of Magnesia Liq) 30 ml Q12H PRN PO 09/19/17 03:15 (Senokot) 17.2 mg Q12H PRN PO 09/19/17 03:15 (Dulcolax Supp) 10 mg DAILY PRN RECTAL 09/19/17 03:15 (Lactulose Liq) 30 ml DAILY PRN PO 09/19/17 03:15 Potassium Chloride 100 ml @ 50 mls/hr Q2H PRN IV 09/20/17 10:15 Potassium Chloride 100 ml @ 50 mls/hr Q2H PRN IV 09/20/17 10:15 (K-Lyte Cl Eff) 50 meq UNSCH PRN PO 09/20/17 10:15 Potassium Chloride 100 ml @ 25 mls/hr UNSCH PRN IV 09/20/17 10:15 Potassium Chloride 100 ml @ 50 mls/hr Q2H PRN IV 09/20/17 10:15 Magnesium Sulfate 4 gm/Sodium Chloride 100 ml @ 50 mls/hr UNSCH PRN IV 09/20/17 10:15 (Mag-Ox) 800 mg UNSCH PRN PO 09/20/17 10:15 Magnesium Sulfate 2 gm/Sodium Chloride 100 ml @ 50 mls/hr UNSCH PRN IV 09/20/17 10:15 09/26/17 03:40 (K-Phos) 2,000 mg Q4H PRN PO 09/20/17 10:15 Sodium Phosphate 30 mmol/Sodium Chloride 250 ml @ 42 mls/hr UNSCH PRN IV 09/20/17 10:15 (K-Phos) 2,000 mg UNSCH PRN PO/TUBE 09/20/17 10:15 Potassium Phosphate 30 mmol/ Sodium Chloride 260 ml @ 42 mls/hr UNSCH PRN IV 09/20/17 10:15 09/26/17 05:44 (Vitamin B1) 100 mg DAILY PO 09/24/17 09:00 09/30/17 08:04 (Theragran) 1 tab DAILY PO 09/21/17 09:00 09/30/17 08:04 (Benadryl Inj) 12.5 mg Q4H PRN IM 09/21/17 14:00 09/21/17 14:00 (Haldol Inj) 5 mg Q4H PRN IV PUSH 09/21/17 14:00 09/30/17 13:18 Dexmedetomidine HCl 1000 mcg/ Sodium Chloride 250 ml @ 6.57 mls/hr TITRATE PRN IV 09/21/17 18:30 09/23/17 00:11 (TRENtal SR) 400 mg Q12HR PO 09/23/17 21:00 09/30/17 08:04 (Aldactone) 100 mg DAILY PO 09/26/17 09:00 09/30/17 08:04 (Lasix) 40 mg DAILY PO 09/25/17 17:45 09/30/17 08:04 Albumin Human 100 ml @ 60 mls/hr Q12H IV 09/25/17 17:45 09/30/17 17:01 (Robitussin Dm 200-20 Mg/10 ml Liq) 10 ml Q6H PRN PO 09/26/17 13:30 (Duoneb Neb) 1 ampule TID NEB NEB 09/27/17 14:00 09/29/17 20:12 (Xifaxan) 550 mg BID PO 09/27/17 21:00 09/30/17 08:05 (Librium) 15 mg DAILY PO 09/29/17 09:00 09/30/17 08:04 (Valium) 10 mg Q12HR PO 09/29/17 21:00 10/01/17 20:59 09/30/17 08:04 (Valium) 5 mg Q12H PO 10/01/17 21:00 10/04/17 20:59 (Valium) 4 mg DAILY PO 10/04/17 21:00 10/07/17 20:59 (Tessalon) 200 mg TID PRN PO 09/29/17 20:00 09/30/17 11:35 (Lactulose Liq) 30 ml QID PO 09/30/17 13:00 09/30/17 17:01 Phytonadione 10 mg/Sodium Chloride 51 ml @ 102 mls/hr ONCE ONCE IV 09/30/17 18:00 09/30/17 18:29 UNV (Vitamin K Inj) 10 mg DAILY SQ 09/30/17 18:00 UNV A/P Problem List: (1) Upper GI bleed ICD Code: K92.2 - Gastrointestinal hemorrhage, unspecified (2) Esophageal varices ICD Code: I85.00 - Esophageal varices without bleeding (3) Alcoholic hepatitis ICD Code: K70.10 - Alcoholic hepatitis without ascites (4) Alcohol withdrawal ICD Code: F10.239 - Alcohol dependence with withdrawal, unspecified (5) Alcohol abuse ICD Code: F10.10 - Alcohol abuse, uncomplicated (6) Anemia ICD Code: D64.9 - Anemia, unspecified Status: Acute Assessment and Plan 62 YOWM with history of alcohol abuse admitted on 09/19 initially to the critical care service for UGIB and subsequently went into EtOH withdrawal requiring Precedex drip. UGIB 2/2 varices s/p EGD with banding Bleeding resolved H&H stable. Continue to monitor and transfuse PRN Octreotide drip discontinued Protonix IV BID GI following; recommend repeat EGD in 1 month EtOH hepatitis Bilirubin increasing INR increasing MELD score 24 Supportive care Lasix and spironolactone for ascites Counseled on EtOH cessation 09/30 LFTs initially trending down, AST initially 112, trended down to 86 and now is getting up to 97. Bilirubin is trending up as well as ammonia. We will check CT abdomen and pelvis since patient has abdominal discomfort and KUB is normal. EtOH withdrawal Resolved Tapering Librium Start tapering Valium CIWA Anemia Stable Continue to monitor Encephalopathy 09/30 Likely toxic encephalopathy from hyperammonemia. Agree with increasing lactulose frequency to 4 times daily. Continue to monitor ammonia levels. We will check CT of the head to rule out an acute intracranial process. Abdominal pain The patient still present abdominal discomfort. KUB ordered and without any acute disease. I will order CT abdomen and pelvis with and without IV contrast. Hyperammonemia. Likely secondary to liver cirrhosis. Continue lactulose as stated above. Monitor ammonia levels. Coagulopathy. INR is trending up from 1.6-1.8. I will give IV vitamin K today and subcutaneously daily afterwards. Continue to monitor PT/INR. Ascites. Continue spironolactone and Lasix for ascites. The patient status post ultrasound-guided paracentesis, with a noninfectious fluid. Low-grade fever. Patient had a low-grade fever with a T-max of 99.8. I will check urinalysis. Hypertension Labetalol when necessary to keep SBP less than 160 Discontinue clonidine in view of hypotension. Alcoholism - [facility] protocol - mvi - thiamine - valium 5mg po q8h - Added Librium 15 mg by mouth twice a day on 09/23 09/30 discontinue Valium which could be contributing to the patient's encephalopathy at this point. Anemia secondary to acute blood loss - stable. - daily cbc - keep hgb > 7. GERD - iv bid ppi Influenza Acute respiratory failure -Continue supplemental O2. Follow-up chest x-ray tomorrow. Bronchodilators as needed. -Consult pulmonary for respiratory failure as patient being transferred to the floor. DVT prophylaxis: SCDs, avoid chemoprophylaxis given coagulopathy and anemia and recent GI bleeding. Discharge Planning Continue to monitor in intensive care unit. Raffi Johnson MD Sep 30, 2017 17:54
[2017-09-30] MEDS ORDERED: PHYTONADIONE 10 MG/D5W 50 ML IV ONE ×2 (19:15)
[2017-09-30] MEDS ORDERED: PHYTONADIONE INJ 10 MG in SODIUM CHLORIDE 0.9% INJ 50 ML IV ONE (19:15)
[2017-10-01] VITALS (10 sets, daily range): BP systolic 131–164; BP diastolic 63–92; PULSE 93–124; RESP 18–29; TEMP 97.6–98.6; O2SAT 90–98
[2017-10-01] MEDS: cefTRIAXone INJ 2,000 MG in SODIUM CHLORIDE 0.9% INJ 100 ML IV SCH (02:40)
[2017-10-01] MEDS: SODIUM CHLORIDE 0.9% FLUSH 10 ML FLUSH IV FLUSH PRN (02:40)
[2017-10-01] MEDS: CHLORHEXIDINE GLUCONATE 2 % 1 PACK (2 CLOTHS) TOP SCH (04:00)
[2017-10-01 05:35] LABS: BASOPHIL % 0.3 % (0.0-2.0); EOSINOPHIL # 0.1 TH/MM3 (0-0.4); EOSINOPHIL % 1.3 % (0.0-4.0); HEMATOCRIT 22.8 % (39.0-51.0); HEMOGLOBIN 7.4 GM/DL (13.0-17.0); LYMPH % 8.8 % (9.0-44.0); MEAN CELL VOLUME 81.6 FL (80.0-100.0); MEAN CORPUSCULAR HEMOGLOBIN 26.5 PG (27.0-34.0); MEAN CORPUSCULAR HGB CONC 32.4 % (32.0-36.0); MEAN PLATELET VOLUME 8.1 FL (7.0-11.0); MONO % 8.1 % (0.0-8.0); MONOCYTE # 0.9 TH/MM3 (0-0.9); NEUT % 81.5 % (16.0-70.0); PLATELET COUNT 155 TH/MM3 (150-450); RED BLOOD COUNT 2.79 MIL/MM3 (4.50-5.90); RED CELL DISTRIBUTION WIDTH 25.1 % (11.6-17.2); WHITE BLOOD COUNT 11.1 TH/MM3 (4.0-11.0)
[2017-10-01] MEDS: ALBUMIN 25% INJ 100 ML IV SCH ×2 (05:58→18:03)
[2017-10-01 06:01] LABS: ALBUMIN 2.6 GM/DL (3.4-5.0); AST (GOT) 88 U/L (15-37); BICARBONATE 28.9 MEQ/L (21.0-32.0); BLOOD UREA NITROGEN 11 MG/DL (7-18); CHLORIDE 98 MEQ/L (98-107); GLOMERULAR FILTRATION RATE 115 ML/MIN (>89); GLUCOSE,RANDOM 93 MG/DL (74-106); MAGNESIUM 1.9 MG/DL (1.5-2.5); SODIUM (NA) 135 MEQ/L (136-145)
[2017-10-01 06:02] LABS: ALT (GPT) 29 U/L (12-78); PHOSPHORUS 1.7 MG/DL (2.5-4.9)
[2017-10-01 06:04] LABS: ALKALINE PHOSPHATASE 84 U/L (45-117); TOTAL PROTEIN 6.6 GM/DL (6.4-8.2)
[2017-10-01] MEDS: MORPHINE SULFATE 4 MG/ML INJ IV PUSH PRN ×2 (06:07→10:23)
[2017-10-01 08:36] LABS: POLYCHROMASIA 2.6 % (0.0-1.9); STOMATOCYTES 2+ (NORMAL)
[2017-10-01 08:37] LABS: TOXIC GRANULATION 1+ (NORMAL)
[2017-10-01] MEDS: RESP: ALBUTEROL 2.5 MG/IPRATROPIUM 0.5 MG NEB (SCH) NEB ×3 (08:48→19:55)
[2017-10-01] MEDS: SODIUM CHLORIDE 0.9% FLUSH 10 ML FLUSH IV FLUSH SCH ×2 (09:00→23:21)
[2017-10-01] MEDS: SPIRONOLACTONE 100 MG TAB PO SCH (09:00)
[2017-10-01] MEDS: DOCUSATE SODIUM 50 MG/SENNA 8.6 MG TAB PO SCH ×2 (09:00→23:21)
[2017-10-01] MEDS: THIAMINE HCL 100 MG TAB PO SCH (09:37)
[2017-10-01] MEDS: RIFAXIMIN 550 MG TAB PO SCH ×2 (09:37→23:21)
[2017-10-01] MEDS: MULTIVITAMIN TAB PO SCH (09:37)
[2017-10-01] MEDS: PENTOXIFYLLINE 400 MG CONTROLLED RELEASE TAB PO SCH ×2 (09:37→23:21)
[2017-10-01] MEDS: LACTULOSE SYRUP 20 GM/30 ML CUP PO SCH ×4 (09:37→21:00)
[2017-10-01] MEDS: PHYTONADIONE 10 MG/ML VIAL SQ SCH (09:38)
--- NOTE | 2017-10-01 10:12 | RADRPT ---
EXAM DATE/TIME: 10/01/2017 09:33 [facility] COMPARISON: ABDOMEN KUB ONLY, September 30, 2017, 12:06. CHEST SINGLE AP, September 19, 2017, 0:46. CHEST SINGLE AP, September 25, 2017, 5:36. INDICATIONS : Respiratory failure. MEDICAL HISTORY : Stroke. Hypertension. Esophageal varices. Abdominal pain. Hodgkins lymphoma. SURGICAL HISTORY : Testicle removed. Lymph node removal. ENCOUNTER: Subsequent ACUITY: 4 - 6 days PAIN SCORE: 0/10 LOCATION: Bilateral chest FINDINGS: Consolidation in the medial left lower lung with air bronchograms and loss of delineation no warmth o r left hemidiaphragm. Right lung is clear. The heart is upper limits normal size for AP portable te chnique. CONCLUSION: Left lower lobe consolidation. Shahid Millard MD on October 01, 2017 at 10:09 Board Certified Radiologist. This report was verified electronically.
[2017-10-01] MEDS: FUROSEMIDE 40 MG TAB PO SCH (10:21)
[2017-10-01] MEDS: BENZONATATE 100 MG CAP PO PRN (10:22)
[2017-10-01] MEDS ORDERED: DIATRIZOATE MEGLUM/DIATRIZOATE SOD 9 ML CUP PO ONE (11:15)
[2017-10-01] MEDS: PANTOPRAZOLE SODIUM 40 MG VIAL IV PUSH SCH (11:55)
--- NOTE | 2017-10-01 11:56 | HHI.PR ---
Subjective Remarks As per RN, the patient still confused, however is more awake. Unable to obtain a clear answer from the patient Patient still tachycardic. Patient seems to be in moderate respiratory distress on high levels of oxygen with 5 L nasal cannula. Objective Vitals Vital Signs Date Time Temp Pulse Resp B/P (MAP) Pulse Ox O2 Delivery O2 Flow Rate FiO2 10/01/17 10:28 18 10/01/17 08:50 98 Nasal Cannula 5.00 10/01/17 08:00 98.1 93 28 164/91 (115) 92 10/01/17 04:00 97.6 109 20 133/63 (86) 94 10/01/17 00:00 98.1 109 20 132/66 (88) 94 09/30/17 20:41 97 Nasal Cannula 4.00 09/30/17 20:00 101 09/30/17 20:00 98.7 110 24 145/75 (98) 95 09/30/17 19:00 Nasal Cannula 4.00 09/30/17 16:00 98.2 109 24 138/79 (98) 96 09/30/17 12:00 98.3 112 29 116/70 (85) 96 I/O 09/30/17 09/30/17 09/30/17 10/01/17 10/01/17 10/01/17 07:00 15:00 23:00 07:00 15:00 23:00 Intake Total 240 ml 1230 ml 240 ml Output Total 240 ml 900 ml 400 ml Balance 0 ml 330 ml -160 ml Intake Oral 240 ml 1200 ml 240 ml IV Total 30 ml Output Urine Total 240 ml 900 ml 400 ml # Voids 3 # Bowel Movements 1 Result Diagram: 10/01/17 0508 10/01/17 0508 Imaging Last Impressions Chest X-Ray 10/01/17 0000 Signed Impressions: Service Date/Time: Sunday, October 01, 2017 09:33 - CONCLUSION: Left lower lobe consolidation. Shahid Millard MD Abdomen X-Ray 09/30/17 0000 Signed Impressions: Service Date/Time: Saturday, September 30, 2017 12:06 - CONCLUSION: 1. No acute findings. Tylre Adams MD Cyst Biopsy Asp-Paracentesis US 09/26/17 0000 Signed Impressions: Service Date/Time: Tuesday, September 26, 2017 15:04 - CONCLUSION: Uncomplicated ultrasound guided diagnostic paracentesis, as above. Ezra Denton MD Objective Remarks GENERAL: male awake and alert, confused. SKIN: Jaundice. HEENT: Pupils equal and round. Scleral icterus. MMM. NECK: Supple no tender LAD or JVD. HEART: RRR no m/r/g. LUNGS: CTAB without wheezes or crackles. ABDOMEN: Tense, distended abdomen. EXTREMITIES: No LE edema or calf tenderness. NEURO: Groggy but alert and answering questions appropriately. Procedures EGD 09/20 showing esophageal varices and recent bleeding EGD 09/22 showing esophageal varices, mild gastropathy, and hiatal hernia U/S guided paracentesis on 09/26 Medications and IVs Current Medications Medications (Trade) Dose Ordered Sig/[place] Route Start Time Stop Time Status Last Admin (Ativan Inj) 1 mg Q2H PRN IV PUSH 09/19/17 01:00 (Trandate Inj) 10 mg Q4H PRN IV PUSH 09/19/17 03:00 (Romazicon Inj) 0.2 mg Q1M PRN IV PUSH 09/19/17 03:15 (Ativan) 1 mg Q4H PRN PO 09/19/17 03:15 09/28/17 16:11 (Ativan Inj) 1 mg Q4H PRN IV PUSH 09/19/17 03:15 09/28/17 22:07 (Ativan) 2 mg Q2H PRN PO 09/19/17 03:15 (Ativan Inj) 2 mg Q2H PRN IV PUSH 09/19/17 03:15 09/21/17 15:06 (Ativan Inj) 2 mg Q1H PRN IV PUSH 09/19/17 03:15 (Ativan Inj) 2 mg Q15M PRN IV PUSH 09/19/17 03:15 Ceftriaxone Sodium 2000 mg/ Sodium Chloride 100 ml @ 200 mls/hr DAILY@0300 IV 09/19/17 03:15 10/01/17 02:40 (NS Flush) 2 ml UNSCH PRN IV FLUSH 09/19/17 03:15 10/01/17 02:40 (NS Flush) 2 ml BID IV FLUSH 09/19/17 09:00 09/30/17 21:22 (Tylenol) 650 mg Q6H PRN PO 09/19/17 03:15 (Morphine Inj) 2 mg Q2H PRN IV PUSH 09/19/17 03:15 10/01/17 10:23 (Protonix Inj) 40 mg Q12H IV PUSH 09/19/17 13:00 10/01/17 11:55 (Zofran Inj) 4 mg Q6H PRN IV PUSH 09/19/17 03:15 09/28/17 22:43 (Duoneb Neb) 1 ampule Q2HR NEB PRN INH 09/19/17 03:15 09/25/17 22:28 Miscellaneous Information 1 Q361D XX 09/19/17 03:15 (Chlorhexidine 2% Cloth) Taper DAILY@04 TOP 09/19/17 04:00 09/15/18 03:59 (Chlorhexidine 2% Cloth) 3 pack UNSCH PRN TOP 09/19/17 03:15 (Ronit-Colace) 1 tab BID PO 09/19/17 09:00 09/30/17 21:21 (Milk Of Magnesia Liq) 30 ml Q12H PRN PO 09/19/17 03:15 (Senokot) 17.2 mg Q12H PRN PO 09/19/17 03:15 (Dulcolax Supp) 10 mg DAILY PRN RECTAL 09/19/17 03:15 (Lactulose Liq) 30 ml DAILY PRN PO 09/19/17 03:15 Potassium Chloride 100 ml @ 50 mls/hr Q2H PRN IV 09/20/17 10:15 Potassium Chloride 100 ml @ 50 mls/hr Q2H PRN IV 09/20/17 10:15 (K-Lyte Cl Eff) 50 meq UNSCH PRN PO 09/20/17 10:15 Potassium Chloride 100 ml @ 25 mls/hr UNSCH PRN IV 09/20/17 10:15 Potassium Chloride 100 ml @ 50 mls/hr Q2H PRN IV 09/20/17 10:15 Magnesium Sulfate 4 gm/Sodium Chloride 100 ml @ 50 mls/hr UNSCH PRN IV 09/20/17 10:15 (Mag-Ox) 800 mg UNSCH PRN PO 09/20/17 10:15 Magnesium Sulfate 2 gm/Sodium Chloride 100 ml @ 50 mls/hr UNSCH PRN IV 09/20/17 10:15 09/26/17 03:40 (K-Phos) 2,000 mg Q4H PRN PO 09/20/17 10:15 Sodium Phosphate 30 mmol/Sodium Chloride 250 ml @ 42 mls/hr UNSCH PRN IV 09/20/17 10:15 (K-Phos) 2,000 mg UNSCH PRN PO/TUBE 09/20/17 10:15 Potassium Phosphate 30 mmol/ Sodium Chloride 260 ml @ 42 mls/hr UNSCH PRN IV 09/20/17 10:15 09/26/17 05:44 (Vitamin B1) 100 mg DAILY PO 09/24/17 09:00 10/01/17 09:37 (Theragran) 1 tab DAILY PO 09/21/17 09:00 10/01/17 09:37 (Benadryl Inj) 12.5 mg Q4H PRN IM 09/21/17 14:00 09/21/17 14:00 (Haldol Inj) 5 mg Q4H PRN IV PUSH 09/21/17 14:00 09/30/17 13:18 Dexmedetomidine HCl 1000 mcg/ Sodium Chloride 250 ml @ 6.57 mls/hr TITRATE PRN IV 09/21/17 18:30 09/23/17 00:11 (TRENtal SR) 400 mg Q12HR PO 09/23/17 21:00 10/01/17 09:37 (Aldactone) 100 mg DAILY PO 09/26/17 09:00 09/30/17 08:04 Albumin Human 100 ml @ 60 mls/hr Q12H IV 09/25/17 17:45 10/01/17 05:58 (Robitussin Dm 200-20 Mg/10 ml Liq) 10 ml Q6H PRN PO 09/26/17 13:30 (Xifaxan) 550 mg BID PO 09/27/17 21:00 10/01/17 09:37 (Librium) 15 mg DAILY PO 09/29/17 09:00 10/01/17 09:37 (Tessalon) 200 mg TID PRN PO 09/29/17 20:00 10/01/17 10:22 (Lactulose Liq) 30 ml QID PO 09/30/17 13:00 10/01/17 11:55 (Vitamin K Inj) 10 mg DAILY SQ 10/01/17 09:00 10/01/17 09:38 (Lasix Inj) 40 mg BID@18 IV PUSH 10/01/17 18:00 Piperacillin Sod/ Tazobactam Sod 100 ml @ 200 mls/hr Q8H IV 10/01/17 13:00 10/01/17 13:13 Vancomycin HCl 1000 mg/Sodium Chloride 250 ml @ 250 mls/hr Q12H IV 10/01/17 12:00 [facility] Pharmacy Profile Note 0 ml @ 0 mls/hr UNSCH OTHER 10/01/17 12:00 (Duoneb Neb) 1 ampule TID NEB NEB 10/01/17 14:00 Vancomycin HCl 2200 mg/Sodium Chloride 522 ml @ 250 mls/hr Q12H IV 10/01/17 16:00 Miscellaneous Information SPECIFIC LAB TO BE DRAWN:VANCOMY... ONCE ONCE .XX 10/03/17 03:45 10/03/17 03:46 A/P Problem List: (1) Upper GI bleed ICD Code: K92.2 - Gastrointestinal hemorrhage, unspecified (2) Esophageal varices ICD Code: I85.00 - Esophageal varices without bleeding (3) Alcoholic hepatitis ICD Code: K70.10 - Alcoholic hepatitis without ascites (4) Alcohol withdrawal ICD Code: F10.239 - Alcohol dependence with withdrawal, unspecified (5) Alcohol abuse ICD Code: F10.10 - Alcohol abuse, uncomplicated (6) Anemia ICD Code: D64.9 - Anemia, unspecified Status: Acute Assessment and Plan 62 YOWM with history of alcohol abuse admitted on 09/19 initially to the critical care service for UGIB and subsequently went into EtOH withdrawal requiring Precedex drip. UGIB 09/12 varices s/p EGD with banding Bleeding resolved H&H stable. Continue to monitor and transfuse PRN Octreotide drip discontinued Protonix IV BID GI following; recommend repeat EGD in 1 month EtOH hepatitis Bilirubin increasing INR increasing MELD score 24 Supportive care Lasix and spironolactone for ascites Counseled on EtOH cessation 09/30 LFTs initially trending down, AST initially 112, trended down to 86 and now is getting up to 97. Bilirubin is trending up as well as ammonia. We will check CT abdomen and pelvis since patient has abdominal discomfort and KUB is normal. 10/01 AST slightly lower today from 97-88. Bilirubin noted to be trending higher from 11-12. Order fractionated bilirubin. Alkaline phosphatase is normal. EtOH withdrawal Resolved Tapering Librium Start tapering Valium CIWA 10/01 there is no evidence of alcohol withdrawal. Anemia Hemoglobin trending down to 7.4. I will repeat CBC and if hemoglobin is confirmed to be low then will transfuse 2 units of packed red blood cells. Encephalopathy 09/30 Likely toxic encephalopathy from hyperammonemia. Agree with increasing lactulose frequency to 4 times daily. Continue to monitor ammonia levels. 10/01 CT of the brain ordered on 09/30 and still not available. Abdominal pain The patient still present abdominal discomfort. KUB ordered and without any acute disease. I will order CT abdomen and pelvis with and without IV contrast. 10/01 CT abdomen and pelvis ordered on 09/30 still not available. Hyperammonemia. Likely secondary to liver cirrhosis. Continue lactulose as stated above. Monitor ammonia levels. 10/01 ammonia levels down to 39 from 53. Continue lactulose 4 times a day. Coagulopathy. INR is trending up from 1.6-1.8. Started on vitamin K, 1 dose of IV vitamin K administered 09/30. 10/01 continuous subcutaneous vitamin K. INR stable at 1.8. Continue to monitor PT/INR. Ascites. Continue spironolactone and Lasix for ascites. The patient status post ultrasound-guided paracentesis, with a noninfectious fluid. 10/01 abdomen seems to be very distended with ascites which is possibly causing some breathing difficulties. I will order a diagnostic and therapeutic ultrasound-guided paracentesis since the patient is confused and tachycardic. Low-grade fever. Patient had a low-grade fever with a T-max of 99.8. 10/01 no further elevation of temperature since 09/29. Hypertension Labetalol when necessary to keep SBP less than 160 Discontinue clonidine in view of hypotension. 10/01 BP stable, continue to monitor vital signs. Alcoholism - [facility] protocol - mvi - thiamine - valium 5mg po q8h - Added Librium 15 mg by mouth twice a day on 09/23 09/30 discontinued Valium which could be contributing to the patient's encephalopathy at this point. Anemia secondary to acute blood loss - stable. - daily cbc - keep hgb > 7. 10/01 hemoglobin down to 7.4. GERD - iv bid ppi Influenza Acute respiratory failure HCAP -Consult pulmonary for respiratory failure as patient being transferred to the floor. 10/01 the patient states still requiring elevated levels of oxygen. The patient is on 5 L via nasal cannula. Chest x-ray ordered and it showed a left lower lobe consolidation. Suspect hospital-acquired pneumonia. I will start the patient on IV Zosyn and IV vancomycin. Obtain blood cultures. DVT prophylaxis: SCDs, avoid chemoprophylaxis given coagulopathy and anemia and recent GI bleeding. Discharge Planning Continue to monitor in the medical floor. Rafif Johnson MD Oct 01, 2017 11:56
[2017-10-01] MEDS ORDERED: Vancomycin Consult Pharmacy 1 EA OTHER SCH (12:00)
[2017-10-01] MEDS ORDERED: VANCOMYCIN INJ 1,000 MG in SODIUM CHLOR 0.9% 250 ML INJ 250 ML IV SCH (12:00)
[2017-10-01] MEDS: PIPERACIL-TAZO 4.5 GM PREMIX 100 ML IV SCH ×2 (13:13→21:00)
[2017-10-01] MEDS ORDERED: LIDOCAINE HCL 1% 20 ML VIAL ONE (15:47)
--- NOTE | 2017-10-01 15:51 | RADRPT ---
EXAM DATE/TIME: 10/01/2017 12:35 [facility] COMPARISON: US GUIDED ABD PARACENTESIS, September 26, 2017, 15:04. INDICATIONS : Ascites. MEDICAL HISTORY : Stroke. Hypertension. Esophageal varices. Abdominal pain. Hodgkins lymphoma. SURGICAL HISTORY : Testicle removed. Lymph node removal. ENCOUNTER: Subsequent ACUITY: 1 day PAIN SCORE: 3/10 LOCATION: Midline pelvis. FLUID: Total volume of 650 cc of clear, yellow fluid was removed. Fluid was sent to lab for ordered studies. Post procedure scanning reveals no hematoma or other complication. TECHNIQUE: 1. Ultrasound guidance for abdominal paracentesis. 2. Paracentesis. The risks, benefits, and alternatives to ultrasound guided paracentesis were explained to the patient in detail including the risk of bleeding and infection. Written and verbal informed consent was obt ained. With the patient on the ultrasound table, ultrasound imaging was used to select the most appropriate approach for paracentesis. Overlying skin was prepped and draped in the usual sterile fashion and wi th a local anesthetic, a dermatotomy was made with an 11 blade scalpel. A 6 [place] [employer] ca theter was introduced into the peritoneal cavity and fluid was collected. The patient tolerated the procedure well and left the ultrasound suite in stable condition. CONCLUSION: Uncomplicated ultrasound guided paracentesis. Deng Feliciano MD on October 01, 2017 at 15:50 Board Certified Radiologist. This report was verified electronically.
[2017-10-01] MEDS ORDERED: IOHEXOL 350 MG/ML 10 ML VIAL (for RAD DIAG) IVCONTRAST ONE (16:27)
--- NOTE | 2017-10-01 16:32 | RADRPT ---
EXAM DATE/TIME: 10/01/2017 16:03 [facility] COMPARISON: No previous studies available for comparison. INDICATIONS : Altered mental status. RADIATION DOSE: 47.12 CTDIvol (mGy) MEDICAL HISTORY : Cerebrovascular disease. Hypertension. Hodking lymphoma SURGICAL HISTORY : 22 Lymph nodes removed, Testical sx. ENCOUNTER: Initial ACUITY: 1 day PAIN SCALE: Non-responsive LOCATION: Bilateral cranial TECHNIQUE: Multiple contiguous axial images were obtained of the head. Using automated exposure control and adj ustment of the mA and/or kV according to patient size, radiation dose was kept as low as reasonably a chievable to obtain optimal diagnostic quality images. DICOM format image data is available electro nically for review and comparison. FINDINGS: CEREBRUM: The ventricles are normal for age. No evidence of midline shift, mass lesion, hemorrhage or acute in farction. No extra-axial fluid collections are seen. POSTERIOR FOSSA: The cerebellum and brainstem are intact. The 4th ventricle is midline. The cerebellopontine angle i s unremarkable. EXTRACRANIAL: The visualized portion of the orbits is intact. SKULL: The calvaria is intact. No evidence of skull fracture. CONCLUSION: 1. Negative noncontrast CT brain. Shahid Millard MD on October 01, 2017 at 16:30 Board Certified Radiologist. This report was verified electronically.
--- NOTE | 2017-10-01 16:48 | PD.CONS ---
Consult Service Palliative Care . Consult Requested By Dr. Stockton . Primary Care Physician No Primary Care Physician . Reason for Consultation a. To assist with evaluation and management of symptoms including: dyspnea, pain, confusion b. To assist medical decision maker(s) with: better understanding of current medical conditions; weighing benefits/burdens of medical treatment options; making medical treatment decisions. . HPI History of Present Illness Mr Ghotra is a 62 yo male with a history of EtOH abuse, PUD, esophageal varices, Hodgkin's disease, hypertension, liver cirrhosis, esophageal varices and GERD who presented to [facility] ED on 09/19/2017 for evaluation of coffee-ground emesis and flulike symptoms. Patient recently had an EGD for banding of his esophageal variceal bleed. He reportedly was evaluated by his PCP and was + influenza. Patient reporting he has been vomiting bright red blood as well as melanotic thick, tarry stool with nausea. While in the ED the patient had an episode of coffee-ground emesis. He was treated with an octreotide bolus as well as a Protonix bolus. Additional diagnostic data: * Vital signs: Pulse 92, respirations 16, BP 155/90, oxygen saturation 98% on room air, oral temperature 98.1 * WBC: 10.0, hemoglobin 10.0, hematocrit 31.7, platelets 194, neutrophils 80.9% * Sodium: 137, potassium 3.5, chloride 101, carbon dioxide 23.3, glucose 127, calcium 7.9 * BUN: 20, creatinine 0.78, GFR 101 * Total bilirubin: 2.4, AST 112, ALT 34, alkaline phosphatase 109 * Troponin: <0.02 total protein: 8.3, albumin 2.7 * PT: 14.6, INR 1.4 * Ethyl alcohol of 124 * Chest x-ray showed left basilar lung consolidation or atelectasis. Cardiomegaly. Patient was admitted for further evaluation and medical management of GI bleed. WA protocol initiated. Patient underwent endoscopy with banding of varices the following morning. Follow up EGD on 09/22/2017 showing esophageal varices, mild gastropathy and hiatal hernia. On Octreotide and Protonix drip. Started on Rocephin prophylactically for SBP. Having agitation delirium and DTs-on scheduled Valium. Later started on Precedex drip. Patient was transfused with 1 unit of packed red blood cells secondary to hemoglobin of 7 (decreased from 10). Total of 4 units PRBC infused from 09/20/17 through 09/21/17 Diagnostic paracentesis on 09/26/2017; pathology was negative for malignant cells. Patient reporting abdominal discomfort. KUB on 09/30/17 showed no acute findings. CT abdomen/pelvis pending. Patient is tachycardic, experiencing moderate respiratory distress on 5 liters oxygen via nasal cannula. Follow-up chest x-ray this morning shows left lower lobe consolidation. Abdomen is quite distended with some ascites which may be contributing to dyspnea; diagnostic/therapeutic paracentesis has been ordered. Hepatic encephalopathy likely secondary to hyperammonemia. Ammonia level down from 53 to 39; lactulose increased to [address] of the brain pending. MELD Score: 24 . Function/Cognitive Trajectory Patient has a long history of EtOH abuse. He was hospitalized in April, with a GI bleed and recommendations for EGDs every 3 months. He is now hospitalized again with an upper GI bleed and worsening liver functioning. . Review of Systems Constitutional: COMPLAINS OF: Fatigue, Chills, Dizziness, Change in appetite, Generalized weakness Respiratory: COMPLAINS OF: Shortness of breath Past Family Social History Coded Allergies: No Known Allergies (Unverified Allergy, Unknown, 06/30/17) Past Medical History ETOH abuse Peptic ulcer disease Esophageal varices Hodgkins disease HTN Liver cirrhosis Esophageal varices GERD . Past Surgical History EGD with band ligation Previous bronchoscopy with tumor resection Lymph nodes and testicle resection. . Reported Medications Zantac (Ranitidine HCl) 150 Mg Tab 150 Mg PO BID Atenolol 25 Mg Tab 10 Mg PO BID . Current Medications Medications (Trade) Dose Ordered Sig/Laurel Route Start Time Stop Time Status Last Admin (Ativan Inj) 1 mg Q2H PRN IV PUSH 09/19/17 01:00 (Trandate Inj) 10 mg Q4H PRN IV PUSH 09/19/17 03:00 (Romazicon Inj) 0.2 mg Q1M PRN IV PUSH 09/19/17 03:15 (Ativan) 1 mg Q4H PRN PO 09/19/17 03:15 09/28/17 16:11 (Ativan Inj) 1 mg Q4H PRN IV PUSH 09/19/17 03:15 09/28/17 22:07 (Ativan) 2 mg Q2H PRN PO 09/19/17 03:15 (Ativan Inj) 2 mg Q2H PRN IV PUSH 09/19/17 03:15 09/21/17 15:06 (Ativan Inj) 2 mg Q1H PRN IV PUSH 09/19/17 03:15 (Ativan Inj) 2 mg Q15M PRN IV PUSH 09/19/17 03:15 Ceftriaxone Sodium 2000 mg/ Sodium Chloride 100 ml @ 200 mls/hr DAILY@0300 IV 09/19/17 03:15 10/01/17 02:40 (NS Flush) 2 ml UNSCH PRN IV FLUSH 09/19/17 03:15 10/01/17 02:40 (NS Flush) 2 ml BID IV FLUSH 09/19/17 09:00 09/30/17 21:22 (Tylenol) 650 mg Q6H PRN PO 09/19/17 03:15 (Morphine Inj) 2 mg Q2H PRN IV PUSH 09/19/17 03:15 10/01/17 10:23 (Protonix Inj) 40 mg Q12H IV PUSH 09/19/17 13:00 10/01/17 11:55 (Zofran Inj) 4 mg Q6H PRN IV PUSH 09/19/17 03:15 09/28/17 22:43 (Duoneb Neb) 1 ampule Q2HR NEB PRN INH 09/19/17 03:15 09/25/17 22:28 Miscellaneous Information 1 Q361D XX 09/19/17 03:15 (Chlorhexidine 2% Cloth) Taper DAILY@04 TOP 09/19/17 04:00 09/15/18 03:59 (Chlorhexidine 2% Cloth) 3 pack UNSCH PRN TOP 09/19/17 03:15 (Ronit-Colace) 1 tab BID PO 09/19/17 09:00 09/30/17 21:21 (Milk Of Magnesia Liq) 30 ml Q12H PRN PO 09/19/17 03:15 (Senokot) 17.2 mg Q12H PRN PO 09/19/17 03:15 (Dulcolax Supp) 10 mg DAILY PRN RECTAL 09/19/17 03:15 (Lactulose Liq) 30 ml DAILY PRN PO 09/19/17 03:15 Potassium Chloride 100 ml @ 50 mls/hr Q2H PRN IV 09/20/17 10:15 Potassium Chloride 100 ml @ 50 mls/hr Q2H PRN IV 09/20/17 10:15 (K-Lyte Cl Eff) 50 meq UNSCH PRN PO 09/20/17 10:15 Potassium Chloride 100 ml @ 25 mls/hr UNSCH PRN IV 09/20/17 10:15 Potassium Chloride 100 ml @ 50 mls/hr Q2H PRN IV 09/20/17 10:15 Magnesium Sulfate 4 gm/Sodium Chloride 100 ml @ 50 mls/hr UNSCH PRN IV 09/20/17 10:15 (Mag-Ox) 800 mg UNSCH PRN PO 09/20/17 10:15 Magnesium Sulfate 2 gm/Sodium Chloride 100 ml @ 50 mls/hr UNSCH PRN IV 09/20/17 10:15 09/26/17 03:40 (K-Phos) 2,000 mg Q4H PRN PO 09/20/17 10:15 Sodium Phosphate 30 mmol/Sodium Chloride 250 ml @ 42 mls/hr UNSCH PRN IV 09/20/17 10:15 (K-Phos) 2,000 mg UNSCH PRN PO/TUBE 09/20/17 10:15 Potassium Phosphate 30 mmol/ Sodium Chloride 260 ml @ 42 mls/hr UNSCH PRN IV 09/20/17 10:15 09/26/17 05:44 (Vitamin B1) 100 mg DAILY PO 09/24/17 09:00 10/01/17 09:37 (Theragran) 1 tab DAILY PO 09/21/17 09:00 10/01/17 09:37 (Benadryl Inj) 12.5 mg Q4H PRN IM 09/21/17 14:00 09/21/17 14:00 (Haldol Inj) 5 mg Q4H PRN IV PUSH 09/21/17 14:00 09/30/17 13:18 Dexmedetomidine HCl 1000 mcg/ Sodium Chloride 250 ml @ 6.57 mls/hr TITRATE PRN IV 09/21/17 18:30 09/23/17 00:11 (TRENtal SR) 400 mg Q12HR PO 09/23/17 21:00 10/01/17 09:37 (Aldactone) 100 mg DAILY PO 09/26/17 09:00 09/30/17 08:04 Albumin Human 100 ml @ 60 mls/hr Q12H IV 09/25/17 17:45 10/01/17 05:58 (Robitussin Dm 200-20 Mg/10 ml Liq) 10 ml Q6H PRN PO 09/26/17 13:30 (Xifaxan) 550 mg BID PO 09/27/17 21:00 10/01/17 09:37 (Librium) 15 mg DAILY PO 09/29/17 09:00 10/01/17 09:37 (Tessalon) 200 mg TID PRN PO 09/29/17 20:00 10/01/17 10:22 (Lactulose Liq) 30 ml QID PO 09/30/17 13:00 10/01/17 11:55 (Vitamin K Inj) 10 mg DAILY SQ 10/01/17 09:00 10/01/17 09:38 (Lasix Inj) 40 mg BID@,18 IV PUSH 10/01/17 18:00 Piperacillin Sod/ Tazobactam Sod 100 ml @ 200 mls/hr Q8H IV 10/01/17 13:00 10/01/17 13:13 Pharmacy Profile Note 0 ml @ 0 mls/hr UNSCH OTHER 10/01/17 12:00 (Duoneb Neb) 1 ampule TID NEB NEB 10/01/17 14:00 Vancomycin HCl 2200 mg/Sodium Chloride 522 ml @ 250 mls/hr Q12H IV 10/01/17 16:00 Miscellaneous Information SPECIFIC LAB TO BE DRAWN:VANCOMY... ONCE ONCE .XX 10/03/17 03:45 10/03/17 03:46 Family History Denies any family history of liver disease; denies any family history of mental illness. Patient's father had bone cancer. His mother from complications related to a cerebral hemorrhage. . Substance Use Tobacco: Patient denies Alcohol: Patient states he drinks "alot" but was unable to quantify. Previously reported drinking 1L of vodka daily Prescription med abuse: None known Illicits: None known . Psychosocial History Patient was born and raised in [place]. He currently lives in [place], [place] with his girlfriend. He is unemployed, supported by assisted benefits. His highest level of education was 10th grade. Spiritual/Cultural Factors Pending further conversation with patient/family. . Today's verbally stated goals: Aggressive goals pending further conversations. . Family/friends goals: Aggressive goals pending further conversations. . Ethical and Legal Issues No known legal or ethical issues at this time. . Physical Exam Vital Signs Date Time Temp Pulse Resp B/P (MAP) Pulse Ox O2 Delivery O2 Flow Rate FiO2 10/01/17 12:00 97.8 114 29 131/71 (91) 92 10/01/17 10:28 18 10/01/17 08:50 98 Nasal Cannula 5.00 10/01/17 08:00 Nasal Cannula 5.00 30 10/01/17 08:00 101 10/01/17 08:00 98.1 93 28 164/91 (115) 92 10/01/17 04:00 97.6 109 20 133/63 (86) 94 10/01/17 00:00 98.1 109 20 132/66 (88) 94 09/30/17 20:41 97 Nasal Cannula 4.00 09/30/17 20:00 101 09/30/17 20:00 98.7 110 24 145/75 (98) 95 09/30/17 19:00 Nasal Cannula 4.00 09/30/17 16:00 98.2 109 24 138/79 (98) 96 . Exam CONSTITUTIONAL/GENERAL: This is a middle-age male patient who appears to be in a moderate degree of respiratory distress. TUBES/LINES/DRAINS: PIV SKIN: Jaundice Ecchymoses on upper extremities. No wounds seen anteriorly. Skin temperature appropriate. Not diaphoretic. HEAD: Atraumatic. Normocephalic. EYES: Pupils equal and round and reactive. Extraocular motions intact. + scleral icterus. No injection or drainage. Fundi not examined. ENT: Hearing grossly normal. Nose without bleeding or purulent drainage. NECK: Trachea midline. Supple, nontender. No palpable thyroid enlargement or nodularity. CARDIOVASCULAR: Tachycardic without murmurs, gallops, or rubs. No JVD. Peripheral pulses symmetric. RESPIRATORY/CHEST: Symmetric, unlabored respirations. Clear to auscultation. Breath sounds diminished bilaterally. No wheezes, rales, or rhonchi. GASTROINTESTINAL: Abdomen soft, non-tender, nondistended. No hepato-splenomegaly , or palpable masses. No guarding. Bowel sounds present. GENITOURINARY: Without palpable bladder distension. MUSCULOSKELETAL: Extremities without clubbing, cyanosis, or edema. No mottling or clubbing. No obvious deformities LYMPHATICS: No palpable cervical or supraclavicular adenopathy. NEUROLOGICAL: Lethargic with intermittent confusion. Able to answer questions, follows commands. PSYCHIATRIC: No obvious anxiety/depression. no apparent hallucinations or other psychotic thought process. . Diagnostic Tests Laboratory Laboratory Tests Test 09/30/17 05:34 09/30/17 06:30 10/01/17 05:08 White Blood Count 11.5 TH/MM3 (4.0-11.0) 11.1 TH/MM3 (4.0-11.0) Red Blood Count 3.08 MIL/MM3 (4.50-5.90) 2.79 MIL/MM3 (4.50-5.90) Hemoglobin 8.2 GM/DL (13.0-17.0) 7.4 GM/DL (13.0-17.0) Hematocrit 25.3 % (39.0-51.0) 22.8 % (39.0-51.0) Mean Corpuscular Volume 82.1 FL (80.0-100.0) 81.6 FL (80.0-100.0) Mean Corpuscular Hemoglobin 26.8 PG (27.0-34.0) 26.5 PG (27.0-34.0) Mean Corpuscular Hemoglobin Concent 32.6 % (32.0-36.0) 32.4 % (32.0-36.0) Red Cell Distribution Width 25.0 % (11.6-17.2) 25.1 % (11.6-17.2) Platelet Count 181 TH/MM3 (150-450) 155 TH/MM3 (150-450) Mean Platelet Volume 8.5 FL (7.0-11.0) 8.1 FL (7.0-11.0) Neutrophils (%) (Auto) 81.5 % (16.0-70.0) 81.5 % (16.0-70.0) Lymphocytes (%) (Auto) 8.1 % (9.0-44.0) 8.8 % (9.0-44.0) Monocytes (%) (Auto) 8.5 % (0.0-8.0) 8.1 % (0.0-8.0) Eosinophils (%) (Auto) 1.5 % (0.0-4.0) 1.3 % (0.0-4.0) Basophils (%) (Auto) 0.4 % (0.0-2.0) 0.3 % (0.0-2.0) Neutrophils # (Auto) 9.4 TH/MM3 (1.8-7.7) 9.0 TH/MM3 (1.8-7.7) Lymphocytes # (Auto) 0.9 TH/MM3 (1.0-4.8) 1.0 TH/MM3 (1.0-4.8) Monocytes # (Auto) 1.0 TH/MM3 (0-0.9) 0.9 TH/MM3 (0-0.9) Eosinophils # (Auto) 0.2 TH/MM3 (0-0.4) 0.1 TH/MM3 (0-0.4) Basophils # (Auto) 0.0 TH/MM3 (0-0.2) 0.0 TH/MM3 (0-0.2) CBC Comment DIFF FINAL AUTO DIFF Differential Comment AUTO DIFF CONFIRMED Prothrombin Time 18.5 SEC (9.8-11.6) Prothromb Time International Ratio 1.8 RATIO Blood Urea Nitrogen 11 MG/DL (7-18) 11 MG/DL (7-18) Creatinine 0.66 MG/DL (0.60-1.30) 0.70 MG/DL (0.60-1.30) Random Glucose 81 MG/DL (74-106) 93 MG/DL (74-106) Total Protein 7.0 GM/DL (6.4-8.2) 6.6 GM/DL (6.4-8.2) Albumin 2.5 GM/DL (3.4-5.0) 2.6 GM/DL (3.4-5.0) Calcium Level 7.6 MG/DL (8.5-10.1) 8.0 MG/DL (8.5-10.1) Alkaline Phosphatase 74 U/L (45-117) 84 U/L (45-117) Aspartate Amino Transf (AST/SGOT) 97 U/L (15-37) 88 U/L (15-37) Alanine Aminotransferase (ALT/SGPT) 34 U/L (12-78) 29 U/L (12-78) Total Bilirubin 11.0 MG/DL (0.2-1.0) 12.0 MG/DL (0.2-1.0) Sodium Level 135 MEQ/L (136-145) 135 MEQ/L (136-145) Potassium Level 3.7 MEQ/L (3.5-5.1) 3.5 MEQ/L (3.5-5.1) Chloride Level 99 MEQ/L (98-107) 98 MEQ/L (98-107) Carbon Dioxide Level 28.4 MEQ/L (21.0-32.0) 28.9 MEQ/L (21.0-32.0) Anion Gap 8 MEQ/L (5-15) 8 MEQ/L (5-15) Estimat Glomerular Filtration Rate 123 ML/MIN (>89) 115 ML/MIN (>89) Ammonia 53 MCMOL/L (11-32) 39 MCMOL/L (11-32) Toxic Granulation 1+ (NORMAL) Platelet Estimate NORMAL (NORMAL) Platelet Morphology Comment NORMAL (NORMAL) Polychromasia 2.6 % (0.0-1.9) Basophilic Stippling FAINT (NORMAL) Stomatocytes 2+ (NORMAL) Phosphorus Level 1.7 MG/DL (2.5-4.9) Magnesium Level 1.9 MG/DL (1.5-2.5) . Result Diagram: 10/01/17 0508 10/01/17 0508 Microbiology Microbiology Date/Time Source Procedure Growth Status 10/01/17 15:30 Fluid Peritoneal Fluid Gram Stain Pending Received 10/01/17 15:30 Fluid Peritoneal Fluid Body Fluid Culture Pending Received . Imaging Last 72 hours Impressions Cyst Biopsy Asp-Paracentesis US 10/01/17 0000 Signed Impressions: Service Date/Time: Sunday, October 01, 2017 12:35 - CONCLUSION: Uncomplicated ultrasound guided paracentesis. Deng Feliciano MD Chest X-Ray 10/01/17 0000 Signed Impressions: Service Date/Time: Sunday, October 01, 2017 09:33 - CONCLUSION: Left lower lobe consolidation. Shahid Millard MD Head CT 09/30/17 0000 Signed Impressions: Service Date/Time: Sunday, October 01, 2017 16:03 - CONCLUSION: 1. Negative noncontrast CT brain. Shahid Millard MD Abdomen X-Ray 09/30/17 0000 Signed Impressions: Service Date/Time: Saturday, September 30, 2017 12:06 - CONCLUSION: 1. No acute findings. Tyler Adams MD . Patient/Family Conference Present at Family Conference: Spoke with patient and his girlfriend at bedside; spoke with girlfriend again privately in the hallway. . Family Conference Location: Bedside, Hallway Issues Discussed: * Palliative care role, purpose, approach * Additional medical, psychosocial, and spiritual history * Patients general health, functional status, and cognitive changes in the months leading up to the current hospitalization * Patient/family understanding of the current medical problems * Patient/family understanding of prognosis * Patients goals of care as best understood from advance directives and/or conversations and/or values * Current medical treatment options and benefits/burdens of those options * Likely scenarios comparing ongoing aggressive care with a transition to comfort measures only * Questions answered to the best of my ability * Palliative care contact information provided . Assessment and Plan Disease Oriented Problem List: (1) GI bleeding (2) Anemia (3) Esophageal varices (4) Upper GI bleed (5) Alcohol withdrawal (6) Ascites (7) Hypertension Symptom Scale: (1) Pain 0-10 Scale: Unable to quantify (2) Dyspnea 0-10 Scale: Unable to quantify (3) Confusion 0-10 Scale: Unable to quantify Pertinent Non-Medical Issues Psychosocial: Patient was born and raised in [place]. He currently lives in [place], [place] with his girlfriend. He is unemployed, supported by assisted benefits. His highest level of education was 10th grade. Spiritual: Unknown at this time; pending further conversation. Legal: Patient's insight and judgment somewhat limited 2/2 hepatic encephalopathy, but this is improving. Per [place] statutes, in the absence of written advanced directives healthcare proxy decision making would fall to the patient's 3 adult children. in conversation with the patient he is appropriately asking his girlfriend about his vehicle registration which is over due and if the bills have been paid. He is oriented to self and place. He does not no why he is in the hospital. When asked who he would want to act in the role of health care decision-maker if he was unable to due so, he points to his girlfriend and says "Nelida." Given my uncertainty if the patient fully understands my questions; I will revisit [facility] decision making tomorrow 10/03/17 to see if he is able to replicate our conversation from today. Ethical issues impacting care: No known ethical impacting care at this time. Important Contacts Nelida Lozano, charleen friend: [phone] Jocelynn Ghotra, daughter: [phone] Moose Ghotra, son: [phone] Tyler Ghotra, son: [phone] Peter, friend: [phone] . Code Status: Full Code Plan * FULL CODE * Discussed patient with bedside nurse and Dr. Hurley * Goals remain aggressive pending further conversation with patient and family. * Patient's insight and judgment somewhat limited 2/2 encephalopathy, but this is improving. Per [place] statutes, in the absence of written advanced directives healthcare proxy decision making would fall to the patient's 3 adult children. in conversation with the patient he is appropriately asking his girlfriend about his vehicle registration which is over due and if the bills have been paid. He is oriented to self and place. He does not no why he is in the hospital. When asked who he would want to act in the role of health care decision-maker if he was unable to due so, he points to his girlfriend and says "Nelida." I will revisit [facility] decision making tomorrow 10/02/17 to see if he is able to replicate our conversation from today. * Palliative care contact information provided to patient's girlfriend * Symptom management: = Dyspnea: Patient appears to be experiencing moderate respiratory distress on exam. Abdomen is quite distended s/p paracentesis which may be contributing to patient SOB. CXR on 10/01/17 showing left lower lobe consolidation. On scheduled Lasix, Antibiotics and Duo-nebs = Confusion: Improving. Ammonia decreased from 53 to 39. lactulose increased to QID * Palliative care will continue to follow this patient throughout his hospitalization to establish trust, assist with symptom management and clarification of medical treatment goals. Thank you for the opportunity to participate in the care of Mr. Ghotra. . Attestation To help prompt me to consider important information that might be impacting today's encounter and assessment, information from prior notes written by myself or my colleagues may have been "brought forward" into today's note. My signature on this note, however, is an attestation that I personally performed the exam, history, and/or decision-making noted today, and, unless otherwise indicated, the interactions with patient, family, and staff as well as the review of records all occurred today. I also attest that the listed assessment and stated plan reflect my best clinical judgment today based on the combination of historical information, prior notes, and today's exam/ interactions. When time spent is documented, it refers only to time spent today by the signer, or if indicated, combined time spent today by collaborating physician/nurse practitioner. . Marily Pinto Oct 01, 2017 16:48
--- NOTE | 2017-10-01 16:51 | RADRPT ---
EXAM DATE/TIME: 10/01/2017 16:25 [facility] COMPARISON: US GUIDED ABD PARACENTESIS, October 01, 2017, 12:35. US ABDOMEN - COMPLETE, April 25, 2017, 13: 32. INDICATIONS : Diffuse upper abdomen pain. IV CONTRAST: 96 cc Omnipaque 350 (iohexol) IV ORAL CONTRAST: Prescribed oral contrast ingested. RADIATION DOSE: 16.49 CTDIvol (mGy) MEDICAL HISTORY : Cerebrovascular disease. Hypertension. Hodking lymphoma. SURGICAL HISTORY : Testical removed, 22 lymph nodes removed. ENCOUNTER: Initial ACUITY: 1 day PAIN SCALE: 3/10 LOCATION: Bilateral upper chest TECHNIQUE: Volumetric scanning of the abdomen and pelvis was performed. Using automated exposure control and ad justment of the mA and/or kV according to patient size, radiation dose was kept as low as reasonably achievable to obtain optimal diagnostic quality images. DICOM format image data is available electro nically for review and comparison. FINDINGS: There is a significant amount of ascites in the abdomen and pelvis. Homogeneous enhancement in the l iver and spleen. Mild lobular contour to the surface of the liver. No calcified gallstones. The no dilated small or large bowel. Oral contrast passes through to the rectum. Patchy areas of consolidation in the medial lower lungs bilaterally. Small bilateral pleural effusio ns measuring up to 1.7 cm in thickness. The kidneys and adrenal glands, pancreas, and aorta are intact. CONCLUSION: 1. Moderate amount of abdominal pelvic ascites. 2. Small bilateral pleural effusions and patchy areas of consolidation medial lower lungs. Shahid Millard MD on October 01, 2017 at 16:46 Board Certified Radiologist. This report was verified electronically.
[2017-10-01] MEDS: VANCOMYCIN INJ 2,200 MG in SODIUM CHLORID 0.9% 500 ML INJ 500 ML IV SCH (17:02)
[2017-10-01] MEDS: FUROSEMIDE 40 MG/4 ML VIAL IV PUSH SCH (17:03)
[2017-10-01 17:16] LABS: TOTAL PROTEIN,PERITONEAL FLUID 0.6 GM/DL
[2017-10-01] MEDS: RESP: ALBUTEROL 2.5 MG/IPRATROPIUM 0.5 MG NEB (PRN) INH (17:27)
[2017-10-01] MEDS: HALOPERIDOL LACTATE 5 MG/ML AMP IV PUSH PRN (18:04)
[2017-10-01 18:05] LABS: AUTOMATED NEUTROPHIL # 10.6 TH/MM3 (1.8-7.7); BASOPHIL % 0.4 % (0.0-2.0); EOSINOPHIL # 0.1 TH/MM3 (0-0.4); EOSINOPHIL % 0.9 % (0.0-4.0); HEMATOCRIT 24.9 % (39.0-51.0); LYMPH % 7.5 % (9.0-44.0); LYMPHOCYTE # 0.9 TH/MM3 (1.0-4.8); MEAN CELL VOLUME 81.6 FL (80.0-100.0); MEAN CORPUSCULAR HEMOGLOBIN 26.3 PG (27.0-34.0); MEAN CORPUSCULAR HGB CONC 32.3 % (32.0-36.0); MEAN PLATELET VOLUME 8.2 FL (7.0-11.0); MONO % 6.6 % (0.0-8.0); MONOCYTE # 0.8 TH/MM3 (0-0.9); NEUT % 84.6 % (16.0-70.0); PLATELET COUNT 170 TH/MM3 (150-450); RED BLOOD COUNT 3.05 MIL/MM3 (4.50-5.90); RED CELL DISTRIBUTION WIDTH 24.4 % (11.6-17.2); WHITE BLOOD COUNT 12.5 TH/MM3 (4.0-11.0)
[2017-10-01 18:21] LABS: DIRECT BILIRUBIN ADULT 9.2 MG/DL (0.0-0.2)
[2017-10-01 18:22] LABS: INDIRECT BILIRUBIN 4.4 MG/DL (0.0-0.8); TOTAL BILIRUBIN ADULT 13.6 MG/DL (0.2-1.0)
[2017-10-01 19:42] LABS: PERITONEAL BASO 1 %; PERITONEAL LYMPHS 74 %; PERITONEAL MESOTHELIAL 5 %; PERITONEAL MONOS 12 %; PERITONEAL POLYS(SEGS) 8 %
[2017-10-01 19:44] LABS: PERITONEAL RBC 105 /MM3 (0-0)
[2017-10-01] MEDS ORDERED: DIAZEPAM 5 MG TAB PO SCH (21:00)
[2017-10-02] VITALS (8 sets, daily range): BP systolic 134–160; BP diastolic 70–91; PULSE 99–115; RESP 24–29; TEMP 98–98.7; O2SAT 89–100
[2017-10-02] MEDS: PANTOPRAZOLE SODIUM 40 MG VIAL IV PUSH SCH ×2 (01:00→12:15)
[2017-10-02] MEDS: cefTRIAXone INJ 2,000 MG in SODIUM CHLORIDE 0.9% INJ 100 ML IV SCH (03:00)
[2017-10-02] MEDS: CHLORHEXIDINE GLUCONATE 2 % 1 PACK (2 CLOTHS) TOP SCH (04:00)
[2017-10-02] MEDS: VANCOMYCIN INJ 2,200 MG in SODIUM CHLORID 0.9% 500 ML INJ 500 ML IV SCH ×2 (04:00→16:22)
[2017-10-02] MEDS: PIPERACIL-TAZO 4.5 GM PREMIX 100 ML IV SCH ×3 (05:00→21:09)
[2017-10-02] MEDS: ALBUMIN 25% INJ 100 ML IV SCH ×2 (05:45→18:37)
[2017-10-02 06:00] LABS: CREATININE 0.8 MG/DL (0.60-1.30)
[2017-10-02] MEDS: RESP: ALBUTEROL 2.5 MG/IPRATROPIUM 0.5 MG NEB (SCH) NEB ×3 (08:33→21:12)
[2017-10-02] MEDS: LACTULOSE SYRUP 20 GM/30 ML CUP PO SCH ×5 (09:00→21:07)
[2017-10-02] MEDS: SODIUM CHLORIDE 0.9% FLUSH 10 ML FLUSH IV FLUSH SCH ×2 (09:00→21:09)
[2017-10-02] MEDS: FUROSEMIDE 40 MG/4 ML VIAL IV PUSH SCH ×3 (09:00→18:36)
[2017-10-02] MEDS: THIAMINE HCL 100 MG TAB PO SCH (10:07)
[2017-10-02] MEDS: PENTOXIFYLLINE 400 MG CONTROLLED RELEASE TAB PO SCH ×2 (10:07→21:08)
[2017-10-02] MEDS: MULTIVITAMIN TAB PO SCH (10:07)
[2017-10-02] MEDS: RIFAXIMIN 550 MG TAB PO SCH ×2 (10:07→21:08)
[2017-10-02] MEDS: SPIRONOLACTONE 100 MG TAB PO SCH (10:07)
[2017-10-02] MEDS: DOCUSATE SODIUM 50 MG/SENNA 8.6 MG TAB PO SCH ×2 (10:07→21:08)
[2017-10-02] MEDS: PHYTONADIONE 10 MG/ML VIAL SQ SCH (10:07)
--- NOTE | 2017-10-02 10:09 | HHI.GIFU ---
Subjective Remarks Pt resting in bed. SOB to conversation. Asking to do PT. (Chanel Navas) Objective Vitals I&O Vital Signs Date Time Temp Pulse Resp B/P (MAP) Pulse Ox O2 Delivery O2 Flow Rate FiO2 10/02/17 08:40 94 Nasal Cannula 6.00 10/02/17 08:00 98.6 107 26 137/70 (92) 95 10/02/17 04:31 98.7 113 24 137/76 (96) 90 10/02/17 00:31 98.5 109 24 134/81 (98) 100 10/01/17 20:00 98.1 124 18 145/87 (106) 96 10/01/17 19:58 94 Nasal Cannula 5.00 10/01/17 19:00 95 Nasal Cannula 5.00 10/01/17 15:45 98.6 105 20 148/92 (110) 92 10/01/17 15:30 98.3 104 20 140/84 (102) 93 10/01/17 15:08 98.6 115 20 146/78 (100) 90 10/01/17 12:00 97.8 114 29 131/71 (91) 92 10/01/17 10:28 18 I/O 10/01/17 10/01/17 10/01/17 10/02/17 10/02/17 10/02/17 07:00 15:00 23:00 07:00 15:00 23:00 Intake Total 240 ml 1080 ml Output Total 400 ml 1500 ml 150 ml Balance -160 ml -420 ml -150 ml Intake Oral 240 ml 480 ml IV Total 600 ml Output Urine Total 400 ml 1500 ml 150 ml # Bowel Movements 4 1 Laboratory Laboratory Tests Test 10/01/17 15:30 10/01/17 17:50 10/02/17 04:59 Peritoneal Fluid WBC 134 Peritoneal Fluid RBC 105 Peritoneal Fluid Neutrophils 8 Peritoneal Fluid Lymphocytes 74 Peritoneal Fluid Monocytes 12 Peritoneal Fluid Basophils 1 Peritoneal Fluid Mesothelial Cells 5 Peritoneal Fluid Total Protein 0.6 Peritoneal Fluid Albumin 0.3 Peritoneal Fluid LDH 38 Peritoneal Fluid Glucose 106 White Blood Count 12.5 Red Blood Count 3.05 Hemoglobin 8.0 Hematocrit 24.9 Mean Corpuscular Volume 81.6 Mean Corpuscular Hemoglobin 26.3 Mean Corpuscular Hemoglobin Concent 32.3 Red Cell Distribution Width 24.4 Platelet Count 170 Mean Platelet Volume 8.2 Neutrophils (%) (Auto) 84.6 Lymphocytes (%) (Auto) 7.5 Monocytes (%) (Auto) 6.6 Eosinophils (%) (Auto) 0.9 Basophils (%) (Auto) 0.4 Neutrophils # (Auto) 10.6 Lymphocytes # (Auto) 0.9 Monocytes # (Auto) 0.8 Eosinophils # (Auto) 0.1 Basophils # (Auto) 0.0 CBC Comment DIFF FINAL Differential Comment Total Bilirubin 13.6 Direct Bilirubin 9.2 Indirect Bilirubin 4.4 Creatinine 0.80 Estimat Glomerular Filtration Rate 98 Date/Time Source Procedure Growth Status 10/01/17 17:50 Blood Peripheral Aerobic Blood Culture Pending Received 10/01/17 17:50 Blood Peripheral Anaerobic Blood Culture Pending Received 10/01/17 15:30 Fluid Peritoneal Fluid Gram Stain - Final Resulted 10/01/17 15:30 Fluid Peritoneal Fluid Body Fluid Culture Pending Resulted Imaging Last Impressions Cyst Biopsy Asp-Paracentesis US 10/01/17 0000 Signed Impressions: Service Date/Time: Sunday, October 01, 2017 12:35 - CONCLUSION: Uncomplicated ultrasound guided paracentesis. Deng Feliciano MD Chest X-Ray 10/01/17 0000 Signed Impressions: Service Date/Time: Sunday, October 01, 2017 09:33 - CONCLUSION: Left lower lobe consolidation. Shahid Millard MD Head CT 09/30/17 0000 Signed Impressions: Service Date/Time: Sunday, October 01, 2017 16:03 - CONCLUSION: 1. Negative noncontrast CT brain. Shahid Millard MD Abdomen/Pelvis CT 09/30/17 0000 Signed Impressions: Service Date/Time: Sunday, October 01, 2017 16:25 - CONCLUSION: 1. Moderate amount of abdominal pelvic ascites. 2. Small bilateral pleural effusions and patchy areas of consolidation medial lower lungs. Shahid Millard MD Abdomen X-Ray 09/30/17 0000 Signed Impressions: Service Date/Time: Saturday, September 30, 2017 12:06 - CONCLUSION: 1. No acute findings. 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 Pt was to repeat EGD in three months ordered but patient never followed up - ETOH abuse- Drinks half a large bottle of vodka daily. Last ETOH was day of admission - Transaminitis- consistent with alcoholic hepatitis - Cirrhosis- Decreased albumin, slight coagulopathy. PT 14.6 INR 1.4 (09/22) --> S/P EGD yesterday --> Esophageal varices. and banding Recent bleeding probably from the esophageal varices. mild gastropathy, hiatal hernia - 09/25/17, abdomen continues to be taut, round, distended. Jaundice noted, bilirubin now 4.2 with elevated LFTs, AST 127, ALT 32 Still on Octreotide drip, denies any hematemesis or rectal bleeding Current H&H 7.8 with mild drop in the past 24 hours BUN 20, creatinine normal 09/26/17 pt still distended, semifirm. respirations shallow. HH relatively stable, no bleeding. PLT improving mild increase tbil otherwise not much change. 09/27/17 pt resting in bed, s/p paracentesis diagnostic only. Saag 1.8. peritoneal fluid no growth 24h. no bleeding. HH stable 09/28/17 pt resting in bed, wants more to eat. tbil going up , INR up to 1.8 now on rifaximin HH stable 09/29/17 lethargic, HH stable. peritoneal fluid no growth 72h. getting breathing tx. NH 42 09/30/17 remains lethargic, NH 53. t maged trending up. still with abd discomfort. will get KUB and increase lactulose 10/02/17 lethargic, SOB, becoming more jaundiced, tbil rising. WBC trending up. HH is stable. CT showed moderate pelvic ascites pt is s/p paracentesis 650cc removed. Per [employer] nectar thick liquid, mech soft diet, chopped meat. DF is now 44 Plan: - start IV solumedrol 40mg BID - qID lactulose - diet per [employer] and low sodium - Protonix IV BID - continue Pentoxifylline - monitor labs - Notify GI of active bleeding - Transfuse as needed - Repeat EGD with banding in 3 weeks - supportive care Pt has been seen by myself and Dr. Marmolejo and this note is on her behalf (Chanel Navas) Physician Comments Seen and examined with [employer], Grade 3 encephalopathy. Friend at bedside. Solumederol added today. Agree with hospice. Can dc steroids when discharged to hospice. GI will sign off. Thankyou (Alec Marmolejo MD) Chanel Navas Oct 02, 2017 10:09 Alec Marmolejo MD Oct 02, 2017 17:58
[2017-10-02] MEDS ORDERED: methylPREDNISolone SOD SUCC 40 MG/1 ML VIAL IV PUSH SCH (10:45)
[2017-10-02] MEDS: MORPHINE SULFATE 4 MG/ML INJ IV PUSH PRN ×2 (12:18→21:08)
--- NOTE | 2017-10-02 15:21 | HHI.PR ---
Subjective Remarks patient c/o of sob. Denies chest pain. PAtient more awake. Objective Vitals Vital Signs Date Time Temp Pulse Resp B/P (MAP) Pulse Ox O2 Delivery O2 Flow Rate FiO2 10/02/17 12:00 98.3 110 24 160/86 (110) 93 10/02/17 08:40 94 Nasal Cannula 6.00 10/02/17 08:00 94 Nasal Cannula 6.00 10/02/17 08:00 98.6 107 26 137/70 (92) 95 10/02/17 04:31 98.7 113 24 137/76 (96) 90 10/02/17 00:31 98.5 109 24 134/81 (98) 100 10/01/17 20:00 98.1 124 18 145/87 (106) 96 10/01/17 19:58 94 Nasal Cannula 5.00 10/01/17 19:00 95 Nasal Cannula 5.00 10/01/17 15:45 98.6 105 20 148/92 (110) 92 10/01/17 15:30 98.3 104 20 140/84 (102) 93 I/O 10/01/17 10/01/17 10/01/17 10/02/17 10/02/17 10/02/17 07:00 15:00 23:00 07:00 15:00 23:00 Intake Total 240 ml 1080 ml Output Total 400 ml 1500 ml 150 ml Balance -160 ml -420 ml -150 ml Intake Oral 240 ml 480 ml IV Total 600 ml Output Urine Total 400 ml 1500 ml 150 ml # Bowel Movements 4 1 Result Diagram: 10/01/17 1750 10/02/17 0459 Imaging Last Impressions Cyst Biopsy Asp-Paracentesis US 10/01/17 0000 Signed Impressions: Service Date/Time: Sunday, October 01, 2017 12:35 - CONCLUSION: Uncomplicated ultrasound guided paracentesis. Deng Feliciano MD Chest X-Ray 10/01/17 0000 Signed Impressions: Service Date/Time: Sunday, October 01, 2017 09:33 - CONCLUSION: Left lower lobe consolidation. Shahid Millard MD Head CT 09/30/17 0000 Signed Impressions: Service Date/Time: Sunday, October 01, 2017 16:03 - CONCLUSION: 1. Negative noncontrast CT brain. Shahid Millard MD Abdomen/Pelvis CT 09/30/17 0000 Signed Impressions: Service Date/Time: Sunday, October 01, 2017 16:25 - CONCLUSION: 1. Moderate amount of abdominal pelvic ascites. 2. Small bilateral pleural effusions and patchy areas of consolidation medial lower lungs. Shahid Millard MD Abdomen X-Ray 09/30/17 0000 Signed Impressions: Service Date/Time: Saturday, September 30, 2017 12:06 - CONCLUSION: 1. No acute findings. Tyler Adams MD Objective Remarks GENERAL: male awake and alert, confused. SKIN: Jaundice. HEENT: Pupils equal and round. Scleral icterus. MMM. NECK: Supple no tender LAD or JVD. HEART: RRR no m/r/g. LUNGS: CTAB without wheezes or crackles. ABDOMEN: Distended but soft, bowel sounds present EXTREMITIES: No LE edema or calf tenderness. NEURO: Groggy but alert and answering questions appropriately. Procedures EGD 09/20 showing esophageal varices and recent bleeding EGD 09/22 showing esophageal varices, mild gastropathy, and hiatal hernia U/S guided paracentesis on 09/26 Medications and IVs Current Medications Medications (Trade) Dose Ordered Sig/[place]urel Route Start Time Stop Time Status Last Admin (Ativan Inj) 1 mg Q2H PRN IV PUSH 09/19/17 01:00 10/02/17 16:22 (Trandate Inj) 10 mg Q4H PRN IV PUSH 09/19/17 03:00 (Romazicon Inj) 0.2 mg Q1M PRN IV PUSH 09/19/17 03:15 (Ativan) 1 mg Q4H PRN PO 09/19/17 03:15 09/28/17 16:11 (Ativan Inj) 1 mg Q4H PRN IV PUSH 09/19/17 03:15 09/28/17 22:07 (Ativan) 2 mg Q2H PRN PO 09/19/17 03:15 (Ativan Inj) 2 mg Q2H PRN IV PUSH 09/19/17 03:15 09/21/17 15:06 (Ativan Inj) 2 mg Q1H PRN IV PUSH 09/19/17 03:15 (Ativan Inj) 2 mg Q15M PRN IV PUSH 09/19/17 03:15 Ceftriaxone Sodium 2000 mg/ Sodium Chloride 100 ml @ 200 mls/hr DAILY@0300 IV 09/19/17 03:15 10/01/17 02:40 (NS Flush) 2 ml UNSCH PRN IV FLUSH 09/19/17 03:15 10/01/17 02:40 (NS Flush) 2 ml BID IV FLUSH 09/19/17 09:00 10/02/17 21:09 (Tylenol) 650 mg Q6H PRN PO 09/19/17 03:15 (Morphine Inj) 2 mg Q2H PRN IV PUSH 09/19/17 03:15 10/02/17 21:08 (Protonix Inj) 40 mg Q12H IV PUSH 09/19/17 13:00 10/02/17 12:15 (Zofran Inj) 4 mg Q6H PRN IV PUSH 09/19/17 03:15 09/28/17 22:43 (Duoneb Neb) 1 ampule Q2HR NEB PRN INH 09/19/17 03:15 10/01/17 17:27 Miscellaneous Information 1 Q361D XX 09/19/17 03:15 (Chlorhexidine 2% Cloth) Taper DAILY@04 TOP 09/19/17 04:00 09/15/18 03:59 (Chlorhexidine 2% Cloth) 3 pack UNSCH PRN TOP 09/19/17 03:15 (Ronit-Colace) 1 tab BID PO 09/19/17 09:00 10/02/17 21:08 (Milk Of Magnesia Liq) 30 ml Q12H PRN PO 09/19/17 03:15 (Senokot) 17.2 mg Q12H PRN PO 09/19/17 03:15 (Dulcolax Supp) 10 mg DAILY PRN RECTAL 09/19/17 03:15 (Lactulose Liq) 30 ml DAILY PRN PO 09/19/17 03:15 Potassium Chloride 100 ml @ 50 mls/hr Q2H PRN IV 09/20/17 10:15 Potassium Chloride 100 ml @ 50 mls/hr Q2H PRN IV 09/20/17 10:15 (K-Lyte Cl Eff) 50 meq UNSCH PRN PO 09/20/17 10:15 Potassium Chloride 100 ml @ 25 mls/hr UNSCH PRN IV 09/20/17 10:15 Potassium Chloride 100 ml @ 50 mls/hr Q2H PRN IV 09/20/17 10:15 Magnesium Sulfate 4 gm/Sodium Chloride 100 ml @ 50 mls/hr UNSCH PRN IV 09/20/17 10:15 (Mag-Ox) 800 mg UNSCH PRN PO 09/20/17 10:15 Magnesium Sulfate 2 gm/Sodium Chloride 100 ml @ 50 mls/hr UNSCH PRN IV 09/20/17 10:15 09/26/17 03:40 (K-Phos) 2,000 mg Q4H PRN PO 09/20/17 10:15 Sodium Phosphate 30 mmol/Sodium Chloride 250 ml @ 42 mls/hr UNSCH PRN IV 09/20/17 10:15 (K-Phos) 2,000 mg UNSCH PRN PO/TUBE 09/20/17 10:15 Potassium Phosphate 30 mmol/ Sodium Chloride 260 ml @ 42 mls/hr UNSCH PRN IV 09/20/17 10:15 09/26/17 05:44 (Vitamin B1) 100 mg DAILY PO 09/24/17 09:00 10/02/17 10:07 (Theragran) 1 tab DAILY PO 09/21/17 09:00 10/02/17 10:07 (Benadryl Inj) 12.5 mg Q4H PRN IM 09/21/17 14:00 09/21/17 14:00 (Haldol Inj) 5 mg Q4H PRN IV PUSH 09/21/17 14:00 10/01/17 18:04 Dexmedetomidine HCl 1000 mcg/ Sodium Chloride 250 ml @ 6.57 mls/hr TITRATE PRN IV 09/21/17 18:30 09/23/17 00:11 (TRENtal SR) 400 mg Q12HR PO 09/23/17 21:00 10/02/17 21:08 (Aldactone) 100 mg DAILY PO 09/26/17 09:00 10/02/17 10:07 Albumin Human 100 ml @ 60 mls/hr Q12H IV 09/25/17 17:45 10/02/17 18:37 (Robitussin Dm 200-20 Mg/10 ml Liq) 10 ml Q6H PRN PO 09/26/17 13:30 (Xifaxan) 550 mg BID PO 09/27/17 21:00 10/02/17 21:08 (Librium) 15 mg DAILY PO 09/29/17 09:00 10/02/17 10:07 (Tessalon) 200 mg TID PRN PO 09/29/17 20:00 10/01/17 10:22 (Lactulose Liq) 30 ml QID PO 09/30/17 13:00 10/02/17 21:07 (Vitamin K Inj) 10 mg DAILY SQ 10/01/17 09:00 10/02/17 10:07 (Lasix Inj) 40 mg BID@,18 IV PUSH 10/01/17 18:00 10/02/17 18:36 Piperacillin Sod/ Tazobactam Sod 100 ml @ 200 mls/hr Q8H IV 10/01/17 13:00 10/02/17 21:09 Pharmacy Profile Note 0 ml @ 0 mls/hr UNSCH OTHER 10/01/17 12:00 (Duoneb Neb) 1 ampule TID NEB NEB 10/01/17 14:00 10/02/17 21:12 Vancomycin HCl 2200 mg/Sodium Chloride 522 ml @ 250 mls/hr Q12H IV 10/01/17 16:00 10/02/17 16:22 Miscellaneous Information SPECIFIC LAB TO BE DRAWN:VANCOMY... ONCE ONCE .XX 10/03/17 03:45 10/03/17 03:46 (SoluMEDROL INJ) 40 mg DAILY IV PUSH 10/03/17 09:00 (SoluMEDROL INJ) 40 mg Q6H IV PUSH 10/02/17 22:00 10/02/17 21:08 A/P Problem List: (1) Upper GI bleed ICD Code: K92.2 - Gastrointestinal hemorrhage, unspecified (2) Esophageal varices ICD Code: I85.00 - Esophageal varices without bleeding (3) Alcoholic hepatitis ICD Code: K70.10 - Alcoholic hepatitis without ascites (4) Alcohol withdrawal ICD Code: F10.239 - Alcohol dependence with withdrawal, unspecified (5) Alcohol abuse ICD Code: F10.10 - Alcohol abuse, uncomplicated (6) Anemia ICD Code: D64.9 - Anemia, unspecified Status: Acute Assessment and Plan 62 YOWM with history of alcohol abuse admitted on 09/19 initially to the critical care service for UGIB and subsequently went into EtOH withdrawal requiring Precedex drip. UGIB 09/12 varices s/p EGD with banding Bleeding resolved H&H stable. Continue to monitor and transfuse PRN Octreotide drip discontinued Protonix IV BID GI following; recommend repeat EGD in 1 month EtOH hepatitis Bilirubin increasing INR increasing MELD score 24 Supportive care Lasix and spironolactone for ascites Counseled on EtOH cessation 09/30 LFTs initially trending down, AST initially 112, trended down to 86 and now is getting up to 97. Bilirubin is trending up as well as ammonia. We will check CT abdomen and pelvis since patient has abdominal discomfort and KUB is normal. 10/01 AST slightly lower today from 97-88. Bilirubin noted to be trending higher from 11-12. Order fractionated bilirubin. Alkaline phosphatase is normal. 10/02 BMP pending. EtOH withdrawal Resolved Tapering Librium Start tapering Valium CIWA 10/01 there is no evidence of alcohol withdrawal. Anemia Hemoglobin trending down to 7.4. I will repeat CBC and if hemoglobin is confirmed to be low then will transfuse 2 units of packed red blood cells. Encephalopathy 09/30 Likely toxic encephalopathy from hyperammonemia. Agree with increasing lactulose frequency to 4 times daily. Continue to monitor ammonia levels. 10/01 CT of the brain ordered on 09/30 and still not available. 10/02 Resolving. Abdominal pain The patient still present abdominal discomfort. KUB ordered and without any acute disease. I will order CT abdomen and pelvis with and without IV contrast. 10/02 CT abdomen and pelvis shows moderate amount of ascites, BL pleural effusions and patchy areas of consolidation in medial lower lungs. Hyperammonemia. Likely secondary to liver cirrhosis. Continue lactulose as stated above. Monitor ammonia levels. 10/01 ammonia levels down to 39 from 53. Continue lactulose 4 times a day. 10/02 Continue lactulose and monitor ammonia. Coagulopathy. INR is trending up from 1.6-1.8. Started on vitamin K, 1 dose of IV vitamin K administered 09/30. 10/01 continuous subcutaneous vitamin K. INR stable at 1.8. Continue to monitor PT/INR. Ascites. Continue spironolactone and Lasix for ascites. The patient status post ultrasound-guided paracentesis, with a noninfectious fluid. 10/01 abdomen seems to be very distended with ascites which is possibly causing some breathing difficulties. I will order a diagnostic and therapeutic ultrasound-guided paracentesis since the patient is confused and tachycardic. 10/02 sp us guided paracentesis. Low-grade fever. Patient had a low-grade fever with a T-max of 99.8. no further elevation of temperature since 09/29. Hypertension Labetalol when necessary to keep SBP less than 160 Discontinue clonidine in view of hypotension. 10/01 BP stable, continue to monitor vital signs. Alcoholism - CIWA protocol - mvi - thiamine - valium 5mg po q8h - Added Librium 15 mg by mouth twice a day on 09/23 09/30 discontinued Valium which could be contributing to the patient's encephalopathy at this point. Anemia secondary to acute blood loss - stable. - daily cbc - keep hgb > 7. 10/01 hemoglobin down to 7.4. 10/02 Hb stable at 7.8 GERD - iv bid ppi Influenza Acute respiratory failure HCAP -Consult pulmonary for respiratory failure as patient being transferred to the floor. 10/01 the patient states still requiring elevated levels of oxygen. The patient is on 5 L via nasal cannula. Chest x-ray ordered and it showed a left lower lobe consolidation. Suspect hospital-acquired pneumonia. I will start the patient on IV Zosyn and IV vancomycin. Obtain blood cultures. 10/02 Patient on 6 liters nasal canula. Will Rx IV SOlumedrol 125 mg IV once and then 40 mg IV Q6 hrs. Appreciate palliative care efforts - Patient is DNR and hospice consulted. DVT prophylaxis: SCDs, avoid chemoprophylaxis given coagulopathy and anemia and recent GI bleeding. Discharge Planning Continue to monitor in the medical floor. Raffi Johnson MD Oct 02, 2017 15:21
[2017-10-02] MEDS ORDERED: methylPREDNISolone SOD SUCC 125 MG/2 ML VIAL IV PUSH ONE (15:30)
--- NOTE | 2017-10-02 15:57 | HHI.HCPN ---
Reason for visit a. To assist with evaluation and management of symptoms including: dyspnea, pain, confusion b. To assist medical decision maker(s) with: better understanding of current medical conditions; weighing benefits/burdens of medical treatment options; making medical treatment decisions. . Subjective/Interval History Follow up visit for symptom management and clarification of medical treatment goals. Patient seen and assessed this morning in room 1316. Patient is more alert today than yesterday; he is able to recall conversation from yesterday regarding HCS decision maker ans again states he designates his girlfriend ( Nelida) as his HCS. When asked, "What about your 3 children?" He replied, "Nelida knows what I want. They're too far away anyway." Patient endorses some shortness of breath which worsens with conversation. Oxygen saturation in the mid 90s on 6L via nasal cannula. S/p paracentesis on with 650 mL to remove. CXR on 10/01/17 showing left lower lobe consolidation.On scheduled Lasix, Antibiotics and Duo-nebs. Started on IV Solu- Medrol. Having ongoing dull abdomen pain rated 8 out of 10. PRN morphine available and given one time in the past 24 hours. Saw patient again at 1400; girlfriend (Nelida) was also present. Patient is alert to person, place and situation at the time of exam. He understands the circumstances of this hospitalization stating, "I did this to myself. Drank so much my liver don't work." He was able to recount our conversation yet again, and for the third time designates his girlfriend (Nelida) as his HCS decision maker. Healthcare surrogate designation form completed. Copies given to nurse, Maribel, to be put in the patient's paper chart; copy left for patient/family. After further discussion, the patient indicates he just wants to go home and live his life the way he wants to even if it may shorten his life span. Patient' s girlfriend confirm she has had similar conversations on multiple conversations. Discussed with bedside nurse and Dr. Hurley. CODE STATUS changed to NO CODE-DNR/DNI. Hospice consulted for symptom management and end-of -life care. . Family/friend interactions See interval history . Advance Directives Advance Directive Specifics Date completed: 10/02/2017 . Health Care Surrogate(s): Girlfriend, Nelida Rothman, is designated as the healthcare surrogate decision maker . Significant change in goals: Hospice consult it for symptom management and end-of-life care. . Objective Vital Signs Date Time Temp Pulse Resp B/P (MAP) Pulse Ox O2 Delivery O2 Flow Rate FiO2 10/02/17 12:00 98.3 110 24 160/86 (110) 93 10/02/17 08:40 94 Nasal Cannula 6.00 10/02/17 08:00 94 Nasal Cannula 6.00 10/02/17 08:00 98.6 107 26 137/70 (92) 95 10/02/17 04:31 98.7 113 24 137/76 (96) 90 10/02/17 00:31 98.5 109 24 134/81 (98) 100 10/01/17 20:00 98.1 124 18 145/87 (106) 96 10/01/17 19:58 94 Nasal Cannula 5.00 10/01/17 19:00 95 Nasal Cannula 5.00 10/01/17 15:45 98.6 105 20 148/92 (110) 92 10/01/17 15:30 98.3 104 20 140/84 (102) 93 Intake & Output 10/02/17 10/02/17 06:59 18:59 Output Total 150 ml Balance -150 ml Output Urine Total 150 ml # Bowel Movements 1 . Physical Exam CONSTITUTIONAL/GENERAL: This is a middle-age male patient who appears to be in a moderate degree of respiratory distress. TUBES/LINES/DRAINS: PIV SKIN: Jaundice Ecchymoses on upper extremities. No wounds seen anteriorly. Skin temperature appropriate. Not diaphoretic. HEAD: Atraumatic. Normocephalic. EYES: Pupils equal and round and reactive. Extraocular motions intact. + scleral icterus. No injection or drainage. Fundi not examined. ENT: Hearing grossly normal. Nose without bleeding or purulent drainage. NECK: Trachea midline. Supple, nontender. No palpable thyroid enlargement or nodularity. CARDIOVASCULAR: Tachycardic without murmurs, gallops, or rubs. No JVD. Peripheral pulses symmetric. RESPIRATORY/CHEST: , Unlabored. Breath sounds diminished bilaterally. No wheezes, rales, or rhonchi. GASTROINTESTINAL: Abdomen soft, non-tender, nondistended. No hepato-splenomegaly , or palpable masses. No guarding. Bowel sounds present. GENITOURINARY: Without palpable bladder distension. MUSCULOSKELETAL: Extremities without clubbing or cyanosis. + Edema. No mottling or clubbing. No obvious deformities LYMPHATICS: No palpable cervical or supraclavicular adenopathy. NEUROLOGICAL: More alert today. Able to answer questions, follows commands. Understands circumstances of hospitalization PSYCHIATRIC: No obvious anxiety/depression. no apparent hallucinations or other psychotic thought process. . Diagnostic Tests Laboratory Laboratory Tests Test 09/30/17 05:34 09/30/17 06:30 10/01/17 05:08 10/01/17 15:30 White Blood Count 11.5 TH/MM3 (4.0-11.0) 11.1 TH/MM3 (4.0-11.0) Red Blood Count 3.08 MIL/MM3 (4.50-5.90) 2.79 MIL/MM3 (4.50-5.90) Hemoglobin 8.2 GM/DL (13.0-17.0) 7.4 GM/DL (13.0-17.0) Hematocrit 25.3 % (39.0-51.0) 22.8 % (39.0-51.0) Mean Corpuscular Volume 82.1 FL (80.0-100.0) 81.6 FL (80.0-100.0) Mean Corpuscular Hemoglobin 26.8 PG (27.0-34.0) 26.5 PG (27.0-34.0) Mean Corpuscular Hemoglobin Concent 32.6 % (32.0-36.0) 32.4 % (32.0-36.0) Red Cell Distribution Width 25.0 % (11.6-17.2) 25.1 % (11.6-17.2) Platelet Count 181 TH/MM3 (150-450) 155 TH/MM3 (150-450) Mean Platelet Volume 8.5 FL (7.0-11.0) 8.1 FL (7.0-11.0) Neutrophils (%) (Auto) 81.5 % (16.0-70.0) 81.5 % (16.0-70.0) Lymphocytes (%) (Auto) 8.1 % (9.0-44.0) 8.8 % (9.0-44.0) Monocytes (%) (Auto) 8.5 % (0.0-8.0) 8.1 % (0.0-8.0) Eosinophils (%) (Auto) 1.5 % (0.0-4.0) 1.3 % (0.0-4.0) Basophils (%) (Auto) 0.4 % (0.0-2.0) 0.3 % (0.0-2.0) Neutrophils # (Auto) 9.4 TH/MM3 (1.8-7.7) 9.0 TH/MM3 (1.8-7.7) Lymphocytes # (Auto) 0.9 TH/MM3 (1.0-4.8) 1.0 TH/MM3 (1.0-4.8) Monocytes # (Auto) 1.0 TH/MM3 (0-0.9) 0.9 TH/MM3 (0-0.9) Eosinophils # (Auto) 0.2 TH/MM3 (0-0.4) 0.1 TH/MM3 (0-0.4) Basophils # (Auto) 0.0 TH/MM3 (0-0.2) 0.0 TH/MM3 (0-0.2) CBC Comment DIFF FINAL AUTO DIFF Differential Comment AUTO DIFF CONFIRMED Prothrombin Time 18.5 SEC (9.8-11.6) Prothromb Time International Ratio 1.8 RATIO Blood Urea Nitrogen 11 MG/DL (7-18) 11 MG/DL (7-18) Creatinine 0.66 MG/DL (0.60-1.30) 0.70 MG/DL (0.60-1.30) Random Glucose 81 MG/DL (74-106) 93 MG/DL (74-106) Total Protein 7.0 GM/DL (6.4-8.2) 6.6 GM/DL (6.4-8.2) Albumin 2.5 GM/DL (3.4-5.0) 2.6 GM/DL (3.4-5.0) Calcium Level 7.6 MG/DL (8.5-10.1) 8.0 MG/DL (8.5-10.1) Alkaline Phosphatase 74 U/L (45-117) 84 U/L (45-117) Aspartate Amino Transf (AST/SGOT) 97 U/L (15-37) 88 U/L (15-37) Alanine Aminotransferase (ALT/SGPT) 34 U/L (12-78) 29 U/L (12-78) Total Bilirubin 11.0 MG/DL (0.2-1.0) 12.0 MG/DL (0.2-1.0) Sodium Level 135 MEQ/L (136-145) 135 MEQ/L (136-145) Potassium Level 3.7 MEQ/L (3.5-5.1) 3.5 MEQ/L (3.5-5.1) Chloride Level 99 MEQ/L (98-107) 98 MEQ/L (98-107) Carbon Dioxide Level 28.4 MEQ/L (21.0-32.0) 28.9 MEQ/L (21.0-32.0) Anion Gap 8 MEQ/L (5-15) 8 MEQ/L (5-15) Estimat Glomerular Filtration Rate 123 ML/MIN (>89) 115 ML/MIN (>89) Ammonia 53 MCMOL/L (11-32) 39 MCMOL/L (11-32) Toxic Granulation 1+ (NORMAL) Platelet Estimate NORMAL (NORMAL) Platelet Morphology Comment NORMAL (NORMAL) Polychromasia 2.6 % (0.0-1.9) Basophilic Stippling FAINT (NORMAL) Stomatocytes 2+ (NORMAL) Phosphorus Level 1.7 MG/DL (2.5-4.9) Magnesium Level 1.9 MG/DL (1.5-2.5) Peritoneal Fluid WBC 134 /MM3 (0-10) Peritoneal Fluid RBC 105 /MM3 (0-0) Peritoneal Fluid Neutrophils 8 % Peritoneal Fluid Lymphocytes 74 % Peritoneal Fluid Monocytes 12 % Peritoneal Fluid Basophils 1 % Peritoneal Fluid Mesothelial Cells 5 % Peritoneal Fluid Total Protein 0.6 GM/DL Peritoneal Fluid Albumin 0.3 G/DL Peritoneal Fluid LDH 38 U/L Peritoneal Fluid Glucose 106 MG/DL Test 10/01/17 17:50 10/02/17 04:59 White Blood Count 12.5 TH/MM3 (4.0-11.0) Red Blood Count 3.05 MIL/MM3 (4.50-5.90) Hemoglobin 8.0 GM/DL (13.0-17.0) Hematocrit 24.9 % (39.0-51.0) Mean Corpuscular Volume 81.6 FL (80.0-100.0) Mean Corpuscular Hemoglobin 26.3 PG (27.0-34.0) Mean Corpuscular Hemoglobin Concent 32.3 % (32.0-36.0) Red Cell Distribution Width 24.4 % (11.6-17.2) Platelet Count 170 TH/MM3 (150-450) Mean Platelet Volume 8.2 FL (7.0-11.0) Neutrophils (%) (Auto) 84.6 % (16.0-70.0) Lymphocytes (%) (Auto) 7.5 % (9.0-44.0) Monocytes (%) (Auto) 6.6 % (0.0-8.0) Eosinophils (%) (Auto) 0.9 % (0.0-4.0) Basophils (%) (Auto) 0.4 % (0.0-2.0) Neutrophils # (Auto) 10.6 TH/MM3 (1.8-7.7) Lymphocytes # (Auto) 0.9 TH/MM3 (1.0-4.8) Monocytes # (Auto) 0.8 TH/MM3 (0-0.9) Eosinophils # (Auto) 0.1 TH/MM3 (0-0.4) Basophils # (Auto) 0.0 TH/MM3 (0-0.2) CBC Comment DIFF FINAL Differential Comment Total Bilirubin 13.6 MG/DL (0.2-1.0) Direct Bilirubin 9.2 MG/DL (0.0-0.2) Indirect Bilirubin 4.4 MG/DL (0.0-0.8) Creatinine 0.80 MG/DL (0.60-1.30) Estimat Glomerular Filtration Rate 98 ML/MIN (>89) Result Diagram: 10/01/17 5150 10/02/17 1519 Microbiology Microbiology Date/Time Source Procedure Growth Status 10/01/17 17:50 Blood Peripheral Aerobic Blood Culture - Preliminary NO GROWTH IN 1 DAY Resulted 10/01/17 17:50 Blood Peripheral Anaerobic Blood Culture - Preliminary NO GROWTH IN 1 DAY Resulted 10/01/17 17:45 Blood Peripheral Aerobic Blood Culture - Preliminary NO GROWTH IN 1 DAY Resulted 10/01/17 17:45 Blood Peripheral Anaerobic Blood Culture - Preliminary NO GROWTH IN 1 DAY Resulted 10/01/17 15:30 Fluid Peritoneal Fluid Gram Stain - Final Resulted 10/01/17 15:30 Fluid Peritoneal Fluid Body Fluid Culture Pending Resulted . Imaging Last 72 hours Impressions Cyst Biopsy Asp-Paracentesis US 10/01/17 0000 Signed Impressions: Service Date/Time: Sunday, October 01, 2017 12:35 - CONCLUSION: Uncomplicated ultrasound guided paracentesis. Deng Feliciano MD Chest X-Ray 10/01/17 0000 Signed Impressions: Service Date/Time: Sunday, October 01, 2017 09:33 - CONCLUSION: Left lower lobe consolidation. Shahid Millard MD Head CT 09/30/17 0000 Signed Impressions: Service Date/Time: Sunday, October 01, 2017 16:03 - CONCLUSION: 1. Negative noncontrast CT brain. Shahid Millard MD Abdomen/Pelvis CT 09/30/17 0000 Signed Impressions: Service Date/Time: Sunday, October 01, 2017 16:25 - CONCLUSION: 1. Moderate amount of abdominal pelvic ascites. 2. Small bilateral pleural effusions and patchy areas of consolidation medial lower lungs. Shahid Millard MD Abdomen X-Ray 09/30/17 0000 Signed Impressions: Service Date/Time: Saturday, September 30, 2017 12:06 - CONCLUSION: 1. No acute findings. Tyler Adams MD . Assessment and Plan Disease Oriented Problem List: (1) GI bleeding (2) Anemia (3) Esophageal varices (4) Upper GI bleed (5) Alcohol withdrawal (6) Ascites (7) Hypertension Symptom Scale: (1) Pain 0-10 Scale: Unable to quantify (2) Dyspnea 0-10 Scale: Unable to quantify (3) Confusion 0-10 Scale: Unable to quantify Pertinent Non-Medical Issues Psychosocial: Patient was born and raised in [place]. He currently lives in [place], [place] with his girlfriend. He is unemployed, supported by assisted benefits. His highest level of education was 10th grade. Spiritual: Unknown at this time; pending further conversation. Legal: Patient's insight and judgment somewhat limited 2/2 hepatic encephalopathy, but this is improving. Per [place] statutes, in the absence of written advanced directives healthcare proxy decision making would fall to the patient's 3 adult children. in conversation with the patient he is appropriately asking his girlfriend about his vehicle registration which is over due and if the bills have been paid. He is oriented to self and place. He does not no why he is in the hospital. When asked who he would want to act in the role of health care decision-maker if he was unable to due so, he points to his girlfriend and says "Nelida." Given my uncertainty if the patient fully understands my questions; I will revisit HCS decision making tomorrow 10/03/17 to see if he is able to replicate our conversation from today. Ethical issues impacting care: No known ethical impacting care at this time. Important Contacts Nelida Lozano, girl friend: [phone] Jocelynn Ghotra, daughter: [phone] Moose Ghotra, son: [phone] Tyler Ghotra, son: [phone] Peter, friend: [phone] . Prognosis 62 yo male admitted with recurrent GI bleed secondary to varices, requiring frequent EGD with banding. Encephalopathic with EtOH hepatitis, EtOH withdrawal , ascites, coagulopathy, influenza and HCAP. Patient is non-compliant and intends to return home to continue drinking. Meld score:24. Poor prognosis. . Code Status: Full Code Plan * NO CODE * Discussed patient with bedside nurse and Dr. Hurley * Patient is more alert today than yesterday; he is able to recall conversation from yesterday regarding HCS decision maker ans again states he designates his girlfriend (Nelida) as his HCS. When asked, "What about your 3 children?" He replied, "Nelida knows what I want. They're too far away anyway." Saw patient again at 1400; girlfriend (Nelida) was also present. Patient is alert to person, place and situation at the time of exam. He understands the circumstances of this hospitalization stating, "I did this to myself. Drank so much my liver don' t work." He was able to recount our conversation yet again, and for the third time designates his girlfriend (Nelida) as his HCS decision maker. Healthcare surrogate designation form completed. Copies given to nurse, Maribel, to be put in the patient's paper chart; copy left for patient/family. After further discussion, the patient indicates he just wants to go home and live his life the way he wants to even if it may shorten his life span. Patient's girlfriend confirm she has had similar conversations on multiple conversations. CODE STATUS changed to NO CODE-DNR/DNI. * Hospice consulted for symptom management and end-of-life care. * Spoke with Gabriela at hospice intake * Symptom management: = Dyspnea: Dyspneic on 6 L via nasal cannula with saturations in the mid 90s. CXR on 10/01/17 showing left lower lobe consolidation. On scheduled Lasix, Antibiotics and Duo-nebs. Started on Solu-Medrol today 10/02/17 = Pain:Having ongoing dull abdomen pain rated 8 out of 10. Abdomen is quite distended s/p paracentesis on 10/01/17 with 650 removed.PRN morphine available and given one time in the past 24 hours. = Confusion: Improving. Ammonia decreased from 53 to 39. Lactulose increased to QID on 10/01/2017 but patient is refusing. * Palliative care will continue to follow this patient throughout his hospitalization to establish trust, assist with symptom management and clarification of medical treatment goals. Attestation To help prompt me to consider important information that might be impacting today's encounter and assessment, information from prior notes written by myself or my colleagues may have been "brought forward" into today's note. My signature on this note, however, is an attestation that I personally performed the exam, history, and/or decision-making noted today, and, unless otherwise indicated, the interactions with patient, family, and staff as well as the review of records all occurred today. I also attest that the listed assessment and stated plan reflect my best clinical judgment today based on the combination of historical information, prior notes, and today's exam/ interactions. When time spent is documented, it refers only to time spent today by the signer, or if indicated, combined time spent today by collaborating physician/nurse practitioner. . Marily Pinto Oct 02, 2017 15:57
[2017-10-02] MEDS: methylPREDNISolone SOD SUCC 40 MG/1 ML VIAL IV PUSH SCH (21:08)
[2017-10-02 21:16] LABS: AUTOMATED NEUTROPHIL # 12.7 TH/MM3 (1.8-7.7); BASOPHIL % 0.2 % (0.0-2.0); HEMATOCRIT 24.8 % (39.0-51.0); HEMOGLOBIN 7.8 GM/DL (13.0-17.0); LYMPHOCYTE # 0.5 TH/MM3 (1.0-4.8); MEAN CELL VOLUME 80.3 FL (80.0-100.0); MEAN CORPUSCULAR HEMOGLOBIN 25.3 PG (27.0-34.0); MEAN CORPUSCULAR HGB CONC 31.5 % (32.0-36.0); MEAN PLATELET VOLUME 8.2 FL (7.0-11.0); MONO % 2.4 % (0.0-8.0); MONOCYTE # 0.3 TH/MM3 (0-0.9); NEUT % 93.4 % (16.0-70.0); PLATELET COUNT 182 TH/MM3 (150-450); RED BLOOD COUNT 3.08 MIL/MM3 (4.50-5.90); RED CELL DISTRIBUTION WIDTH 24.9 % (11.6-17.2); WHITE BLOOD COUNT 13.6 TH/MM3 (4.0-11.0)
[2017-10-02 21:39] LABS: ALBUMIN 2.6 GM/DL (3.4-5.0); AST (GOT) 102 U/L (15-37); BLOOD UREA NITROGEN 12 MG/DL (7-18); CALCIUM 7.8 MG/DL (8.5-10.1); CHLORIDE 98 MEQ/L (98-107); CREATININE 0.83 MG/DL (0.60-1.30); GLOMERULAR FILTRATION RATE 94 ML/MIN (>89); GLUCOSE,RANDOM 128 MG/DL (74-106); SODIUM (NA) 135 MEQ/L (136-145)
[2017-10-02 21:56] LABS: ALKALINE PHOSPHATASE 74 U/L (45-117); ALT (GPT) 37 U/L (12-78); TOTAL BILIRUBIN ADULT 13.9 MG/DL (0.2-1.0); TOTAL PROTEIN 6.9 GM/DL (6.4-8.2)
[2017-10-03] VITALS: BP 149/80; PULSE 110; RESP 22; TEMP 97.7; O2SAT 90
[2017-10-03] MEDS: MORPHINE SULFATE 4 MG/ML INJ IV PUSH PRN ×3 (01:24→15:50)
[2017-10-03] MEDS: PANTOPRAZOLE SODIUM 40 MG VIAL IV PUSH SCH ×2 (01:33→13:00)
[2017-10-03] MEDS: cefTRIAXone INJ 2,000 MG in SODIUM CHLORIDE 0.9% INJ 100 ML IV SCH (02:03)
[2017-10-03] MEDS: methylPREDNISolone SOD SUCC 40 MG/1 ML VIAL IV PUSH SCH ×3 (03:11→15:49)
[2017-10-03] MEDS: CHLORHEXIDINE GLUCONATE 2 % 1 PACK (2 CLOTHS) TOP SCH (03:11)
[2017-10-03] MEDS: VANCOMYCIN INJ 2,200 MG in SODIUM CHLORID 0.9% 500 ML INJ 500 ML IV SCH (03:11)
[2017-10-03] MEDS ORDERED: PHARMACY ORDERED LAB ONE (03:45)
[2017-10-03 04:00] VITALS: BP 149/80; PULSE 110; RESP 22; TEMP 97.7; O2SAT 90
[2017-10-03] MEDS: PIPERACIL-TAZO 4.5 GM PREMIX 100 ML IV SCH ×2 (04:37→13:00)
[2017-10-03] MEDS: ALBUMIN 25% INJ 100 ML IV SCH ×2 (04:37→16:00)
[2017-10-03 05:03] LABS: AUTOMATED NEUTROPHIL # 17.8 TH/MM3 (1.8-7.7); BASOPHIL # 0.1 TH/MM3 (0-0.2); BASOPHIL % 0.3 % (0.0-2.0); HEMATOCRIT 23.9 % (39.0-51.0); HEMOGLOBIN 7.8 GM/DL (13.0-17.0); LYMPH % 4.3 % (9.0-44.0); LYMPHOCYTE # 0.8 TH/MM3 (1.0-4.8); MEAN CELL VOLUME 81.8 FL (80.0-100.0); MEAN CORPUSCULAR HEMOGLOBIN 26.7 PG (27.0-34.0); MEAN CORPUSCULAR HGB CONC 32.6 % (32.0-36.0); MONO % 3.3 % (0.0-8.0); MONOCYTE # 0.6 TH/MM3 (0-0.9); NEUT % 92.1 % (16.0-70.0); PLATELET COUNT 253 TH/MM3 (150-450); RED BLOOD COUNT 2.92 MIL/MM3 (4.50-5.90); RED CELL DISTRIBUTION WIDTH 24.6 % (11.6-17.2); WHITE BLOOD COUNT 19.3 TH/MM3 (4.0-11.0)
[2017-10-03 05:13] LABS: INTERNATIONAL NORMALIZED RATIO 1.8 RATIO; PROTHROMBIN TIME - PATIENT 18.3 SEC (9.8-11.6)
[2017-10-03 05:34] LABS: ALBUMIN 2.4 GM/DL (3.4-5.0); ALKALINE PHOSPHATASE 76 U/L (45-117); ALT (GPT) 43 U/L (12-78); AST (GOT) 155 U/L (15-37); BICARBONATE 31.5 MEQ/L (21.0-32.0); BLOOD UREA NITROGEN 17 MG/DL (7-18); CALCIUM 7.9 MG/DL (8.5-10.1); CHLORIDE 97 MEQ/L (98-107); CREATININE 0.97 MG/DL (0.60-1.30); GLOMERULAR FILTRATION RATE 79 ML/MIN (>89); GLUCOSE,RANDOM 129 MG/DL (74-106); MAGNESIUM 1.9 MG/DL (1.5-2.5); PHOSPHORUS 2.9 MG/DL (2.5-4.9); SODIUM (NA) 133 MEQ/L (136-145); TOTAL BILIRUBIN ADULT 14.8 MG/DL (0.2-1.0); TOTAL PROTEIN 7.4 GM/DL (6.4-8.2)
[2017-10-03 08:00] VITALS: BP 142/88; PULSE 116; RESP 20; TEMP 98.3; O2SAT 93
[2017-10-03] MEDS: RESP: ALBUTEROL 2.5 MG/IPRATROPIUM 0.5 MG NEB (SCH) NEB ×2 (08:00→14:00)
[2017-10-03] MEDS: SPIRONOLACTONE 100 MG TAB PO SCH (08:55)
[2017-10-03] MEDS: LACTULOSE SYRUP 20 GM/30 ML CUP PO SCH ×3 (08:55→16:01)
[2017-10-03] MEDS: DOCUSATE SODIUM 50 MG/SENNA 8.6 MG TAB PO SCH (08:56)
[2017-10-03] MEDS: RIFAXIMIN 550 MG TAB PO SCH (08:56)
[2017-10-03] MEDS: THIAMINE HCL 100 MG TAB PO SCH (08:56)
[2017-10-03] MEDS: MULTIVITAMIN TAB PO SCH (08:56)
[2017-10-03] MEDS: PENTOXIFYLLINE 400 MG CONTROLLED RELEASE TAB PO SCH (08:56)
[2017-10-03] MEDS ORDERED: methylPREDNISolone SOD SUCC 40 MG/1 ML VIAL IV PUSH SCH (09:00)
[2017-10-03] MEDS: FUROSEMIDE 40 MG/4 ML VIAL IV PUSH SCH ×2 (09:40→18:02)
[2017-10-03] MEDS: SODIUM CHLORIDE 0.9% FLUSH 10 ML FLUSH IV FLUSH SCH (09:40)
[2017-10-03] MEDS: PHYTONADIONE 10 MG/ML VIAL SQ SCH (09:41)
[2017-10-03 12:00] VITALS: BP 137/74; PULSE 114; RESP 25; TEMP 98.6; O2SAT 97
--- NOTE | 2017-10-03 12:47 | HHI.HCPN ---
Reason for visit a. To assist with evaluation and management of symptoms including: dyspnea, pain, confusion b. To assist medical decision maker(s) with: better understanding of current medical conditions; weighing benefits/burdens of medical treatment options; making medical treatment decisions. . Subjective/Interval History Follow up visit for symptom management and clarification of medical treatment goals. Patient seen and assessed this morning in room 1316. Friend, Peter, is at bedside. Patient is somewhat confused but is able to respond to simple questions with 1-2 worse answers. He is difficult to understand because he is mumbling. Grabbing at something in the air. Ammonia level increased from 39 to100 today. Nursing reports patient with hemoptysis this morning. Patient is tachypneic with respirations 22-24; oxygen saturation 93% on 6L via nasal cannula. S/p paracentesis on 10/01/17 with 650 mL to remove. CXR on showing left lower lobe consolidation. On scheduled Lasix, Antibiotics and Duo-nebs and Solu-Medrol. Having ongoing aching abdomen pain rated 8 or 9 out of 10. PRN morphine 2 mg IV is available every 2 hours for pain scale 6-10. Patient has received 4 doses in the past 24 hours. Patient was able to pass his swallow evaluation yesterday 10/02/17, and diet was changed to mechanically soft/chopped meat with gravy and nectar consistent with the thickened liquids. However, on exam today the patient having dysphasia and coughing with liquid intake. Speech therapy to follow-up later today. Plan for transition to hospice later today; awaiting arrival of patient's girlfriend (Nelida) who is the healthcare surrogate decision maker. . Family/friend interactions Spoke with patient's brother, Christos, on two different occasions via telephone. Provide update on patient's clinical condition, medical treatment goals and coordination of transition to comfort focused care. I also with Nelida several times in an attempt to coordinate meeting with hospice admission nurse. . Advance Directives Health Care Surrogate: Copy in medical record Advance Directive Specifics Date completed: 10/02/2017 . Health Care Surrogate(s): Girlfriend, Nelida Rothman, is designated as the healthcare surrogate decision maker . Significant change in goals: Plan to transition to hospice services today with placement at a hospice care center for symptom management and end-of-life care. . Objective Vital Signs Date Time Temp Pulse Resp B/P (MAP) Pulse Ox O2 Delivery O2 Flow Rate FiO2 10/03/17 12:00 98.6 114 25 137/74 (95) 97 10/03/17 08:00 98.3 116 20 142/88 (106) 93 10/03/17 04:41 20 10/03/17 04:00 97.7 110 22 149/80 (103) 90 10/03/17 00:00 97.7 110 22 149/80 (103) 90 10/02/17 21:12 95 Nasal Cannula 6.00 10/02/17 20:00 98.0 99 27 159/77 (104) 89 10/02/17 20:00 115 10/02/17 19:50 Nasal Cannula 6.00 10/02/17 16:00 98.1 107 29 140/91 (107) 95 Intake & Output 10/03/17 10/03/17 07:00 19:00 # Voids 4 . Physical Exam CONSTITUTIONAL/GENERAL: This is a middle-age male patient who appears to be in a moderate degree of respiratory distress. TUBES/LINES/DRAINS: PIV SKIN: Jaundice Ecchymoses on upper extremities. No wounds seen anteriorly. Skin temperature appropriate. Not diaphoretic. HEAD: Atraumatic. Normocephalic. EYES: Pupils equal and round and reactive. Extraocular motions intact. + scleral icterus. No injection or drainage. Fundi not examined. ENT: Hearing grossly normal. Nose without bleeding or purulent drainage. NECK: Trachea midline. Supple, nontender. No palpable thyroid enlargement or nodularity. CARDIOVASCULAR: Tachycardic without murmurs, gallops, or rubs. No JVD. Peripheral pulses symmetric. RESPIRATORY/CHEST: Tachypneic Breath sounds diminished bilaterally. No wheezes, rales, or rhonchi. GASTROINTESTINAL: Abdomen firm, distended. Bowel sounds present. GENITOURINARY: Without palpable bladder distension. MUSCULOSKELETAL: Extremities without clubbing or cyanosis. + Edema. No mottling or clubbing. No obvious deformities LYMPHATICS: No palpable cervical or supraclavicular adenopathy. NEUROLOGICAL: Somewhat confused. Able to respond to simple questions with 1-2 word answers. Patient reaching out into the air to grab for something that is not there. PSYCHIATRIC: No obvious anxiety/depression. . Diagnostic Tests Laboratory Laboratory Tests Test 10/01/17 05:08 10/01/17 15:30 10/01/17 17:50 10/02/17 04:59 White Blood Count 11.1 TH/MM3 (4.0-11.0) 12.5 TH/MM3 (4.0-11.0) Red Blood Count 2.79 MIL/MM3 (4.50-5.90) 3.05 MIL/MM3 (4.50-5.90) Hemoglobin 7.4 GM/DL (13.0-17.0) 8.0 GM/DL (13.0-17.0) Hematocrit 22.8 % (39.0-51.0) 24.9 % (39.0-51.0) Mean Corpuscular Volume 81.6 FL (80.0-100.0) 81.6 FL (80.0-100.0) Mean Corpuscular Hemoglobin 26.5 PG (27.0-34.0) 26.3 PG (27.0-34.0) Mean Corpuscular Hemoglobin Concent 32.4 % (32.0-36.0) 32.3 % (32.0-36.0) Red Cell Distribution Width 25.1 % (11.6-17.2) 24.4 % (11.6-17.2) Platelet Count 155 TH/MM3 (150-450) 170 TH/MM3 (150-450) Mean Platelet Volume 8.1 FL (7.0-11.0) 8.2 FL (7.0-11.0) Neutrophils (%) (Auto) 81.5 % (16.0-70.0) 84.6 % (16.0-70.0) Lymphocytes (%) (Auto) 8.8 % (9.0-44.0) 7.5 % (9.0-44.0) Monocytes (%) (Auto) 8.1 % (0.0-8.0) 6.6 % (0.0-8.0) Eosinophils (%) (Auto) 1.3 % (0.0-4.0) 0.9 % (0.0-4.0) Basophils (%) (Auto) 0.3 % (0.0-2.0) 0.4 % (0.0-2.0) Neutrophils # (Auto) 9.0 TH/MM3 (1.8-7.7) 10.6 TH/MM3 (1.8-7.7) Lymphocytes # (Auto) 1.0 TH/MM3 (1.0-4.8) 0.9 TH/MM3 (1.0-4.8) Monocytes # (Auto) 0.9 TH/MM3 (0-0.9) 0.8 TH/MM3 (0-0.9) Eosinophils # (Auto) 0.1 TH/MM3 (0-0.4) 0.1 TH/MM3 (0-0.4) Basophils # (Auto) 0.0 TH/MM3 (0-0.2) 0.0 TH/MM3 (0-0.2) CBC Comment AUTO DIFF DIFF FINAL Differential Comment AUTO DIFF CONFIRMED Toxic Granulation 1+ (NORMAL) Platelet Estimate NORMAL (NORMAL) Platelet Morphology Comment NORMAL (NORMAL) Polychromasia 2.6 % (0.0-1.9) Basophilic Stippling FAINT (NORMAL) Stomatocytes 2+ (NORMAL) Blood Urea Nitrogen 11 MG/DL (7-18) Creatinine 0.70 MG/DL (0.60-1.30) 0.80 MG/DL (0.60-1.30) Random Glucose 93 MG/DL (74-106) Total Protein 6.6 GM/DL (6.4-8.2) Albumin 2.6 GM/DL (3.4-5.0) Calcium Level 8.0 MG/DL (8.5-10.1) Phosphorus Level 1.7 MG/DL (2.5-4.9) Magnesium Level 1.9 MG/DL (1.5-2.5) Alkaline Phosphatase 84 U/L (45-117) Aspartate Amino Transf (AST/SGOT) 88 U/L (15-37) Alanine Aminotransferase (ALT/SGPT) 29 U/L (12-78) Total Bilirubin 12.0 MG/DL (0.2-1.0) 13.6 MG/DL (0.2-1.0) Sodium Level 135 MEQ/L (136-145) Potassium Level 3.5 MEQ/L (3.5-5.1) Chloride Level 98 MEQ/L (98-107) Carbon Dioxide Level 28.9 MEQ/L (21.0-32.0) Anion Gap 8 MEQ/L (5-15) Estimat Glomerular Filtration Rate 115 ML/MIN (>89) 98 ML/MIN (>89) Ammonia 39 MCMOL/L (11-32) Peritoneal Fluid WBC 134 /MM3 (0-10) Peritoneal Fluid RBC 105 /MM3 (0-0) Peritoneal Fluid Neutrophils 8 % Peritoneal Fluid Lymphocytes 74 % Peritoneal Fluid Monocytes 12 % Peritoneal Fluid Basophils 1 % Peritoneal Fluid Mesothelial Cells 5 % Peritoneal Fluid Total Protein 0.6 GM/DL Peritoneal Fluid Albumin 0.3 G/DL Peritoneal Fluid LDH 38 U/L Peritoneal Fluid Glucose 106 MG/DL Direct Bilirubin 9.2 MG/DL (0.0-0.2) Indirect Bilirubin 4.4 MG/DL (0.0-0.8) Test 10/02/17 20:49 10/03/17 01:30 10/03/17 04:30 White Blood Count 13.6 TH/MM3 (4.0-11.0) 19.3 TH/MM3 (4.0-11.0) Red Blood Count 3.08 MIL/MM3 (4.50-5.90) 2.92 MIL/MM3 (4.50-5.90) Hemoglobin 7.8 GM/DL (13.0-17.0) 7.8 GM/DL (13.0-17.0) Hematocrit 24.8 % (39.0-51.0) 23.9 % (39.0-51.0) Mean Corpuscular Volume 80.3 FL (80.0-100.0) 81.8 FL (80.0-100.0) Mean Corpuscular Hemoglobin 25.3 PG (27.0-34.0) 26.7 PG (27.0-34.0) Mean Corpuscular Hemoglobin Concent 31.5 % (32.0-36.0) 32.6 % (32.0-36.0) Red Cell Distribution Width 24.9 % (11.6-17.2) 24.6 % (11.6-17.2) Platelet Count 182 TH/MM3 (150-450) 253 TH/MM3 (150-450) Mean Platelet Volume 8.2 FL (7.0-11.0) 9.0 FL (7.0-11.0) Neutrophils (%) (Auto) 93.4 % (16.0-70.0) 92.1 % (16.0-70.0) Lymphocytes (%) (Auto) 4.0 % (9.0-44.0) 4.3 % (9.0-44.0) Monocytes (%) (Auto) 2.4 % (0.0-8.0) 3.3 % (0.0-8.0) Eosinophils (%) (Auto) 0.0 % (0.0-4.0) 0.0 % (0.0-4.0) Basophils (%) (Auto) 0.2 % (0.0-2.0) 0.3 % (0.0-2.0) Neutrophils # (Auto) 12.7 TH/MM3 (1.8-7.7) 17.8 TH/MM3 (1.8-7.7) Lymphocytes # (Auto) 0.5 TH/MM3 (1.0-4.8) 0.8 TH/MM3 (1.0-4.8) Monocytes # (Auto) 0.3 TH/MM3 (0-0.9) 0.6 TH/MM3 (0-0.9) Eosinophils # (Auto) 0.0 TH/MM3 (0-0.4) 0.0 TH/MM3 (0-0.4) Basophils # (Auto) 0.0 TH/MM3 (0-0.2) 0.1 TH/MM3 (0-0.2) CBC Comment DIFF FINAL DIFF FINAL Differential Comment Blood Urea Nitrogen 12 MG/DL (7-18) 17 MG/DL (7-18) Creatinine 0.83 MG/DL (0.60-1.30) 0.97 MG/DL (0.60-1.30) Random Glucose 128 MG/DL (74-106) 129 MG/DL (74-106) Total Protein 6.9 GM/DL (6.4-8.2) 7.4 GM/DL (6.4-8.2) Albumin 2.6 GM/DL (3.4-5.0) 2.4 GM/DL (3.4-5.0) Calcium Level 7.8 MG/DL (8.5-10.1) 7.9 MG/DL (8.5-10.1) Alkaline Phosphatase 74 U/L (45-117) 76 U/L (45-117) Aspartate Amino Transf (AST/SGOT) 102 U/L (15-37) 155 U/L (15-37) Alanine Aminotransferase (ALT/SGPT) 37 U/L (12-78) 43 U/L (12-78) Total Bilirubin 13.9 MG/DL (0.2-1.0) 14.8 MG/DL (0.2-1.0) Sodium Level 135 MEQ/L (136-145) 133 MEQ/L (136-145) Potassium Level 3.5 MEQ/L (3.5-5.1) 5.1 MEQ/L (3.5-5.1) Chloride Level 98 MEQ/L (98-107) 97 MEQ/L (98-107) Carbon Dioxide Level 30.0 MEQ/L (21.0-32.0) 31.5 MEQ/L (21.0-32.0) Anion Gap 7 MEQ/L (5-15) 5 MEQ/L (5-15) Estimat Glomerular Filtration Rate 94 ML/MIN (>89) 79 ML/MIN (>89) Ammonia 39 MCMOL/L (11-32) 100 MCMOL/L (11-32) Vancomycin Level Trough 9.6 MCG/ML (5.0-10.0) Prothrombin Time 18.3 SEC (9.8-11.6) Prothromb Time International Ratio 1.8 RATIO Phosphorus Level 2.9 MG/DL (2.5-4.9) Magnesium Level 1.9 MG/DL (1.5-2.5) . Result Diagram: 10/03/170 10/03/17 0430 Microbiology Microbiology Date/Time Source Procedure Growth Status 10/01/17 17:50 Blood Peripheral Aerobic Blood Culture - Preliminary NO GROWTH IN 2 DAYS Resulted 10/01/17 17:50 Blood Peripheral Anaerobic Blood Culture - Preliminary NO GROWTH IN 2 DAYS Resulted 10/01/17 17:45 Blood Peripheral Aerobic Blood Culture - Preliminary NO GROWTH IN 2 DAYS Resulted 10/01/17 17:45 Blood Peripheral Anaerobic Blood Culture - Preliminary NO GROWTH IN 2 DAYS Resulted 10/01/17 15:30 Fluid Peritoneal Fluid Gram Stain - Final Resulted 10/01/17 15:30 Fluid Peritoneal Fluid Body Fluid Culture - Preliminary NO GROWTH IN 48 HOURS. Resulted . Imaging Last 72 hours Impressions Cyst Biopsy Asp-Paracentesis US 10/01/17 0000 Signed Impressions: Service Date/Time: Sunday, October 01, 2017 12:35 - CONCLUSION: Uncomplicated ultrasound guided paracentesis. Deng Feliciano MD Chest X-Ray 10/01/17 0000 Signed Impressions: Service Date/Time: Sunday, October 01, 2017 09:33 - CONCLUSION: Left lower lobe consolidation. Shahid Millard MD . Assessment and Plan Disease Oriented Problem List: (1) GI bleeding (2) Anemia (3) Esophageal varices (4) Upper GI bleed (5) Alcohol withdrawal (6) Ascites (7) Hypertension Symptom Scale: (1) Pain 0-10 Scale: Unable to quantify (2) Dyspnea 0-10 Scale: Unable to quantify (3) Confusion 0-10 Scale: Unable to quantify Pertinent Non-Medical Issues Psychosocial: Patient was born and raised in [place]. He currently lives in [place], [place] with his girlfriend. He is unemployed, supported by nursing home benefits. His highest level of education was 10th grade. Spiritual: Unknown at this time; pending further conversation. Legal: Patient's insight and judgment somewhat limited 2/2 hepatic encephalopathy, but this is improving. Per [place] statutes, in the absence of written advanced directives healthcare proxy decision making would fall to the patient's 3 adult children. in conversation with the patient he is appropriately asking his girlfriend about his vehicle registration which is over due and if the bills have been paid. He is oriented to self and place. He does not no why he is in the hospital. When asked who he would want to act in the role of health care decision-maker if he was unable to due so, he points to his girlfriend and says "Nelida." Given my uncertainty if the patient fully understands my questions; I will revisit [facility] decision making tomorrow 10/03/17 to see if he is able to replicate our conversation from today. Ethical issues impacting care: No known ethical impacting care at this time. Important Contacts Nelida Lozano, girl friend: [phone] Jocelynn Ghotra, daughter: [phone] Moose Ghotra, son: [phone] Tyler Ghotra, son: [phone] Gene, friend: [phone] . Prognosis 62 yo male admitted with recurrent GI bleed secondary to varices, requiring frequent EGD with banding. Encephalopathic with EtOH hepatitis, EtOH withdrawal , ascites, coagulopathy, influenza and HCAP. Patient is non-compliant and intends to return home to continue drinking. Meld score:24. Poor prognosis. . Code Status: Full Code Plan * NO CODE * Discussed patient with bedside nurse, hospice admission nurse and Dr. Hurley * Plan to transition to hospice services today with placement at a hospice care center for symptom management and end-of-life care. . * Symptom management: = Dyspnea: Dyspneic on 6 L via nasal cannula with saturations in the mid 90s. Respirations 20-24. CXR on 10/01/17 showing left lower lobe consolidation. On scheduled Lasix, Antibiotics and Duo-nebs and Solu-Medrol. = Pain:Having ongoing aching abdominal pain that is rated 8-9 out of 10. PRN morphine available q2 hours for pain scale of 6-10. Patient has received 4 doses in the past 24 hours. = Confusion: Improving. Ammonia increased from 39-100 today. Lactulose increased to QID on 10/01/2017 but patient is refusing-now having some difficulty swallowing. * Spoke with patient's brother, Christos, on two different occasions via telephone. Provide update on patient's clinical condition, medical treatment goals and coordination of transition to comfort focused care. I also with Nelida several times in an attempt to coordinate meeting with hospice admission nurse. * Palliative care will continue to follow this patient throughout his hospitalization to establish trust, assist with symptom management and clarification of medical treatment goals. . Attestation To help prompt me to consider important information that might be impacting today's encounter and assessment, information from prior notes written by myself or my colleagues may have been "brought forward" into today's note. My signature on this note, however, is an attestation that I personally performed the exam, history, and/or decision-making noted today, and, unless otherwise indicated, the interactions with patient, family, and staff as well as the review of records all occurred today. I also attest that the listed assessment and stated plan reflect my best clinical judgment today based on the combination of historical information, prior notes, and today's exam/ interactions. When time spent is documented, it refers only to time spent today by the signer, or if indicated, combined time spent today by collaborating physician/nurse practitioner. . Marily Pinto Oct 03, 2017 12:47
--- NOTE | 2017-10-03 12:49 | HHI.PR ---
Subjective Remarks Patient seen at 11:30 As per RN patient is more sleepy. States patient did not want to take any of the lactulose yesterday. Bilirrubin trending up. As per RN report hemoptysis earlier today. Objective Vitals Vital Signs Date Time Temp Pulse Resp B/P (MAP) Pulse Ox O2 Delivery O2 Flow Rate FiO2 10/03/17 12:00 98.6 114 25 137/74 (95) 97 10/03/17 08:00 98.3 116 20 142/88 (106) 93 10/03/17 04:41 20 10/03/17 04:00 97.7 110 22 149/80 (103) 90 10/03/17 00:00 97.7 110 22 149/80 (103) 90 10/02/17 21:12 95 Nasal Cannula 6.00 10/02/17 20:00 98.0 99 27 159/77 (104) 89 10/02/17 20:00 115 10/02/17 19:50 Nasal Cannula 6.00 10/02/17 16:00 98.1 107 29 140/91 (107) 95 I/O 10/02/17 10/02/17 10/02/17 10/03/17 10/03/17 10/03/17 07:00 15:00 23:00 07:00 15:00 23:00 Intake Total 240 ml Output Total 150 ml 320 ml Balance -150 ml -80 ml Intake Oral 240 ml Output Urine Total 150 ml 320 ml # Voids 4 # Bowel Movements 1 1 Result Diagram: 10/03/17 0430 10/03/17 0430 Imaging Last Impressions Cyst Biopsy Asp-Paracentesis US 10/01/17 0000 Signed Impressions: Service Date/Time: Sunday, October 01, 2017 12:35 - CONCLUSION: Uncomplicated ultrasound guided paracentesis. Deng Feliciano MD Chest X-Ray 10/01/17 0000 Signed Impressions: Service Date/Time: Sunday, October 01, 2017 09:33 - CONCLUSION: Left lower lobe consolidation. Shahid Millard MD Head CT 09/30/17 0000 Signed Impressions: Service Date/Time: Sunday, October 01, 2017 16:03 - CONCLUSION: 1. Negative noncontrast CT brain. Shahid Millard MD Abdomen/Pelvis CT 09/30/17 0000 Signed Impressions: Service Date/Time: Sunday, October 01, 2017 16:25 - CONCLUSION: 1. Moderate amount of abdominal pelvic ascites. 2. Small bilateral pleural effusions and patchy areas of consolidation medial lower lungs. Shahid Millard MD Abdomen X-Ray 09/30/17 0000 Signed Impressions: Service Date/Time: Saturday, September 30, 2017 12:06 - CONCLUSION: 1. No acute findings. Tyler Adams MD Objective Remarks GENERAL: male awake but confused. SKIN: Jaundice. HEENT: Pupils equal and round. Scleral icterus. MMM. NECK: Supple no tender LAD or JVD. HEART: RRR no m/r/g. LUNGS: CTAB without wheezes or crackles. ABDOMEN: Distended but soft, bowel sounds present EXTREMITIES: No LE edema or calf tenderness. NEURO: Groggy but alert and answering questions appropriately. Procedures EGD 09/20 showing esophageal varices and recent bleeding EGD 09/22 showing esophageal varices, mild gastropathy, and hiatal hernia U/S guided paracentesis on 09/26 Medications and IVs Current Medications Medications (Trade) Dose Ordered Sig/[place]urel Route Start Time Stop Time Status Last Admin (Ativan Inj) 1 mg Q2H PRN IV PUSH 09/19/17 01:00 10/02/17 16:22 (Trandate Inj) 10 mg Q4H PRN IV PUSH 09/19/17 03:00 (Romazicon Inj) 0.2 mg Q1M PRN IV PUSH 09/19/17 03:15 (Ativan) 1 mg Q4H PRN PO 09/19/17 03:15 09/28/17 16:11 (Ativan Inj) 1 mg Q4H PRN IV PUSH 09/19/17 03:15 09/28/17 22:07 (Ativan) 2 mg Q2H PRN PO 09/19/17 03:15 (Ativan Inj) 2 mg Q2H PRN IV PUSH 09/19/17 03:15 09/21/17 15:06 (Ativan Inj) 2 mg Q1H PRN IV PUSH 09/19/17 03:15 (Ativan Inj) 2 mg Q15M PRN IV PUSH 09/19/17 03:15 Ceftriaxone Sodium 2000 mg/ Sodium Chloride 100 ml @ 200 mls/hr DAILY@0300 IV 09/19/17 03:15 10/03/17 02:03 (NS Flush) 2 ml UNSCH PRN IV FLUSH 09/19/17 03:15 10/01/17 02:40 (NS Flush) 2 ml BID IV FLUSH 09/19/17 09:00 10/03/17 09:40 (Tylenol) 650 mg Q6H PRN PO 09/19/17 03:15 (Morphine Inj) 2 mg Q2H PRN IV PUSH 09/19/17 03:15 10/03/17 04:36 (Protonix Inj) 40 mg Q12H IV PUSH 09/19/17 13:00 10/03/17 01:33 (Zofran Inj) 4 mg Q6H PRN IV PUSH 09/19/17 03:15 09/28/17 22:43 (Duoneb Neb) 1 ampule Q2HR NEB PRN INH 09/19/17 03:15 10/01/17 17:27 Miscellaneous Information 1 Q361D XX 09/19/17 03:15 (Chlorhexidine 2% Cloth) Taper DAILY@04 TOP 09/19/17 04:00 09/15/18 03:59 (Chlorhexidine 2% Cloth) 3 pack UNSCH PRN TOP 09/19/17 03:15 (Ronit-Colace) 1 tab BID PO 09/19/17 09:00 10/02/17 21:08 (Milk Of Magnesia Liq) 30 ml Q12H PRN PO 09/19/17 03:15 (Senokot) 17.2 mg Q12H PRN PO 09/19/17 03:15 (Dulcolax Supp) 10 mg DAILY PRN RECTAL 09/19/17 03:15 (Lactulose Liq) 30 ml DAILY PRN PO 09/19/17 03:15 Potassium Chloride 100 ml @ 50 mls/hr Q2H PRN IV 09/20/17 10:15 Potassium Chloride 100 ml @ 50 mls/hr Q2H PRN IV 09/20/17 10:15 (K-Lyte Cl Eff) 50 meq UNSCH PRN PO 09/20/17 10:15 Potassium Chloride 100 ml @ 25 mls/hr UNSCH PRN IV 09/20/17 10:15 Potassium Chloride 100 ml @ 50 mls/hr Q2H PRN IV 09/20/17 10:15 Magnesium Sulfate 4 gm/Sodium Chloride 100 ml @ 50 mls/hr UNSCH PRN IV 09/20/17 10:15 (Mag-Ox) 800 mg UNSCH PRN PO 09/20/17 10:15 Magnesium Sulfate 2 gm/Sodium Chloride 100 ml @ 50 mls/hr UNSCH PRN IV 09/20/17 10:15 09/26/17 03:40 (K-Phos) 2,000 mg Q4H PRN PO 09/20/17 10:15 Sodium Phosphate 30 mmol/Sodium Chloride 250 ml @ 42 mls/hr UNSCH PRN IV 09/20/17 10:15 (K-Phos) 2,000 mg UNSCH PRN PO/TUBE 09/20/17 10:15 Potassium Phosphate 30 mmol/ Sodium Chloride 260 ml @ 42 mls/hr UNSCH PRN IV 09/20/17 10:15 09/26/17 05:44 (Vitamin B1) 100 mg DAILY PO 09/24/17 09:00 10/02/17 10:07 (Theragran) 1 tab DAILY PO 09/21/17 09:00 10/02/17 10:07 (Benadryl Inj) 12.5 mg Q4H PRN IM 09/21/17 14:00 09/21/17 14:00 (Haldol Inj) 5 mg Q4H PRN IV PUSH 09/21/17 14:00 10/01/17 18:04 Dexmedetomidine HCl 1000 mcg/ Sodium Chloride 250 ml @ 6.57 mls/hr TITRATE PRN IV 09/21/17 18:30 09/23/17 00:11 (TRENtal SR) 400 mg Q12HR PO 09/23/17 21:00 10/02/17 21:08 (Aldactone) 100 mg DAILY PO 09/26/17 09:00 10/02/17 10:07 Albumin Human 100 ml @ 60 mls/hr Q12H IV 09/25/17 17:45 10/03/17 04:37 (Robitussin Dm 200-20 Mg/10 ml Liq) 10 ml Q6H PRN PO 09/26/17 13:30 (Xifaxan) 550 mg BID PO 09/27/17 21:00 10/02/17 21:08 (Librium) 15 mg DAILY PO 09/29/17 09:00 10/02/17 10:07 (Tessalon) 200 mg TID PRN PO 09/29/17 20:00 10/01/17 10:22 (Lactulose Liq) 30 ml QID PO 09/30/17 13:00 10/02/17 21:07 (Vitamin K Inj) 10 mg DAILY SQ 10/01/17 09:00 10/03/17 09:41 (Lasix Inj) 40 mg BID@,18 IV PUSH 10/01/17 18:00 10/03/17 09:40 Piperacillin Sod/ Tazobactam Sod 100 ml @ 200 mls/hr Q8H IV 10/01/17 13:00 10/03/17 04:37 Pharmacy Profile Note 0 ml @ 0 mls/hr UNSCH OTHER 10/01/17 12:00 (Duoneb Neb) 1 ampule TID NEB NEB 10/01/17 14:00 10/02/17 21:12 Vancomycin HCl 2200 mg/Sodium Chloride 522 ml @ 250 mls/hr Q12H IV 10/01/17 16:00 10/03/17 03:11 (SoluMEDROL INJ) 40 mg Q6H IV PUSH 10/02/17 22:00 10/03/17 09:40 A/P Problem List: (1) Upper GI bleed ICD Code: K92.2 - Gastrointestinal hemorrhage, unspecified (2) Esophageal varices ICD Code: I85.00 - Esophageal varices without bleeding (3) Alcoholic hepatitis ICD Code: K70.10 - Alcoholic hepatitis without ascites (4) Alcohol withdrawal ICD Code: F10.239 - Alcohol dependence with withdrawal, unspecified (5) Alcohol abuse ICD Code: F10.10 - Alcohol abuse, uncomplicated (6) Anemia ICD Code: D64.9 - Anemia, unspecified Status: Acute Assessment and Plan 62 YOWM with history of alcohol abuse admitted on 09/19 initially to the critical care service for UGIB and subsequently went into EtOH withdrawal requiring Precedex drip. UGIB 2/2 varices s/p EGD with banding Bleeding resolved H&H stable. Continue to monitor and transfuse PRN Octreotide drip discontinued Protonix IV BID GI following; recommend repeat EGD in 1 month EtOH hepatitis Bilirubin increasing INR increasing MELD score 24 Supportive care Lasix and spironolactone for ascites Counseled on EtOH cessation 09/30 LFTs initially trending down, AST initially 112, trended down to 86 and now is getting up to 97. Bilirubin is trending up as well as ammonia. We will check CT abdomen and pelvis since patient has abdominal discomfort and KUB is normal. 10/01 AST slightly lower today from 97-88. Bilirubin noted to be trending higher from 11-12. Order fractionated bilirubin. Alkaline phosphatase is normal. Bilirrubin trending up. EtOH withdrawal Resolved Tapering Librium Start tapering Valium CIWA there is no evidence of alcohol withdrawal. Anemia Hemoglobin trending down to 7.4. I will repeat CBC and if hemoglobin is confirmed to be low then will transfuse 2 units of packed red blood cells. Encephalopathy 09/30 Likely toxic encephalopathy from hyperammonemia. Agree with increasing lactulose frequency to 4 times daily. Continue to monitor ammonia levels. 10/01 CT of the brain ordered on 09/30 and still not available. 10/02 Resolving 10/03 Worsening encephalopathy with increasing ammonia level. Amonia level 100. Patient refused lactulose yesterday. Abdominal pain The patient still present abdominal discomfort. KUB ordered and without any acute disease. I will order CT abdomen and pelvis with and without IV contrast. 10/02 CT abdomen and pelvis shows moderate amount of ascites, BL pleural effusions and patchy areas of consolidation in medial lower lungs. Hyperammonemia. Likely secondary to liver cirrhosis. Continue lactulose as stated above. Monitor ammonia levels. 10/01 ammonia levels down to 39 from 53. Continue lactulose 4 times a day. 10/02 Continue lactulose and monitor ammonia. Coagulopathy. INR is trending up from 1.6-1.8. Started on vitamin K, 1 dose of IV vitamin K administered 09/30. 10/01 continuous subcutaneous vitamin K. INR stable at 1.8. Continue to monitor PT/INR. Ascites. Continue spironolactone and Lasix for ascites. The patient status post ultrasound-guided paracentesis, with a noninfectious fluid. 10/01 abdomen seems to be very distended with ascites which is possibly causing some breathing difficulties. I will order a diagnostic and therapeutic ultrasound-guided paracentesis since the patient is confused and tachycardic. 10/02 sp us guided paracentesis. Low-grade fever. Patient had a low-grade fever with a T-max of 99.8. no further elevation of temperature since 09/29. Hypertension Labetalol when necessary to keep SBP less than 160 Discontinue clonidine in view of hypotension. 10/01 BP stable, continue to monitor vital signs. Alcoholism - CIWA protocol - mvi - thiamine - valium 5mg po q8h - Added Librium 15 mg by mouth twice a day on 09/23 09/30 discontinued Valium which could be contributing to the patient's encephalopathy at this point. Anemia secondary to acute blood loss - stable. - daily cbc - keep hgb > 7. 10/01 hemoglobin down to 7.4. 10/02 Hb stable at 7.8 GERD - iv bid ppi Influenza Acute respiratory failure HCAP -Consult pulmonary for respiratory failure as patient being transferred to the floor. 10/01 the patient states still requiring elevated levels of oxygen. The patient is on 5 L via nasal cannula. Chest x-ray ordered and it showed a left lower lobe consolidation. Suspect hospital-acquired pneumonia. I will start the patient on IV Zosyn and IV vancomycin. Obtain blood cultures. 10/02 Patient on 6 liters nasal canula. Will Rx IV SOlumedrol 125 mg IV once and then 40 mg IV Q6 hrs. 10/03 Continue Solumedrol, IV antibiotics , o2. Appreciate palliative care efforts - Patient is DNR and hospice consulted. DVT prophylaxis: SCDs, avoid chemoprophylaxis given coagulopathy and anemia and recent GI bleeding. Discharge Planning Pending hospice consult - Will DC when accepted. Raffi Johnson MD Oct 03, 2017 12:49
[2017-10-03 12:58] LABS: AMYLASE BODY FLUID 15 U/L; AMYLASE BODY FLUID TYPE PERITONEAL
--- NOTE | 2017-10-03 14:40 | HHI.DS ---
Discharge Summary Admission Date Sep 19, 2017 at 02:23 Discharge Date: Oct 03, 2017 Admitting Diagnosis variceal bleed GI hemorrhage (1) Upper GI bleed ICD Code: K92.2 - Gastrointestinal hemorrhage, unspecified (2) Esophageal varices ICD Code: I85.00 - Esophageal varices without bleeding (3) Alcoholic hepatitis ICD Code: K70.10 - Alcoholic hepatitis without ascites (4) Alcohol withdrawal ICD Code: F10.239 - Alcohol dependence with withdrawal, unspecified (5) Alcohol abuse ICD Code: F10.10 - Alcohol abuse, uncomplicated (6) Anemia ICD Code: D64.9 - Anemia, unspecified Status: Acute Procedures EGD 09/20 showing esophageal varices and recent bleeding EGD 09/22 showing esophageal varices, mild gastropathy, and hiatal hernia U/S guided paracentesis on 09/26 Brief History - From Admission 62-year-old male chronic alcohol user who was recently taken to the OR endoscopy for banding of his esophageal variceal bleed. Per patient he was told they have put drinks on his varices and now he is coming back again after a few days of vomiting coffee-ground emesis, flulike symptoms, he had flu swab done at his doctor's office which was positive and he's been having vomiting diarrhea and now bright red blood vomit as well as melanotic stool. He also reports the diarrhea for the last few days and he feels nauseous. In the emergency department he had had episode of coffee-ground emesis. He was treated with octreotide bolus followed by the drip as well as Protonix bolus and following drip. CBC/BMP: 10/03/17 0430 10/03/17 0430 Significant Findings Laboratory Tests Test 10/01/17 05:08 10/01/17 15:30 10/01/17 17:50 10/02/17 04:59 White Blood Count 11.1 TH/MM3 (4.0-11.0) 12.5 TH/MM3 (4.0-11.0) Red Blood Count 2.79 MIL/MM3 (4.50-5.90) 3.05 MIL/MM3 (4.50-5.90) Hemoglobin 7.4 GM/DL (13.0-17.0) 8.0 GM/DL (13.0-17.0) Hematocrit 22.8 % (39.0-51.0) 24.9 % (39.0-51.0) Mean Corpuscular Hemoglobin 26.5 PG (27.0-34.0) 26.3 PG (27.0-34.0) Red Cell Distribution Width 25.1 % (11.6-17.2) 24.4 % (11.6-17.2) Neutrophils (%) (Auto) 81.5 % (16.0-70.0) 84.6 % (16.0-70.0) Lymphocytes (%) (Auto) 8.8 % (9.0-44.0) 7.5 % (9.0-44.0) Monocytes (%) (Auto) 8.1 % (0.0-8.0) Neutrophils # (Auto) 9.0 TH/MM3 (1.8-7.7) 10.6 TH/MM3 (1.8-7.7) Toxic Granulation 1+ (NORMAL) Polychromasia 2.6 % (0.0-1.9) Basophilic Stippling FAINT (NORMAL) Stomatocytes 2+ (NORMAL) Albumin 2.6 GM/DL (3.4-5.0) Calcium Level 8.0 MG/DL (8.5-10.1) Phosphorus Level 1.7 MG/DL (2.5-4.9) Aspartate Amino Transf (AST/SGOT) 88 U/L (15-37) Total Bilirubin 12.0 MG/DL (0.2-1.0) 13.6 MG/DL (0.2-1.0) Sodium Level 135 MEQ/L (136-145) Ammonia 39 MCMOL/L (11-32) Peritoneal Fluid WBC 134 /MM3 (0-10) Peritoneal Fluid RBC 105 /MM3 (0-0) Lymphocytes # (Auto) 0.9 TH/MM3 (1.0-4.8) Direct Bilirubin 9.2 MG/DL (0.0-0.2) Indirect Bilirubin 4.4 MG/DL (0.0-0.8) Test 2/22/18 20:49 10/03/17 01:30 10/03/17 04:30 White Blood Count 13.6 TH/MM3 (4.0-11.0) 19.3 TH/MM3 (4.0-11.0) Red Blood Count 3.08 MIL/MM3 (4.50-5.90) 2.92 MIL/MM3 (4.50-5.90) Hemoglobin 7.8 GM/DL (13.0-17.0) 7.8 GM/DL (13.0-17.0) Hematocrit 24.8 % (39.0-51.0) 23.9 % (39.0-51.0) Mean Corpuscular Hemoglobin 25.3 PG (27.0-34.0) 26.7 PG (27.0-34.0) Mean Corpuscular Hemoglobin Concent 31.5 % (32.0-36.0) Red Cell Distribution Width 24.9 % (11.6-17.2) 24.6 % (11.6-17.2) Neutrophils (%) (Auto) 93.4 % (16.0-70.0) 92.1 % (16.0-70.0) Lymphocytes (%) (Auto) 4.0 % (9.0-44.0) 4.3 % (9.0-44.0) Neutrophils # (Auto) 12.7 TH/MM3 (1.8-7.7) 17.8 TH/MM3 (1.8-7.7) Lymphocytes # (Auto) 0.5 TH/MM3 (1.0-4.8) 0.8 TH/MM3 (1.0-4.8) Random Glucose 128 MG/DL (74-106) 129 MG/DL (74-106) Albumin 2.6 GM/DL (3.4-5.0) 2.4 GM/DL (3.4-5.0) Calcium Level 7.8 MG/DL (8.5-10.1) 7.9 MG/DL (8.5-10.1) Aspartate Amino Transf (AST/SGOT) 102 U/L (15-37) 155 U/L (15-37) Total Bilirubin 13.9 MG/DL (0.2-1.0) 14.8 MG/DL (0.2-1.0) Sodium Level 135 MEQ/L (136-145) 133 MEQ/L (136-145) Ammonia 39 MCMOL/L (11-32) 100 MCMOL/L (11-32) Prothrombin Time 18.3 SEC (9.8-11.6) Chloride Level 97 MEQ/L (98-107) Estimat Glomerular Filtration Rate 79 ML/MIN (>89) Imaging Last Impressions Cyst Biopsy Asp-Paracentesis US 10/01/17 0000 Signed Impressions: Service Date/Time: Sunday, October 01, 2017 12:35 - CONCLUSION: Uncomplicated ultrasound guided paracentesis. Deng Feliciano MD Chest X-Ray 10/01/17 0000 Signed Impressions: Service Date/Time: Sunday, October 01, 2017 09:33 - CONCLUSION: Left lower lobe consolidation. Shahid Millard MD Head CT 09/30/17 0000 Signed Impressions: Service Date/Time: Sunday, October 01, 2017 16:03 - CONCLUSION: 1. Negative noncontrast CT brain. Shahid Millard MD Abdomen/Pelvis CT 09/30/17 0000 Signed Impressions: Service Date/Time: Sunday, October 01, 2017 16:25 - CONCLUSION: 1. Moderate amount of abdominal pelvic ascites. 2. Small bilateral pleural effusions and patchy areas of consolidation medial lower lungs. Shahid Millard MD Abdomen X-Ray 09/30/17 0000 Signed Impressions: Service Date/Time: Saturday, September 30, 2017 12:06 - CONCLUSION: 1. No acute findings. Tyler Adams MD PE at Discharge GENERAL: male awake but confused. SKIN: Jaundice. HEENT: Pupils equal and round. Scleral icterus. MMM. NECK: Supple no tender LAD or JVD. HEART: RRR no m/r/g. LUNGS: CTAB without wheezes or crackles. ABDOMEN: Distended but soft, bowel sounds present EXTREMITIES: No LE edema or calf tenderness. NEURO: Groggy but alert and answering questions appropriately. Pt Condition on Discharge: Deteriorating Discharge Disposition: Hospice/Med Facility Discharge Time: <= 30 minutes Discharge Instructions DIET: Follow Instructions for: As Tolerated, No Restrictions Activities you can perform: Continue Bedrest Raffi Johnson MD Oct 03, 2017 14:40
[2017-10-03 16:00] VITALS: BP 137/73; PULSE 107; RESP 29; TEMP 97.7; O2SAT 92
[2017-10-03] MEDS ORDERED: VANCOMYCIN INJ 2,500 MG in SODIUM CHLORID 0.9% 500 ML INJ 500 ML IV SCH (16:00)
[2017-10-03 16:42] VITALS: O2SAT 97
[2017-10-03] MEDS: LORazepam 2 MG/ML VIAL IV PUSH PRN (16:42)
[2017-10-03] MEDS ORDERED: MORPHINE SULFATE 2 MG/ML INJ IV PUSH PRN (17:30)
[2017-10-03] MEDS ORDERED: MORPHINE SULFATE 4 MG/ML INJ IV PUSH PRN (17:30)
[2017-10-03] MEDS ORDERED: LORazepam 2 MG/ML VIAL IV PUSH PRN ×2 (17:30)
[2017-10-03] MEDS ORDERED: LORazepam 2 MG/ML VIAL IV PUSH SCH (18:00)
[2017-10-04] MEDS ORDERED: DIAZEPAM 2 MG TAB PO SCH (21:00)
[2017-10-05] MEDS ORDERED: PHARMACY ORDERED LAB ONE (03:45)
== END 2017-10-03 18:49 | disposition hospice, inpatient (51) | DRG 432 ==
LOC: NEPC 22:50 → NEDA 09-19 02:23 → N03A 09-19 04:43 → N03B 09-24 16:31
PROVIDERS: ADMIT Hospitalist; ATTEND Hospitalist
PROC: 30233N1 Transfusion of Nonautologous Red Blood Cells into Peripheral Vein, Percutaneous Approach (ICD-10-PCS; 2017-09-19)
PROC: 06L34CZ Occlusion of Esophageal Vein with Extraluminal Device, Percutaneous Endoscopic Approach (ICD-10-PCS; principal; 2017-09-20 20:02)
PROC: 06L34CZ Occlusion of Esophageal Vein with Extraluminal Device, Percutaneous Endoscopic Approach (ICD-10-PCS; 2017-09-22)
PROC: 0W9G3ZX Drainage of Peritoneal Cavity, Percutaneous Approach, Diagnostic (ICD-10-PCS; 2017-09-26)
PROC: 0W9G3ZX Drainage of Peritoneal Cavity, Percutaneous Approach, Diagnostic (ICD-10-PCS; 2017-10-01)
DX: K70.31 Alcoholic cirrhosis of liver with ascites (principal); I85.11 Secondary esophageal varices with bleeding; J96.00 Acute respiratory failure, unspecified whether with hypoxia or hypercapnia; F10.231 Alcohol dependence with withdrawal delirium; D68.9 Coagulation defect, unspecified; D68.4 Acquired coagulation factor deficiency; R13.10 Dysphagia, unspecified; D62 Acute posthemorrhagic anemia; Z78.1 Physical restraint status; K70.11 Alcoholic hepatitis with ascites; I10 Essential (primary) hypertension; Y90.6 Blood alcohol level of 120-199 mg/100 ml; R19.7 Diarrhea, unspecified; K21.9 Gastro-esophageal reflux disease without esophagitis; Z85.72 Personal history of non-Hodgkin lymphomas; Z86.73 Personal history of transient ischemic attack (TIA), and cerebral infarction without residual deficits; K44.9 Diaphragmatic hernia without obstruction or gangrene; K31.9 Disease of stomach and duodenum, unspecified; Z87.11 Personal history of peptic ulcer disease; K72.90 Hepatic failure, unspecified without coma; Z66 Do not resuscitate; Z51.5 Encounter for palliative care
CPT/HCPCS: 36430; 49083; 70450; 71045; 74018; 74177; 76937; 80048; 80053; 80202; 80307; 82042; 82140; 82150; 82247; 82248; 82565; 82945; 83036; 83615; 83690; 83735; 84100; 84155; 84157; 84439; 84443; 84484; 85014; 85018; 85025; 85027; 85610; 85730; 86850; 86900; 86901; 86920; 87040; 87070; 87205; 87641; 88112; 89051; 93005; 94150; 94640; 94664; 96365; 96375; C1729; C9113; J0696; J1200; J1630; J1940; J2060; J2270; J2354; J2405; J2543; J2765; J2920; J2930; J3370; J3411; J3430; J3475; J3486; J7030; J7040; J7050; J7120; P9016; P9047; Q9963; Q9967